=== PATIENT | female | born 1940 | race Caucasian/White ===

== ENCOUNTER → 2018-06-24 10:45 | Outpatient (BNVA) | payer OTHER, SELFPAY | PROVIDERS: PCP Student in an Organized Health Care Education/Training Program; Visit Provider Student in an Organized Health Care Education/Training Program | DX: I20.9 Angina pectoris, unspecified (principal); I25.2 Old myocardial infarction; I10 Essential (primary) hypertension; J44.9 Chronic obstructive pulmonary disease, unspecified; F17.210 Nicotine dependence, cigarettes, uncomplicated | CPT/HCPCS: 99204; 99215 ==

== ENCOUNTER 2018-09-18 11:19 | Outpatient (CLI) | payer OTHER, SELFPAY ==
--- NOTE | 2018-09-18 10:43 | DI.RAD_ITS ---
SYMPTOM/DIAGNOSIS: COUGH, DECREASED BREATH SOUNDS. PA AND LATERAL CHEST: 09/18/18 The lungs are hyperinflated but clear. Cardiac size is at the upper limits of normal. No pleural effusions seen. No evidence of pneumothorax. CONCLUSION: No evidence of acute change.
== END 2018-09-18 11:39 ==
PROVIDERS: PCP Student in an Organized Health Care Education/Training Program; Visit Provider Student in an Organized Health Care Education/Training Program
DX: R05 Cough (principal); R09.89 Other specified symptoms and signs involving the circulatory and respiratory systems
CPT/HCPCS: 71046

== ENCOUNTER 2018-12-25 15:52 | Outpatient (REF) | payer OTHER, SELFPAY ==
[2018-12-25 18:39] LABS: HCT 41.7 % (36.0-46.0); HGB 13.4 g/dL (12.0-15.5); Mean Corp. HGB Concentration 32.1 g/dL (32.0-36.0); Mean Corpuscular Hemoglobin 30.1 pg (27.0-33.0); Mean Corpuscular Volume 93.7 fL (80-95); Mean Platelet Volume 12.8 fL (8.0-11.0); Platelet Count 159 x1000/uL (130-400); RBC 4.45 m/cumm (4.00-5.20); RBC Distribution Width 14.5 % (11.7-14.6); White Blood Cell Count 5.25 k/cumm (4.4-10.8)
[2018-12-25 18:57] LABS: ALT 19 U/L (12-78); AST 19 U/L (15-37); Alkaline Phosphatase 79 U/L (46-116); Anion Gap 7.3 mmol/L (3-11); BUN 14 mg/dL (7-18); Bilirubin, Total 0.4 mg/dL (0.2-1.0); CO2 30.7 mmol/L (21.0-32.0); CREATININE 0.95 mg/dL (0.55-1.02); Calcium 9.4 mg/dL (8.5-10.1); Chloride 103 mmol/L (98-107); Cholesterol 207 mg/dL (50-200); Estimated GFR 57.19 (mL/min/1.73m2); Glucose 86 mg/dL (70-100); HDL Cholesterol 86 mg/dL (40-60); LDL CHOLESTEROL 104 mg/dL (<100); Potassium 4.1 mmol/L (3.5-5.1); Sodium 141 mmol/L (136-145); Triglyceride 79 mg/dL (30-150)
== END 2018-12-25 16:12 ==
LOC: LBN 15:52
PROVIDERS: PCP Student in an Organized Health Care Education/Training Program; Visit Provider Student in an Organized Health Care Education/Training Program
DX: I25.10 Atherosclerotic heart disease of native coronary artery without angina pectoris; K29.50 Unspecified chronic gastritis without bleeding; N28.9 Disorder of kidney and ureter, unspecified; I10 Essential (primary) hypertension
CPT/HCPCS: 80053; 80061; 83721; 85027

== ENCOUNTER 2019-01-28 02:09 | Outpatient (CLI) | payer OTHER, SELFPAY ==
[2019-01-28 10:17] LABS: Vitamin B12 633 pg/mL (193-986)
== END 2019-01-28 02:29 ==
PROVIDERS: PCP Student in an Organized Health Care Education/Training Program; Visit Provider Student in an Organized Health Care Education/Training Program
DX: R53.83 Other fatigue (principal); D51.9 Vitamin B12 deficiency anemia, unspecified
CPT/HCPCS: 36415; 82607; 82746; 84443

== ENCOUNTER 2019-02-11 01:09 | Outpatient (CLI) | payer OTHER, SELFPAY ==
--- NOTE | 2019-02-11 09:05 | DI.CT_ITS ---
SYMPTOM/DIAGNOSIS: ASSESS ABD BLOATING, R/O ISCHEMIC BOWEL R10.9 AB PAIN K29.50 CHRONIC GASTRITIS R10.[address] ANGIOGRAPHY ABDOMEN AND PELVIS: 02/11 CT angiography was performed with multi slice acquisition and multi planar and 3D reconstruction. CT angiography of the abdomen and pelvis was performed with a bolus infusion of 60 cc Omnipaque 350. There was flow limitation due to limited venous access and there is suboptimal opacification of the arterial circulation. No abdominal aortic aneurysm seen. Celiac superior mesenteric renal and inferior mesenteric arteries show grossly normal diameter bilaterally. Common internal and external iliac arteries appear intact as visualized. Liver, spleen and pancreas are unremarkable. Adrenals and kidneys appear normal. No evidence of urinary tract obstruction or calcification. No abdominal or pelvic adenopathy seen. No significant abdominal wall hernia seen. Gallbladder is mildly distended and there are probable gallstones. No biliary dilatation seen. Appendix is of normal diameter but there are a couple appendicoliths noted. No evidence of diverticulitis or bowel obstruction. CONCLUSION: No gross vascular abnormality identified on limited study which was of decreased technical quality due to limited venous access/flow rate. Note is made of cholelithiasis. Note is made of appendicoliths and an otherwise unremarkable appearing appendix.
[2019-02-11 10:39] LABS: Anion Gap 7.8 mmol/L (3-11); BUN 14 mg/dL (7-18); CO2 28.2 mmol/L (21.0-32.0); CREATININE 0.75 mg/dL (0.55-1.02); Calcium 9.2 mg/dL (8.5-10.1); Chloride 108 mmol/L (98-107); Glucose 79 mg/dL (70-100); Potassium 3.9 mmol/L (3.5-5.1); Sodium 144 mmol/L (136-145)
[2019-02-11] MEDS: Omnipaque 350 MG/ML 100 ML BTL IJ (11:16)
== END 2019-02-11 01:29 ==
PROVIDERS: PCP Student in an Organized Health Care Education/Training Program; Visit Provider Student in an Organized Health Care Education/Training Program
DX: R10.9 Unspecified abdominal pain; I25.10 Atherosclerotic heart disease of native coronary artery without angina pectoris; K29.50 Unspecified chronic gastritis without bleeding; R10.84 Generalized abdominal pain; R14.0 Abdominal distension (gaseous); K80.20 Calculus of gallbladder without cholecystitis without obstruction; K38.8 Other specified diseases of appendix
CPT/HCPCS: 36415; 80048; 74174; J3490

== ENCOUNTER → 2019-04-23 09:43 | Outpatient (BNVA) | payer OTHER, SELFPAY | PROVIDERS: PCP Student in an Organized Health Care Education/Training Program; Referring Provider Student in an Organized Health Care Education/Training Program; Visit Provider Surgery | DX: R10.10 Upper abdominal pain, unspecified (principal); G89.29 Other chronic pain; J44.9 Chronic obstructive pulmonary disease, unspecified | CPT/HCPCS: 99203; 99214 ==

== ENCOUNTER 2019-05-18 08:50 | Day surgery (SDC) | payer OTHER, SELFPAY ==
--- NOTE | 2019-05-13 13:49 | PDOC.ANES ---
Date of service: 05/13/19 Time of Service: 13:49 Anesthesia Note Report Anesthesia Note: Nimesh Vallejo RN was completing her preoperative phone evaluation and came to me with a few concerns prior to Rachel's EGD on 05/18/19. The concerns that were relayed to me were that she has not been taking her amlodipine as prescribed and has only been taking her atenolol once a day instead of twice a day and it sounded that the patient may require some education around this if she is not taking her medications as needed. The other issue was that she had chest pressure in the middle of the night this week and took 3 SL Nitroglycerin's without relief but after resting more and taking an anxiety pill, this sensation went away. I did pass this information along to her PCP, Dr. La who will investigate this further. It sounds likely that this incident may be more anxiety than cardiac in nature, but given her history of stable angina, we would like to make sure at her PCP appointment on 05/14, that further cardiac workup is completed, if indicated.
--- NOTE | 2019-05-18 07:12 | W.PM.ENDDOP ---
Date of service: 05/18/19 Time of Service: 10:49 Endoscopy Report DATE OF PROCEDURE: 05/18/19 PRE-OP DIAGNOSIS: Abdominal pain POST-OP DIAGNOSIS: other (gastritis, esophagitis) PROCEDURE: EGD with biopsies SURGEON: Carie Andrews ANESTHESIA: other (General/ ASA 2/[place]io Blake, PRESLEY) ESTIMATED BLOOD LOSS: 3 PATHOLOGY: other (duodenal bx, antrum/fundus bx, GE junction bx) COMPLICATIONS: None DISPOSITION: same day INDICATIONS: Mrs. Celis is a pleasant 79 year old female with upper abdominal and flank pain that was seen in the office. EGD was recommended as a start for the workup. Risks, benefits and complications have been reviewed. Complications include but are not limited to bleeding, pain, perforation, sore throat, aspiration, and adverse reaction to the medications. Questions were entertained and answered to their satisfaction and they wished to proceed. No guarantees were given or implied. PREP: Miralax/Dulcolax PROCEDURE START TIME: 10:36 FINDINGS: Mild inflammation of the pylorus and antrum, moderate inflammation of the fundus with some bleeding Mild inflammation of the GE junction PROCEDURE DESCRIPTION: After informed consent was obtained the patient was take to the procedure room and placed in a supine position. Monitors were applied and a time out was done. The patients name, date of , procedure type, allergies to medications and metal in their body was reviewed. A bite block was placed and the patient was sedated. Once sedated and comfortable the gastroscope was advanced through the oropharynx which was grossly normal into the esophagus. The proximal and mid-esophagus were normal. In the distal esophagus there was mild inflammation noted. The scope was advanced into the stomach and through the pylorus into the 3rd portion of the duodenum. The duodenum was noted to be normal. Biopsies were done to rule out celiac. The scope was retracted back into the stomach and biopsies were done to rule out H. pylori. There were no ulcers. The scope was retroflexed. The cardia and fundus were noted to have some inflammation as well as some old blood. There was no hiatal hernia noted. The scope was retracted back into the esophagus and biopsies were done of the GE junction to rule out Jean's. The Z line was regular. The GE junction was at 40 cm. The scope was removed and the patient was woken up and taken back to [facility] in stable condition. Follow up: 3-4 weeks with PCP If continued symptoms recommend GI referral
--- NOTE | 2019-05-18 07:14 | W.PM.DSUDISC ---
Discharge Plan Disposition Patient Disposition: HOME Condition: Good Discharge Details Reason For Visit: Upper abdominal pain Attending Provider: Carie Andrews Primary Care Provider: Nancy La Home Meds and New Rx's Prescriptions: New ranitidine HCl 300 mg tablet 300 mg PO BID Qty: 60 RF: 1 sucralfate [Carafate] 100 mg/mL suspension 10 ml PO QID 14 Days Qty: 560 RF: 1 Continued atenolol 50 mg tablet 50 mg PO DAILY Qty: 90 RF: 3 acetaminophen [Tylenol] 325 mg tablet 325 mg PO ONCE PRNRF: 0 aspirin 81 MG tablet,delayed release (DR/EC) 81 mg PO DAILY RF: 0 bacitracin zinc [Antibiotic (bacitracin zinc)] 28.4 GM ointment 28.4 gm Topical BID Qty: 1 RF: 0 lisinopril 10 mg tablet 10 mg PO DAILY Qty: 90 RF: 3 albuterol sulfate [ProAir HFA] 90 mcg/actuation HFA aerosol inhaler 2 puff Inhalation Q6H PRN Qty: 1 RF: 3 nitroglycerin 400 mcg/spray spray,non-aerosol 0.4 mg Translingual ONCE Qty: 1 RF: 6 fluticasone propion-salmeterol [Advair Diskus] 500-50 mcg/dose blister with device 1 inh Inhalation BID Qty: 1 RF: 11 alprazolam 0.25 mg tablet 0.25 mg PO DAILY PRN (Reason: anxiety, angina) Qty: 30 RF: 0 Spiriva with HandiHaler 18 mcg capsule, w/inhalation device 18 mcg Inhalation DAILY Qty: 30 RF: 4 benzonatate [Tessalon Perles] 100 mg capsule 100 mg PO TID Qty: 90 RF: 1 codeine-guaifenesin 10-100 mg/5 mL liquid 10 ml PO Q6H PRN (Reason: severe cough) Qty: 120 RF: 1 amlodipine 10 mg tablet 10 mg PO DAILY Qty: 30 RF: 3 Hold Instructions: low BP theophylline 100 mg tablet extended release 12 hr 200 mg PO Q12H PRN RF: 0 tramadol 50 mg tablet 25 mg PO PRN PRN (Reason: pain) RF: 0 Discontinued bismuth subsalicylate [Pepto-Bismol] 262 MG/15 ML suspension 262 mg PO PRN RF: 0 Discharge Instructions Instructions: Upper Endoscopy (GEN), Diet for Stomach Ulcers and Gastritis (GEN), Gastritis (DC), Esophagitis (DC) Additional Instructions: Findings: mild inflammation of the stomach and esophagus Follow up: with your Primary Care Physician in 2-3 weeks Medications: Please start taking Ranitidine 300 mg, 1 tab 2 x a day, and Carafate 10 ml 30 minutes before meals and at bedtime Please call if you develop: fevers >101.5 Nausea or Vomiting Abdominal pain that is not transient DAY SURGERY UNIT POST ENDOSCOPY INSTRUCTIONS 1. Because there will be medication in your system for the next 24 hours, you may feel a little sleepy. Your coordination will be affected. Therefore: a. Do not drive or operate dangerous equipment for 24 hours. b. Do not drink alcohol beverages for 24 hours (not even beer). c. Plan to go home and rest for the day. 2. Generally there are no restrictions on your activity after a day or so has gone by, but you may feel a bit fatigued for a few days. 3 After you arrive home you may have a light meal and return to a normal diet as you can tolerate it without feeling sick to your stomach. 4. After surgery, you may feel pain or discomfort. This should be only transient, but if it persists please contact your doctor. 5. If there are any questions regarding the findings of your procedure, please feel free to contact your doctor. 6. If you are unable to contact your doctor with a problem, contact the hospital at [phone]. 7. Continue all your regular medications unless directed otherwise. I understand the above instructions and have no questions. Signature of Patient or Responsible Adult Escort Date/Time Name of Responsible Adult Escort Signature of Nurse Date/Time Referrals: Nancy La DO [Primary Care Provider] - (2-3 weeks) Activity:: Activity as Tolerated Diet:: low acid diet Discharge Orders Discharge Orders: Discharge Order (Routine); Ordered 05/18/19 Ordered By: Carie Andrews DS: Diagnosis Discharge Diagnosis (1) H/O esophagogastroduodenoscopy: Status: Chronic (2) Abdominal pain: Status: Chronic
[2019-05-18 09:26] VITALS: BP 147/88; PULSE 58; RESP 16; TEMP 36.6; O2SAT 98
[2019-05-18 09:44] VITALS: BP 147/88; PULSE 58; RESP 16; TEMP 36.6; O2SAT 98
[2019-05-18 09:49] VITALS: BP 147/88; PULSE 58; RESP 16; TEMP 36.6; O2SAT 98
[2019-05-18] MEDS: Lactated Ringers 1,000 ML 80 ML IV (09:50)
--- NOTE | 2019-05-18 10:39 | STOM_PTH ---
PATIENT: Rachel Celis LOC: [facility] U#:[id number] AGE/SX: 79/F ROOM: RE05/18/[address]: Carie Andrews MD : [id number] BED: DIS: 05/18/2019 SPEC #: [id number] RECD: 05/18/19 12:51 STATUS: ROGERS RE #: [id number] YANG: 05/18/19 10:[address]: Carie Andrews DEPT: Surgical Specimen RECD BY: Yesenia Barbosa ENTERED: 05/18/19 12:53 SP TYPE: STOMACH OTHR DR: Nancy La DO Tissues: 1 - BIOPSY BOWEL 2 - STOMACH BIOPSY 3 - ESOPHAGUS BIOPSY Procedures: GROSS AND MICRO LEVEL 4 Comments: [id number]
[2019-05-18 11:23] VITALS: BP 173/87; PULSE 59; RESP 18; TEMP 36; O2SAT 94
== END 2019-05-18 11:50 | disposition home or self-care (01) ==
LOC: SUR 08:50
PROVIDERS: PCP Student in an Organized Health Care Education/Training Program; Visit Provider Surgery
PROC: 0DJ68ZZ Inspection of Stomach, Via Natural or Artificial Opening Endoscopic (ICD-10-PCS; CPT 43235; principal; 2019-05-18 10:30)
DX: R10.11 Right upper quadrant pain (principal); K29.80 Duodenitis without bleeding; K31.89 Other diseases of stomach and duodenum; K21.0 Gastro-esophageal reflux disease with esophagitis; J44.9 Chronic obstructive pulmonary disease, unspecified; I10 Essential (primary) hypertension
CPT/HCPCS: 43239; 88305; J2250; J3010

== ENCOUNTER 2019-09-15 11:45 | Inpatient (IN) | payer OTHER, SELFPAY ==
[2019-09-15] VITALS (51 sets, daily range): BP systolic 92–127; BP diastolic 48–70; PULSE 78–111; RESP 4–26; TEMP 36.2–38.5; O2SAT 91–99
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
[2019-09-15] MEDS: Normal Saline 1,000 ML 1000 ML IV ×2 (12:08→13:05)
[2019-09-15] MEDS: Acetaminophen 500 MG TAB 1000 MG PO (12:11)
[2019-09-15] MEDS: Albuterol/Ipratropium 3 ML UPD VIAL UPD ×2 (12:16→17:52)
[2019-09-15 12:32] LABS: Lactate 1.2 mmol/L (0.6-1.4)
[2019-09-15 12:35] LABS: Abs Immature Grans 0.03 k/cumm (0.0-0.09); Absolute Lymphocyte Count 0.61 k/cumm (1.2-3.4); Absolute Monocyte Count 0.49 k/cumm (0.11-0.7); Absolute Neutrophil Count 5.49 k/cumm (1.2-6.7); Immature Grans % 0.5 %; Lymphocytes % 9.2; Mean Corp. HGB Concentration 33.3 g/dL (32.0-36.0); Mean Corpuscular Hemoglobin 29.2 pg (27.0-33.0); Mean Corpuscular Volume 87.7 fL (80-95); Mean Platelet Volume 11.6 fL (8.0-11.0); Monocytes % 7.4; Neutrophils % 82.9; Platelet Count 101 x1000/uL (130-400); RBC 4.79 m/cumm (4.00-5.20); RBC Distribution Width 14.9 % (11.7-14.6); White Blood Cell Count 6.62 k/cumm (4.4-10.8)
[2019-09-15] MEDS: Oseltamivir 75 MG CAP PO ×2 (12:47→20:38)
[2019-09-15 12:51] LABS: Bilirubin Small (Negative); Blood Moderate (Negative); Clarity Clear (Clear); Glucose Negative (Negative); Ketones 80 mg/dL (Negative); Leukocyte Esterase Negative (Negative); Nitrite Negative (Negative); Specific Gravity 1.025 (1.005-1.025); pH 6.5 (5-8)
[2019-09-15 12:51] LABS: Salicylate 2.8 mg/dL (2.8-20.0)
[2019-09-15 12:53] LABS: ALT 16 U/L (14-59); AST 26 U/L (15-37); Albumin 3.4 g/dL (3.4-5.0); Alkaline Phosphatase 57 U/L (46-116); Anion Gap 12.4 mmol/L (3-11); BUN 15 mg/dL (7-18); Bilirubin, Total 0.6 mg/dL (0.2-1.0); CO2 24.6 mmol/L (21.0-32.0); CREATININE 1.05 mg/dL (0.55-1.02); Calcium 8.3 mg/dL (8.5-10.1); Chloride 98 mmol/L (98-107); Estimated GFR 50.82 (mL/min/1.73m2); Glucose 107 mg/dL (74-106); Magnesium 1.5 mg/dL (1.8-2.4); Potassium 3.8 mmol/L (3.5-5.1); Sodium 135 mmol/L (136-145); Total Protein 6.9 g/dL (6.4-8.2); Troponin I 0.05 ng/Ml (<0.06)
[2019-09-15 13:12] LABS: Bacteria Few HPF (Negative); C & S Indicated? C&S Done As Ordered; Crystals Negative HPF (Negative); Epithelial Cells Negative HPF (Negative); Mucus Trace (Negative)
[2019-09-15 13:20] LABS: Acetaminophen < 2 ug/mL (10-30)
--- NOTE | 2019-09-15 13:34 | DI.CT_ITS ---
EXAM: CT HEAD WO CLINICAL HISTORY: mental status changes TECHNIQUE: Noncontrast FINDINGS: There is mild atrophy consistent with the patient's age. The ventricles are normal in size. No acute hemorrhage, infarct or mass is seen. There is no evidence of skull fracture. The sinuses and mastoid air cells appear clear where visualized. IMPRESSION: No acute abnormality.
--- NOTE | 2019-09-15 13:42 | DI.RAD_ITS ---
EXAM: XR CHEST 2V PA LATERAL INDICATION: cough, fever. COMPARISON: XR CHEST 2V PA LATERAL from 09/18/2018 TECHNIQUE: 2D digital imaging was performed. FINDINGS: Heart size is at the upper limits of normal. The aorta is tortuous. There are increased densities seen at both lung bases which were not seen on the previous exam. The the findings could represent b ibasilar infiltrates. No effusions are seen. There are underlying emphysematous changes. There is accentuation of the thoracic kyphosis at the thoracolumbar junction but no evidence of a compression fracture. IMPRESSION: Question of bibasilar infiltrates.
[2019-09-15] MEDS: MAGNESIUM SULFATE 1 GM/100 ML BAG IVPB (13:56)
[2019-09-15 15:18] LABS: Troponin I 0.05 ng/Ml (<0.06)
[2019-09-15] MEDS: methylPREDNISolone SUCC 125 MG VIAL IVP (15:41)
[2019-09-15] MEDS: Normal Saline Flush 10 ML SYR IVP (15:42)
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
[2019-09-15] MEDS: Normal Saline 1,000 ML 125 ML IV (17:07)
[2019-09-15] MEDS: cefTRIAXone 1 GM/50 ML BAG IVPB (17:50)
[2019-09-15] MEDS: Enoxaparin 40 MG/0.4 ML SYR SC (17:51)
[2019-09-15] MEDS: DOXYCYCLINE 100 MG in Normal Saline 100 ML IVPB (18:51)
[2019-09-15] MEDS: Nicotine 21 MG/24 HR PATCH TD (20:37)
[2019-09-15] MEDS: Budesonide/Formoterol 160/4.5 6 GM 60 PUFF INH IH (21:52)
[2019-09-16] VITALS (12 sets, daily range): BP systolic 110–144; BP diastolic 66–80; PULSE 80–119; RESP 1–20; TEMP 36.3–37.2; O2SAT 95–100
[2019-09-16] MEDS: Albuterol/Ipratropium 3 ML UPD VIAL UPD ×4 (00:43→18:32)
[2019-09-16] MEDS: Normal Saline Flush 10 ML SYR IVP (02:38)
[2019-09-16] MEDS: DOXYCYCLINE 100 MG in Normal Saline 100 ML IVPB ×2 (06:12→18:32)
[2019-09-16] MEDS: traMADol 50 MG TAB 25 MG PO ×2 (07:39→13:59)
[2019-09-16] MEDS: predniSONE 20 MG TAB 40 MG PO (08:21)
[2019-09-16] MEDS: Oseltamivir 75 MG CAP PO ×2 (08:21→20:36)
[2019-09-16] MEDS: Atenolol 50 MG TAB PO (08:21)
[2019-09-16] MEDS: Budesonide/Formoterol 160/4.5 6 GM 60 PUFF INH IH ×2 (09:14→20:37)
[2019-09-16] MEDS: Sucralfate 1 GM TAB PO ×3 (09:29→20:39)
[2019-09-16] MEDS: Acetaminophen 325 MG TAB 650 MG PO ×2 (11:26→22:54)
--- NOTE | 2019-09-16 11:40 | PDOC.CMIN ---
- If Service Date Differs Date of service: 09/16/19 Time of Service: 11:40 Care Management Initial Assess REASON FOR HOSPITALIZATION:: Influenza B positive PAST MEDICAL HISTORY/PAST SURGICAL HISTORY:: Chronic Pain, HTN, B12 def, anemia, COPD, CAD, anxiety foot lesion, tendonitis, tinnitus PREVIOUS FUNCTIONAL STATUS/SOCIAL/FAMILY SUPPORTS:: Rachel lives in [facility] with her son Hai who is disabled. Aminata also has a daughter Jolly who lives in [place]. Rachel takes care of Hai fulltime with the assistance of private staff through [facility]. Aminata is independent with ADL's and transportation. CURRENT FUNCTIONAL STATUS:: Aminata is alert and engaged with CM she welcomes conversation r/t her son Hai and options for respite so that she can recover from illness. Aminata states she is feeling better she does have a harsh cough and reports her appitite is diminshed. Aminata's daughter is arriving from [place] this afternoon and CM will meet with both to determine a plan for Hai. Aminata requested CM contact [facility] and determine if Hai could receive increase in services instead of being outside the home. ADVANCE DIRECTIVES:: On file daughter Jolly is agent Has patient been provided with information about the portal?: Yes Did the patient sign up for the portal?: No CODE STATUS:: Full Code INSURANCE COVERAGE / FINANCIAL ISSUES:: [facility] CURRENT HOME/COMMUNITY SERVICES/EQUIPMENT:: Choices for care for her son Hai and agency support through [facility] PRIMARY CARE PHYSICIAN:: Nancy La POTENTIAL DISCHARGE NEEDS:: Follow up with provider scheduled for 09/24/2019 PATIENT/FAMILY EDUCATION NEEDS:: Discharge education, limitations and follow up plan of care including ask me three and self management ANTICIPATED BARRIERS TO DISCHARGE:: Symptom management and ability to provide self care, including hydration. TRANSPORTATION:: Via private car with family at time of discharge. PLAN:: Rachel is being treated for Influenza B. She will be dicharged home when medically ready per provider she is receiving IV abx and Tamiflu. CM will continue to offer supports including assisting with community based supports with her son to allow Aminata to recover from illness.
--- NOTE | 2019-09-16 12:34 | PGE_ITS ---
Date of Service Date of service: 09/16/19 Time of Service: 12:34 Assessment and Plan Assessment and plan (1) Influenza B: Status: Acute Assessment and plan: admission note in error, patient is positive for B NOT A. respiratory status has been stable. continue tamiflu and monitor (2) COPD (chronic obstructive pulmonary disease): Status: Chronic Assessment and plan: stable, oxygenating well on room air. continue ceftriaxone and doxycycline day 2/5. continue updrafts. continue steroid burst day 2 . (3) Chronic gastritis without bleeding: Status: Chronic Assessment and plan: stable on home medications (4) Tobacco abuse: Status: Chronic Assessment and plan: smoking cessation discussed, patient is motivated and states she hasn't smoked in 3 weeks, can have nicotine patch if needed. (5) Hypertension: Status: Chronic Assessment and plan: blood pressures improved, will resume amlodipine and continue to monitor. adjust as needed. awaiting todays labs to resume lisinopril. Qualifiers: Hypertension type: essential hypertension Qualified Code(s): I10 - Essential (primary) hypertension (6) Stress due to illness of family member: Status: Acute Assessment and plan: has made arrangements for her sons care while hospitalized. continue home medications, daughter is due to arrive from out of town later today (7) DVT prophylaxis: Status: Acute Assessment and plan: enoxaparin and teds (8) CAD (coronary artery disease), [place] coronary artery: Status: Chronic Assessment and plan: stable, continue asa, betablocker (9) Hypomagnesemia: Status: Acute Assessment and plan: received 1 gm IV yesterday, will repeat level today. (10) Discharge planning issues: Status: Acute Assessment and plan: case management following, anticipate discharge to home with no new services. Subjective Subjective Patient reports: diarrhea Interval history since last seen: no fevers overnight, blood pressures have stabilized. is oxygenating well on room air. having loose stools. no abdominal pain or vomiting. Exam Const General: cooperative, frail appearing (elderly female of stated age) and ill appearing chronically Nutritional Appearance: average body habitus Orientation: alert, awake, oriented to person and oriented to place HENOK Head: normal to inspection, normocephalic and atraumatic Resp Effort & Inspection: normal respiratory effort Cardio Rate: regular rate Rhythm: regular rhythm GI Inspection: normal to inspection Palpation: soft Auscultation: normal bowel sounds Skin General skin exam: no rashes or lesions noted Neuro General: alert, awake and oriented Extrem General: normal to inspection, full ROM and no pedal edema Objective Objective Clinical Data: Abnormal lab results 09/15/19 09/15/19 09/15/19 Range/Units 12:05 12:05 12:25 RDW 14.9 H (11.7-14.6) % Plt Count 101 L (130-400) x1000/uL MPV 11.6 H (8.0-11.0) fL Absolute Lymphocytes 0.61 L (1.2-3.4) k/cumm Sodium 135 L (136-145) mmol/L Anion Gap 12.4 H (3-11) mmol/L Creatinine 1.05 H (0.55-1.02) mg/dL Glucose 107 H (74-106) mg/dL Calcium 8.3 L (8.5-10.1) mg/dL Magnesium 1.5 L (1.8-2.4) mg/dL Urine Protein 100 H (Negative) mg/dL Urine Ketones 80 H (Negative) mg/dL Urine Blood Moderate H (Negative) Urine Bilirubin Small H (Negative) Urine Urobilinogen 1.0 H (Up TO 0.2) EU/dL Urine RBC 10-20 H (0-2) HPF Vital Signs Temperature 37.2 C 09/16/19 07:40 Temperature Source Tympanic 09/16/19 07:40 Pulse 89 09/16/19 11:48 Pulse Rhythm Regular 09/16/19 09:01 Pulse 86 09/15/19 16:20 Respiratory Rate 16 09/16/19 11:48 Respiratory Effort 09/16/19 09:01 Respiratory Depth Shallow 09/16/19 09:01 Respiratory Pattern Normal 09/16/19 09:01 Blood Pressure 144/80 H 09/16/19 07:40 Blood Pressure Mean 66 09/15/19 16:15 Blood Pressure Position Supine 09/15/19 11:55 Pulse Oximetry 96 09/16/19 11:48 Oxygen Delivery Method Room Air 09/16/19 11:40 Oxygen Flow Rate 0 09/16/19 11:40 Pain Level 8 09/16/19 07:40 Comment 09/15/19 16:55 Intake & Output 09/15/19 09/16/1909/16/20 23:59 11:59 23:59 Intake Total 2570 / 2570 1370 / 1370 Output Total 1100 / 1100 750 / 750 Balance 1470 / 1470 620 / 620 Weight 58 kg Intake: IV 2250 / 2250 1100 / 1100 Oral 320 / 320 270 / 270 Output: Urine 1100 / 1100 750 / 750 Other: Urine Color Yellow Yellow Urine Appearance Clear Clear Urine Odor Normal Normal Stool Size Large Small Stool Characteristics Soft Soft Formed Voiding Methods Toilet Bedside Commode Laboratory Results WBC 6.62 k/cumm (4.4-10.8) 09/15/19 12:05 RBC 4.79 m/cumm (4.00-5.20) 09/15/19 12:05 Hgb 14.0 g/dL (12.0-15.5) 09/15/19 12:05 Hct 42.0 % (36.0-46.0) 09/15/19 12:05 MCV 87.7 fL (80-95) 09/15/19 12:05 MCH 29.2 pg (27.0-33.0) 09/15/19 12:05 MCHC 33.3 g/dL (32.0-36.0) 09/15/19 12:05 RDW 14.9 % (11.7-14.6) H 09/15/19 12:05 Plt Count 101 x1000/uL (130-400) L 09/15/19 12:05 MPV 11.6 fL (8.0-11.0) H 09/15/19 12:05 Immature Gran % 0.5 % 09/15/19 12:05 Neutrophils % 82.9 09/15/19 12:05 Band Neutrophils % Cancelled 09/15/19 11:54 Lymphocytes % 9.2 09/15/19 12:05 Atypical Lymphs % Cancelled 09/15/19 11:54 Monocytes % 7.4 09/15/19 12:05 Eosinophils % 0.0 09/15/19 12:05 Basophils % 0.0 09/15/19 12:05 Metamyelocytes % Cancelled 09/15/19 11:54 Myelocytes % Cancelled 09/15/19 11:54 Promyelocytes % Cancelled 09/15/19 11:54 Absolute Neutrophils 5.49 k/cumm (1.2-6.7) 09/15/19 12:05 Absolute Lymphocytes 0.61 k/cumm (1.2-3.4) L 09/15/19 12:05 Absolute Monocytes 0.49 k/cumm (0.11-0.7) 09/15/19 12:05 Absolute Eosinophils 0.00 k/cumm (0.0-0.7) 09/15/19 12:05 Absolute Basophils 0.00 k/cumm (0.0-0.2) 09/15/19 12:05 Nucleated RBCs Cancelled 09/15/19 11:54 Differential Comment Cancelled 09/15/19 11:54 Other Cell Type Cancelled 09/15/19 11:54 RBC Morphology Cancelled 09/15/19 11:54 Polychromasia Cancelled 09/15/19 11:54 Hypochromasia Cancelled 09/15/19 11:54 Poikilocytosis Cancelled 09/15/19 11:54 Basophilic Stippling Cancelled 09/15/19 11:54 Anisocytosis Cancelled 09/15/19 11:54 Microcytosis Cancelled 09/15/19 11:54 Macrocytosis Cancelled 09/15/19 11:54 Spherocytes Cancelled 09/15/19 11:54 Target Cells Cancelled 09/15/19 11:54 Tear Drop Cells Cancelled 09/15/19 11:54 Ovalocytes Cancelled 09/15/19 11:54 Stomatocytes Cancelled 09/15/19 11:54 Villagomez-Swarthmore Bodies Cancelled 09/15/19 11:54 Natasha Cells Cancelled 09/15/19 11:54 Acanthocytes (Spur) Cancelled 09/15/19 11:54 Schistocytes Cancelled 09/15/19 11:54 Sodium 135 mmol/L (136-145) L 09/15/19 12:05 Potassium 3.8 mmol/L (3.5-5.1) 09/15/19 12:05 Chloride 98 mmol/L (98-107) 09/15/19 12:05 Carbon Dioxide 24.6 mmol/L (21.0-32.0) 09/15/19 12:05 Anion Gap 12.4 mmol/L (3-11) H 09/15/19 12:05 BUN 15 mg/dL (7-18) 09/15/19 12:05 Creatinine 1.05 mg/dL (0.55-1.02) H 09/15/19 12:05 Estimated GFR/1.73 m2 50.82 (mL/min/1.73m2) 09/15/19 12:05 Glucose 107 mg/dL (74-106) H 09/15/19 12:05 Lactate 1.2 mmol/L (0.6-1.4) 09/15/19 12:05 Calcium 8.3 mg/dL (8.5-10.1) L 09/15/19 12:05 Magnesium 1.5 mg/dL (1.8-2.4) L 09/15/19 12:05 Magnesium Cancelled 09/15/19 12:05 Total Bilirubin 0.6 mg/dL (0.2-1.0) 09/15/19 12:05 AST 26 U/L (15-37) 09/15/19 12:05 ALT 16 U/L (14-59) 09/15/19 12:05 Alkaline Phosphatase 57 U/L (46-116) 09/15/19 12:05 Troponin I 0.05 ng/Ml (<0.06) 09/15/19 14:55 Total Protein 6.9 g/dL (6.4-8.2) 09/15/19 12:05 Albumin 3.4 g/dL (3.4-5.0) 09/15/19 12:05 Urine Color Yellow (Yellow) 09/15/19 12:25 Urine Clarity Clear (Clear) 09/15/19 12:25 Urine pH 6.5 (5-8) 09/15/19 12:25 Ur Specific Lyons 1.025 (1.005-1.025) 09/15/19 12:25 Urine Protein 100 mg/dL (Negative) H 09/15/19 12:25 Urine Ketones 80 mg/dL (Negative) H 09/15/19 12:25 Urine Blood Moderate (Negative) H 09/15/19 12:25 Urine Nitrite Negative (Negative) 09/15/19 12:25 Urine Bilirubin Small (Negative) H 09/15/19 12:25 Urine Urobilinogen 1.0 EU/dL (Up TO 0.2) H 09/15/19 12:25 Ur Leukocyte Esterase Negative (Negative) 09/15/19 12:25 Urine RBC 10-20 HPF (0-2) H 09/15/19 12:25 Urine WBC 5-10 HPF (0-5) 09/15/19 12:25 Ur Epithelial Cells Negative HPF (Negative) 09/15/19 12:25 Urine Crystals Negative HPF (Negative) 09/15/19 12:25 Urine Bacteria Few HPF (Negative) 09/15/19 12:25 Urine Casts 5-10 coarse granular LPF (Negative) 09/15/19 12:25 Urine Mucus Trace (Negative) 09/15/19 12:25 Ur Culture Indicated? C&s done as ordered 09/15/19 12:25 Urine Glucose Negative mg/dL (Negative) 09/15/19 12:25 Salicylates 2.8 mg/dL (2.8-20.0) 09/15/19 12:05 Acetaminophen < 2 ug/mL (10-30) 09/15/19 12:05
[2019-09-16] MEDS: amLODIPine 10 MG TAB PO (13:50)
--- NOTE | 2019-09-16 13:52 | CHAPLAIN ---
Rachel was resting in bed when I visited. I learned from morning meeting that she cares for a disabled son. She said her daughter is on her way here. Rachel plays tennis with a pro twice at week at [employer] and looks forward to that time.
[2019-09-16 16:06] LABS: Abs Immature Grans 0.01 k/cumm (0.0-0.09); Absolute Lymphocyte Count 0.38 k/cumm (1.2-3.4); Absolute Neutrophil Count 7.99 k/cumm (1.2-6.7); HCT 39.9 % (36.0-46.0); Immature Grans % 0.1 %; Lymphocytes % 4.4; Mean Corp. HGB Concentration 32.6 g/dL (32.0-36.0); Mean Corpuscular Hemoglobin 28.9 pg (27.0-33.0); Mean Corpuscular Volume 88.7 fL (80-95); Mean Platelet Volume 11.1 fL (8.0-11.0); Monocytes % 3.5; RBC Distribution Width 15.2 % (11.7-14.6); White Blood Cell Count 8.68 k/cumm (4.4-10.8)
[2019-09-16 16:09] LABS: Anion Gap 7.3 mmol/L (3-11); BUN 13 mg/dL (7-18); CO2 27.7 mmol/L (21.0-32.0); CREATININE 0.98 mg/dL (0.55-1.02); Calcium 8.4 mg/dL (8.5-10.1); Chloride 106 mmol/L (98-107); Estimated GFR 55.03 (mL/min/1.73m2); Glucose 131 mg/dL (74-106); Potassium 3.8 mmol/L (3.5-5.1); Sodium 141 mmol/L (136-145)
[2019-09-16] MEDS: cefTRIAXone 1 GM/50 ML BAG IVPB (16:38)
[2019-09-16 16:44] LABS: Diff Comment PLT Morph Reviewed; Platelet Count 96 x1000/uL (130-400); RBC Morphology Normal
[2019-09-17 01:06] VITALS: PULSE 71; RESP 20; O2SAT 96
[2019-09-17] MEDS: Albuterol/Ipratropium 3 ML UPD VIAL UPD ×2 (01:06→06:49)
[2019-09-17 01:36] VITALS: PULSE 74; RESP 1; RESP 20; O2SAT 97
[2019-09-17] MEDS: Benzonatate 100 MG CAP PO (03:57)
[2019-09-17] MEDS: DOXYCYCLINE 100 MG in Normal Saline 100 ML IVPB (06:48)
[2019-09-17 06:49] VITALS: PULSE 83; RESP 16; RESP 7; RESP 8; O2SAT 95
[2019-09-17] MEDS: Normal Saline Flush 10 ML SYR IVP (06:49)
[2019-09-17 07:10] VITALS: BP 134/78; PULSE 100; RESP 20; TEMP 37.3; O2SAT 96
[2019-09-17] MEDS: Atenolol 50 MG TAB PO (07:50)
[2019-09-17] MEDS: predniSONE 20 MG TAB 40 MG PO (07:50)
[2019-09-17] MEDS: Oseltamivir 75 MG CAP PO (07:50)
[2019-09-17] MEDS: amLODIPine 10 MG TAB PO (07:50)
[2019-09-17] MEDS: Sucralfate 1 GM TAB PO (07:50)
[2019-09-17] MEDS: traMADol 50 MG TAB 25 MG PO (08:06)
[2019-09-17] MEDS: ALPRAZolam 0.25 MG TAB PO (08:06)
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
[2019-09-17] MEDS: Budesonide/Formoterol 160/4.5 6 GM 60 PUFF INH IH (10:53)
--- NOTE | 2019-09-17 16:57 | PDOC.CMDIS ---
- If Service Date Differs Date of service: 09/17/19 Time of Service: 12:00 LACE Index Scoring Tool - Questions: Length of Stay (in days): 2 Acuity (Admit via E.D.?): Yes E.D. Visits: 1 - Answers: Total Score: 6 Risk of Readmission: Low Risk Care Management Discharge Reason for Hospitalization: Influenza B positive Discharge Plan: Rachel is being discharged home today, her daughter is here with her from [place] and will accompany her home. CM did attempt to find placement for her handicap child however placement was not identified. CM contacted the home agency provider and they will supply more support to assist with Nirav at home. Rachel feels ready to be discharged and wants to go home today. Her daughter will transport her home at the time of discharge. Patient/Family Education Needs: Discharge education, limitations, follow-up plan of care asked me 3 and self-management.
== END 2019-09-17 11:30 | disposition home or self-care (01) | DRG 195 ==
LOC: ER 15:46 → MS 16:34
PROVIDERS: Nurse Practitioner Acute Care; Admitting Provider Family Medicine; Emergency Provider Emergency Medicine; PCP Student in an Organized Health Care Education/Training Program; Visit Provider Family Medicine
DX: J10.1 Influenza due to other identified influenza virus with other respiratory manifestations (principal); J44.9 Chronic obstructive pulmonary disease, unspecified; K29.50 Unspecified chronic gastritis without bleeding; F17.210 Nicotine dependence, cigarettes, uncomplicated; I10 Essential (primary) hypertension; Z63.6 Dependent relative needing care at home; I25.10 Atherosclerotic heart disease of native coronary artery without angina pectoris; E83.42 Hypomagnesemia
CPT/HCPCS: 36415; 51701; 80048; 80053; 87040; 87077; 87449; 93005; 94640; 96361; 96365; 96375; 99223; 99233; 99239; 99285; J1650; 70450; 71046; 80329; 81003; 81015; 83605; 83735; 84484; 85025; 87070; 87086; 87205; 93010; J0696; J2930; J3475; J7512; J7620

== ENCOUNTER 2019-12-15 02:14 | Outpatient (CLI) | payer OTHER, SELFPAY ==
--- NOTE | 2019-12-15 10:36 | DI.US_ITS ---
APPROVED REPORT EXAM: Comprehensive 2D, Doppler, and color-flow Echocardiogram Patient Location: Out-Patient [employer] Burner: Pooja Hernandez RDCS (AE) Indications: Shortness of Breath, CAD, Atherosclerotic Heart Disease Other Information Study Quality: Fair Conclusion Left Ventricle : Left ventricle is mildly dilated. The left ventricular systolic function is normal. The left ventricular ejection fraction is within the normal range. There is normal left ventricular w all thickness. There is normal LV segmental wall motion. The left ventricular diastolic function is a bnormal. LVEF is 55-60%. Right Ventricle : Right ventricle is not well visualized. Right ventricular systolic function is nolan sly normal. The RVSP is 34mmHg. Atria : The left atrium size is normal. Right atrium is not well visualized. Aortic Valve : The Aortic valve is sclerotic. Aortic valve is trileaflet. There is no aortic valvular stenosis. No aortic regurgitation is present. Mitral Valve : There is mitral annular calcification. No evidence of mitral valve stenosis. Mild mitr al regurgitation. Tricuspid Valve : The tricuspid valve is normal in structure. There is no tricuspid valve stenosis. M ild to moderate tricuspid regurgitation. Great Vessels : IVC is normal in size and collapses >50% with inspiration. There is no prior echocardiogram available for comparison. Wall motion Left Ventricle Left ventricle is mildly dilated. The left ventricular systolic function is normal. The left ventricu lar ejection fraction is within the normal range. There is normal left ventricular wall thickness. Th ere is normal LV segmental wall motion. The left ventricular diastolic function is abnormal. There is no ventricular septal defect visualized. LVEF is 55-60%. Right Ventricle Right ventricle is not well visualized. Right ventricular systolic function is grossly normal. The RV SP is 34mmHg. Atria The left atrium size is normal. Right atrium is not well visualized. The interatrial septum is intact with no evidence for an atrial septal defect. Aortic Valve The Aortic valve is sclerotic. Aortic valve is trileaflet. There is no aortic valvular stenosis. No a ortic regurgitation is present. Mitral Valve There is mitral annular calcification. No evidence of mitral valve stenosis. Mild mitral regurgitatio n. Tricuspid Valve The tricuspid valve is normal in structure. There is no tricuspid valve stenosis. Mild to moderate tr icuspid regurgitation. Pulmonic Valve The pulmonary valve is normal in structure. There is no pulmonic valvular stenosis. There is no pulmo jossie valvular regurgitation. Great Vessels The aortic root is normal in size. Ascending aorta is not well visualized. IVC is normal in size and collapses >50% with inspiration. Pericardium There is no pericardial effusion. There is no pleural effusion. 2D Dimensions IVSD d PLAX 0.80 cm F: 0.6-1.0 LV Vol A2C d MOD 79.9 mL LVPW d PLAX 0.80 cm F: 0.6 - 1.0 LV Vol A4C d MOD 74.3 mL LVID d PLAX 4.88 cm F: 3.8 - 5.2 LA vol/ BSA A2C s A-L 26.4 mL/m2 LVDs 3.10 cm F: 2.2 - 3.5 LA vol/ BSA A4C s A-L 34.4 mL/m2 Ao Root d 2.90 cm F: 2.7 - 3.3 LA Vol/ BSA Biplane s A-L 30.7 mL/m2 IVS 0.80 cm LA Area A4C s MOD 18.51 cm2 LV EF Teichholz 65.3 % LA Area A2C s MOD 15.93 cm2 LVEF ([facility]) 61.36 % F: 54 - 74 LV EF A4C MOD 55.9 % LV Volume 64.78 mL F: 46 - 106 LV EF A2C MOD 66.3 % LV Volume Index 42.61 mL/m2 F: 29 - 61 LV EF Biplane MOD 61.4 % LV Vol Biplane MOD 78.3 mL FS 35.85 % M-Mode TAPSE 2.72 cm (M/F) >1.7 LV Diastology E Decel Time 258.00 (160-240 msec) E/A Ratio 0.8 MV E' medial 0.063 (>0.07 m/s) MV E Vmax 0.95 (0.4-1.3 m/s) LV E/e MED 15.05 (<14) MV A Vmax 1.15 (0.4-1.3 m/s) MV E' lateral 0.086 (>0.1 m/s) MV E/A Ratio 0.82 LV E/e LAT 10.90 (<14) MV E/E' medial 15.06 MV E/E' lateral 10.94 E Peak Velocity 0.95 m/s A Peak Velocity 1.15 m/s Aortic Valve LVOT Area 1.80 cm2 CORTNEY Index 1.34 cm2/m2 LVOT Vmax 1.08 m/s AoV Area Vmax 2.09 cm2 LVOT Mean Kaushal. 0.70 m/s AoV Area/ BSA (Vmax) 1.37 cm2/m2 LVOT Peak Grad 4.7 mmHg CORTNEY Mean Kaushal. 1.94 cm2 LVOT Mean Grad 2.3 mmHg CORTNEY Mean Kaushal. Index 1.27 cm2/m2 LVOT VTI 0.255 m LVOT Diam s 1.80 cm (M/F) 1.5-2.5 AoV Vmax 1.31 (0.5-1.3 m/s) Velocity Ratio 0.82 AoV Mean Kaushal. 0.91 m/s AoV Peak Grad 6.9 mmHg AoV Mean Grad 3.7 (<5 mmHg) AoV VTI 0.317 (0.18-0.25 m) AoV Area VTI 2.04 (2.5-4.5 cm2) AoV Area/ BSA (VTI) 1.34 cm/m2 Mitral Valve MV DT 258 (160-240 msec) MV PHT 75 msec MV Area PHT 2.94 cm2 Pulmonary Valve PV Vmax 1.01 (0.5-1.5 m/s) RVOT Peak Gr. 2.70 mmHg PV Peak Grad 4.1 mmHg RVOT Mean Gr. 1.45 mmHg PV Mean Grad 2.3 mmHg RVOT VTI 0.213 m PV VTI 0.233 m RVOT Vmax 0.82 m/s Tricuspid Valve TR Peak Grad 31.7 mmHg TR Vmax 2.82 m/s RA Pressure 3.00 mmHg RVSP (TR) 34.7 mmHg
== END 2019-12-15 02:34 ==
PROVIDERS: PCP Student in an Organized Health Care Education/Training Program; Visit Provider Student in an Organized Health Care Education/Training Program
DX: R06.02 Shortness of breath (principal); I25.10 Atherosclerotic heart disease of native coronary artery without angina pectoris; R06.09 Other forms of dyspnea; I35.8 Other nonrheumatic aortic valve disorders
CPT/HCPCS: 93306

== ENCOUNTER 2020-01-27 11:30 | Outpatient (REF) | payer OTHER, SELFPAY ==
--- NOTE | 2020-01-27 09:23 | SKI_PTH ---
PATIENT: Rachel Celis LOC: [facility] U#:[id number] AGE/SX: 79/F ROOM: RE01/27/[address]: Hong Sepulveda MD : [id number] BED: DIS: 01/27/2020 SPEC #: [id number] RECD: 01/28/20 11:20 STATUS: ROGERS RENancy #: [id number] YANG: 01/27/20 09:[address]: Hong Sepulveda DEPT: Surgical Specimen RECD BY: Yesenia Barbosa ENTERED: 01/28/20 11:21 SP TYPE: OPHELIA FULTON DR: Nancy La DO Tissues: 1 - SKIN BIOPSY(SHAVE/PUNCH) Procedures: SKIN LEVEL 4 SPECIAL STAIN 1 Comments: [id number]
== END 2020-01-27 11:50 ==
LOC: LBN 11:30
PROVIDERS: PCP Student in an Organized Health Care Education/Training Program; Visit Provider Otolaryngology
DX: H61.892 Other specified disorders of left external ear (principal)
CPT/HCPCS: 88305; 88312

== ENCOUNTER 2020-02-10 02:58 | Outpatient (CLI) | payer OTHER, SELFPAY ==
--- NOTE | 2020-02-10 08:45 | DI.RAD_ITS ---
EXAM: XR CHEST 2V PA LATERAL CLINICAL HISTORY: SOB, R06.02, ? show improvements from 09/15/19 CXR TECHNIQUE: COMPARISON: CR XR CHEST 2V PA LATERAL from 09/15/2019 FINDINGS: The heart is at the upper limits of normal in size. The lungs are clear with interval resolution of previously noted streaky infiltrates seen on prior film of September 15. No pleural effusion seen. IMPRESSION: No evidence of acute process. Interval resolution of previously noted subtle bibasilar infiltrates.
[2020-02-10 10:29] LABS: HCT 37.2 % (36.0-46.0); HGB 11.9 g/dL (12.0-15.5); Mean Corpuscular Hemoglobin 29.5 pg (27.0-33.0); Mean Corpuscular Volume 92.1 fL (80-95); Mean Platelet Volume 11.3 fL (8.0-11.0); Platelet Count 156 x1000/uL (130-400); RBC 4.04 m/cumm (4.00-5.20); White Blood Cell Count 4.41 k/cumm (4.4-10.8)
[2020-02-10 12:05] LABS: ALT 18 U/L (14-59); AST 22 U/L (15-37); Albumin 4.1 g/dL (3.4-5.0); Alkaline Phosphatase 74 U/L (46-116); Anion Gap 8.7 mmol/L (3-11); BUN 25 mg/dL (7-18); Bilirubin, Total 0.4 mg/dL (0.2-1.0); CO2 29.3 mmol/L (21.0-32.0); CREATININE 1.07 mg/dL (0.55-1.02); Calcium 9.6 mg/dL (8.5-10.1); Chloride 105 mmol/L (98-107); Cholesterol 203 mg/dL (<200); Estimated GFR 49.72 (mL/min/1.73m2); Glucose 90 mg/dL (74-106); Magnesium 2.4 mg/dL (1.8-2.4); Potassium 4.5 mmol/L (3.5-5.1); Sodium 143 mmol/L (136-145); Triglyceride 49 mg/dL (<150)
[2020-02-10 12:15] LABS: Calculated LDL 102 mg/dL (<100); HDL Cholesterol 92 mg/dL (40-60); Total Protein 6.7 g/dL (6.4-8.2)
== END 2020-02-10 03:18 ==
PROVIDERS: PCP Student in an Organized Health Care Education/Training Program; Visit Provider Student in an Organized Health Care Education/Training Program
DX: R06.02 Shortness of breath (principal); I10 Essential (primary) hypertension; E83.42 Hypomagnesemia; R25.2 Cramp and spasm; J98.4 Other disorders of lung; D69.6 Thrombocytopenia, unspecified
CPT/HCPCS: 36415; 80053; 80061; 85027; 71046; 83735

== ENCOUNTER 2020-03-09 00:35 | Outpatient (CLI) | payer OTHER, SELFPAY ==
--- NOTE | 2020-03-09 08:32 | DI.CTLCSR_ITS ---
EXAM: CT CHEST LUNG CANCER SCREEN CLINICAL HISTORY: The patient reportedly has a History of Smoking 30 pack years and presently smokes or has quit the past 15 years. TECHNIQUE: Imaging Protocol: Axial computed tomography images with coronal and sagittal reformatted images were created and reviewed COMPARISON: CT CHEST WITH CONTRAST from 02/27/2018 FINDINGS: Tracheobronchial tree: Patent where visualized. Mediastinum and Precious: No dominant adenopathy or fluid collection. Pulmonary parenchyma: There is an infiltrate seen in the right lung base medially. This may represen t scarring, atelectasis or pneumonia. Moderate centrilobular emphysematous changes are present. Lung Nodules: There is a 0.4 cm noncalcified pulmonary nodule in the left upper lobe laterally. Pleura: No effusion or pneumothorax. Heart: The heart is not dilated. Moderate coronary artery calcification is present. No pericardial e ffusion. Aorta: Thoracic aorta non-dilated.Atherosclerosis. Upper abdomen: Unremarkable. Bones: Degenerative changes are present. There is a left convex scoliosis. Soft Tissues: Unremarkable. IMPRESSION: Solitary 0.4 cm noncalcified pulmonary nodule in the left upper lobe. Lung RADS Cat 2 - Benign Appearance / Behavior: Nodules with a very low likelihood of becoming a clin ically active cancer due to size or lack of growth Lung-RADS 1.0 CATEGORIES: Category 0 - Prior chest CT exam(s) being located for comparison. Category 1 - Annual screening in 12 months. No nodules or definitely benign nodules. Category 2 - Annual screening in 12 months. Benign appearance. Nodules with low likelihood of becomin g active cancer. Category 3 - 6-month follow-up. Probably benign. Short-term follow-up suggested. Nodules with low lik elihood of becoming active cancer. Category 4A - 3-month follow-up and CT/PET if >8 mm in size. Suspicious finding. Findings which requi re additional testing. Category 4B - Findings which require additional testing and tissue sampling. Suspicious finding. C Added to Any of the Above - History of prior lung cancer screening. S Added to Any of the Above - Significant unexpected other finding. RADIATION DOSE DELIVERED: Total DLP DATA REPOSITORY: All CT scans at this facility are submitted to the National Radiology Data Registry (NRDR) Dose Index Registry (DIR) with the [employer] (A[employer]). RADIATION OPTIMIZATION: All CT scans at this facility use at least one of these dose optimization te myranda: automated exposure control; mA and/or kV adjustment per patient size (includes targeted exa ms where dose is matched to clinical indication); or iterative reconstruction.
== END 2020-03-09 00:55 ==
PROVIDERS: PCP Student in an Organized Health Care Education/Training Program; Visit Provider Student in an Organized Health Care Education/Training Program
DX: R06.02 Shortness of breath (principal); Z12.2 Encounter for screening for malignant neoplasm of respiratory organs; Z87.891 Personal history of nicotine dependence
CPT/HCPCS: G0297

== ENCOUNTER 2020-04-14 16:11 | Inpatient (IN) | payer OTHER, SELFPAY ==
[2020-04-14] VITALS (43 sets, daily range): BP systolic 76–133; BP diastolic 38–74; PULSE 69–102; RESP 17–34; TEMP 36.3–39.2; O2SAT 91–96
--- NOTE | 2020-04-14 16:15 | RT.EKG_ITS ---
APPROVED REPORT Exam: Resting ECG Patient Location: E HR:99 bpm ECG Measurements Heart Rate 99 AXIS OH 173 P 44 QRSd 86 QRS -4 QT 335 T 25 QTc 431 Conclusion Sinus rhythm...normal P axis, V-rate 60- 99 Anterior infarct, old...Q >40mS, abnormal ST-T, V2-V5
--- NOTE | 2020-04-14 16:15 | DI.CT_ITS ---
EXAM: CT THORAX ABD/PEL CTA CLINICAL HISTORY: Abdominal pain. TECHNIQUE: Imaging Protocol: Axial CT angiography was performed with multi-slice acquisition and m ulti-planar and/or 3D reconstructions. CONTRAST MATERIAL: Intravenous: Omnipaque 350 Contrast volume:60 mL Oral: No COMPARISON: CT CT ABDOMEN/ PELVIS CTA from 02/11/2019 FINDINGS: Patient motion artifact. CHEST: Pulmonary Arteries: Not optimally opacified for visualization of possible pulmonary emboli. Tracheobronchial tree: Patent where visualized. Mediastinum and Precious: No dominant adenopathy or fluid collection. Pulmonary parenchyma: Centrilobular emphysema. Dependent atelectasis. No focal consolidating infilt rates. 3 mm noncalcified pulmonary nodule in the left upper lobe. Pleura: No effusion or pneumothorax. Heart: Mild cardiomegaly. Moderate coronary artery calcification. No pericardial effusion. Aorta: Thoracic aorta non-dilated. Atherosclerosis. No dissection. Bones: Degenerative changes. ABDOMEN AND PELVIS: Abdomen: Celiac axis/mesenteric arteries: No evidence of occlusion or significant stenosis. Renal Arteries: No evidence of occlusion or significant stenosis. There is a single renal artery per fusing each kidney. Mild atherosclerosis at the origin of the right renal artery. Aorta: No evidence of occlusion or significant stenosis. No aneurysm or dissection. Moderate ather osclerosis. Pelvis: Iliac Arteries: No evidence of occlusion or significant stenosis. Common Femoral Arteries: No evidence of occlusion or significant stenosis. ABDOMEN: Liver: Normal density. No measurable mass. Portal, Superior Mesenteric, and Splenic Veins: Unremarkable. Gallbladder and Biliary Tract: No radiodense calculus or dilation. Pancreas: Normal density, no abnormal calcifications or inflammatory process. Spleen: Normal. Adrenals: No masses seen. Kidneys: Normal size, contour and axis. No radiodense stones or obstructive uropathy. No masses seen. Bowel: There is marked low attenuation bowel wall thickening involving the cecum and ascending colon. There is surrounding inflammatory change. There does appear to be a short segment of a intussuscep tion in the proximal right colon. This is best appreciated on the coronal view. There is mild infla mmation seen in the terminal ileum. The remainder of the bowel is unremarkable. There is no evidenc e of obstruction. There is no evidence of an acute appendicitis. There is a moderate amount of bret ined stool in the colon. Peritoneal Cavity: There is a small amount of free fluid in the right pericolic gutter. No free air. Lymph Nodes: Within normal limits. Bones: Degenerative changes in the spine. Soft Tissues: Mild subcutaneous stranding in the lower anterior abdominal wall. PELVIS: Bladder: Symmetric distention, no gross wall thickening. Reproductive Organs: Status post hysterectomy. Lymph Nodes: Within normal limits. Bones: Degenerative changes in the spine. IMPRESSION: 1. No evidence of thoracic aortic dissection or aneurysm. 2. Centrilobular emphysema. 3. 3 mm left upper lobe noncalcified pulmonary nodule. Follow-up CT scan of the chest in 1 year shou ld be considered for for re-evaluation. 4. Bowel wall thickening with adjacent inflammation involving the terminal ileum cecum and proximal r ight colon consistent with an inflammatory infectious process. (Colitis/enteritis.). 5. Findings of a very short right colonic intussusception. Follow-up is warranted. RADIATION DOSE DELIVERED: 925.73mGy.cm Total DLP DATA REPOSITORY: All CT scans at this facility are submitted to the National Radiology Data Registry (NRDR) Dose Index Registry (DIR) with the [employer] (ACR). RADIATION OPTIMIZATION: All CT scans at this facility use at least one of these dose optimization te chniques: automated exposure control; mA and/or kV adjustment per patient size (includes targeted exa ms where dose is matched to clinical indication); or iterative reconstruction. Rachel a scale on today this
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
--- NOTE | 2020-04-14 16:40 | NUR.NOTE ---
Nursing Note:Straight Cath for U/A
[2020-04-14 16:41] LABS: Lactate 0.9 mmol/L (0.6-1.4)
[2020-04-14 16:45] LABS: Abs Immature Grans 0.04 10^3/uL (0.0-0.06); Absolute Basophil Count 0.01 10^3/uL (0.0-0.2); Absolute Lymphocyte Count 0.34 10^3/uL (1.2-3.4); Absolute Monocyte Count 0.32 10^3/uL (0.1-0.8); Absolute Neutrophil Count 7.55 10^3/uL (1.2-6.7); Basophils % 0.1; HCT 36.6 % (36.0-46.0); HGB 11.7 g/dL (11.2-15.7); Immature Grans % 0.5; Lymphocytes % 4.1; MCH 29.3 pg (27.0-33.0); MCV 91.7 fL (80-95); MPV 11.5 fL (8.0-11.0); Monocytes % 3.9; Neutrophils % 91.4; Nucleated RBC 0 %; Platelet Count 152 10^3/uL (130-400); RBC 3.99 10^6/uL (3.93-5.22); RDW 14.3 % (11.7-14.6); RDW-SD 47.8 fL; WBC 8.26 10^3/uL (4.4-10.8)
--- NOTE | 2020-04-14 17:00 | DI.CT_ITS ---
EXAM: CT HEAD WO CLINICAL HISTORY: Altered mental status. TECHNIQUE: Imaging Protocol: Axial computed tomography images with coronal and sagittal reformatted images were created and reviewed COMPARISON: CT CT HEAD WO from 09/15/2019 FINDINGS: Ventricles and Extra axial spaces: Normal in size and morphology for the patient's age. Hemorrhage: None. Cerebral parenchyma: There are areas of decreased attenuation in the white matter consistent with chr onic microvascular ischemic disease. No acute territorial infarct. Midline shift: None. Brainstem/Cerebellum: Normal. Calvarium: Normal. Visualized Paranasal sinuses/Mastoids: Clear. Soft Tissues: Unremarkable. IMPRESSION: No acute intracranial process. RADIATION DOSE DELIVERED: 750.83mGy.cm Total DLP DATA REPOSITORY: All CT scans at this facility are submitted to the National Radiology Data Registry (NRDR) Dose Index Registry (DIR) with the [employer] [place] [employer] (ACR). RADIATION OPTIMIZATION: All CT scans at this facility use at least one of these dose optimization te chniques: automated exposure control; mA and/or kV adjustment per patient size (includes targeted exa ms where dose is matched to clinical indication); or iterative reconstruction.
[2020-04-14 17:01] LABS: ALT 19 U/L (14-59); AST 26 U/L (15-37); Albumin 3.9 g/dL (3.4-5.0); Alkaline Phosphatase 61 U/L (46-116); Anion Gap 11.6 mmol/L (3-11); BUN 17 mg/dL (7-18); Bilirubin, Total 0.8 mg/dL (0.2-1.0); CO2 24.4 mmol/L (21.0-32.0); Calcium 9.2 mg/dL (8.5-10.1); Chloride 104 mmol/L (98-107); Estimated GFR 53.62 (mL/min/1.73m2); Glucose 114 mg/dL (74-106); Magnesium 1.7 mg/dL (1.8-2.4); Potassium 3.2 mmol/L (3.5-5.1); Sodium 140 mmol/L (136-145); Total Protein 6.9 g/dL (6.4-8.2)
[2020-04-14] MEDS: ACETAMINOPHEN 1,000 MG/100 ML BTL 400 MG IVPB (17:03)
[2020-04-14 17:05] LABS: Troponin I < 0.05 ng/mL (<0.06)
--- NOTE | 2020-04-14 17:47 | NUR.NOTE ---
Nursing Note: Char from Case Management stopped in the ER to let patient know that her 44 yo son that lives with her is safe and will be cared for by Home Health for tonight until 1200 tomorrow. 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 Per Char fr4om Case Management if patient needs to stay tomorrow night she will have patients son brought in by ambulance and use a swing bed.
[2020-04-14] MEDS: Omnipaque 350 MG/ML 100 ML BTL 60 ML IJ (17:52)
[2020-04-14 17:53] LABS: C-Reactive Protein 1.26 mg/dL (0.0-0.3); NT-proBNP 828 pg/mL (<300)
[2020-04-14] MEDS: Normal Saline - Diluent 50 ML VIAL IV (17:54)
[2020-04-14] MEDS: Normal Saline Flush 10 ML SYR IVP (17:55)
[2020-04-14 17:58] LABS: Bilirubin Negative (Negative); Blood Negative (Negative); Clarity Clear (Clear); Glucose Negative (Negative); Ketones 15 mg/dL (Negative); Leukocyte Esterase Negative (Negative); Nitrite Negative (Negative); Urobilinogen 0.2 EU/dL (Up TO 0.2)
--- NOTE | 2020-04-14 18:08 | DI.VRAD_ITS ---
PROCEDURE INFORMATION: Exam: CT Head Without Contrast Exam date and time: 04/14/2020 5:06 PM Age: 80 years old Clinical indication: Other: Altered mental status TECHNIQUE: Imaging protocol: Computed tomography of the head without contrast. COMPARISON: CT HEAD WO 09/15/2019 1:34 PM FINDINGS: Brain: Moderate generalized atrophy with mild periventricular white matter ischemic changes consistent with the patient's advanced age. No extra-axial fluid collections. No evidence of acute intracranial hemorrhage. Jones-white differentiation is well maintained. No evidence of acute or subacute intracranial ischemia/infarct. No intracranial mass lesions. No midline shift or herniation. Ventricles: Ventricles normal. Bones/joints: The calvarium and visualized facial bones are intact. Sinuses: Visualized paranasal sinuses are clear. Mastoid air cells: Visualized mastoid air cells are clear. Orbits: Visualized orbital contents demonstrate no evidence of acute abnormality. Vasculature: Mild atherosclerotic calcific plaque is identified in the visualized proximal intracranial arterial segments. No asymmetric vascular hyperdensities suggestive of thrombosis are identified. Soft tissues: The scalp and visualized soft tissues demonstrate no acute abnormality. Other findings: The IACs are grossly normal. The sella is grossly normal. IMPRESSION: 1. No acute intracranial process. No intracranial hemorrhage or mass effect. 2. Atrophy and chronic microvascular changes consistent with the patient's advanced age. 3. Mild calcific atherosclerosis. Dictated and Authenticated by: Ammon Kaba MD. Ordering:SIDRA Franks MD
--- NOTE | 2020-04-14 18:09 | NUR.NOTE ---
Nursing Note: NS 1 L up wide open.
[2020-04-14 18:15] LABS: Procalcitonin 19.1 ng/mL
--- NOTE | 2020-04-14 18:19 | DI.VRAD_ITS ---
PROCEDURE INFORMATION: Exam: CT Angiography Chest With Contrast Exam date and time: 04/14/2020 17:52 Age: 80 years old Clinical indication: Other: Abdominal pain TECHNIQUE: Imaging protocol: Computed tomographic angiography of the chest with intravenous contrast. 3D rendering (Not supervised by radiologist): MIP and/or 3D reconstructed images were created by the technologist. Contrast material: OMNIPAQUE 350; Contrast volume: 60 ml; Contrast route: INTRAVENOUS (IV); COMPARISON: CT CHEST LUNG CANCER SCREEN 03/09/2020 08:28 FINDINGS: Pulmonary arteries: The main pulmonary arteries are grossly patent. Aorta: Mild motion artifact at the ascending aorta which however appears normal in caliber. There is no convincing dissection. No significant aneurysm. Normal caliber of the descending aorta which is somewhat tortuous. Lungs: Moderate pulmonary emphysema similar to prior. Small noncalcified nodule left upper lobe. Follow-up as per institutional protocol. Minor linear opacities, most consistent with subsegmental atelectasis. Pleural space: No pneumothorax. No pleural effusion. Heart: Stable mild cardiomegaly. Coronary atherosclerosis. Lymph nodes: No enlarged lymph nodes. Bones/joints: The bones are demineralized. Degenerative changes in the spine. Mild chronic appearing loss of height distal thoracic spine. No acute fracture or subluxation. A broad thoracolumbar levoscoliosis appears moderate in severity and similar to prior. Soft tissues: No suspicious lesions. IMPRESSION: 1. No acute findings in the chest. 2. Stable mild cardiomegaly. 3. Moderate pulmonary emphysema similar to prior. 4. Minor linear opacities, most consistent with subsegmental atelectasis. 5. Additional findings as described. PROCEDURE INFORMATION: Exam: CT Angiography Abdomen and Pelvis With Contrast Exam date and time: 04/14/2020 17:52 Age: 80 years old Clinical indication: Other: Abdominal pain TECHNIQUE: Imaging protocol: Computed tomographic angiography of the abdomen and pelvis with intravenous contrast material. 3D rendering (Not supervised by radiologist): MIP and/or 3D reconstructed images were created by the technologist. Contrast material: OMNIPAQUE 350; Contrast volume: 60 ml; Contrast route: INTRAVENOUS (IV); COMPARISON: CT CHEST LUNG CANCER SCREEN 03/09/2020 08:28 FINDINGS: Aorta: Mild aortic atherosclerosis. No aneurysm or dissection. Celiac trunk and mesenteric arteries: No occlusion or significant stenosis. Renal arteries: Mild atherosclerosis proximal right renal artery. No occlusion or significant stenosis. Right iliac arteries: No occlusion or significant stenosis. Left iliac arteries: No occlusion or significant stenosis. Liver: Mild periportal edema in the liver. No hepatic masses. Gallbladder and bile ducts: Distended gallbladder. No convincing ductal dilation. Pancreas: No mass. No ductal dilation. Spleen: No splenomegaly. Adrenals: No mass. Kidneys and ureters: No solid mass. No hydronephrosis. Stomach and bowel: Colitis. Severe in the cecum and right colon. A mild sigmoid colitis is also likely present. Marked wall thickening in the cecum and right colon appearing generally circumferential and non masslike. Mild circumferential wall thickening in the sigmoid colon. Significant hypodensity in the right colon and cecum however no pneumatosis. Slight invagination of a portion of the upper right colon, more distal segment appearing slightly less inflamed than the proximal segment. Mildly prominent gas-filled loop of proximal small bowel however no focal transition point. No convincing small bowel obstruction. No enteritis. Mild inflammation of the distal terminal ileum and ileocecal valve. Appendix: No evidence of appendicitis. Intraperitoneal space: Trace fluid in the pelvis. Mesenteric edema. Lymph nodes: No enlarged lymph nodes. Bladder: No mass. Reproductive: Hysterectomy. Bones/joints: The bones are demineralized. Degenerative changes in the spine. No acute fracture or subluxation. Mild lumbar dextroscoliosis. Soft tissues: Diastasis recti. Pericolic edema. IMPRESSION: 1. Colitis. Severe in the cecum and right colon. A mild sigmoid colitis is also likely present. 2. A very short right colonic intussusception is possible and close follow-up is warranted. 3. Mild inflammation of the distal terminal ileum and ileocecal valve. 4. Additional findings as described. Dictated and Authenticated by: Cynthia Thompson MD. Ordering:SIDRA Franks MD
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
[2020-04-14] MEDS: PIPERACILLIN/TAZO 3.375 GM in Normal Saline 50 ML IVPB (19:48)
[2020-04-14 19:58] LABS: Troponin I < 0.05 ng/mL (<0.06)
[2020-04-14 20:19] LABS: Lactate 0.8 mmol/L (0.6-1.4)
[2020-04-14] MEDS: ELECTROLYTE-R SOLUTION 1,000 ML 50 ML IV (20:36)
--- NOTE | 2020-04-14 21:30 | PAPNONF_PTH ---
PATIENT: Rachel Celis LOC: [id number]#:[id number] AGE/SX: 80/F ROOM: RE04/14/[address]: Jolly Pa : 1940 BED: A DIS: 04/21/2020 SPEC #: [id number] RECD: 04/15/20 13:54 STATUS: SOUT REQ #: [id number] YANG: 04/14/20 21:[address]: Jolly Pa DEPT: [facility] Cytology RECD BY: Ying Landon ENTERED: 04/15/20 13:58 SP TYPE: PAPCATYF DONALDO DR: Nancy La, DO Amadeo aBrr Tissues: 1 - BODY FLUID CYTO(NOT S/U/N/EM)[facility] Procedures: BODY FLUID CYTO(NOT SPU/UR/NIP/ENDOM)[facility] Comments: [id number] TOTAL VOLUME = 13ML INTRAPERITONEAL FLUID
--- NOTE | 2020-04-14 21:55 | BOWEL_PTH ---
PATIENT: Rachel Celis LOC: U#:[id number] AGE/SX: 80/F ROOM: RE04/14/[address]: Jolly Pa : 1940 BED: A DIS: 04/21/2020 SPEC #: [id number] RECD: 04/17/20 09:52 STATUS: SOUMark REQ #: [id number] YANG: 04/14/20 21:[address]: Jolly Pa DEPT: Surgical Specimen RECD BY: Ying Landon ENTERED: 04/17/20 09:53 SP TYPE: Bowel OTHR DR: Nancy La, DO Amadeo Barr Tissues: 1 - BIOPSY BOWEL Procedures: GROSS AND MICRO LEVEL 6 Comments: [id number]
[2020-04-14] MEDS: Bupivacaine 0.5% Pres-Free 30 ML VIAL (22:06)
[2020-04-14] MEDS: Bupivacaine 0.25% Pres-Free 30 ML VIAL (22:13)
--- NOTE | 2020-04-14 22:35 | W.PM.OP ---
Date of service: 04/14/20 Time of Service: 22:35 Operative Note Operative Note DATE OF PROCEDURE: 04/14/20 PRE-OP DIAGNOSIS: obstructing colon cancer POST-OP DIAGNOSIS: same PROCEDURE: cecal resection SURGEON: Jolly Pa SUPERVISOR HOT DIP TINNING: Daja Her ANESTHESIA: GETA ESTIMATED BLOOD LOSS: 25 PATHOLOGY: other COMPLICATIONS: None Patient was transported to: PACU Patient's condition: stable Procedure Description: Patient is a 80-year-old female who presents to the ER with acute abdominal pain and peritonitis. All her CT and lab work is reviewed. She appears to have mass and severe edema of the right colon. She has been vomiting all day and continues to have diarrhea. She has been anemic for some time. She has not had a colonoscopy in the past. She is septic and does need to go to the OR for right colon resection. Informed consent is obtained explaining risks and benefits of the procedure including not limited to: Bleeding, infection, pneumonia, blood clots. We will attempt to place epidural from pain control but she has severe kyphosis and osteoarthritis of the back. So this may not be technically feasible. This include WA, CVA, and other complications of anesthesia. Risks also include damage to bowel bladder blood vessels and ureters. There is a possibility of a colostomy. There is a possibility if we do do a primary anastomosis of anastomotic failure or leak. There is risks of abscess. The risks of wound infections and dehiscence and hernias. She may require further surgery in the future. Patient agrees to procedure. She did receive antibiotics in the ER. She is brought to the operative room suite. We did attempt to place the epidural on an intrathecal for pain control but these attempts were unsuccessful. She has 2 good IVs. She is placed in a supine position and anesthesia is administered per the department of anesthesia. NG tube and Wallace catheter placed. She did receive antibiotics in the ED. She has [address] Patient is prepped and draped in usual sterile fashion using a ChloraPrep scrub scrub solution. Timeout is performed. 20 cc of quarter percent Marcaine with epi is used for local anesthetization. #10 blade is used to make a vertical midline incision 2 fingerbreadths above and below the umbilicus. Electrocautery is used to provide hemostasis and dissect down to the peritoneum and fascia. She has very minimal subcutaneous body fat the abdomen; is then entered sharply with the incision carried superiorly and inferiorly. Upon entering the abdomen she has dense omental adhesions up to the anterior abdominal wall these are taken down with a combination of electrocautery and the LigaSure. The small bowel is run and is normal NG tube in good position. Liver and stomach are normal as to what I can visualize and palpate. Gallbladder is slightly distended. Ovaries and uterus are atrophic and normal for age. The sigmoid colon is has a few diverticula, but otherwise is normal. She has a mass in the cecum. Again the [place] of the mesentery and the bowel wall are extremely edematous. But once we get to the mid right colon left colon and mesentery is mostly normal. The rest of the bowel appears pink and healthy and there is no signs of any ischemia. She does have a large amount of lymphadenopathy of normal size within mesentery. Her cecum is very swollen and edematous and is bright blackmon red; the terminal ileum and mid right colon appear normal. There is some scant amount of serous fluid in the abdomen. Slightly more than what is physiologic. Fluid is sent for culture and for cytology. This decided to form upon exploration of the abdominal cavity and visualization of her anatomy and her problem was decided for right hemicolectomy with primary anastomosis. The again omental adhesions are taken down with LigaSure and electrocautery. There is significant amount of edema in the mesentery. The white line of Toldt is opened up using electrocautery cautery and the ureter is not identified the mesenteric attachments are taken down using the LigaSure. RIRI stapler is used to divide the colon at mid right colon and sacrificing about 4 cm of terminal ileum. a rent is made in the mesentery and the bowel was incised as well using a RIRI. Sterile towels and then placed along to isolate the field. The antimesenteric ends of the right remaining right colon and ileum are brought together; each tip of the staple line is snipped off and on limb of the RIRI is inserted down either limb and fired to create a lumen. A stay sutures take place in the distal aspect of this suture line. The suture line is visualized- it is pink and healthy there is no bleeding or sign of ischemia. TA 60 is then used to facilitate creation of this anastomosis. The ends of the staple line were reinforced with 4-0 Prolene. The lumen is palpated and has a good inch lumen. the rent in the mesentery is oversewn with 3-0 Vicryl. the abdomen is copiously irrigated with 3 L of warm saline It Was elected not to place a drain, as it does not appear to be any gross infection of the abdomen. Nor does appear to be a ruptured cancer.. 3 pieces of Interceed were placed under the incision also structures are returned to the normal topical anatomical position. 3 pieces of Interceed were placed under the incision the peritoneum was closed no 0 Vicryl in a running fashion the fascia was closed with #1 PDS in a running fashion skin was approximated with karen sterile dressings are applied patient tolerated procedure well complication transferred to ICU in stable conditon.
--- NOTE | 2020-04-14 22:36 | PGE_ITS ---
Date of Service Date of service: 04/14/20 Time of Service: 22:37 Assessment and Plan Assessment and plan (1) Anemia: Status: Chronic (2) Peritonitis: Status: Acute (3) Colon cancer: Status: Chronic (4) Obstruction of ascending colon: Status: Acute Assessment and plan: The patient is doing well post-op. There pain is well controlled. They are having no nausea or vomiting. The pt is not having any chest pain or SOB, productive cough; no calf pain or swelling. The pt is making good urine. The pt pain is adequately controlled. The case was discussed with nursing and pateints progress reviewed. All of the pt's home medications were addressed and adjusted accordingly for their oral intact status. HEENT: no janudice. no eye pain/drainage/redness/swelling. mild sore throat cardio- NSR no chest pain, BP stable. pulm: no sob or productive cough. no hemoptysis insicion- clean/dry. dressing intact no excessive bleeding or drainage I discussed with the patient and/or there family about the findings in surgery and the pt's progress. We reviewed expectations for progress in the hospital; what the pt could expect for recovery time and length of stay. We discussed the importance of walking and pulmonary toilet to avoid blood clots and pneumonia. Continue current plans for pulmonary toilet, GI and DVT prophalxis. We shall continue the current plan for pain mangament as it is at an appropraite level and working well for the pt. Appriopriate measures will be taken for constipation prevention as well, and this was also reviewed witht the pt. wound care plan was reviewed with nursing as well. see orders Objective Objective Clinical Data: Abnormal lab results 04/14/20 04/14/20 04/14/20 Range/Units 16:23 16:23 16:23 MPV 11.5 H (8.0-11.0) fL Absolute Neutrophils 7.55 H (1.2-6.7) 10^3/uL Absolute Lymphocytes 0.34 L (1.2-3.4) 10^3/uL Potassium 3.2 L (3.5-5.1) mmol/L Anion Gap 11.6 H (3-11) mmol/L Glucose 114 H (74-106) mg/dL Magnesium 1.7 L (1.8-2.4) mg/dL C-Reactive Protein 1.26 H (0.0-0.3) mg/dL NT-Pro-B Natriuret Pep 828 H (<300) pg/mL Urine Ketones (Negative) mg/dL 04/14/20 Range/Units 16:40 MPV (8.0-11.0) fL Absolute Neutrophils (1.2-6.7) 10^3/uL Absolute Lymphocytes (1.2-3.4) 10^3/uL Potassium (3.5-5.1) mmol/L Anion Gap (3-11) mmol/L Glucose (74-106) mg/dL Magnesium (1.8-2.4) mg/dL C-Reactive Protein (0.0-0.3) mg/dL NT-Pro-B Natriuret Pep (<300) pg/mL Urine Ketones 15 H (Negative) mg/dL Vital Signs Temperature 36.3 C L 04/14/20 20:30 Temperature Source Oral 04/14/20 18:10 Pulse 87 04/14/20 20:30 Pulse 85 04/14/20 19:50 Respiratory Rate 18 04/14/20 20:30 Respiratory Effort Non-Labored 04/14/20 16:17 Blood Pressure 99/62 L 04/14/20 20:30 Blood Pressure Mean 75 04/14/20 19:45 Blood Pressure Position Supine 04/14/20 16:10 Pulse Oximetry 95 04/14/20 19:50 Oxygen Delivery Method Room Air 04/14/20 16:10 Oxygen Flow Rate 0 04/14/20 16:10 Pain Level 8 04/14/20 20:30 Intake & Output 04/13/20 04/14/20 04/14/20 23:59 11:59 23:59 Intake Total 600 / 600 Output Total 370 / 370 Balance 230 / 230 Weight 59.4 kg Intake: IV 600 / 600 Output: Urine 350 / 350 Estimated Blood Loss Other: Urine Color Yellow Laboratory Results WBC 8.26 10^3/uL (4.4-10.8) 04/14/20 16:23 RBC 3.99 10^6/uL (3.93-5.22) 04/14/20 16:23 Hgb 11.7 g/dL (11.2-15.7) 04/14/20 16:23 Hct 36.6 % (36.0-46.0) 04/14/20 16:23 MCV 91.7 fL (80-95) 04/14/20 16:23 MCH 29.3 pg (27.0-33.0) 04/14/20 16:23 MCHC 32.0 % (32.0-36.0) 04/14/20 16:23 RDW 14.3 % (11.7-14.6) 04/14/20 16:23 Plt Count 152 10^3/uL (130-400) 04/14/20 16:23 MPV 11.5 fL (8.0-11.0) H 04/14/20 16:23 Immature Gran % 0.5 04/14/20 16:23 Neutrophils % 91.4 04/14/20 16:23 Lymphocytes % 4.1 04/14/20 16:23 Monocytes % 3.9 04/14/20 16:23 Eosinophils % 0.0 04/14/20 16:23 Basophils % 0.1 04/14/20 16:23 Nucleated RBC % 0 % 04/14/20 16:23 Absolute Neutrophils 7.55 10^3/uL (1.2-6.7) H 04/14/20 16:23 Absolute Lymphocytes 0.34 10^3/uL (1.2-3.4) L 04/14/20 16:23 Absolute Monocytes 0.32 10^3/uL (0.1-0.8) 04/14/20 16:23 Absolute Eosinophils 0.00 10^3/uL (0.0-0.7) 04/14/20 16:23 Absolute Basophils 0.01 10^3/uL (0.0-0.2) 04/14/20 16:23 VBG Lactate 0.8 mmol/L (0.6-1.4) 04/14/20 20:10 Sodium 140 mmol/L (136-145) 04/14/20 16:23 Potassium 3.2 mmol/L (3.5-5.1) L 04/14/20 16:23 Chloride 104 mmol/L (98-107) 04/14/20 16:23 Carbon Dioxide 24.4 mmol/L (21.0-32.0) 04/14/20 16:23 Anion Gap 11.6 mmol/L (3-11) H 04/14/20 16:23 BUN 17 mg/dL (7-18) 04/14/20 16:23 Creatinine 1.00 mg/dL (0.55-1.02) 04/14/20 16:23 Estimated GFR/1.73 m2 53.62 (mL/min/1.73m2) 04/14/20 16:23 Glucose 114 mg/dL (74-106) H 04/14/20 16:23 Calcium 9.2 mg/dL (8.5-10.1) 04/14/20 16:23 Magnesium 1.7 mg/dL (1.8-2.4) L 04/14/20 16:23 Total Bilirubin 0.8 mg/dL (0.2-1.0) 04/14/20 16:23 AST 26 U/L (15-37) 04/14/20 16:23 ALT 19 U/L (14-59) 04/14/20 16:23 Alkaline Phosphatase 61 U/L (46-116) 04/14/20 16:23 Troponin I < 0.05 ng/mL (<0.06) 04/14/20 19:37 C-Reactive Protein 1.26 mg/dL (0.0-0.3) H 04/14/20 16:23 NT-Pro-B Natriuret Pep 828 pg/mL (<300) H 04/14/20 16:23 Total Protein 6.9 g/dL (6.4-8.2) 04/14/20 16:23 Albumin 3.9 g/dL (3.4-5.0) 04/14/20 16:23 Procalcitonin 19.1 ng/mL 04/14/20 16:23 Urine Color Yellow (Yellow) 04/14/20 16:40 Urine Clarity Clear (Clear) 04/14/20 16:40 Urine pH 8.0 (5-8) 04/14/20 16:40 Ur Specific [place] 1.020 (1.005-1.025) 04/14/20 16:40 Urine Protein Negative mg/dL (Negative) 04/14/20 16:40 Urine Ketones 15 mg/dL (Negative) H 04/14/20 16:40 Urine Blood Negative (Negative) 04/14/20 16:40 Urine Nitrite Negative (Negative) 04/14/20 16:40 Urine Bilirubin Negative (Negative) 04/14/20 16:40 Urine Urobilinogen 0.2 EU/dL (Up TO 0.2) 04/14/20 16:40 Ur Leukocyte Esterase Negative (Negative) 04/14/20 16:40 Urine Glucose Negative mg/dL (Negative) 04/14/20 16:40 Patient ABO/Rh O Positive 04/14/20 20:10 Antibody Screen Negative 04/14/20 20:10
[2020-04-14] MEDS: LIDOCAINE/D5W 2,000 MG/500 ML BAG 30 MG IV (23:00)
[2020-04-14] MEDS: Lactated Ringers 1,000 ML 125 ML IV (23:45)
[2020-04-15] VITALS (154 sets, daily range): BP systolic 81–168; BP diastolic 40–88; PULSE 64–159; RESP 14–44; TEMP 36.3–37.3; O2SAT 92–97
[2020-04-15 00:11] LABS: INR 1.1 (0.9-1.1)
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
[2020-04-15] MEDS: ACETAMINOPHEN 1,000 MG/100 ML BTL 400 MG IVPB ×4 (01:13→23:03)
[2020-04-15] MEDS: Normal Saline Flush 10 ML SYR IVP ×3 (01:15→13:28)
[2020-04-15] MEDS: Enoxaparin 30 MG/0.3 ML SYR (02:44)
[2020-04-15] MEDS: PIPERACILLIN/TAZO 4.5 GM in Normal Saline 100 ML IVPB ×3 (04:10→19:56)
[2020-04-15 06:50] LABS: Abs Immature Grans 0.17 10^3/uL (0.0-0.06); Absolute Lymphocyte Count 0.79 10^3/uL (1.2-3.4); Absolute Monocyte Count 0.53 10^3/uL (0.1-0.8); Basophils % 0.1; HCT 30.6 % (36.0-46.0); HGB 9.8 g/dL (11.2-15.7); Immature Grans % 1.1; Lactate 1.4 mmol/L (0.6-1.4); Lymphocytes % 4.9; MCH 29.5 pg (27.0-33.0); MCV 92.2 fL (80-95); MPV 11.4 fL (8.0-11.0); Monocytes % 3.3; Neutrophils % 90.6; Nucleated RBC 0 %; Platelet Count 160 10^3/uL (130-400); RBC 3.32 10^6/uL (3.93-5.22); RDW 14.9 % (11.7-14.6); RDW-SD 50.3 fL; WBC 16.06 10^3/uL (4.4-10.8)
[2020-04-15 07:05] LABS: Absolute Basophil Count 0.02 10^3/uL (0.0-0.2); Absolute Neutrophil Count 14.55 10^3/uL (1.2-6.7)
[2020-04-15 07:11] LABS: ALT 17 U/L (14-59); AST 24 U/L (15-37); Albumin 2.7 g/dL (3.4-5.0); Alkaline Phosphatase 37 U/L (46-116); Anion Gap 8.1 mmol/L (3-11); BUN 13 mg/dL (7-18); Bilirubin, Total 0.6 mg/dL (0.2-1.0); CO2 25.9 mmol/L (21.0-32.0); CREATININE 0.95 mg/dL (0.55-1.02); Calcium 7.9 mg/dL (8.5-10.1); Chloride 108 mmol/L (98-107); Estimated GFR 56.89 (mL/min/1.73m2); Glucose 120 mg/dL (74-106); Potassium 3.5 mmol/L (3.5-5.1); Sodium 142 mmol/L (136-145); Total Protein 5.3 g/dL (6.4-8.2)
[2020-04-15] MEDS: Pantoprazole 40 MG VIAL IVP (07:24)
[2020-04-15 07:40] LABS: Magnesium 1.8 mg/dL (1.8-2.4)
[2020-04-15] MEDS: Lactated Ringers 1,000 ML 125 ML IV (07:50)
--- NOTE | 2020-04-15 08:16 | PGE_ITS ---
Date of Service Date of service: 04/15/20 Time of Service: 10:48 Assessment and Plan Assessment and plan (1) Shock: Status: Resolved Assessment and plan: Etiology - likely septic (?peritonitis), though lactates never did go up. Off pressors now. Continue zosyn. Continue IVF. Blood cultures are pending. (2) Colonic mass: Status: Acute Assessment and plan: s/p R colectomy with reanastomosis. Bleeding at suture site has been fixed. Defer to primary team. (3) Anemia: Status: Chronic Assessment and plan: Recheck H/H at noon. (4) Hypomagnesemia: Status: Acute Assessment and plan: Repleted. Recheck in am. (5) COPD (chronic obstructive pulmonary disease): Status: Chronic Assessment and plan: At baseline, not on oxygen. Continue outpatient inhaler (spiriva). (6) CAD (coronary artery disease), [place] coronary artery: Status: Chronic Assessment and plan: No evidence of ACS so far. 3rd troponin pending. (7) DVT prophylaxis: Status: Acute Assessment and plan: Defer to general surgery. Continue TEDs/ SCDs (8) Discharge planning issues: Status: Acute Assessment and plan: Full code. 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 Keep in ICU. Total Critical Care Time 40 minutes. Subjective Subjective Interval history since last seen: Denies dizziness, chest pain, shortness of breath, nausea. Weaned off of neosynephrine. MAP 72. UOP 1000 cc overnight. Not on oxygen. Abdominal Pain controlled C/o sore throat - that bothers her more than abdominal pain. NGT out this am. Wound vac came off from a bleeding suture (now fixed; no wound vac in place now). Large BM x 3 today. Exam Narrative Exam Narrative: General: Elderly female, A&Ox3, does not appear toxic, no resp. distress on room air HEENT: EOMI, MMM, NGT still in place when I saw her Heart: RRR, no m/r/g Lungs: CTAB Abdomen: soft, midline incision with karen dressed - c/d/i; TTP with mild touch (stethoscope) Extremities: no e/c/c BLE's, 1+ pedal pulses B Objective Objective Clinical Data: Abnormal lab results 04/14/20 04/14/20 04/14/20 Range/Units 16:23 16:23 16:23 WBC (4.4-10.8) 10^3/uL RBC (3.93-5.22) 10^6/uL Hgb (11.2-15.7) g/dL Hct (36.0-46.0) % RDW (11.7-14.6) % MPV 11.5 H (8.0-11.0) fL Absolute Neutrophils 7.55 H (1.2-6.7) 10^3/uL Absolute Lymphocytes 0.34 L (1.2-3.4) 10^3/uL Potassium 3.2 L (3.5-5.1) mmol/L Chloride (98-107) mmol/L Anion Gap 11.6 H (3-11) mmol/L Glucose 114 H (74-106) mg/dL Calcium (8.5-10.1) mg/dL Magnesium 1.7 L (1.8-2.4) mg/dL Alkaline Phosphatase (46-116) U/L C-Reactive Protein 1.26 H (0.0-0.3) mg/dL NT-Pro-B Natriuret Pep 828 H (<300) pg/mL Total Protein (6.4-8.2) g/dL Albumin (3.4-5.0) g/dL Urine Ketones (Negative) mg/dL 04/14/20 04/15/20 04/15/20 Range/Units 16:40 06:20 06:20 WBC 16.06 H D (4.4-10.8) 10^3/uL RBC 3.32 L (3.93-5.22) 10^6/uL Hgb 9.8 L (11.2-15.7) g/dL Hct 30.6 L (36.0-46.0) % RDW 14.9 H (11.7-14.6) % MPV 11.4 H (8.0-11.0) fL Absolute Neutrophils 14.55 H (1.2-6.7) 10^3/uL Absolute Lymphocytes 0.79 L (1.2-3.4) 10^3/uL Potassium (3.5-5.1) mmol/L Chloride 108 H (98-107) mmol/L Anion Gap (3-11) mmol/L Glucose 120 H (74-106) mg/dL Calcium 7.9 L (8.5-10.1) mg/dL Magnesium (1.8-2.4) mg/dL Alkaline Phosphatase 37 L (46-116) U/L C-Reactive Protein (0.0-0.3) mg/dL NT-Pro-B Natriuret Pep (<300) pg/mL Total Protein 5.3 L (6.4-8.2) g/dL Albumin 2.7 L (3.4-5.0) g/dL Urine Ketones 15 H (Negative) mg/dL Vital Signs Temperature 36.6 C 04/15/20 04:24 Temperature Source Temporal Artery Scan 04/15/20 04:24 Pulse 71 04/15/20 07:15 Pulse 72 04/15/20 06:46 Respiratory Rate 29 H 04/15/20 07:15 Respiratory Effort 04/15/20 07:15 Respiratory Depth Normal 04/15/20 07:15 Respiratory Pattern Normal 04/15/20 07:15 Blood Pressure 100/51 L 04/15/20 07:15 Blood Pressure Mean 67 04/15/20 07:15 Blood Pressure Position Supine 04/15/20 07:15 Pulse Oximetry 95 04/15/20 07:15 Oxygen Delivery Method Room Air 04/15/20 07:15 Oxygen Flow Rate 0 04/15/20 07:15 Pain Level 5 04/15/20 07:15 Intake & Output 04/14/20 04/14/20 04/15/20 11:59 23:59 11:59 Intake Total 707.5 / 827.5 2070.6 / 2069.6 Output Total 670 / 670 1000 / 1000 Balance 37.5 / 157.5 1070.6 / 1070.6 Weight 59.4 kg 59.4 kg Intake: IV 707.5 / 827.5 2069. / 2069.6 Output: Gastric Drainage 0 / 0 Left Nare 0 / 0 Urine 650 / 650 1000 / 1000 Estimated Blood Loss Other: Urine Color Yellow Pale Yellow Urine Appearance Clear Urine Odor None Comment Wallace catheter in place Voiding Methods Indwelling Catheter Laboratory Results WBC 16.06 10^3/uL (4.4-10.8) H D 04/15/20 06:20 RBC 3.32 10^6/uL (3.93-5.22) L 04/15/20 06:20 Hgb 9.8 g/dL (11.2-15.7) L 04/15/20 06:20 Hct 30.6 % (36.0-46.0) L 04/15/20 06:20 MCV 92.2 fL (80-95) 04/15/20 06:20 MCH 29.5 pg (27.0-33.0) 04/15/20 06:20 MCHC 32.0 % (32.0-36.0) 04/15/20 06:20 RDW 14.9 % (11.7-14.6) H 04/15/20 06:20 Plt Count 160 10^3/uL (130-400) 04/15/20 06:20 MPV 11.4 fL (8.0-11.0) H 04/15/20 06:20 Immature Gran % 1.1 04/15/20 06:20 Neutrophils % 90.6 04/15/20 06:20 Lymphocytes % 4.9 04/15/20 06:20 Monocytes % 3.3 04/15/20 06:20 Eosinophils % 0.0 04/15/20 06:20 Basophils % 0.1 04/15/20 06:20 Nucleated RBC % 0 % 04/15/20 06:20 Absolute Neutrophils 14.55 10^3/uL (1.2-6.7) H 04/15/20 06:20 Absolute Lymphocytes 0.79 10^3/uL (1.2-3.4) L 04/15/20 06:20 Absolute Monocytes 0.53 10^3/uL (0.1-0.8) 04/15/20 06:20 Absolute Eosinophils 0.00 10^3/uL (0.0-0.7) 04/15/20 06:20 Absolute Basophils 0.02 10^3/uL (0.0-0.2) 04/15/20 06:20 PT 11.0 sec (9.3-11.0) 04/15/20 00:00 INR 1.1 (0.9-1.1) 04/15/20 00:00 VBG Lactate 1.4 mmol/L (0.6-1.4) 04/15/20 06:20 Sodium 142 mmol/L (136-145) 04/15/20 06:20 Potassium 3.5 mmol/L (3.5-5.1) 04/15/20 06:20 Chloride 108 mmol/L (98-107) H 04/15/20 06:20 Carbon Dioxide 25.9 mmol/L (21.0-32.0) 04/15/20 06:20 Anion Gap 8.1 mmol/L (3-11) 04/15/20 06:20 BUN 13 mg/dL (7-18) 04/15/20 06:20 Creatinine 0.95 mg/dL (0.55-1.02) 04/15/20 06:20 Estimated GFR/1.73 m2 56.89 (mL/min/1.73m2) 04/15/20 06:20 Glucose 120 mg/dL (74-106) H 04/15/20 06:20 Calcium 7.9 mg/dL (8.5-10.1) L 04/15/20 06:20 Magnesium 1.8 mg/dL (1.8-2.4) 04/15/20 06:20 Total Bilirubin 0.6 mg/dL (0.2-1.0) 04/15/20 06:20 AST 24 U/L (15-37) 04/15/20 06:20 ALT 17 U/L (14-59) 04/15/20 06:20 Alkaline Phosphatase 37 U/L (46-116) L 04/15/20 06:20 Troponin I < 0.05 ng/mL (<0.06) 04/14/20 19:37 C-Reactive Protein 1.26 mg/dL (0.0-0.3) H 04/14/20 16:23 NT-Pro-B Natriuret Pep 828 pg/mL (<300) H 04/14/20 16:23 Total Protein 5.3 g/dL (6.4-8.2) L 04/15/20 06:20 Albumin 2.7 g/dL (3.4-5.0) L 04/15/20 06:20 Procalcitonin 19.1 ng/mL 04/14/20 16:23 Urine Color Yellow (Yellow) 04/14/20 16:40 Urine Clarity Clear (Clear) 04/14/20 16:40 Urine pH 8.0 (5-8) 04/14/20 16:40 Ur Specific [place] 1.020 (1.005-1.025) 04/14/20 16:40 Urine Protein Negative mg/dL (Negative) 04/14/20 16:40 Urine Ketones 15 mg/dL (Negative) H 04/14/20 16:40 Urine Blood Negative (Negative) 04/14/20 16:40 Urine Nitrite Negative (Negative) 04/14/20 16:40 Urine Bilirubin Negative (Negative) 04/14/20 16:40 Urine Urobilinogen 0.2 EU/dL (Up TO 0.2) 04/14/20 16:40 Ur Leukocyte Esterase Negative (Negative) 04/14/20 16:40 Urine Glucose Negative mg/dL (Negative) 04/14/20 16:40 Patient ABO/Rh O Positive 04/14/20 20:10 Antibody Screen Negative 04/14/20 20:10
[2020-04-15] MEDS: Lactated Ringers 1,000 ML 1000 ML IV ×2 (08:32→10:45)
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
--- NOTE | 2020-04-15 09:19 | W.PM.PROGNOT ---
Date of Service Date of service: 04/15/20 Time of Service: 09:19 Assessment and Plan Assessment and plan (1) Hypotension: Status: Acute (2) Obstruction of ascending colon: Status: Acute Assessment and plan: Plan: POD #1 s/p cecal resection for obstructing colon cancer. No gross perforation/contamination of the abdominal cavity.. Severe inflammatory reaction- uncertain of etiology. Cultures were taken at the time of surgery. Does need to continue on antibiotics -Small skin bleeder. This was oversewn at the bedside today Continue local wound care Pain control measures are effective Risk vs benefits of narcotics are reviewed with the patient as well. diet: sips and chips -Need to monitor her hypertension and anemia. She has a CBC at nooon and may require transfusion. I reviewed with the pt there prognosis and today's findings. Continue current treatment regimin and supportive care. I reviewed all these findings with Dr. Richards Interval History: Doing well. Continues to improve. Pain is well-controlled. No fevers. Is complaining of more pain and irritation from the NG and from her abdominal. Did have a small persistent skin bleeder at the superior aspect top of her incision. This was oversewed with 2 sutures of 2-0 Prolene at this morning and the bleeding is eased -We will consult physical therapy Hospitalist service has been consulted for medical management and to monitor her COPD -We are holding her blood pressure medications this a.m. in light of her hypotension. -We are holding the Lovenox this a.m. in light of the recent bleeding. We will revisit the need for chemical DVT prophylaxis 24 hours. The pt's diet is ice chips only The pt is having no nausea or vomiting. The pt has no chest pain, SOB, productive cough. There has no leg pain or swelling. The pt is not up walking around. Had some hypotension morning. He is off the phenylephrine drip Pt has been doing IS. Pt is passing gas/stool. We reviewed the findings from recent surgeyr, expectations and prognosis and recovery. All questions answered to to her satisfaction. Consideration of consulting Physical therapy, occupational therapy, respiratory therapy, social insurance adviser, wound care, Pharmacy was given and appropriate consults ordered for patient care. All labs, radiological & adjuvant studies, cultures and available path reports have been reviewed. Medications and treatment regimen have been in the liter apriopriately. Medications Review of Systems CONSTITUTIONAL: No fever, chills, weight loss, fatigue, or malaise. SKIN: No rashes, ecchymosis, open sores or breakdown. EYES: No visual changes or eye pain. No jaundice ENT: , nasal congestion, or sore throat. No pain or difficulty swallowing no tongue pain or thrush. NEURO: No behavior changes, dizziness/lightheadedness, headache, loss of consciousness, tremor, weakness, visual changes, RESP: No cough or shortness of breath CV: No chest pains, palpitations, or irregular heart beat. No shortness of breath or productive cough. CP: No Dyspnea on exertion, lower extremity edema, cyanosis, claudication GI: No hx of nausea, vomiting, diarrhea, constipation, peptic ulcer disease, hepatitis, pancreatitis, melena, hematochezia, dysphagia, odynophagia, or bowel habit changes. : no change in urination or blood in urine, no pain or difficulties with urination. MUSCULOSKELETAL: No joint swelling, muscle weakness or pain in the extremities. No rashes. No calf pain or swelling Physical Exam: All vitals have been reviewed A & O x3 in NAD SHEENT examination revealed Mucous membranes are moist. No jaundice. Dentition is- dentures and some teeth in poor repair No JVD. No bruising. No corneal abrasions. Examination of the chest revealed Normal excursion. CTA b/l. No R/R/W. Examination of the heart revealed NSR. No new murmers. No s/s of fluid overload. Examination of the abdomen revealed minimal BS. incision C/D/I. Distention is signif improved since pre_op period. The neuromuscular examination was intact. No focal deficeits. Moving ext. Independently. No calf pain or tenderness. Distal peripheral pulses are intact. No skin breakdown Pt were able to express questions and concerns and were apprised of there condition and expected discharge. Data: All laboratory data reviewed. All pertinent radiology studies, EKG, path, notes from other consultants, etc have been reviewed. (3) Colon cancer: Status: Chronic (4) Anemia: Status: Chronic (5) Lung nodule: Status: Chronic (6) Shortness of breath: Status: Acute (7) COPD (chronic obstructive pulmonary disease): Status: Chronic (8) CAD (coronary artery disease), [place] coronary artery: Status: Chronic Objective Objective Clinical Data: Abnormal lab results 04/14/20 04/14/20 04/14/20 Range/Units 16:23 16:23 16:23 WBC (4.4-10.8) 10^3/uL RBC (3.93-5.22) 10^6/uL Hgb (11.2-15.7) g/dL Hct (36.0-46.0) % RDW (11.7-14.6) % MPV 11.5 H (8.0-11.0) fL Absolute Neutrophils 7.55 H (1.2-6.7) 10^3/uL Absolute Lymphocytes 0.34 L (1.2-3.4) 10^3/uL Potassium 3.2 L (3.5-5.1) mmol/L Chloride (98-107) mmol/L Anion Gap 11.6 H (3-11) mmol/L Glucose 114 H (74-106) mg/dL Calcium (8.5-10.1) mg/dL Magnesium 1.7 L (1.8-2.4) mg/dL Alkaline Phosphatase (46-116) U/L C-Reactive Protein 1.26 H (0.0-0.3) mg/dL NT-Pro-B Natriuret Pep 828 H (<300) pg/mL Total Protein (6.4-8.2) g/dL Albumin (3.4-5.0) g/dL Urine Ketones (Negative) mg/dL 04/14/20 04/15/20 04/15/20 Range/Units 16:40 06:20 06:20 WBC 16.06 H D (4.4-10.8) 10^3/uL RBC 3.32 L (3.93-5.22) 10^6/uL Hgb 9.8 L (11.2-15.7) g/dL Hct 30.6 L (36.0-46.0) % RDW 14.9 H (11.7-14.6) % MPV 11.4 H (8.0-11.0) fL Absolute Neutrophils 14.55 H (1.2-6.7) 10^3/uL Absolute Lymphocytes 0.79 L (1.2-3.4) 10^3/uL Potassium (3.5-5.1) mmol/L Chloride 108 H (98-107) mmol/L Anion Gap (3-11) mmol/L Glucose 120 H (74-106) mg/dL Calcium 7.9 L (8.5-10.1) mg/dL Magnesium (1.8-2.4) mg/dL Alkaline Phosphatase 37 L (46-116) U/L C-Reactive Protein (0.0-0.3) mg/dL NT-Pro-B Natriuret Pep (<300) pg/mL Total Protein 5.3 L (6.4-8.2) g/dL Albumin 2.7 L (3.4-5.0) g/dL Urine Ketones 15 H (Negative) mg/dL Vital Signs Temperature 36.6 C 04/15/20 04:24 Temperature Source Temporal Artery Scan 04/15/20 04:24 Pulse 71 04/15/20 07:15 Pulse 72 04/15/20 06:46 Respiratory Rate 29 H 04/15/20 07:15 Respiratory Effort 04/15/20 07:15 Respiratory Depth Normal 04/15/20 07:15 Respiratory Pattern Normal 04/15/20 07:15 Blood Pressure 100/51 L 04/15/20 07:15 Blood Pressure Mean 67 04/15/20 07:15 Blood Pressure Position Supine 04/15/20 07:15 Pulse Oximetry 95 04/15/20 07:15 Oxygen Delivery Method Room Air 04/15/20 07:15 Oxygen Flow Rate 0 04/15/20 07:15 Pain Level 5 04/15/20 07:15 Intake & Output 04/14/20 04/14/20 04/15/20 11:59 23:59 11:59 Intake Total 707.5 / 827.5 2110.0 / 2110.0 Output Total 670 / 670 1000 / 1000 Balance 37.5 / 157.5 1110.0 / 1110.0 Weight 59.4 kg 59.4 kg Intake: IV 707.5 / 827.5 2110.0 / 2110.0 Output: Gastric Drainage 0 / 0 Left Nare 0 / 0 Urine 650 / 650 1000 / 1000 Estimated Blood Loss Other: Urine Color Yellow Pale Yellow Urine Appearance Clear Urine Odor None Comment Wallace catheter in place Voiding Methods Indwelling Catheter Laboratory Results WBC 16.06 10^3/uL (4.4-10.8) H D 04/15/20 06:20 RBC 3.32 10^6/uL (3.93-5.22) L 04/15/20 06:20 Hgb 9.8 g/dL (11.2-15.7) L 04/15/20 06:20 Hct 30.6 % (36.0-46.0) L 04/15/20 06:20 MCV 92.2 fL (80-95) 04/15/20 06:20 MCH 29.5 pg (27.0-33.0) 04/15/20 06:20 MCHC 32.0 % (32.0-36.0) 04/15/20 06:20 RDW 14.9 % (11.7-14.6) H 04/15/20 06:20 Plt Count 160 10^3/uL (130-400) 04/15/20 06:20 MPV 11.4 fL (8.0-11.0) H 04/15/20 06:20 Immature Gran % 1.1 04/15/20 06:20 Neutrophils % 90.6 04/15/20 06:20 Lymphocytes % 4.9 04/15/20 06:20 Monocytes % 3.3 04/15/20 06:20 Eosinophils % 0.0 04/15/20 06:20 Basophils % 0.1 04/15/20 06:20 Nucleated RBC % 0 % 04/15/20 06:20 Absolute Neutrophils 14.55 10^3/uL (1.2-6.7) H 04/15/20 06:20 Absolute Lymphocytes 0.79 10^3/uL (1.2-3.4) L 04/15/20 06:20 Absolute Monocytes 0.53 10^3/uL (0.1-0.8) 04/15/20 06:20 Absolute Eosinophils 0.00 10^3/uL (0.0-0.7) 04/15/20 06:20 Absolute Basophils 0.02 10^3/uL (0.0-0.2) 04/15/20 06:20 PT 11.0 sec (9.3-11.0) 04/15/20 00:00 INR 1.1 (0.9-1.1) 08/29/20 00:00 VBG Lactate 1.4 mmol/L (0.6-1.4) 04/15/20 06:20 Sodium 142 mmol/L (136-145) 04/15/20 06:20 Potassium 3.5 mmol/L (3.5-5.1) 04/15/20 06:20 Chloride 108 mmol/L (98-107) H 04/15/20 06:20 Carbon Dioxide 25.9 mmol/L (21.0-32.0) 04/15/20 06:20 Anion Gap 8.1 mmol/L (3-11) 04/15/20 06:20 BUN 13 mg/dL (7-18) 04/15/20 06:20 Creatinine 0.95 mg/dL (0.55-1.02) 04/15/20 06:20 Estimated GFR/1.73 m2 56.89 (mL/min/1.73m2) 04/15/20 06:20 Glucose 120 mg/dL (74-106) H 04/15/20 06:20 Calcium 7.9 mg/dL (8.5-10.1) L 04/15/20 06:20 Magnesium 1.8 mg/dL (1.8-2.4) 04/15/20 06:20 Total Bilirubin 0.6 mg/dL (0.2-1.0) 04/15/20 06:20 AST 24 U/L (15-37) 04/15/20 06:20 ALT 17 U/L (14-59) 04/15/20 06:20 Alkaline Phosphatase 37 U/L (46-116) L 04/15/20 06:20 Troponin I < 0.05 ng/mL (<0.06) 04/14/20 19:37 C-Reactive Protein 1.26 mg/dL (0.0-0.3) H 04/14/20 16:23 NT-Pro-B Natriuret Pep 828 pg/mL (<300) H 04/14/20 16:23 Total Protein 5.3 g/dL (6.4-8.2) L 04/15/20 06:20 Albumin 2.7 g/dL (3.4-5.0) L 04/15/20 06:20 Procalcitonin 19.1 ng/mL 04/14/20 16:23 Urine Color Yellow (Yellow) 04/14/20 16:40 Urine Clarity Clear (Clear) 04/14/20 16:40 Urine pH 8.0 (5-8) 04/14/20 16:40 Ur Specific [place] 1.020 (1.005-1.025) 04/14/20 16:40 Urine Protein Negative mg/dL (Negative) 04/14/20 16:40 Urine Ketones 15 mg/dL (Negative) H 04/14/20 16:40 Urine Blood Negative (Negative) 04/14/20 16:40 Urine Nitrite Negative (Negative) 04/14/20 16:40 Urine Bilirubin Negative (Negative) 04/14/20 16:40 Urine Urobilinogen 0.2 EU/dL (Up TO 0.2) 04/14/20 16:40 Ur Leukocyte Esterase Negative (Negative) 04/14/20 16:40 Urine Glucose Negative mg/dL (Negative) 04/14/20 16:40 Patient ABO/Rh O Positive 04/14/20 20:10 Antibody Screen Negative 04/14/20 20:10
[2020-04-15 10:25] LABS: C-Reactive Protein 14.39 mg/dL (0.0-0.3); NT-proBNP 5844 pg/mL (<300)
--- NOTE | 2020-04-15 10:35 | PHA.REVIEW ---
Pharmacy Admission Review - Admission Clinical Review (Last Reviewed 04/15/20 @ 01:29 by Ammon Apple) Hypotension (Acute) DVT prophylaxis (Acute) Obstruction of ascending colon (Acute) Colonic mass (Acute) Peritonitis (Acute) Hypomagnesemia (Acute) epinephrine Allergy (Severe, Verified 04/14/20 17:39) Heart Stops Sulfa (Sulfonamide Antibiotics) Adverse Reaction (Severe, Verified 04/14/20 17:39) GI Upset varenicline tartrate [From Chantix] Adverse Reaction (Intermediate, Verified 04/14/20 17:39) Blinding STAPLES, Dizzy, Weak lactose Adverse Reaction (Verified 04/14/20 17:39) Td Vaccine Allergy (Severe, Uncoded 04/14/20 17:39) chest pain, vomited, weakness Height 5 ft 3 in Weight 59.4 kg - Renal Dosing Renal Dosing: BUN 13 mg/dL (7-18) 04/15/20 06:20 Creatinine 0.95 mg/dL (0.55-1.02) 04/15/20 06:20 Medications needing adjustments: Reviewed (crcl ~40ml/min) - Anticoagulation Anticoagulation: Hgb 9.8 g/dL (11.2-15.7) L 04/15/20 06:20 Hct 30.6 % (36.0-46.0) L 04/15/20 06:20 Plt Count 160 10^3/uL (130-400) 04/15/20 06:20 INR 1.1 (0.9-1.1) 04/15/20 00:00 Creatinine 0.95 mg/dL (0.55-1.02) 04/15/20 06:20 DVT Prohphylaxis: N/A (anemia) - Relevant Labs Sodium 142 mmol/L (136-145) 04/15/20 06:20 Potassium 3.5 mmol/L (3.5-5.1) 04/15/20 06:20 Chloride 108 mmol/L (98-107) H 04/15/20 06:20 Magnesium 1.8 mg/dL (1.8-2.4) 04/15/20 06:20 C-Reactive Protein 1.26 mg/dL (0.0-0.3) H 04/14/20 16:23 - DM Control DM Control: Glucose 120 mg/dL (74-106) H 04/15/20 06:20 - Heart Failure/MD Heart Failure/MD: Troponin I < 0.05 ng/mL (<0.06) 04/14/20 19:37 NT-Pro-B Natriuret Pep 828 pg/mL (<300) H 04/14/20 16:23 - BP Control BP Control: Blood Pressure [Right Arm] 100/51 Blood Pressure 107/57 Blood Pressure 99/71 Blood Pressure 106/69 Blood Pressure 103/57 Blood Pressure 94/50 Blood Pressure 100/52 Blood Pressure 95/51 Blood Pressure 94/52 Blood Pressure 95/52 Blood Pressure 103/56 Blood Pressure 110/54 Blood Pressure 96/53 Blood Pressure 95/50 Blood Pressure 98/52 Blood Pressure 97/54 Blood Pressure 119/61 Blood Pressure 102/53 Blood Pressure 93/52 Blood Pressure 94/51 Blood Pressure 99/51 Blood Pressure 81/56 Blood Pressure 112/52 Blood Pressure 105/52 Blood Pressure 97/50 Blood Pressure 116/56 Blood Pressure 96/52 Blood Pressure 105/54 Blood Pressure 98/56 Blood Pressure 76/40 Blood Pressure 85/51 Blood Pressure 91/49 Blood Pressure 92/51 Blood Pressure 92/57 - Home Meds Home Med List reviewed: Reviewed (sucralafate, tramadol not ordered) - Current meds Current Medication Order Review: Reviewed (phenylephrine infusion, lovenox order cancelled, theophylline entered as pat own) - Comments Comments/Follow Ups: surgery last evening for mass removal
[2020-04-15] MEDS: Lidocaine 1% Multi-Dose 50 ML VIAL (11:00)
[2020-04-15 12:12] LABS: HCT 25.5 % (36.0-46.0); HGB 8.3 g/dL (11.2-15.7)
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
[2020-04-15 12:41] LABS: Troponin I < 0.05 ng/mL (<0.06)
[2020-04-15 12:52] LABS: COVID-19 RT-PCR UVMMC Result Negative (Negative)
[2020-04-15] MEDS: diphenhydrAMINE 50 MG/ML VIAL 25 MG IVP (13:41)
[2020-04-15] MEDS: Magic Mouthwash 119 ML BTL 10 ML MM (14:05)
[2020-04-15] MEDS: Tiotropium Bromide-Respimat 10 PUFF INH 2 PUFF IH (14:23)
[2020-04-15] MEDS: MORPHine 2 MG/ML SYR 1 MG IVP ×2 (19:57→23:04)
[2020-04-15 20:40] LABS: HCT 32.8 % (36.0-46.0); HGB 10.7 g/dL (11.2-15.7)
[2020-04-15] MEDS: Lactated Ringers 1,000 ML 100 ML IV (23:00)
[2020-04-16] VITALS (98 sets, daily range): BP systolic 100–141; BP diastolic 59–97; PULSE 63–95; RESP 10–38; TEMP 36.6–36.8; O2SAT 89–96
[2020-04-16] MEDS: PIPERACILLIN/TAZO 4.5 GM in Normal Saline 100 ML IVPB ×3 (03:29→20:42)
[2020-04-16] MEDS: MORPHine 2 MG/ML SYR 1 MG IVP ×4 (03:30→10:33)
[2020-04-16 06:06] LABS: Abs Immature Grans 0.09 10^3/uL (0.0-0.06); Absolute Basophil Count 0.02 10^3/uL (0.0-0.2); Absolute Lymphocyte Count 0.86 10^3/uL (1.2-3.4); Absolute Monocyte Count 0.34 10^3/uL (0.1-0.8); Absolute Neutrophil Count 7.94 10^3/uL (1.2-6.7); Basophils % 0.2; HCT 32.4 % (36.0-46.0); HGB 10.6 g/dL (11.2-15.7); Lymphocytes % 9.3; MCH 29.5 pg (27.0-33.0); MCHC 32.7 % (32.0-36.0); MCV 90.3 fL (80-95); MPV 11.3 fL (8.0-11.0); Monocytes % 3.7; Neutrophils % 85.8; Nucleated RBC 0 %; Platelet Count 115 10^3/uL (130-400); RBC 3.59 10^6/uL (3.93-5.22); RDW 15.3 % (11.7-14.6); RDW-SD 50.4 fL; WBC 9.25 10^3/uL (4.4-10.8)
[2020-04-16 06:31] LABS: Anion Gap 10.1 mmol/L (3-11); BUN 17 mg/dL (7-18); C-Reactive Protein 20.79 mg/dL (0.0-0.3); CO2 22.9 mmol/L (21.0-32.0); CREATININE 1.05 mg/dL (0.55-1.02); Calcium 8.1 mg/dL (8.5-10.1); Chloride 110 mmol/L (98-107); Estimated GFR 50.69 (mL/min/1.73m2); Glucose 69 mg/dL (74-106); Magnesium 1.8 mg/dL (1.8-2.4); NT-proBNP 1018 pg/mL (<300); Potassium 3.4 mmol/L (3.5-5.1); Sodium 143 mmol/L (136-145)
[2020-04-16] MEDS: Dextrose 50%-Water 25 GM/50 ML SYR IVP (07:12)
[2020-04-16] MEDS: Lactated Ringers 1,000 ML 100 ML IV (07:32)
[2020-04-16] MEDS: Lactobacillus Acidophilus CAP 1 CAP PO ×2 (07:37→13:26)
[2020-04-16] MEDS: Pantoprazole 40 MG VIAL IVP (07:38)
[2020-04-16] MEDS: ACETAMINOPHEN 1,000 MG/100 ML BTL 400 MG IVPB ×2 (07:39→16:33)
[2020-04-16] MEDS: Tiotropium Bromide-Respimat 10 PUFF INH 2 PUFF IH (08:27)
--- NOTE | 2020-04-16 08:43 | PGE_ITS ---
Date of Service Date of service: 04/16/20 Time of Service: 11:56 Assessment and Plan Assessment and plan (1) Shock: Status: Resolved Assessment and plan: Etiology - likely septic (?peritonitis). Not requiring pressors x 24 hrs. Continue zosyn. Continue IVF. Blood cultures are negative at 24 hours. (2) Colonic mass: Status: Acute Assessment and plan: s/p R colectomy with reanastomosis. Bleeding at suture site fixed yesterday, and incision looks great. Is permitted to have 1 glass of apple juice by surgery today. Await bx results. (3) Anemia: Status: Chronic Assessment and plan: S/p 2 units pRBCs. H/H stable. Continue to monitor. (4) Hypomagnesemia: Status: Acute Assessment and plan: Repleted. Recheck in am. (5) COPD (chronic obstructive pulmonary disease): Status: Chronic Assessment and plan: At baseline, not on oxygen. Continue outpatient inhaler (spiriva). (6) CAD (coronary artery disease), [place] coronary artery: Status: Chronic Assessment and plan: No evidence of ACS. (7) DVT prophylaxis: Status: Acute Assessment and plan: Defer to general surgery. Continue TEDs/ SCDs (8) Discharge planning issues: Status: Acute Assessment and plan: Full code. Discussed with Dr Pa. Subjective Subjective Interval history since last seen: Denies dizziness, chest pain, shortness of breath, nausea. +abdominal pain. Hesitant to drink apple juice because she watched a story on TV about apple juice being deadly. I reassured her that our apple juice is safe. She would like to inspect the packaging of the apple juice container to determine if she will drink it. She is inquiring if it is safe for her to get up (she is worried about rupturing her sutures). The sore in the mouth is feeling a lot better. Off of pressors, maintaining BPs. Pain not well controlled. + bowel sounds. Had diarrhea x3 last night and some this morning. UOP 1000 cc last night. On LR @ 100 cc/hr. Inspiratory wheezing B. Bloody secretions when suctions herself. Does not sound wet (per nursing). Got hypoglycemic to 65 - got D50. Exam Narrative Exam Narrative: General: Elderly female, A&Ox3, looks better. HEENT: EOMI, MMM Heart: RRR, no m/r/g Lungs: CTAB Abdomen: soft, midline incision with karen - c/d/i; TTP with mild touch Extremities: no e/c/c BLE's, 1+ pedal pulses B Objective Objective Clinical Data: Abnormal lab results 04/14/20 04/15/20 04/15/20 Range/Units 20:10 06:20 12:00 RBC (3.93-5.22) 10^6/uL Hgb 8.3 L (11.2-15.7) g/dL Hct 25.5 L (36.0-46.0) % RDW (11.7-14.6) % Plt Count (130-400) 10^3/uL MPV (8.0-11.0) fL Absolute Neutrophils (1.2-6.7) 10^3/uL Absolute Lymphocytes (1.2-3.4) 10^3/uL Potassium (3.5-5.1) mmol/L Chloride 108 H (98-107) mmol/L Creatinine (0.55-1.02) mg/dL Glucose 120 H (74-106) mg/dL Calcium 7.9 L (8.5-10.1) mg/dL Alkaline Phosphatase 37 L (46-116) U/L C-Reactive Protein 14.39 H (0.0-0.3) mg/dL NT-Pro-B Natriuret Pep 5844 H (<300) pg/mL Total Protein 5.3 L (6.4-8.2) g/dL Albumin 2.7 L (3.4-5.0) g/dL Crossmatch See Detail 04/15/20 04/16/20 04/16/20 Range/Units 20:35 05:49 05:49 RBC 3.59 L (3.93-5.22) 10^6/uL Hgb 10.7 L D 10.6 L (11.2-15.7) g/dL Hct 32.8 L D 32.4 L (36.0-46.0) % RDW 15.3 H (11.7-14.6) % Plt Count 115 L (130-400) 10^3/uL MPV 11.3 H (8.0-11.0) fL Absolute Neutrophils 7.94 H (1.2-6.7) 10^3/uL Absolute Lymphocytes 0.86 L (1.2-3.4) 10^3/uL Potassium 3.4 L (3.5-5.1) mmol/L Chloride 110 H (98-107) mmol/L Creatinine 1.05 H (0.55-1.02) mg/dL Glucose 69 L D (74-106) mg/dL Calcium 8.1 L (8.5-10.1) mg/dL Alkaline Phosphatase (46-116) U/L C-Reactive Protein 20.79 H (0.0-0.3) mg/dL NT-Pro-B Natriuret Pep 1018 H (<300) pg/mL Total Protein (6.4-8.2) g/dL Albumin (3.4-5.0) g/dL Crossmatch Vital Signs Temperature 36.7 C 04/16/20 07:51 Temperature Source Temporal Artery Scan 04/16/20 07:51 Pulse 89 04/16/20 08:00 Pulse 91 H 04/16/20 08:00 Respiratory Rate 19 04/16/20 08:00 Respiratory Effort Non-Labored 04/16/20 07:51 Respiratory Depth Normal 04/16/20 07:51 Respiratory Pattern Normal 04/16/20 07:51 Blood Pressure 126/67 04/16/20 08:00 Blood Pressure Mean 81 04/16/20 08:00 Blood Pressure Position Supine 04/16/20 07:51 Pulse Oximetry 93 L 04/16/20 08:00 Oxygen Delivery Method Room Air 04/16/20 07:51 Oxygen Flow Rate 0 04/16/20 07:51 Pain Level 3 04/16/20 07:51 Intake & Output 04/15/20 04/15/20 04/16/20 11:59 23:59 11:59 Intake Total 3430.0 / 5615.167 2185.167 / 5615.167 853.333 / 853.333 Output Total 1000 / 2150 1150 / 2150 225 / 225 Balance 2430.0 / 3465.167 1035.167 / 3465.167 628.333 / 628.333 Weight 59.4 kg Intake: IV 3430.0 / 4784.167 1354.167 / 4784.167 853.333 / 853.333 Blood Product 831 / 831 Rbc Leuko Reduced Unit 554 / 554 [id number] Rbc Leuko Reduced Unit 277 / 277 [id number] Output: Gastric Drainage 0 / 0 Left Nare 0 / 0 Urine 1000 / 2050 1050 / 2050 225 / 225 Stool 100 / 100 Other: Urine Color Pale Pale Yellow Yellow Yellow Urine Appearance Clear Clear Clear Urine Odor None None Comment Wallace catheter in place Wallace catheter in place Wallace catheter intact and draining clear yellow urine. Stool Size Moderate Large Stool Characteristics Liquid Liquid Green Brown Green Voiding Methods Indwelling Catheter Indwelling Catheter Laboratory Results WBC 9.25 10^3/uL (4.4-10.8) D 04/16/20 05:49 RBC 3.59 10^6/uL (3.93-5.22) L 04/16/20 05:49 Hgb 10.6 g/dL (11.2-15.7) L 04/16/20 05:49 Hct 32.4 % (36.0-46.0) L 04/16/20 05:49 MCV 90.3 fL (80-95) 04/16/20 05:49 MCH 29.5 pg (27.0-33.0) 04/16/20 05:49 MCHC 32.7 % (32.0-36.0) 04/16/20 05:49 RDW 15.3 % (11.7-14.6) H 04/16/20 05:49 Plt Count 115 10^3/uL (130-400) L 04/16/20 05:49 MPV 11.3 fL (8.0-11.0) H 04/16/20 05:49 Immature Gran % 1.0 04/16/20 05:49 Neutrophils % 85.8 04/16/20 05:49 Lymphocytes % 9.3 04/16/20 05:49 Monocytes % 3.7 04/16/20 05:49 Eosinophils % 0.0 04/16/20 05:49 Basophils % 0.2 04/16/20 05:49 Nucleated RBC % 0 % 04/16/20 05:49 Absolute Neutrophils 7.94 10^3/uL (1.2-6.7) H 04/16/20 05:49 Absolute Lymphocytes 0.86 10^3/uL (1.2-3.4) L 04/16/20 05:49 Absolute Monocytes 0.34 10^3/uL (0.1-0.8) 04/16/20 05:49 Absolute Eosinophils 0.00 10^3/uL (0.0-0.7) 04/16/20 05:49 Absolute Basophils 0.02 10^3/uL (0.0-0.2) 04/16/20 05:49 PT 11.0 sec (9.3-11.0) 04/15/20 00:00 INR 1.1 (0.9-1.1) 04/15/20 00:00 VBG Lactate 1.4 mmol/L (0.6-1.4) 04/15/20 06:20 Sodium 143 mmol/L (136-145) 04/16/20 05:49 Potassium 3.4 mmol/L (3.5-5.1) L 04/16/20 05:49 Chloride 110 mmol/L (98-107) H 04/16/20 05:49 Carbon Dioxide 22.9 mmol/L (21.0-32.0) 04/16/20 05:49 Anion Gap 10.1 mmol/L (3-11) 04/16/20 05:49 BUN 17 mg/dL (7-18) 04/16/20 05:49 Creatinine 1.05 mg/dL (0.55-1.02) H 04/16/20 05:49 Estimated GFR/1.73 m2 50.69 (mL/min/1.73m2) 04/16/20 05:49 Glucose 69 mg/dL (74-106) L D 04/16/20 05:49 Calcium 8.1 mg/dL (8.5-10.1) L 04/16/20 05:49 Magnesium 1.8 mg/dL (1.8-2.4) 04/16/20 05:49 Total Bilirubin 0.6 mg/dL (0.2-1.0) 04/15/20 06:20 AST 24 U/L (15-37) 04/15/20 06:20 ALT 17 U/L (14-59) 04/15/20 06:20 Alkaline Phosphatase 37 U/L (46-116) L 04/15/20 06:20 Troponin I < 0.05 ng/mL (<0.06) 04/15/20 12:00 C-Reactive Protein 20.79 mg/dL (0.0-0.3) H 04/16/20 05:49 NT-Pro-B Natriuret Pep 1018 pg/mL (<300) H 04/16/20 05:49 Total Protein 5.3 g/dL (6.4-8.2) L 04/15/20 06:20 Albumin 2.7 g/dL (3.4-5.0) L 04/15/20 06:20 Procalcitonin 19.1 ng/mL 04/14/20 16:23 Urine Color Yellow (Yellow) 04/14/20 16:40 Urine Clarity Clear (Clear) 04/14/20 16:40 Urine pH 8.0 (5-8) 04/14/20 16:40 Ur Specific [place] 1.020 (1.005-1.025) 04/14/20 16:40 Urine Protein Negative mg/dL (Negative) 04/14/20 16:40 Urine Ketones 15 mg/dL (Negative) H 04/14/20 16:40 Urine Blood Negative (Negative) 04/14/20 16:40 Urine Nitrite Negative (Negative) 04/14/20 16:40 Urine Bilirubin Negative (Negative) 04/14/20 16:40 Urine Urobilinogen 0.2 EU/dL (Up TO 0.2) 04/14/20 16:40 Ur Leukocyte Esterase Negative (Negative) 04/14/20 16:40 Urine Glucose Negative mg/dL (Negative) 04/14/20 16:40 COVID-19 PCR Negative (Negative) 04/15/20 01:15 Nasopharyn COVID-19 PCR Not Applicable 04/15/20 01:15 Ref Test Perform Site [facility] lab 04/15/20 01:15 Patient ABO/Rh O Positive 04/14/20 20:10 Antibody Screen Negative 04/14/20 20:10 Crossmatch See Detail 04/14/20 20:10
[2020-04-16] MEDS: Normal Saline Flush 10 ML SYR IVP ×2 (08:44→16:33)
[2020-04-16] MEDS: MAGNESIUM SULFATE 2 GM/50 ML BAG IVPB (09:10)
[2020-04-16] MEDS: POTASSIUM CHLORIDE 20 MEQ/100 ML BAG 50 MEQ IVPB ×2 (09:10→11:06)
[2020-04-16] MEDS: DEXTROSE 5%-LACTATED RINGERS 1,000 ML 100 ML IV ×2 (09:26→19:26)
--- NOTE | 2020-04-16 10:55 | PT.INTREAT ---
Date of service: 04/16/20 Time of Service: 09:30 PT Notes Visit Reasons: OBSTRUCTING COLON CANCER Inpatient Physical Therapy Treatment Note [facility] Date: 04/16/2020 SUBJECTIVE: Aminata states that she is hurting. She is concerned about her stitches opening when she gets out of bed. OBJECTIVE: [] BED MOBILITY/TRANSFERS Supine-sit: CGA Sit-supine: SBA Sit-stand: SBA Stand-sit: SBA Bed-Chair: SBA Chair-bed: SBA GAIT Assistive Device: FWW Weight bearing: FWB Assist: CGA Distance: pivot transfer pt sat in chair x 35 min. THEREX: light LE strengthening routine, see flowsheet for details. ASSESSMENT: tolerated session well, despite pain. She seems to do well while holding pillow at abdominal region. PLAN: will continue to progress following PT POC. TREATMENT CODE/TIME: 25 min. [id number], [id number].
--- NOTE | 2020-04-16 11:48 | CMPROGNOTE_ITS ---
- If Service Date Differs Date of service: 04/16/20 Time of Service: 11:48 Care Management Progress Note S/O: Rachel is sitting in a chair watching television when CM comes to meet with her. She is holding a pillow across her abdomen and is clearly in a lot of pain, wincing with every move. She states she just took pain medication and it has not kicked in yet. She is status post right colectomy with reanastomosis. She continues on I.V. fluids. Rachel hopes to be able to walk soon so she can visit her son who is just down the [place] from her. CM will continue to follow. A: Rachel is a 80 year old female admitted to [facility] on 04/14/2020 for obstructing colon cancer. P: Rachel will be discharged when she is medically cleared by provider. Her daughter, Jolly, has expressed a desire to have her mom come to her home in [place] to recuperate. Rachel is contemplating going to [place] vs returning home. CM will continue to support patient and discharge planning considerations.
[2020-04-16] MEDS: traMADol 50 MG TAB PO ×3 (12:26→20:42)
[2020-04-16 13:15] LABS: Iron 10 ug/dL (50-170); Total Iron Binding Capacity 225 ug/dL (250-450); Transferrin Sat 4 % (15-50)
[2020-04-16 13:17] LABS: Ferritin 125 ng/mL (8-252)
[2020-04-16] MEDS: IRON SUCROSE COMPLEX 200 MG in Normal Saline 100 ML IVPB (15:42)
--- NOTE | 2020-04-16 19:14 | W.PM.PROGNOT ---
Date of Service Date of service: 04/16/20 Time of Service: 10:30 Assessment and Plan Assessment and plan (1) Obstruction of ascending colon: Status: Acute Assessment and plan: POD#2 s/p Right muriel w/ primary anastomsis for obstructing/poss intusepting colon cancer. BP & Hgb stable. pepcide. -hold chemical DVT prophylaxis secondary to bleeding -electrolytes adjusted. -pt wants to try clears- sparingly. -refusing entereg today -po tramadol/tylenol for pain. kidneys too poor for toradol. -Zosyn and probiotics -PT -will need someone to care for her upon d/c. She is lives alone and cares for handicapped son. (2) Colon cancer: Status: Chronic (3) Anemia: Status: Chronic (4) Kyphosis: Status: Chronic (5) Dyspnea on exertion: Status: Chronic (6) Hoarseness of voice: Status: Chronic (7) COPD (chronic obstructive pulmonary disease): Status: Chronic (8) CAD (coronary artery disease), [place] coronary artery: Status: Chronic Subjective Subjective Interval history since last seen: Patient's blood pressure has been stable overnight. She has had no further bleeding from the wound. She was up in a chair earlier today. She had multiple bowel movements yesterday and is refusing the Entereg today. She says she is thirsty and would like to try something to drink. no headaches. No CP or SOB. no productive cough. no leg pain or swelling. Exam Narrative Exam Narrative: PHYSICAL EXAM GENERAL APPEARANCE: Alert, healthy appearance, oriented, in no acute distress SKIN: No hyperpigmentation, vitiligo, or suspicious lesions No rashes. HYDRATION: Well hydrated HEAD, EYES, EARS, NECK, AND THROAT: Head is normocephalic, pupils equal, round, reactive to light and accommodation, ocular movement intact, sclera clear and no jaundice. Dentition intact. NECK: Supple, no lymphadenopathy. Trachea midline. LUNGS: normal respiration, clear to auscultation HEART: Regular rate and rhythm, EXTREMITY: No edema or cyanosis ABDOM: Incision is clean dry and intact with no further bleeding. Normal bowel sounds NEURO: no focal neuro deficits Objective Objective Clinical Data: Abnormal lab results 04/14/20 04/15/20 04/16/20 Range/Units 06:20 20:35 05:49 RBC (3.93-5.22) 10^6/uL Hgb 10.7 L D (11.2-15.7) g/dL Hct 32.8 L D (36.0-46.0) % RDW (11.7-14.6) % Plt Count (130-400) 10^3/uL MPV (8.0-11.0) fL Absolute Neutrophils (1.2-6.7) 10^3/uL Absolute Lymphocytes (1.2-3.4) 10^3/uL Potassium 3.4 L (3.5-5.1) mmol/L Chloride 110 H (98-107) mmol/L Creatinine 1.05 H (0.55-1.02) mg/dL Glucose 69 L D (74-106) mg/dL Calcium 8.1 L (8.5-10.1) mg/dL Iron 10 L (50-170) ug/dL TIBC 225 L (250-450) ug/dL Transferrin % Sat 4 L (15-50) % C-Reactive Protein 20.79 H (0.0-0.3) mg/dL NT-Pro-B Natriuret Pep 1018 H (<300) pg/mL 04/16/20 Range/Units 05:49 RBC 3.59 L (3.93-5.22) 10^6/uL Hgb 10.6 L (11.2-15.7) g/dL Hct 32.4 L (36.0-46.0) % RDW 15.3 H (11.7-14.6) % Plt Count 115 L (130-400) 10^3/uL MPV 11.3 H (8.0-11.0) fL Absolute Neutrophils 7.94 H (1.2-6.7) 10^3/uL Absolute Lymphocytes 0.86 L (1.2-3.4) 10^3/uL Potassium (3.5-5.1) mmol/L Chloride (98-107) mmol/L Creatinine (0.55-1.02) mg/dL Glucose (74-106) mg/dL Calcium (8.5-10.1) mg/dL Iron (50-170) ug/dL TIBC (250-450) ug/dL Transferrin % Sat (15-50) % C-Reactive Protein (0.0-0.3) mg/dL NT-Pro-B Natriuret Pep (<300) pg/mL Vital Signs Temperature 36.8 C 04/16/20 16:00 Temperature Source Temporal Artery Scan 04/16/20 16:00 Pulse 83 04/16/20 16:01 Pulse 81 04/16/20 16:15 Respiratory Rate 16 04/16/20 16:15 Respiratory Effort 04/16/20 16:00 Respiratory Depth Normal 04/16/20 16:00 Respiratory Pattern Normal 04/16/20 16:00 Blood Pressure 141/70 H 04/16/20 16:01 Blood Pressure Mean 85 04/16/20 16:01 Blood Pressure Position Supine 04/16/20 07:51 Pulse Oximetry 94 L 04/16/20 16:15 Oxygen Delivery Method Room Air 04/16/20 13:00 Oxygen Flow Rate 0 04/16/20 13:00 Pain Level 5 04/16/20 17:32 Intake & Output 04/15/20 04/16/20 04/16/20 23:59 11:59 23:59 Intake Total 2185.167 / 5615.167 1390.000 / 1490.000 100 / 1490.000 Output Total 1150 / 2150 225 / 600 375 / 600 Balance 1035.167 / 3465.167 1165.000 / 890.000 -275 / 890.000 Intake: IV 1354.167 / 4784.167 1390.000 / 1490.000 100 / 1490.000 Blood Product 831 / 831 Rbc Leuko Reduced Unit 554 / 554 [id number] Rbc Leuko Reduced Unit 277 / 277 [id number] Output: Urine 1050 / 2050 225 / 600 375 / 600 Stool 100 / 100 Other: Urine Color Pale Yellow Yellow Yellow Urine Appearance Clear Clear Clear Urine Odor None Comment Beckford catheter in place Beckford catheter intact and draining clear yellow urine. beckford in place draining clear yellow urine Stool Size Large Small Stool Characteristics Liquid Soft Brown Liquid Green Brown Voiding Methods Indwelling Catheter Laboratory Results WBC 9.25 10^3/uL (4.4-10.8) D 04/16/20 05:49 RBC 3.59 10^6/uL (3.93-5.22) L 04/16/20 05:49 Hgb 10.6 g/dL (11.2-15.7) L 04/16/20 05:49 Hct 32.4 % (36.0-46.0) L 04/16/20 05:49 MCV 90.3 fL (80-95) 04/16/20 05:49 MCH 29.5 pg (27.0-33.0) 04/16/20 05:49 MCHC 32.7 % (32.0-36.0) 04/16/20 05:49 RDW 15.3 % (11.7-14.6) H 04/16/20 05:49 Plt Count 115 10^3/uL (130-400) L 04/16/20 05:49 MPV 11.3 fL (8.0-11.0) H 04/16/20 05:49 Immature Gran % 1.0 04/16/20 05:49 Neutrophils % 85.8 04/16/20 05:49 Lymphocytes % 9.3 04/16/20 05:49 Monocytes % 3.7 04/16/20 05:49 Eosinophils % 0.0 04/16/20 05:49 Basophils % 0.2 04/16/20 05:49 Nucleated RBC % 0 % 04/16/20 05:49 Absolute Neutrophils 7.94 10^3/uL (1.2-6.7) H 04/16/20 05:49 Absolute Lymphocytes 0.86 10^3/uL (1.2-3.4) L 04/16/20 05:49 Absolute Monocytes 0.34 10^3/uL (0.1-0.8) 04/16/20 05:49 Absolute Eosinophils 0.00 10^3/uL (0.0-0.7) 04/16/20 05:49 Absolute Basophils 0.02 10^3/uL (0.0-0.2) 04/16/20 05:49 PT 11.0 sec (9.3-11.0) 04/15/20 00:00 INR 1.1 (0.9-1.1) 04/15/20 00:00 VBG Lactate 1.4 mmol/L (0.6-1.4) 04/15/20 06:20 Sodium 143 mmol/L (136-145) 04/16/20 05:49 Potassium 3.4 mmol/L (3.5-5.1) L 04/16/20 05:49 Chloride 110 mmol/L (98-107) H 04/16/20 05:49 Carbon Dioxide 22.9 mmol/L (21.0-32.0) 04/16/20 05:49 Anion Gap 10.1 mmol/L (3-11) 04/16/20 05:49 BUN 17 mg/dL (7-18) 04/16/20 05:49 Creatinine 1.05 mg/dL (0.55-1.02) H 04/16/20 05:49 Estimated GFR/1.73 m2 50.69 (mL/min/1.73m2) 04/16/20 05:49 Glucose 69 mg/dL (74-106) L D 04/16/20 05:49 Calcium 8.1 mg/dL (8.5-10.1) L 04/16/20 05:49 Magnesium 1.8 mg/dL (1.8-2.4) 04/16/20 05:49 Iron 10 ug/dL (50-170) L 04/14/20 06:20 TIBC 225 ug/dL (250-450) L 04/14/20 06:20 Transferrin % Sat 4 % (15-50) L 04/14/20 06:20 Ferritin 125 ng/mL (8-252) 04/14/20 06:20 Total Bilirubin 0.6 mg/dL (0.2-1.0) 04/15/20 06:20 AST 24 U/L (15-37) 04/15/20 06:20 ALT 17 U/L (14-59) 04/15/20 06:20 Alkaline Phosphatase 37 U/L (46-116) L 04/15/20 06:20 Troponin I < 0.05 ng/mL (<0.06) 04/15/20 12:00 C-Reactive Protein 20.79 mg/dL (0.0-0.3) H 04/16/20 05:49 NT-Pro-B Natriuret Pep 1018 pg/mL (<300) H 04/16/20 05:49 Total Protein 5.3 g/dL (6.4-8.2) L 04/15/20 06:20 Albumin 2.7 g/dL (3.4-5.0) L 04/15/20 06:20 Procalcitonin 19.1 ng/mL 04/14/20 16:23 Urine Color Yellow (Yellow) 04/14/20 16:40 Urine Clarity Clear (Clear) 04/14/20 16:40 Urine pH 8.0 (5-8) 04/14/20 16:40 Ur Specific [place] 1.020 (1.005-1.025) 04/14/20 16:40 Urine Protein Negative mg/dL (Negative) 04/14/20 16:40 Urine Ketones 15 mg/dL (Negative) H 04/14/20 16:40 Urine Blood Negative (Negative) 04/14/20 16:40 Urine Nitrite Negative (Negative) 04/14/20 16:40 Urine Bilirubin Negative (Negative) 04/14/20 16:40 Urine Urobilinogen 0.2 EU/dL (Up TO 0.2) 04/14/20 16:40 Ur Leukocyte Esterase Negative (Negative) 04/14/20 16:40 Urine Glucose Negative mg/dL (Negative) 04/14/20 16:40 COVID-19 PCR Negative (Negative) 04/15/20 01:15 Nasopharyn COVID-19 PCR Not Applicable 04/15/20 01:15 Ref Test Perform Site [facility] lab 04/15/20 01:15 Patient ABO/Rh O Positive 04/14/20 20:10 Antibody Screen Negative 04/14/20 20:10 Crossmatch See Detail 04/14/20 20:10
[2020-04-16] MEDS: Budesonide/Formoterol 160/4.5 6 GM 60 PUFF INH IH (20:39)
[2020-04-17] VITALS (43 sets, daily range): BP systolic 118–173; BP diastolic 62–101; PULSE 68–92; RESP 12–30; TEMP 36.5–36.7; O2SAT 91–98
[2020-04-17] MEDS: ACETAMINOPHEN 1,000 MG/100 ML BTL 400 MG IVPB ×4 (00:30→23:23)
[2020-04-17] MEDS: traMADol 50 MG TAB PO ×3 (01:35→13:03)
[2020-04-17] MEDS: PIPERACILLIN/TAZO 4.5 GM in Normal Saline 100 ML IVPB ×3 (04:13→20:56)
[2020-04-17] MEDS: DEXTROSE 5%-LACTATED RINGERS 1,000 ML 100 ML IV (07:00)
[2020-04-17 07:05] LABS: Abs Immature Grans 0.03 10^3/uL (0.0-0.06); Absolute Basophil Count 0.02 10^3/uL (0.0-0.2); Absolute Eosinophil Count 0.01 10^3/uL (0.0-0.7); Absolute Monocyte Count 0.28 10^3/uL (0.1-0.8); Absolute Neutrophil Count 4.64 10^3/uL (1.2-6.7); Basophils % 0.4; Eosinophils % 0.2; HCT 32.1 % (36.0-46.0); HGB 10.5 g/dL (11.2-15.7); Immature Grans % 0.5; Lymphocytes % 12.3; MCHC 32.7 % (32.0-36.0); MCV 88.7 fL (80-95); MPV 11.2 fL (8.0-11.0); Monocytes % 4.9; Neutrophils % 81.7; Nucleated RBC 0 %; Platelet Count 127 10^3/uL (130-400); RBC 3.62 10^6/uL (3.93-5.22); RDW 14.9 % (11.7-14.6); RDW-SD 48.9 fL; WBC 5.68 10^3/uL (4.4-10.8)
[2020-04-17 07:21] LABS: Anion Gap 7.5 mmol/L (3-11); BUN 11 mg/dL (7-18); CO2 24.5 mmol/L (21.0-32.0); CREATININE 0.82 mg/dL (0.55-1.02); Calcium 8.2 mg/dL (8.5-10.1); Chloride 108 mmol/L (98-107); Glucose 90 mg/dL (74-106); Potassium 3.5 mmol/L (3.5-5.1); Sodium 140 mmol/L (136-145)
[2020-04-17 07:48] LABS: Hemoglobin A1C 5.3 % (<5.7)
[2020-04-17] MEDS: Budesonide/Formoterol 160/4.5 6 GM 60 PUFF INH IH ×2 (07:49→20:56)
[2020-04-17] MEDS: Tiotropium Bromide-Respimat 10 PUFF INH 2 PUFF IH (07:49)
[2020-04-17] MEDS: Pantoprazole 40 MG VIAL IVP (07:55)
[2020-04-17] MEDS: Normal Saline Flush 10 ML SYR IVP ×4 (07:56→20:57)
--- NOTE | 2020-04-17 08:13 | W.PM.PROGNOT ---
Date of Service Date of service: 04/17/20 Time of Service: 10:50 Assessment and Plan Assessment and plan (1) Shock: Status: Resolved Assessment and plan: Etiology - likely septic (?peritonitis). Not requiring pressors. Will d/c IVF given edema as BP is stable and tolerating clears. Conitnue abx. 1 blood culture positive for GPR is likely a contaminant, but repeat blood cultures are pending. Would not change abx at this time. (2) Colonic mass: Status: Acute Assessment and plan: s/p R colectomy with reanastomosis. Bleeding at suture site fixed. Diet advanced to clears today. Await bx results. (3) Edema: Status: Acute Assessment and plan: Most likely has to do with iatrogenic fluid overload; however, malignancy in the colon is suspected, and the patient might be hypercoagulable. D/c IVF. Check venous dopplers BLEs. TEDs. (4) Anemia: Status: Chronic Assessment and plan: S/p 2 units pRBCs. H/H stable. Continue to monitor. (5) Hypomagnesemia: Status: Resolved Assessment and plan: Recheck in am. (6) COPD (chronic obstructive pulmonary disease): Status: Chronic Assessment and plan: At baseline, not on oxygen. Continue outpatient inhalers. (7) CAD (coronary artery disease), [place] coronary artery: Status: Chronic Assessment and plan: No evidence of ACS. (8) DVT prophylaxis: Status: Acute Assessment and plan: Defer to general surgery. Continue TEDs/ SCDs (9) Discharge planning issues: Status: Acute Assessment and plan: Full code. Discussed with Dr Pa. Subjective Subjective Interval history since last seen: Reports abdominal pain. Denies dizziness, chest pain, shortness of breath, nausea. Tolerating clears. No diarrhea today. Nursing noted new edema BLEs and BUE edema, L>R. Per patient, this started this morning. LUE edema likely had to do with an IV in that arm. Diarrhea x 4 during the day yesterday, none overnight. 750 cc of urine out overnight. +bowel sounds. GPR in blood 1 bottle/4 - most likely a contaminant. SR 60-90's. BP 132/78. Not requiring oxygen. Up in the chair. Exam Narrative Exam Narrative: General: Elderly female, A&Ox3, looks better. HEENT: EOMI, MMM Heart: RRR, no m/r/g Lungs: CTAB Abdomen: soft, midline incision with karen - c/d/i; TTP with mild touch Extremities: no e/c/c BLE's, 1+ pedal pulses B Objective Objective Clinical Data: Abnormal lab results 04/14/20 04/17/20 04/17/20 Range/Units 06:20 06:10 06:10 RBC 3.62 L (3.93-5.22) 10^6/uL Hgb 10.5 L (11.2-15.7) g/dL Hct 32.1 L (36.0-46.0) % RDW 14.9 H (11.7-14.6) % Plt Count 127 L (130-400) 10^3/uL MPV 11.2 H (8.0-11.0) fL Absolute Lymphocytes 0.70 L (1.2-3.4) 10^3/uL Chloride 108 H (98-107) mmol/L Calcium 8.2 L (8.5-10.1) mg/dL Iron 10 L (50-170) ug/dL TIBC 225 L (250-450) ug/dL Transferrin % Sat 4 L (15-50) % Vital Signs Temperature 36.5 C 04/17/20 00:00 Temperature Source Temporal Artery Scan 04/17/20 00:00 Pulse 76 04/17/20 04:00 Pulse 73 04/17/20 05:30 Respiratory Rate 21 04/17/20 05:30 Respiratory Effort 04/17/20 05:16 Respiratory Depth Normal 04/17/20 05:16 Respiratory Pattern Normal 04/17/20 05:16 Blood Pressure 141/68 H 04/17/20 04:00 Blood Pressure Mean 87 04/17/20 04:00 Blood Pressure Position Supine 04/16/20 07:51 Pulse Oximetry 94 L 04/17/20 04:15 Oxygen Delivery Method Room Air 04/16/20 21:29 Oxygen Flow Rate 0 04/16/20 21:29 Pain Level 8 04/17/20 07:55 Intake & Output 04/16/20 04/16/20 04/17/20 11:59 23:59 11:59 Intake Total 1390.000 / 2850.000 1360 / 2850.000 1400 / 1400 Output Total 225 / 775 550 / 775 475 / 475 Balance 1165.000 / 2075.000 810 / 2075.000 925 / 925 Intake: IV 1390.000 / 2790.000 1300 / 2790.000 1400 / 1400 Oral 60 / 60 Output: Urine 225 / 775 550 / 775 475 / 475 Other: Urine Color Yellow Dark Matilde Yellow Urine Appearance Clear Sediment Sediment Urine Odor None None None Comment Beckford catheter intact and draining clear yellow urine. beckford in place draining clear yellow urine Stool Size Smear Stool Characteristics Liquid Voiding Methods Indwelling Catheter Indwelling Catheter Indwelling Catheter Laboratory Results WBC 5.68 10^3/uL (4.4-10.8) D 04/17/20 06:10 RBC 3.62 10^6/uL (3.93-5.22) L 04/17/20 06:10 Hgb 10.5 g/dL (11.2-15.7) L 04/17/20 06:10 Hct 32.1 % (36.0-46.0) L 04/17/20 06:10 MCV 88.7 fL (80-95) 04/17/20 06:10 MCH 29.0 pg (27.0-33.0) 04/17/20 06:10 MCHC 32.7 % (32.0-36.0) 04/17/20 06:10 RDW 14.9 % (11.7-14.6) H 04/17/20 06:10 Plt Count 127 10^3/uL (130-400) L 04/17/20 06:10 MPV 11.2 fL (8.0-11.0) H 04/17/20 06:10 Immature Gran % 0.5 04/17/20 06:10 Neutrophils % 81.7 04/17/20 06:10 Lymphocytes % 12.3 04/17/20 06:10 Monocytes % 4.9 04/17/20 06:10 Eosinophils % 0.2 04/17/20 06:10 Basophils % 0.4 04/17/20 06:10 Nucleated RBC % 0 % 04/17/20 06:10 Absolute Neutrophils 4.64 10^3/uL (1.2-6.7) 04/17/20 06:10 Absolute Lymphocytes 0.70 10^3/uL (1.2-3.4) L 04/17/20 06:10 Absolute Monocytes 0.28 10^3/uL (0.1-0.8) 04/17/20 06:10 Absolute Eosinophils 0.01 10^3/uL (0.0-0.7) 04/17/20 06:10 Absolute Basophils 0.02 10^3/uL (0.0-0.2) 04/17/20 06:10 PT 11.0 sec (9.3-11.0) 04/15/20 00:00 INR 1.1 (0.9-1.1) 04/15/20 00:00 VBG Lactate 1.4 mmol/L (0.6-1.4) 04/15/20 06:20 Sodium 140 mmol/L (136-145) 04/17/20 06:10 Potassium 3.5 mmol/L (3.5-5.1) 04/17/20 06:10 Chloride 108 mmol/L (98-107) H 04/17/20 06:10 Carbon Dioxide 24.5 mmol/L (21.0-32.0) 04/17/20 06:10 Anion Gap 7.5 mmol/L (3-11) 04/17/20 06:10 BUN 11 mg/dL (7-18) D 04/17/20 06:10 Creatinine 0.82 mg/dL (0.55-1.02) 04/17/20 06:10 Estimated GFR/1.73 m2 >= 60.00 (mL/min/1.73m2) 04/17/20 06:10 Glucose 90 mg/dL (74-106) 04/17/20 06:10 Hemoglobin A1c 5.3 % (<5.7) 04/17/20 06:10 Calcium 8.2 mg/dL (8.5-10.1) L 04/17/20 06:10 Magnesium 2.0 mg/dL (1.8-2.4) 04/17/20 06:10 Iron 10 ug/dL (50-170) L 04/14/20 06:20 TIBC 225 ug/dL (250-450) L 04/14/20 06:20 Transferrin % Sat 4 % (15-50) L 04/14/20 06:20 Ferritin 125 ng/mL (8-252) 04/14/20 06:20 Total Bilirubin 0.6 mg/dL (0.2-1.0) 04/15/20 06:20 AST 24 U/L (15-37) 04/15/20 06:20 ALT 17 U/L (14-59) 04/15/20 06:20 Alkaline Phosphatase 37 U/L (46-116) L 04/15/20 06:20 Troponin I < 0.05 ng/mL (<0.06) 04/15/20 12:00 C-Reactive Protein 20.79 mg/dL (0.0-0.3) H 04/16/20 05:49 NT-Pro-B Natriuret Pep 1018 pg/mL (<300) H 04/16/20 05:49 Total Protein 5.3 g/dL (6.4-8.2) L 04/15/20 06:20 Albumin 2.7 g/dL (3.4-5.0) L 04/15/20 06:20 Procalcitonin 19.1 ng/mL 04/14/20 16:23 Urine Color Yellow (Yellow) 04/14/20 16:40 Urine Clarity Clear (Clear) 04/14/20 16:40 Urine pH 8.0 (5-8) 04/14/20 16:40 Ur Specific [place] 1.020 (1.005-1.025) 04/14/20 16:40 Urine Protein Negative mg/dL (Negative) 04/14/20 16:40 Urine Ketones 15 mg/dL (Negative) H 04/14/20 16:40 Urine Blood Negative (Negative) 04/14/20 16:40 Urine Nitrite Negative (Negative) 04/14/20 16:40 Urine Bilirubin Negative (Negative) 04/14/20 16:40 Urine Urobilinogen 0.2 EU/dL (Up TO 0.2) 04/14/20 16:40 Ur Leukocyte Esterase Negative (Negative) 04/14/20 16:40 Urine Glucose Negative mg/dL (Negative) 04/14/20 16:40 COVID-19 PCR Negative (Negative) 04/15/20 01:15 Nasopharyn COVID-19 PCR Not Applicable 04/15/20 01:15 Ref Test Perform [facility] 04/15/20 01:15 Patient ABO/Rh O Positive 04/14/20 20:10 Antibody Screen Negative 04/14/20 20:10 Crossmatch See Detail 04/14/20 20:10
--- NOTE | 2020-04-17 08:25 | W.PM.PROGNOT ---
Documented by User: KARINE Carias 04/17/20 08:36 Date of Service Date of service: 04/17/20 Time of Service: 08:25 Assessment and Plan Assessment and plan (1) Obstruction of ascending colon: Status: Acute Assessment and plan: POD#3 s/p Right muriel w/ primary anastomsis for obstructing/poss intusepting colon cancer. Hgb Stable at 10.5 DIET- Continue with clears. PAIN- Mild discomfort today. Tramadol/Tylenol for pain. ATB- Zosyn and probiotics Encouraged activity as tolerated and particpation with PT. Continue use of incentive spirometer and deep breathing. (2) Colon cancer: Status: Chronic (3) Anemia: Status: Chronic (4) Kyphosis: Status: Chronic (5) Dyspnea on exertion: Status: Chronic (6) Hoarseness of voice: Status: Chronic (7) COPD (chronic obstructive pulmonary disease): Status: Chronic (8) CAD (coronary artery disease), [place] coronary artery: Status: Chronic Subjective Subjective Interval history since last seen: Patient expresses that she is sore today. She denies having any nausea or vomiting. Exam Const General: cooperative, healthy appearing and comfortable Orientation: alert and oriented x3 Resp Effort & Inspection: normal respiratory effort, no audible wheezes and no cough GI Inspection: normal to inspection, non-distended and incision (Covered withdressing ) Palpation: soft, no guarding and tender Auscultation: normal bowel sounds Objective Objective Clinical Data: Abnormal lab results 04/14/20 04/17/20 04/17/20 Range/Units 06:20 06:10 06:10 RBC 3.62 L (3.93-5.22) 10^6/uL Hgb 10.5 L (11.2-15.7) g/dL Hct 32.1 L (36.0-46.0) % RDW 14.9 H (11.7-14.6) % Plt Count 127 L (130-400) 10^3/uL MPV 11.2 H (8.0-11.0) fL Absolute Lymphocytes 0.70 L (1.2-3.4) 10^3/uL Chloride 108 H (98-107) mmol/L Calcium 8.2 L (8.5-10.1) mg/dL Iron 10 L (50-170) ug/dL TIBC 225 L (250-450) ug/dL Transferrin % Sat 4 L (15-50) % Vital Signs Temperature 36.5 C 04/17/20 00:00 Temperature Source Temporal Artery Scan 04/17/20 00:00 Pulse 76 04/17/20 04:00 Pulse 73 04/17/20 05:30 Respiratory Rate 21 04/17/20 05:30 Respiratory Effort 04/17/20 05:16 Respiratory Depth Normal 04/17/20 05:16 Respiratory Pattern Normal 04/17/20 05:16 Blood Pressure 141/68 H 04/17/20 04:00 Blood Pressure Mean 87 04/17/20 04:00 Blood Pressure Position Supine 04/16/20 07:51 Pulse Oximetry 94 L 04/17/20 04:15 Oxygen Delivery Method Room Air 04/16/20 21:29 Oxygen Flow Rate 0 04/16/20 21:29 Pain Level 8 04/17/20 07:55 Intake & Output 04/16/20 04/17/20 04/17/20 18:59 06:59 18:59 Intake Total 1690.000 / 4150.000 2460 / 4150.000 Output Total 600 / 1250 650 / 1250 Balance 1090.000 / 2900.000 1810 / 2900.000 Intake: IV 1690.000 / 4090.000 2400 / 4090.000 Oral 60 / 60 Output: Urine 600 / 1250 650 / 1250 Other: Urine Color Yellow Yellow Urine Appearance Clear Sediment Urine Odor None None Comment beckford in place draining clear yellow urine Stool Size Smear Stool Characteristics Liquid Voiding Methods Indwelling Catheter Indwelling Catheter Laboratory Results WBC 5.68 10^3/uL (4.4-10.8) D 04/17/20 06:10 RBC 3.62 10^6/uL (3.93-5.22) L 04/17/20 06:10 Hgb 10.5 g/dL (11.2-15.7) L 04/17/20 06:10 Hct 32.1 % (36.0-46.0) L 04/17/20 06:10 MCV 88.7 fL (80-95) 04/17/20 06:10 MCH 29.0 pg (27.0-33.0) 04/17/20 06:10 MCHC 32.7 % (32.0-36.0) 04/17/20 06:10 RDW 14.9 % (11.7-14.6) H 04/17/20 06:10 Plt Count 127 10^3/uL (130-400) L 04/17/20 06:10 MPV 11.2 fL (8.0-11.0) H 04/17/20 06:10 Immature Gran % 0.5 04/17/20 06:10 Neutrophils % 81.7 04/17/20 06:10 Lymphocytes % 12.3 04/17/20 06:10 Monocytes % 4.9 04/17/20 06:10 Eosinophils % 0.2 04/17/20 06:10 Basophils % 0.4 04/17/20 06:10 Nucleated RBC % 0 % 04/17/20 06:10 Absolute Neutrophils 4.64 10^3/uL (1.2-6.7) 04/17/20 06:10 Absolute Lymphocytes 0.70 10^3/uL (1.2-3.4) L 04/17/20 06:10 Absolute Monocytes 0.28 10^3/uL (0.1-0.8) 04/17/20 06:10 Absolute Eosinophils 0.01 10^3/uL (0.0-0.7) 04/17/20 06:10 Absolute Basophils 0.02 10^3/uL (0.0-0.2) 04/17/20 06:10 PT 11.0 sec (9.3-11.0) 04/15/20 00:00 INR 1.1 (0.9-1.1) 04/15/20 00:00 VBG Lactate 1.4 mmol/L (0.6-1.4) 04/15/20 06:20 Sodium 140 mmol/L (136-145) 04/17/20 06:10 Potassium 3.5 mmol/L (3.5-5.1) 04/17/20 06:10 Chloride 108 mmol/L (98-107) H 04/17/20 06:10 Carbon Dioxide 24.5 mmol/L (21.0-32.0) 04/17/20 06:10 Anion Gap 7.5 mmol/L (3-11) 04/17/20 06:10 BUN 11 mg/dL (7-18) D 04/17/20 06:10 Creatinine 0.82 mg/dL (0.55-1.02) 04/17/20 06:10 Estimated GFR/1.73 m2 >= 60.00 (mL/min/1.73m2) 04/17/20 06:10 Glucose 90 mg/dL (74-106) 04/17/20 06:10 Hemoglobin A1c 5.3 % (<5.7) 04/17/20 06:10 Calcium 8.2 mg/dL (8.5-10.1) L 04/17/20 06:10 Magnesium 2.0 mg/dL (1.8-2.4) 04/17/20 06:10 Iron 10 ug/dL (50-170) L 04/14/20 06:20 TIBC 225 ug/dL (250-450) L 04/14/20 06:20 Transferrin % Sat 4 % (15-50) L 04/14/20 06:20 Ferritin 125 ng/mL (8-252) 04/14/20 06:20 Total Bilirubin 0.6 mg/dL (0.2-1.0) 04/15/20 06:20 AST 24 U/L (15-37) 04/15/20 06:20 ALT 17 U/L (14-59) 04/15/20 06:20 Alkaline Phosphatase 37 U/L (46-116) L 04/15/20 06:20 Troponin I < 0.05 ng/mL (<0.06) 04/15/20 12:00 C-Reactive Protein 20.79 mg/dL (0.0-0.3) H 04/16/20 05:49 NT-Pro-B Natriuret Pep 1018 pg/mL (<300) H 04/16/20 05:49 Total Protein 5.3 g/dL (6.4-8.2) L 04/15/20 06:20 Albumin 2.7 g/dL (3.4-5.0) L 04/15/20 06:20 Procalcitonin 19.1 ng/mL 04/14/20 16:23 Urine Color Yellow (Yellow) 04/14/20 16:40 Urine Clarity Clear (Clear) 04/14/20 16:40 Urine pH 8.0 (5-8) 04/14/20 16:40 Ur Specific [place] 1.020 (1.005-1.025) 04/14/20 16:40 Urine Protein Negative mg/dL (Negative) 04/14/20 16:40 Urine Ketones 15 mg/dL (Negative) H 04/14/20 16:40 Urine Blood Negative (Negative) 04/14/20 16:40 Urine Nitrite Negative (Negative) 04/14/20 16:40 Urine Bilirubin Negative (Negative) 04/14/20 16:40 Urine Urobilinogen 0.2 EU/dL (Up TO 0.2) 04/14/20 16:40 Ur Leukocyte Esterase Negative (Negative) 04/14/20 16:40 Urine Glucose Negative mg/dL (Negative) 04/14/20 16:40 COVID-19 PCR Negative (Negative) 04/15/20 01:15 Nasopharyn COVID-19 PCR Not Applicable 04/15/20 01:15 Ref Test Perform Site [facility] lab 04/15/20 01:15 Patient ABO/Rh O Positive 04/14/20 20:10 Antibody Screen Negative 04/14/20 20:10 Crossmatch See Detail 04/14/20 20:10 Documented by User: Jolly Pa DO 04/17/20 19:11 Assessment and Plan Assessment and plan (1) Obstruction of ascending colon: Status: Acute Assessment and plan: pt seen and examined. agree w/ above. -pt has developed edema- prob third spacing from fluids required on Friday. echo neg LE dopplers neg -pain is adequately controlled -She is tolerating clears adn will advance to fulls change to po meds -cont abx- zosyn cont PT. requiring walker for support -protein supp ok to start lovenox for DVT -will prob require rehab following procedure. 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 Anticipate she will be ready for d/c on fri/. d/w caremangers. 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 Don't want to start anti-diarrheals at this time. Will start her on fiber. -transferred to Med Surg
[2020-04-17] MEDS: POTASSIUM CHLORIDE 20 MEQ/100 ML BAG 50 MEQ IVPB (09:37)
--- NOTE | 2020-04-17 11:30 | NUR.NOTE ---
Addendum entered by Betsy Sparks 04/17/20 14:47: Ultrasound Echocardiogram in progress Original Note: Nursing Note:
--- NOTE | 2020-04-17 11:38 | DI.US_ITS ---
APPROVED REPORT EXAM: Comprehensive 2D, Doppler, and color-flow Echocardiogram Patient Location: In-Patient Room/Bed: [id number] Hourly Manager: Pooja Hernandez RDCS (AE) Indications: Bactremia Other Information Study Quality: Fair Conclusion Normal left ventricular wall thickness and chamber size. Estimated ejection fraction is 55 to 60%. There are no segmental wall motion abnormalities Right ventricular size and function Normal right and left atrial size The aortic valve is trileaflet and mildly to moderately sclerotic. There is no aortic stenosis or re gurgitation Thickened mitral leaflets. Mild eccentric mitral regurgitation Structurally normal tricuspid and pulmonic valves Trace tricuspid and pulmonic regurgitation. Normal estimated right ventricular systolic pressure 36 mmHg No valvular vegetations identified on this transthoracic echocardiogram Wall motion Left Ventricle The left ventricle is normal size. The left ventricular systolic function is normal. The left ventric ular ejection fraction is within the normal range. There is normal left ventricular wall thickness. T here is normal LV segmental wall motion. There is no ventricular septal defect visualized. LVEF is 55 -60%. Right Ventricle The right ventricle is normal size. The right ventricular systolic function is normal. The RVSP is 36 .3 mmHg. Atria The left atrium size is normal. The right atrium size is normal. The interatrial septum is intact wit h no evidence for an atrial septal defect. Aortic Valve The Aortic valve is sclerotic. Aortic valve is trileaflet. There is no aortic valvular stenosis. No a ortic regurgitation is present. Mitral Valve Mildly thickened mitral leaflets No evidence of mitral valve stenosis. Mild mitral regurgitation. The re is no evidence of mitral valve vegetations. Tricuspid Valve The tricuspid valve is normal in structure. There is no tricuspid valve stenosis. Trace tricuspid reg urgitation. There is no tricuspid valve vegetations. Pulmonic Valve The pulmonary valve is normal in structure. There is no pulmonic valvular stenosis. Trace pulmonic re gurgitation. There is no pulmonic valve vegetations. Great Vessels The aortic root is normal in size. The ascending aorta is mildly dilated. IVC is normal in size and c ollapses >50% with inspiration. Pericardium There is no pericardial effusion. 2D Dimensions IVSD d PLAX 0.92 cm F: 0.6-1.0 LV Vol A2C d MOD 80.6 mL LVPW d PLAX 0.95 cm F: 0.6 - 1.0 LV Vol A4C d MOD 101.7 mL LVID d PLAX 5.04 cm F: 3.8 - 5.2 LA vol/ BSA A2C s A-L 30.7 mL/m2 LVDs 3.30 cm F: 2.2 - 3.5 LA vol/ BSA A4C s A-L 31.1 mL/m2 Ao Root d 2.69 cm F: 2.7 - 3.3 LA Vol/ BSA Biplane s A-L 32.5 mL/m2 RA Area A4C 13.09 cm2 LA Area A4C s MOD 18.11 cm2 RA Vol/ BSA A4C s A-L 20.9 mL/m2 LA Area A2C s MOD 17.15 cm2 Ao Asc Diam d 3.53 cm F: 2.3 - 3.1 LV EF A4C MOD 58.6 % LV EF Teichholz 62.2 % LV EF A2C MOD 58.4 % LVEF (Sparks's) 59.16 % F: 54 - 74 LV EF Biplane MOD 59.2 % LV Volume 74.69 mL F: 46 - 106 SV 54.52 mL LV Volume Index 46.39 mL/m2 F: 29 - 61 SV Index 33.86 mL/m2 LV Vol Biplane MOD 92.2 mL FS 33.70 % M-Mode TAPSE 3.09 cm (M/F) >1.7 LV Diastology MV E' medial 0.093 (>0.07 m/s) E/A Ratio 0.7 LV E/e MED 8.80 (<14) MV E Vmax 0.82 (0.4-1.3 m/s) MV E' lateral 0.095 (>0.1 m/s) MV A Vmax 1.10 (0.4-1.3 m/s) LV E/e LAT 8.65 (<14) MV E/A Ratio 0.73 MV E/E' medial 8.85 MV E/E' lateral 8.69 Aortic Valve LVOT Area 3.75 cm2 AoV Area Vmax 3.27 cm2 LVOT Vmax 1.08 m/s AoV Area/ BSA (Vmax) 2.03 cm2/m2 LVOT Mean Kaushal. 0.68 m/s CORTNEY Mean Kaushal. 3.27 cm2 LVOT Peak Grad 4.7 mmHg CORTNEY Mean Kaushal. Index 2.03 cm2/m2 LVOT Mean Grad 2.2 mmHg LVOT VTI 0.229 m LVOT Diam s 2.15 cm AoV Vmax 1.24 m/s Velocity Ratio 0.87 AoV Mean Kaushal. 0.78 m/s AoV Peak Grad 6.2 mmHg LVOT SV 85.98 mL AoV Mean Grad 2.9 mmHg AoV VTI 0.267 m AoV Area VTI 3.23 cm2 AoV Area/ BSA (VTI) 2.00 cm/m2 Mitral Valve MV DT 269 (160-240 msec) MR Vmax 4.60 m/s MV PHT 78 msec MR VTI 1.683 m MV Area PHT 2.82 cm2 MR Peak Grad 84.5 mmHg MV VTI 0.313 m MR Mean Grad 62.7 mmHg MV Area VTI 2.75 (4.0-6.0 cm2) MR PISA Radius 0.29 cm MR EROA 0.04 cm2 MR Aliasing Velocity 0.35 m/s MR PISA 0.54 cm2 Pulmonary Valve PV Vmax 1.10 (0.5-1.5 m/s) RVOT Peak Gr. 3.37 mmHg PV Peak Grad 4.9 mmHg RVOT Mean Gr. 1.45 mmHg PV Mean Grad 2.6 mmHg RVOT VTI 0.194 m PV VTI 0.236 m RVOT Vmax 0.92 m/s Tricuspid Valve TR Peak Grad 33.2 mmHg TR Vmax 2.88 m/s RA Pressure 3.00 mmHg RVSP (TR) 36.3 mmHg
[2020-04-17 13:06] LABS: D-Dimer 6915 ng/mlFEU (<500)
--- NOTE | 2020-04-17 13:15 | NUR.NOTE ---
Nursing Note: Chaplain Alejandra in to see pt
--- NOTE | 2020-04-17 13:39 | W.NUTRFU ---
Date of service: 04/17/20 Time of Service: 13:39 Nutritional Follow up NOTE: Rachel was admitted with peritonitis secondary to obstruction of ascending colon (with colonic mass) with hypomagnesemia, anemia. Reports appetite prior to admission wnl, weight has been stable > 2 years and wnl. Tolerating clear liquid diet, reports she is hungry. Will continue to follow and adjust meal plan for optimal nutrient intake. Time Spent in Nutritional Counseling and Treatment: 5 min
--- NOTE | 2020-04-17 13:45 | NUR.NOTE ---
Nursing Note: Catherine, Chassis Mechanic in to see pt.
--- NOTE | 2020-04-17 14:27 | CHAPLAIN ---
Rachel Coates was finishing up her clear-liquid lunch when I visited. She said this has been the worst day because she 9 needle pokes for either drawing blood and put in IVs. 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 He is bedbound, Aminata said. She went into to visit Nirav while she was walking with PT and said that Nirav didn't recognize her. She thinks this was because she was wearing a hospital noel and a mask. She was disappointed that he didn't recognize her. Aminata said she plans to go to [place], [place] to visit her daughter when she gets home. Aminata is [employer] and in the past participated in the [employer], but has not attended in many years because she has difficulty finding someone to stay with Nirav. But she has been attending services online, broadcast from the [facility] [employer] in [facility], and really enjoys that. The services are led by rabbis and cantors and students. The services are more conservative, Aminata said, and she enjoys the [employer] comradery, readings in Sinhala and the singing..
--- NOTE | 2020-04-17 14:35 | NUR.NOTE ---
Nursing Note: Bilat lower extremity ultrasound in progress
[2020-04-17] MEDS: Potassium Chloride Liquid 20 MEQ PKT 30 MEQ PO (15:10)
--- NOTE | 2020-04-17 15:12 | DI.US_ITS ---
EXAM: US EXTREMITY VENOUS BI CLINICAL HISTORY: new edema BLEs. TECHNIQUE: Bilateral lower extremity venous ultrasound performed using grayscale, color-flow, and sp ectral Doppler analysis. COMPARISON: No exams were available for comparison FINDINGS: The bilateral common femoral, femoral and popliteal veins demonstrate normal compressibility, augment ation, and color Doppler. The posterior tibial veins are patent. The saphenofemoral junctions are unr emarkable. There is no evidence of a Connors's cyst. The soft tissues are unremarkable. IMPRESSION: Right: Negative for DVT Left: Negative for DVT DATA REPOSITORY:
--- NOTE | 2020-04-17 15:17 | PT.INTREAT ---
Date of service: 04/17/20 Time of Service: 13:00 PT Notes Visit Reasons: OBSTRUCTING COLON CANCER Inpatient Physical Therapy Treatment Note [facility] Date: 04/17/2020 SUBJECTIVE: Aminata states that she is hurting quite a bit today. OBJECTIVE: [] PAIN: 7/10 in abdominal region both this am and pm BED MOBILITY/TRANSFERS Supine-sit:SBA Sit-supine: SBA Sit-stand: SBA Stand-sit: SBA Bed-Chair: SBA Chair-bed: SBA GAIT Assistive Device: FWW Weight bearing: FWB Assist: CGA/SBA Distance: 400' in am and 200' in pm THEREX: held on ther ex today due to increased ambulation which tired her out. SHe was able to see her son in his room during her walk this am, and peeked in on him this pm. ASSESSMENT: tolerated session fair despite c/o pain. PLAN: will continue to progress following PT POC. TREATMENT CODE/TIME: 20 in am and 20 min in pm. [id number]
--- NOTE | 2020-04-17 16:10 | CMPROGNOTE_ITS ---
- If Service Date Differs Date of service: 04/17/20 Time of Service: 16:10 Care Management Progress Note S/O: Rachel was sitting up in a chair when CM met with her. She was grimacing and stated that she was having a lot of pain. She did say that her pain medication does help. Rachel's daughter Jolly called the unit in the morning and was asking how soon her mother would be able to fly to [facility]. CM discussed this with Dr. Pa who felt that it would not be possible for at least 4-6 weeks after discharge. She explained that Rachel is very weak and that it will take her time to heal. CM contacted Jolly this afternoon and shared that information with her. Jolly requested that one of the surgeons call her so that she could discuss future planning. CM had a discussion with Rachel about the possibility of going to a SNF for short term rehab prior to going to her daughter's house and Rachel was amenable to that. CM also discussed options for Nirav and will reach out to Jennie from the agency that oversees his care. A: Rachel is a 80 year old female admitted to [facility] on 04/14/2020 for obstructing colon cancer. P: Rachel will likely need to go to a SNF for short term rehab when discharged from [facility]. Her daughter, Jolly, has expressed a desire to have her mom come to her home in [place] to recuperate, when she is able to fly, which won't be for 4-6 weeks after discharge. CM will continue to support patient and discharge planning considerations. cc:
--- NOTE | 2020-04-17 18:42 | NUR.NOTE ---
pt transferred from ICU to [facility]. VSS, Pt is a&o x 3. pt oriented to room and call light. Nursing Note:
[2020-04-18] MEDS: PIPERACILLIN/TAZO 4.5 GM in Normal Saline 100 ML IVPB ×3 (03:54→20:16)
[2020-04-18 03:58] VITALS: BP 145/85; PULSE 66; RESP 18; TEMP 36.4; O2SAT 97
[2020-04-18] MEDS: traMADol 50 MG TAB PO ×3 (05:13→16:16)
--- NOTE | 2020-04-18 07:31 | PGE_ITS ---
Documented by User: KARINE Carias 04/18/20 07:36 Date of Service Date of service: 04/18/20 Time of Service: 07:31 Assessment and Plan Assessment and plan (1) Obstruction of ascending colon: Status: Acute Assessment and plan: POD#4 DIET- Full liquids PAIN- Mild discomfort today. Tramadol/Tylenol for pain. Encouraged her to stay up ATB- Zosyn and probiotics Denies fevers and chills. (+) BM. She reports incontinence. Encouraged activity as tolerated and participation with PT. Continue use of incentive spirometer and deep breathing. (2) Colon cancer: Status: Chronic (3) Anemia: Status: Chronic (4) Kyphosis: Status: Chronic (5) Dyspnea on exertion: Status: Chronic (6) Hoarseness of voice: Status: Chronic (7) COPD (chronic obstructive pulmonary disease): Status: Chronic (8) CAD (coronary artery disease), [place] coronary artery: Status: Chronic Subjective Subjective Interval history since last seen: She reports some pain this morning. She skipped 2 doses of her pain meds last evening and woke up in the middle of the night with pain. Also, of note she describes that she has been incontinent of urine and stool since the procedure. Exam Const General: cooperative, healthy appearing and in distress mild Resp Effort & Inspection: normal respiratory effort, no audible wheezes and no cough GI Inspection: normal to inspection and incision (Midline, dressing in place) Palpation: soft, no guarding and tender Auscultation: normal bowel sounds Objective Objective Clinical Data: Abnormal lab results 04/17/20 Range/Units 12:20 D-Dimer 6915 H (<500) ng/mlFEU Vital Signs Temperature 36.4 C L 04/18/20 03:58 Temperature Source Tympanic 04/18/20 03:58 Pulse 66 04/18/20 03:58 Pulse Rhythm Regular 04/18/20 07:10 Pulse 74 04/17/20 17:01 Respiratory Rate 18 04/18/20 03:58 Respiratory Effort Non-Labored 04/18/20 07:10 Respiratory Depth Normal 04/18/20 07:10 Respiratory Pattern Normal 04/18/20 07:10 Blood Pressure 145/85 H 04/18/20 03:58 Blood Pressure Mean 94 04/17/20 17:01 Blood Pressure Position Supine 04/16/20 07:51 Pulse Oximetry 97 04/18/20 03:58 Oxygen Delivery Method Room Air 04/18/20 03:58 Oxygen Flow Rate 0 04/18/20 03:58 Pain Level 2 04/18/20 03:58 Intake & Output 04/17/20 04/18/20 04/18/20 18:59 06:59 18:59 Intake Total 800 / 1010 210 / 1010 150 / 150 Output Total 1300 / 2750 1450 / 2750 Balance -500 / -1740 -1240 / -1740 150 / 150 Weight 61.9 kg Intake: IV 455 / 665 210 / 665 100 / 100 Oral 345 / 345 50 / 50 Output: Urine 1300 / 2750 1450 / 2750 Other: Urine Color Yellow Yellow Urine Appearance Clear Clear Clear Comment [facility] Laboratory Results WBC 5.68 10^3/uL (4.4-10.8) D 04/17/20 06:10 RBC 3.62 10^6/uL (3.93-5.22) L 04/17/20 06:10 Hgb 10.5 g/dL (11.2-15.7) L 04/17/20 06:10 Hct 32.1 % (36.0-46.0) L 04/17/20 06:10 MCV 88.7 fL (80-95) 04/17/20 06:10 MCH 29.0 pg (27.0-33.0) 04/17/20 06:10 MCHC 32.7 % (32.0-36.0) 04/17/20 06:10 RDW 14.9 % (11.7-14.6) H 04/17/20 06:10 Plt Count 127 10^3/uL (130-400) L 04/17/20 06:10 MPV 11.2 fL (8.0-11.0) H 04/17/20 06:10 Immature Gran % 0.5 04/17/20 06:10 Neutrophils % 81.7 04/17/20 06:10 Lymphocytes % 12.3 04/17/20 06:10 Monocytes % 4.9 04/17/20 06:10 Eosinophils % 0.2 04/17/20 06:10 Basophils % 0.4 04/17/20 06:10 Nucleated RBC % 0 % 04/17/20 06:10 Absolute Neutrophils 4.64 10^3/uL (1.2-6.7) 04/17/20 06:10 Absolute Lymphocytes 0.70 10^3/uL (1.2-3.4) L 04/17/20 06:10 Absolute Monocytes 0.28 10^3/uL (0.1-0.8) 04/17/20 06:10 Absolute Eosinophils 0.01 10^3/uL (0.0-0.7) 04/17/20 06:10 Absolute Basophils 0.02 10^3/uL (0.0-0.2) 04/17/20 06:10 PT 11.0 sec (9.3-11.0) 04/15/20 00:00 INR 1.1 (0.9-1.1) 04/15/20 00:00 D-Dimer 6915 ng/mlFEU (<500) H 04/17/20 12:20 VBG Lactate 1.4 mmol/L (0.6-1.4) 04/15/20 06:20 Sodium 140 mmol/L (136-145) 04/17/20 06:10 Potassium 3.5 mmol/L (3.5-5.1) 04/17/20 06:10 Chloride 108 mmol/L (98-107) H 04/17/20 06:10 Carbon Dioxide 24.5 mmol/L (21.0-32.0) 04/17/20 06:10 Anion Gap 7.5 mmol/L (3-11) 04/17/20 06:10 BUN 11 mg/dL (7-18) D 04/17/20 06:10 Creatinine 0.82 mg/dL (0.55-1.02) 04/17/20 06:10 Estimated GFR/1.73 m2 >= 60.00 (mL/min/1.73m2) 04/17/20 06:10 Glucose 90 mg/dL (74-106) 04/17/20 06:10 Hemoglobin A1c 5.3 % (<5.7) 04/17/20 06:10 Calcium 8.2 mg/dL (8.5-10.1) L 04/17/20 06:10 Magnesium 2.0 mg/dL (1.8-2.4) 04/17/20 06:10 Iron 10 ug/dL (50-170) L 04/14/20 06:20 TIBC 225 ug/dL (250-450) L 04/14/20 06:20 Transferrin % Sat 4 % (15-50) L 04/14/20 06:20 Ferritin 125 ng/mL (8-252) 04/14/20 06:20 Total Bilirubin 0.6 mg/dL (0.2-1.0) 04/15/20 06:20 AST 24 U/L (15-37) 04/15/20 06:20 ALT 17 U/L (14-59) 04/15/20 06:20 Alkaline Phosphatase 37 U/L (46-116) L 04/15/20 06:20 Troponin I < 0.05 ng/mL (<0.06) 04/15/20 12:00 C-Reactive Protein 20.79 mg/dL (0.0-0.3) H 04/16/20 05:49 NT-Pro-B Natriuret Pep 1018 pg/mL (<300) H 04/16/20 05:49 Total Protein 5.3 g/dL (6.4-8.2) L 04/15/20 06:20 Albumin 2.7 g/dL (3.4-5.0) L 04/15/20 06:20 Carcinoembryonic Ag 1.0 ng/ml (See Note) 04/15/20 06:20 Procalcitonin 19.1 ng/mL 04/14/20 16:23 Urine Color Yellow (Yellow) 04/14/20 16:40 Urine Clarity Clear (Clear) 04/14/20 16:40 Urine pH 8.0 (5-8) 04/14/20 16:40 Ur Specific [place] 1.020 (1.005-1.025) 04/14/20 16:40 Urine Protein Negative mg/dL (Negative) 04/14/20 16:40 Urine Ketones 15 mg/dL (Negative) H 04/14/20 16:40 Urine Blood Negative (Negative) 04/14/20 16:40 Urine Nitrite Negative (Negative) 04/14/20 16:40 Urine Bilirubin Negative (Negative) 04/14/20 16:40 Urine Urobilinogen 0.2 EU/dL (Up TO 0.2) 04/14/20 16:40 Ur Leukocyte Esterase Negative (Negative) 04/14/20 16:40 Urine Glucose Negative mg/dL (Negative) 04/14/20 16:40 COVID-19 PCR Negative (Negative) 04/15/20 01:15 Nasopharyn COVID-19 PCR Not Applicable 04/15/20 01:15 Ref Test Perform Site [place] [facility] lab 04/15/20 01:15 Patient ABO/Rh O Positive 04/14/20 20:10 Antibody Screen Negative 04/14/20 20:10 Crossmatch See Detail 04/14/20 20:10 Documented by User: Carie Andrews MD 04/18/20 17:42 Documented by User: Rhina Gil MD 04/20/20 13:17
[2020-04-18 07:37] LABS: Abs Immature Grans 0.04 10^3/uL (0.0-0.06); Absolute Basophil Count 0.01 10^3/uL (0.0-0.2); Absolute Eosinophil Count 0.03 10^3/uL (0.0-0.7); Absolute Lymphocyte Count 0.63 10^3/uL (1.2-3.4); Absolute Monocyte Count 0.24 10^3/uL (0.1-0.8); Absolute Neutrophil Count 2.31 10^3/uL (1.2-6.7); Basophils % 0.3; Eosinophils % 0.9; HGB 10.1 g/dL (11.2-15.7); Immature Grans % 1.2; Lymphocytes % 19.3; MCH 28.6 pg (27.0-33.0); MCHC 31.6 % (32.0-36.0); MCV 90.7 fL (80-95); MPV 10.7 fL (8.0-11.0); Monocytes % 7.4; Neutrophils % 70.9; Nucleated RBC 0 %; Platelet Count 131 10^3/uL (130-400); RBC 3.53 10^6/uL (3.93-5.22); RDW 14.6 % (11.7-14.6); RDW-SD 48.5 fL
--- NOTE | 2020-04-18 07:38 | PDOC.CMPRO ---
- If Service Date Differs Date of service: 04/18/20 Time of Service: 07:38 Care Management Progress Note S/O: Rachel was sitting up in bed when CM met with her. She stated that she is not having a good day and that she is in a lot of pain. She shared that she should have asked for medication earlier. Rachel discussed her son Nirav, who is at [facility] in [place], with CM. She is concerned about what will happen to him when she goes to rehab or if she goes to her daughter's in [facility]. She questioned whether or not it would be possible for both she and Hai to go to the same facility. [facility]. VERN was unable to connect with Jennie today but left an additional message with the information needed. A: Rachel is a 80 year old female admitted to [facility] on 04/14/2020 for obstructing colon cancer. P: Rachel will likely need to go to a SNF for short term rehab when discharged from [facility]. Her daughter, Jolly, has expressed a desire to have her mom come to her home in [place] to recuperate, when she is able to fly, which won't be for 4-6 weeks after discharge. Finding a safe place for Nirav will be important in planning a discharge for Rachel. CM will continue to support patient and discharge planning considerations.
[2020-04-18 07:43] LABS: WBC 3.26 10^3/uL (4.4-10.8)
[2020-04-18 07:48] LABS: Anion Gap 9.7 mmol/L (3-11); BUN 9 mg/dL (7-18); CO2 23.3 mmol/L (21.0-32.0); CREATININE 0.75 mg/dL (0.55-1.02); Calcium 8.2 mg/dL (8.5-10.1); Chloride 107 mmol/L (98-107); Glucose 64 mg/dL (74-106); Magnesium 1.8 mg/dL (1.8-2.4); Potassium 3.8 mmol/L (3.5-5.1); Sodium 140 mmol/L (136-145)
[2020-04-18] MEDS: Tiotropium Bromide-Respimat 10 PUFF INH 2 PUFF IH (07:48)
[2020-04-18] MEDS: Budesonide/Formoterol 160/4.5 6 GM 60 PUFF INH IH ×2 (07:48→20:16)
[2020-04-18 08:00] VITALS: BP 158/70; PULSE 89; RESP 17; TEMP 36.9; O2SAT 96
[2020-04-18] MEDS: Pantoprazole 40 MG TABCR PO (08:19)
[2020-04-18] MEDS: ACETAMINOPHEN 1,000 MG/100 ML BTL 400 MG IVPB ×3 (08:19→23:37)
[2020-04-18] MEDS: amLODIPine 10 MG TAB PO (08:19)
[2020-04-18] MEDS: Lisinopril 10 MG TAB PO (08:19)
[2020-04-18] MEDS: metroNIDAZOLE 500 MG/100 ML BAG 100 MG IVPB ×3 (10:49→21:33)
--- NOTE | 2020-04-18 14:55 | W.PM.PROGNOT ---
Date of Service Date of service: 04/18/20 Time of Service: 14:56 Assessment and Plan Assessment and plan (1) Shock: Status: Resolved Assessment and plan: Etiology - likely septic (?peritonitis). Not requiring pressors. Discussed with microbiology: the blood culture from 04/14/2020 is growing a clostridium sp (speciation is not yet available, is being sent to [facility]), so it may in fact indicate real disease. Surgical culture is growing a bacillus spp and is more likely to be a contaminant. Blood cultures from 04/[address] are negative[address] with Dr Pa - I have added flagyl to zosyn. Await blood culture results. (2) Colonic mass: Status: Acute Assessment and plan: s/p R colectomy with reanastomosis. Bleeding at suture site fixed. Pathology still pending. Defer to primary team, but I did encourage the patient to take PO because her blood sugars do like to run low. (3) Edema: Status: Resolved Assessment and plan: Venous dopplers negative. EF preserved, and moderate pulmonary hypertension is unchanged from prior. Elevated D-dimer is not at all specific in this case and in absence of findings on echo, I do not think that workup for PE is warranted. I think this was due to iatrogenic fluid overload. IV fluids d/c'ed. (4) Anemia: Status: Chronic Assessment and plan: S/p 2 units pRBCs. H/H stable. Continue to monitor. (5) Hypomagnesemia: Status: Resolved Assessment and plan: Recheck in am. (6) COPD (chronic obstructive pulmonary disease): Status: Chronic Assessment and plan: At baseline, not on oxygen. Continue outpatient inhalers. (7) CAD (coronary artery disease), [place] coronary artery: Status: Chronic Assessment and plan: No evidence of ACS. (8) DVT prophylaxis: Status: Acute Assessment and plan: Still not on chemical dvt ppx - will discuss with general surgery. Continue TEDs/ SCDs (9) Discharge planning issues: Status: Acute Assessment and plan: Full code. Subjective Subjective Interval history since last seen: Ms Celis states that she is in 7/10 pain which is throughout most of her abdomen. She did not want to take pain medicine now but will ask for it when she feels she absolutely needs it. She is worried that she has been having fecal incontinence and is concerned about having control of her bowel. She tested negative for C. Diff. Another concern she has is that she chronically has difficulty hearing and that hearing aides are too expensive for her to purchase and are not covered by insurance. She is interested in learning what resources might be available in the community to help offset the cost. She denies dizziness, chest pain, shortness of breath, nausea. Ate chicken for lunch. Exam Narrative Exam Narrative: General: Elderly female, A&Ox3, does not look sick but is in visible pain HEENT: EOMI, MMM Heart: RRR, no m/r/g Lungs: CTAB Abdomen: soft, more distended today, midline incision with karen dressed - c/d/i; TTP with mild touch Extremities: no e/c/c BLE's, 1+ pedal pulses B Objective Objective Clinical Data: Abnormal lab results 04/18/20 04/18/20 Range/Units 07:00 07:00 WBC 3.26 L D (4.4-10.8) 10^3/uL RBC 3.53 L (3.93-5.22) 10^6/uL Hgb 10.1 L (11.2-15.7) g/dL Hct 32.0 L (36.0-46.0) % MCHC 31.6 L (32.0-36.0) % Absolute Lymphocytes 0.63 L (1.2-3.4) 10^3/uL Glucose 64 L (74-106) mg/dL Calcium 8.2 L (8.5-10.1) mg/dL Vital Signs Temperature 36.9 C 04/18/20 08:00 Temperature Source Tympanic 04/18/20 08:00 Pulse 89 04/18/20 08:00 Pulse Rhythm Regular 04/18/20 10:33 Pulse 74 04/17/20 17:01 Respiratory Rate 17 04/18/20 08:00 Respiratory Effort 04/18/20 10:33 Respiratory Depth Normal 04/18/20 10:33 Respiratory Pattern Normal 04/18/20 10:33 Blood Pressure 158/70 H 04/18/20 08:00 Blood Pressure Mean 94 04/17/20 17:01 Blood Pressure Position Supine 04/16/20 07:51 Pulse Oximetry 96 04/18/20 08:00 Oxygen Delivery Method Room Air 04/18/20 08:00 Oxygen Flow Rate 0 04/18/20 08:00 Pain Level 6 04/18/20 11:48 Intake & Output 04/17/20 04/18/20 04/18/20 23:59 11:59 23:59 Intake Total 545 / 2310 790 / 910 120 / 910 Output Total 1300 / 1775 1450 / 1450 Balance -755 / 535 -660 / -540 120 / -540 Weight 61.9 kg Intake: IV 365 / 1965 500 / 500 Oral 180 / 345 290 / 410 120 / 410 Output: Urine 1300 / 1775 1450 / 1450 Other: Urine Color Yellow Yellow Yellow Urine Appearance Clear Clear Comment beckford notified rn Stool Size Moderate Stool Characteristics Liquid Mucoid Voiding Methods Bedside Commode Laboratory Results WBC 3.26 10^3/uL (4.4-10.8) L D 04/18/20 07:00 RBC 3.53 10^6/uL (3.93-5.22) L 04/18/20 07:00 Hgb 10.1 g/dL (11.2-15.7) L 04/18/20 07:00 Hct 32.0 % (36.0-46.0) L 04/18/20 07:00 MCV 90.7 fL (80-95) 04/18/20 07:00 MCH 28.6 pg (27.0-33.0) 04/18/20 07:00 MCHC 31.6 % (32.0-36.0) L 04/18/20 07:00 RDW 14.6 % (11.7-14.6) 04/18/20 07:00 Plt Count 131 10^3/uL (130-400) 04/18/20 07:00 MPV 10.7 fL (8.0-11.0) 04/18/20 07:00 Immature Gran % 1.2 04/18/20 07:00 Neutrophils % 70.9 04/18/20 07:00 Lymphocytes % 19.3 04/18/20 07:00 Monocytes % 7.4 04/18/20 07:00 Eosinophils % 0.9 04/18/20 07:00 Basophils % 0.3 04/18/20 07:00 Nucleated RBC % 0 % 04/18/20 07:00 Absolute Neutrophils 2.31 10^3/uL (1.2-6.7) 04/18/20 07:00 Absolute Lymphocytes 0.63 10^3/uL (1.2-3.4) L 04/18/20 07:00 Absolute Monocytes 0.24 10^3/uL (0.1-0.8) 04/18/20 07:00 Absolute Eosinophils 0.03 10^3/uL (0.0-0.7) 04/18/20 07:00 Absolute Basophils 0.01 10^3/uL (0.0-0.2) 04/18/20 07:00 PT 11.0 sec (9.3-11.0) 04/15/20 00:00 INR 1.1 (0.9-1.1) 04/15/20 00:00 D-Dimer 6915 ng/mlFEU (<500) H 04/17/20 12:20 VBG Lactate 1.4 mmol/L (0.6-1.4) 04/15/20 06:20 Sodium 140 mmol/L (136-145) 04/18/20 07:00 Potassium 3.8 mmol/L (3.5-5.1) 04/18/20 07:00 Chloride 107 mmol/L (98-107) 04/18/20 07:00 Carbon Dioxide 23.3 mmol/L (21.0-32.0) 04/18/20 07:00 Anion Gap 9.7 mmol/L (3-11) 04/18/20 07:00 BUN 9 mg/dL (7-18) 04/18/20 07:00 Creatinine 0.75 mg/dL (0.55-1.02) 04/18/20 07:00 Estimated GFR/1.73 m2 >= 60.00 (mL/min/1.73m2) 04/18/20 07:00 Glucose 64 mg/dL (74-106) L 04/18/20 07:00 Hemoglobin A1c 5.3 % (<5.7) 04/17/20 06:10 Calcium 8.2 mg/dL (8.5-10.1) L 04/18/20 07:00 Magnesium 1.8 mg/dL (1.8-2.4) 04/18/20 07:00 Iron 10 ug/dL (50-170) L 08/28/20 06:20 TIBC 225 ug/dL (250-450) L 04/14/20 06:20 Transferrin % Sat 4 % (15-50) L 04/14/20 06:20 Ferritin 125 ng/mL (8-252) 04/14/20 06:20 Total Bilirubin 0.6 mg/dL (0.2-1.0) 04/15/20 06:20 AST 24 U/L (15-37) 04/15/20 06:20 ALT 17 U/L (14-59) 04/15/20 06:20 Alkaline Phosphatase 37 U/L (46-116) L 04/15/20 06:20 Troponin I < 0.05 ng/mL (<0.06) 04/15/20 12:00 C-Reactive Protein 20.79 mg/dL (0.0-0.3) H 04/16/20 05:49 NT-Pro-B Natriuret Pep 1018 pg/mL (<300) H 04/16/20 05:49 Total Protein 5.3 g/dL (6.4-8.2) L 04/15/20 06:20 Albumin 2.7 g/dL (3.4-5.0) L 04/15/20 06:20 Carcinoembryonic Ag 1.0 ng/ml (See Note) 04/15/20 06:20 Procalcitonin 19.1 ng/mL 04/14/20 16:23 Urine Color Yellow (Yellow) 04/14/20 16:40 Urine Clarity Clear (Clear) 04/14/20 16:40 Urine pH 8.0 (5-8) 04/14/20 16:40 Ur Specific [place] 1.020 (1.005-1.025) 04/14/20 16:40 Urine Protein Negative mg/dL (Negative) 04/14/20 16:40 Urine Ketones 15 mg/dL (Negative) H 04/14/20 16:40 Urine Blood Negative (Negative) 04/14/20 16:40 Urine Nitrite Negative (Negative) 04/14/20 16:40 Urine Bilirubin Negative (Negative) 04/14/20 16:40 Urine Urobilinogen 0.2 EU/dL (Up TO 0.2) 04/14/20 16:40 Ur Leukocyte Esterase Negative (Negative) 04/14/20 16:40 Urine Glucose Negative mg/dL (Negative) 04/14/20 16:40 COVID-19 PCR Negative (Negative) 04/15/20 01:15 [place] COVID-19 PCR Not Applicable 04/15/20 01:15 Ref Test Perform Site [facility] lab 04/15/20 01:15 Patient ABO/Rh O Positive 04/14/20 20:10 Antibody Screen Negative 04/14/20 20:10 Crossmatch See Detail 04/14/20 20:10 Echo;Normal left ventricular wall thickness and chamber size. Estimated ejection fraction is 55 to 60%. There are no segmental wall motion abnormalities Right ventricular size and function Normal right and left atrial size The aortic valve is trileaflet and mildly to moderately sclerotic. There is no aortic stenosis or regurgitation Thickened mitral leaflets. Mild eccentric mitral regurgitation Structurally normal tricuspid and pulmonic valves Trace tricuspid and pulmonic regurgitation. Normal estimated right ventricular systolic pressure 36 mmHg No valvular vegetations identified on this transthoracic echocardiogram Venous dopplers BLE's: Right: Negative for DVT Left: Negative for DVT
--- NOTE | 2020-04-18 14:59 | PT.INTREAT ---
Date of service: 04/18/20 Time of Service: 11:15 PT Notes Visit Reasons: OBSTRUCTING COLON CANCER Inpatient Physical Therapy Treatment Note [facility] Date: 04/18/2020 SUBJECTIVE: Aminata states that she is hurting today. She did not stay on top of her pain meds last night and is playing catchup today. OBJECTIVE: [] BED MOBILITY/TRANSFERS Sit-stand: S Stand-sit:S GAIT Assistive Device:FWW Weight bearing:FWB Assist: SBA Distance: 200' ASSESSMENT: held on ther ex this am due to increased abdominal pain PLAN: continue to progress following PT POC. TREATMENT CODE/TIME: 20 min [id number]
[2020-04-18 15:34] VITALS: BP 136/72; PULSE 78; RESP 18; TEMP 36.6; O2SAT 95
--- NOTE | 2020-04-18 15:54 | PT.INTREAT ---
Date of service: 04/18/20 Time of Service: 15:54 PT Notes Visit Reasons: OBSTRUCTING COLON CANCER Inpatient Physical Therapy Treatment Note [facility] Date: 04/18/2020 PRECAUTIONS: Fall SUBJECTIVE: Rachel states that she is feeling fine this afternoon, and is agreeable to participating in PT. OBJECTIVE: PAIN: Patient c/o abdominal pain, increasing with transfers, bed mobility, and gait BED MOBILITY/TRANSFERS Supine-sit: S Sit-supine: S Sit-stand: S Stand-sit: S Bed-Chair: S Chair-bed: S GAIT Assistive Device: FWW Weight bearing: Full Assist: SBA Distance: 150' Deviation: Increased abdominal pain THEREX: Refused due to increased abdominal pain ASSESSMENT: Patient tolerated session with c/o increased abdominal pain with activity. She refused ther ex due to increased abdominal pain. She would benefit from continued global strengthening for improved ability to perform daily functional tasks at a more independent level. PLAN: Continue gait training, strengthening, and include stair training TREATMENT CODE/TIME: 10 minutes; [id number], [id number]
[2020-04-18] MEDS: Enoxaparin 40 MG/0.4 ML SYR SC (16:18)
[2020-04-18 20:13] VITALS: BP 138/86; PULSE 64; RESP 18; TEMP 35.2; O2SAT 97
[2020-04-19] MEDS: traMADol 50 MG TAB PO ×3 (01:34→20:13)
[2020-04-19] MEDS: metroNIDAZOLE 500 MG/100 ML BAG 100 MG IVPB ×4 (03:35→21:31)
[2020-04-19 04:40] VITALS: BP 145/69; PULSE 94; RESP 19; TEMP 35.9; O2SAT 95
[2020-04-19] MEDS: PIPERACILLIN/TAZO 4.5 GM in Normal Saline 100 ML IVPB ×3 (04:42→20:13)
[2020-04-19 06:40] LABS: Abs Immature Grans 0.03 10^3/uL (0.0-0.06); Absolute Basophil Count 0.01 10^3/uL (0.0-0.2); Absolute Eosinophil Count 0.08 10^3/uL (0.0-0.7); Absolute Lymphocyte Count 0.49 10^3/uL (1.2-3.4); Absolute Monocyte Count 0.28 10^3/uL (0.1-0.8); Absolute Neutrophil Count 1.75 10^3/uL (1.2-6.7); Basophils % 0.4; HCT 31.7 % (36.0-46.0); HGB 10.3 g/dL (11.2-15.7); Immature Grans % 1.1; Lymphocytes % 18.6; MCH 29.1 pg (27.0-33.0); MCHC 32.5 % (32.0-36.0); MCV 89.5 fL (80-95); Monocytes % 10.6; Neutrophils % 66.3; Nucleated RBC 0 %; Platelet Count 140 10^3/uL (130-400); RBC 3.54 10^6/uL (3.93-5.22); RDW 14.5 % (11.7-14.6); RDW-SD 47.4 fL; WBC 2.64 10^3/uL (4.4-10.8)
[2020-04-19 06:56] LABS: Anion Gap 9.7 mmol/L (3-11); BUN 9 mg/dL (7-18); CO2 24.3 mmol/L (21.0-32.0); CREATININE 0.74 mg/dL (0.55-1.02); Chloride 106 mmol/L (98-107); Glucose 100 mg/dL (74-106); Magnesium 1.7 mg/dL (1.8-2.4); Potassium 3.5 mmol/L (3.5-5.1); Sodium 140 mmol/L (136-145)
[2020-04-19 07:11] VITALS: BP 150/73; PULSE 82; RESP 18; TEMP 36.7; O2SAT 98
[2020-04-19] MEDS: amLODIPine 10 MG TAB PO (08:11)
[2020-04-19] MEDS: Pantoprazole 40 MG TABCR PO (08:11)
[2020-04-19] MEDS: ACETAMINOPHEN 1,000 MG/100 ML BTL 400 MG IVPB (08:12)
[2020-04-19] MEDS: Lisinopril 10 MG TAB PO (08:12)
[2020-04-19] MEDS: Atenolol 50 MG TAB PO (08:12)
[2020-04-19] MEDS: Budesonide/Formoterol 160/4.5 6 GM 60 PUFF INH IH ×2 (09:10→20:13)
[2020-04-19] MEDS: Tiotropium Bromide-Respimat 10 PUFF INH 2 PUFF IH (09:11)
--- NOTE | 2020-04-19 09:11 | W.PM.PROGNOT ---
Documented by User: KARINE Carias 04/19/20 09:15 Date of Service Date of service: 04/19/20 Time of Service: 09:11 Assessment and Plan Assessment and plan (1) Obstruction of ascending colon: Status: Acute Assessment and plan: POD#5 DIET- Tolerating regular diet well. PAIN- Improved pain control with use of Morphine early this morning. Tramadol/Tylenol for pain. ATB- Zosyn and probiotics Denies fevers and chills. Encouraged activity as tolerated and participation with PT. Continue use of incentive spirometer and deep breathing. (2) Colon cancer: Status: Chronic (3) Anemia: Status: Chronic (4) Kyphosis: Status: Chronic (5) Dyspnea on exertion: Status: Chronic (6) Hoarseness of voice: Status: Chronic (7) COPD (chronic obstructive pulmonary disease): Status: Chronic (8) CAD (coronary artery disease), [place] coronary artery: Status: Chronic Subjective Subjective Interval history since last seen: Tired and Sore today. Tolerating regular diet well, she reports low appeitie. Frequent use of the restroom. She describes liquid, dark stool which she feels is improving. Exam Const General: cooperative, healthy appearing and comfortable Orientation: alert and oriented x3 Resp Effort & Inspection: normal respiratory effort, no audible wheezes and no cough GI Inspection: normal to inspection and non-distended Palpation: soft, no guarding and tender Auscultation: normal bowel sounds Objective Objective Clinical Data: Abnormal lab results 04/19/20 04/19/20 Range/Units 06:23 06:23 WBC 2.64 L (4.4-10.8) 10^3/uL RBC 3.54 L (3.93-5.22) 10^6/uL Hgb 10.3 L (11.2-15.7) g/dL Hct 31.7 L (36.0-46.0) % Absolute Lymphocytes 0.49 L (1.2-3.4) 10^3/uL Calcium 8.0 L (8.5-10.1) mg/dL Magnesium 1.7 L (1.8-2.4) mg/dL Vital Signs Temperature 36.7 C 04/19/20 07:11 Temperature Source Tympanic 04/19/20 07:11 Pulse 82 04/19/20 07:11 Pulse Rhythm Regular 04/19/20 05:23 Pulse 74 04/17/20 17:01 Respiratory Rate 18 04/19/20 07:11 Respiratory Effort Non-Labored 04/19/20 05:23 Respiratory Depth Normal 04/19/20 05:23 Respiratory Pattern Normal 04/19/20 05:23 Blood Pressure 150/73 H 04/19/20 07:11 Blood Pressure Mean 94 04/17/20 17:01 Blood Pressure Position Supine 04/16/20 07:51 Pulse Oximetry 98 04/19/20 07:11 Oxygen Delivery Method Room Air 04/19/20 07:11 Oxygen Flow Rate 0 04/19/20 07:11 Pain Level 0 04/19/20 07:11 Intake & Output 04/18/20 04/19/20 04/19/20 18:59 06:59 18:59 Intake Total 1110 / 1660 550 / 1660 Output Total 875 / 2175 1300 / 2175 300 / 300 Balance 235 / -515 -750 / -515 -300 / -300 Weight 61.9 kg 61 kg Intake: IV 700 / 1210 510 / 1210 Oral 410 / 450 40 / 450 Output: Urine 875 / 2175 1300 / 2175 300 / 300 Other: Urine Color Pale Yellow Pale Yellow Light Matilde Yellow Urine Appearance Clear Clear Clear Urine Odor None Normal Normal Comment notified rn Void x1 in the bedside commode. Stool Size Moderate Moderate Stool Characteristics Liquid Liquid Mucoid Brown Green Voiding Methods Bedside Commode Bedside Commode Bedside Commode Laboratory Results WBC 2.64 10^3/uL (4.4-10.8) L 04/19/20 06:23 RBC 3.54 10^6/uL (3.93-5.22) L 04/19/20 06:23 Hgb 10.3 g/dL (11.2-15.7) L 04/19/20 06:23 Hct 31.7 % (36.0-46.0) L 04/19/20 06:23 MCV 89.5 fL (80-95) 04/19/20 06:23 MCH 29.1 pg (27.0-33.0) 04/19/20 06:23 MCHC 32.5 % (32.0-36.0) 04/19/20 06:23 RDW 14.5 % (11.7-14.6) 04/19/20 06:23 Plt Count 140 10^3/uL (130-400) 04/19/20 06:23 MPV 10.0 fL (8.0-11.0) 04/19/20 06:23 Immature Gran % 1.1 04/19/20 06:23 Neutrophils % 66.3 04/19/20 06:23 Lymphocytes % 18.6 04/19/20 06:23 Monocytes % 10.6 04/19/20 06:23 Eosinophils % 3.0 04/19/20 06:23 Basophils % 0.4 04/19/20 06:23 Nucleated RBC % 0 % 04/19/20 06:23 Absolute Neutrophils 1.75 10^3/uL (1.2-6.7) 04/19/20 06:23 Absolute Lymphocytes 0.49 10^3/uL (1.2-3.4) L 04/19/20 06:23 Absolute Monocytes 0.28 10^3/uL (0.1-0.8) 04/19/20 06:23 Absolute Eosinophils 0.08 10^3/uL (0.0-0.7) 04/19/20 06:23 Absolute Basophils 0.01 10^3/uL (0.0-0.2) 04/19/20 06:23 PT 11.0 sec (9.3-11.0) 04/15/20 00:00 INR 1.1 (0.9-1.1) 04/15/20 00:00 D-Dimer 6915 ng/mlFEU (<500) H 04/17/20 12:20 VBG Lactate 1.4 mmol/L (0.6-1.4) 04/15/20 06:20 Sodium 140 mmol/L (136-145) 04/19/20 06:23 Potassium 3.5 mmol/L (3.5-5.1) 04/19/20 06:23 Chloride 106 mmol/L (98-107) 04/19/20 06:23 Carbon Dioxide 24.3 mmol/L (21.0-32.0) 04/19/20 06:23 Anion Gap 9.7 mmol/L (3-11) 04/19/20 06:23 BUN 9 mg/dL (7-18) 04/19/20 06:23 Creatinine 0.74 mg/dL (0.55-1.02) 04/19/20 06:23 Estimated GFR/1.73 m2 >= 60.00 (mL/min/1.73m2) 04/19/20 06:23 Glucose 100 mg/dL (74-106) 04/19/20 06:23 Hemoglobin A1c 5.3 % (<5.7) 04/17/20 06:10 Calcium 8.0 mg/dL (8.5-10.1) L 04/19/20 06:23 Magnesium 1.7 mg/dL (1.8-2.4) L 04/19/20 06:23 Iron 10 ug/dL (50-170) L 04/14/20 06:20 TIBC 225 ug/dL (250-450) L 04/14/20 06:20 Transferrin % Sat 4 % (15-50) L 04/14/20 06:20 Ferritin 125 ng/mL (8-252) 04/14/20 06:20 Total Bilirubin 0.6 mg/dL (0.2-1.0) 04/15/20 06:20 AST 24 U/L (15-37) 04/15/20 06:20 ALT 17 U/L (14-59) 04/15/20 06:20 Alkaline Phosphatase 37 U/L (46-116) L 04/15/20 06:20 Troponin I < 0.05 ng/mL (<0.06) 04/15/20 12:00 C-Reactive Protein 20.79 mg/dL (0.0-0.3) H 04/16/20 05:49 NT-Pro-B Natriuret Pep 1018 pg/mL (<300) H 04/16/20 05:49 Total Protein 5.3 g/dL (6.4-8.2) L 04/15/20 06:20 Albumin 2.7 g/dL (3.4-5.0) L 04/15/20 06:20 Carcinoembryonic Ag 1.0 ng/ml (See Note) 04/15/20 06:20 Procalcitonin 19.1 ng/mL 04/14/20 16:23 Urine Color Yellow (Yellow) 04/14/20 16:40 Urine Clarity Clear (Clear) 04/14/20 16:40 Urine pH 8.0 (5-8) 04/14/20 16:40 Ur Specific [place] 1.020 (1.005-1.025) 04/14/20 16:40 Urine Protein Negative mg/dL (Negative) 04/14/20 16:40 Urine Ketones 15 mg/dL (Negative) H 04/14/20 16:40 Urine Blood Negative (Negative) 04/14/20 16:40 Urine Nitrite Negative (Negative) 04/14/20 16:40 Urine Bilirubin Negative (Negative) 04/14/20 16:40 Urine Urobilinogen 0.2 EU/dL (Up TO 0.2) 04/14/20 16:40 Ur Leukocyte Esterase Negative (Negative) 04/14/20 16:40 Urine Glucose Negative mg/dL (Negative) 04/14/20 16:40 COVID-19 PCR Negative (Negative) 04/15/20 01:15 Nasopharyn COVID-19 PCR Not Applicable 04/15/20 01:15 Ref Test Perform Site [place] [facility] lab 04/15/20 01:15 Patient ABO/Rh O Positive 04/14/20 20:10 Antibody Screen Negative 04/14/20 20:10 Crossmatch See Detail 04/14/20 20:10 Documented by User: Jolly Pa DO 04/19/20 12:29 Assessment and Plan Assessment and plan (1) Colon cancer: Status: Chronic (2) Anemia: Status: Chronic (3) Colonic mass: Status: Acute Assessment and plan: Patient seen and examined. Agree with above. Overall patient is doing well. Is do not have her pathology report back. she is still Zosyn. We have her on DVT prophylaxis. She is getting a lot of bruising. She also has a rash on her back in her groin that is yeast. And extending through this. She is stooling multiple times a day. I do not have an exact number. So we are going to have her notify nursing so we have a better idea of how many times she is going today. 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 Her C. difficile was negative. From a surgical standpoint she is doing well and would be able to go to rehab tomorrow. 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 She cannot continue in this role and she will need rehab for 1 to 2 weeks, herself. (4) Yeast dermatitis: Status: Acute (5) Edema: Status: Resolved
[2020-04-19] MEDS: Acetaminophen 500 MG TAB 1000 MG PO (09:30)
[2020-04-19] MEDS: Nystatin CREAM 15 GM TUBE TP ×2 (10:38→20:34)
[2020-04-19] MEDS: MAGNESIUM SULFATE 2 GM/50 ML BAG IVPB (10:59)
[2020-04-19] MEDS: Normal Saline 500 ML 30 ML IV (12:34)
--- NOTE | 2020-04-19 13:40 | PTTR_ITS ---
Date of service: 04/19/20 Time of Service: 13:40 PT Notes Visit Reasons: OBSTRUCTING COLON CANCER Inpatient Physical Therapy Treatment Note [facility] Date: 04/19/2020 PRECAUTIONS: Fall. Activity as tolerated. 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 She states that should she need chemotherapy/radiation, she would want all treatment for cancer done in [place] where her daughter is. She wants to make sure that her son Hai is going to be well taken cared of once she does move out of state for her cancer care. She continues to complain of abdominal pain but remains able to work through her pain. OBJECTIVE: PAIN: 4-5/10 pain in abdominal area with movement BED MOBILITY/TRANSFERS Supine-sit: S Sit-supine: S Sit-stand: S Stand-sit: S Bed-Chair: S Chair-bed: S GAIT Assistive Device: FWW Weight bearing: Full Assist: SBA Distance: 300' Deviation: Decreased mariaa. Decreased step height and length. ASSESSMENT: Aminata demonstrates increasing activity tolerance despite persistent pain in the abdominal area. She will continue to require skilled services in an intensity that matches her endurance level. She will benefit from SNF placement in order to maximize strength, balance, and return to unassisted ambulation level. PLAN: Continue gait training, strengthening, and include stair training at SNF TREATMENT CODE/TIME: 73456 x 34 minutes beginning at 13:40 PM.
--- NOTE | 2020-04-19 16:49 | CMPROGNOTE_ITS ---
- If Service Date Differs Date of service: 04/19/20 Time of Service: 16:49 Care Management Progress Note S/O: Rachel was sitting up in a chair when CM met with her. She maintains that she continues to have a great deal of pain and that she did not sleep well last night. Rachel again asked about her son Nirav and if CM had been able to contact Jennie from [facility]. Jennie did return VERN's call and arranged to speak to Aminata in her room. Aminata shared with Alvarado that she would like to find an AF home for Hai but would also like for his current caregiver Leon remain in that role. Jennie has reached out to the agency for Adult family Care services and this option will be pursued. There will also be referrals sent for both Aminata and Hai to [facility] for the short term. A: Rachel is a 80 year old female admitted to [facility] on 04/14/2020 for obstructing colon cancer. P: Rachel will likely go to a SNF for short term rehab when discharged from [facility]. Her daughter, Jolly, has expressed a desire to have her mom come to her home in [place] to recuperate, when she is able to fly, which won't be for 4-6 weeks after discharge. Finding a safe place for Nirav will be important in planning a discharge for Rachel. Options are being pursued with [facility] as above.CM will continue to support patient and discharge planning considerations.
[2020-04-19] MEDS: Enoxaparin 40 MG/0.4 ML SYR SC (17:15)
--- NOTE | 2020-04-19 18:23 | PGE_ITS ---
Date of Service Date of service: 04/19/20 Time of Service: 18:25 Subjective Subjective Interval history since last seen: Hospitalists are following peripherally. I discussed the case with Dr Pa and with patient's daughter. Speciation on her clostridium in the blood is not back yet. I will speak with ID tomorrow as to what oral antibiotic recommendations they might recommend for discharge. No new recommendations at this time. I will follow up again tomorrow. Objective Objective Clinical Data: Abnormal lab results 04/19/20 04/19/20 Range/Units 06:23 06:23 WBC 2.64 L (4.4-10.8) 10^3/uL RBC 3.54 L (3.93-5.22) 10^6/uL Hgb 10.3 L (11.2-15.7) g/dL Hct 31.7 L (36.0-46.0) % Absolute Lymphocytes 0.49 L (1.2-3.4) 10^3/uL Calcium 8.0 L (8.5-10.1) mg/dL Magnesium 1.7 L (1.8-2.4) mg/dL Vital Signs Temperature 36.7 C 04/19/20 07:11 Temperature Source Tympanic 04/19/20 07:11 Pulse 82 04/19/20 07:11 Pulse Rhythm Regular 04/19/20 05:23 Pulse 74 04/17/20 17:01 Respiratory Rate 18 04/19/20 07:11 Respiratory Effort Non-Labored 04/19/20 05:23 Respiratory Depth Normal 04/19/20 05:23 Respiratory Pattern Normal 04/19/20 05:23 Blood Pressure 150/73 H 04/19/20 07:11 Blood Pressure Mean 94 04/17/20 17:01 Blood Pressure Position Supine 04/16/20 07:51 Pulse Oximetry 98 04/19/20 07:11 Oxygen Delivery Method Room Air 04/19/20 07:11 Oxygen Flow Rate 0 04/19/20 07:11 Pain Level 4 04/19/20 12:35 Comment 04/19/20 07:50 Intake & Output 04/18/20 04/19/20 04/19/20 23:59 11:59 23:59 Intake Total 530 / 1320 1120 / 1650.5 530.5 / 1650.5 Output Total 1325 / 2775 1150 / 1150 Balance -795 / -1455 -30 / 500.5 530.5 / 500.5 Weight 61 kg Intake: IV 410 / 910 600 / 650.5 50.5 / 650.5 Oral 120 / 410 520 / 1000 480 / 1000 Output: Urine 1325 / 2775 1150 / 1150 Other: Urine Color Yellow Pale Yellow Yellow Urine Appearance Clear Clear Urine Odor Normal Normal Comment notified rn Void x1 in the bedside commode. Mixed with stool. MIXED WITH STOOL Stool Size Smear Small Stool Characteristics Mucoid Soft Brown Liquid Brown Green Voiding Methods Bedside Commode Bedside Commode Bedside Commode Laboratory Results WBC 2.64 10^3/uL (4.4-10.8) L 04/19/20 06:23 RBC 3.54 10^6/uL (3.93-5.22) L 04/19/20 06:23 Hgb 10.3 g/dL (11.2-15.7) L 04/19/20 06:23 Hct 31.7 % (36.0-46.0) L 04/19/20 06:23 MCV 89.5 fL (80-95) 04/19/20 06:23 MCH 29.1 pg (27.0-33.0) 04/19/20 06:23 MCHC 32.5 % (32.0-36.0) 04/19/20 06:23 RDW 14.5 % (11.7-14.6) 04/19/20 06:23 Plt Count 140 10^3/uL (130-400) 04/19/20 06:23 MPV 10.0 fL (8.0-11.0) 04/19/20 06:23 Immature Gran % 1.1 04/19/20 06:23 Neutrophils % 66.3 04/19/20 06:23 Lymphocytes % 18.6 04/19/20 06:23 Monocytes % 10.6 04/19/20 06:23 Eosinophils % 3.0 04/19/20 06:23 Basophils % 0.4 04/19/20 06:23 Nucleated RBC % 0 % 04/19/20 06:23 Absolute Neutrophils 1.75 10^3/uL (1.2-6.7) 04/19/20 06:23 Absolute Lymphocytes 0.49 10^3/uL (1.2-3.4) L 04/19/20 06:23 Absolute Monocytes 0.28 10^3/uL (0.1-0.8) 04/19/20 06:23 Absolute Eosinophils 0.08 10^3/uL (0.0-0.7) 04/19/20 06:23 Absolute Basophils 0.01 10^3/uL (0.0-0.2) 04/19/20 06:23 PT 11.0 sec (9.3-11.0) 04/15/20 00:00 INR 1.1 (0.9-1.1) 04/15/20 00:00 D-Dimer 6915 ng/mlFEU (<500) H 04/17/20 12:20 VBG Lactate 1.4 mmol/L (0.6-1.4) 04/15/20 06:20 Sodium 140 mmol/L (136-145) 04/19/20 06:23 Potassium 3.5 mmol/L (3.5-5.1) 04/19/20 06:23 Chloride 106 mmol/L (98-107) 04/19/20 06:23 Carbon Dioxide 24.3 mmol/L (21.0-32.0) 04/19/20 06:23 Anion Gap 9.7 mmol/L (3-11) 04/19/20 06:23 BUN 9 mg/dL (7-18) 04/19/20 06:23 Creatinine 0.74 mg/dL (0.55-1.02) 04/19/20 06:23 Estimated GFR/1.73 m2 >= 60.00 (mL/min/1.73m2) 04/19/20 06:23 Glucose 100 mg/dL (74-106) 04/19/20 06:23 Hemoglobin A1c 5.3 % (<5.7) 04/17/20 06:10 Calcium 8.0 mg/dL (8.5-10.1) L 04/19/20 06:23 Magnesium 1.7 mg/dL (1.8-2.4) L 04/19/20 06:23 Iron 10 ug/dL (50-170) L 04/14/20 06:20 TIBC 225 ug/dL (250-450) L 04/14/20 06:20 Transferrin % Sat 4 % (15-50) L 04/14/20 06:20 Ferritin 125 ng/mL (8-252) 04/14/20 06:20 Total Bilirubin 0.6 mg/dL (0.2-1.0) 04/15/20 06:20 AST 24 U/L (15-37) 04/15/20 06:20 ALT 17 U/L (14-59) 04/15/20 06:20 Alkaline Phosphatase 37 U/L (46-116) L 04/15/20 06:20 Troponin I < 0.05 ng/mL (<0.06) 04/15/20 12:00 C-Reactive Protein 20.79 mg/dL (0.0-0.3) H 04/16/20 05:49 NT-Pro-B Natriuret Pep 1018 pg/mL (<300) H 04/16/20 05:49 Total Protein 5.3 g/dL (6.4-8.2) L 04/15/20 06:20 Albumin 2.7 g/dL (3.4-5.0) L 04/15/20 06:20 Carcinoembryonic Ag 1.0 ng/ml (See Note) 04/15/20 06:20 Procalcitonin 19.1 ng/mL 04/14/20 16:23 Urine Color Yellow (Yellow) 04/14/20 16:40 Urine Clarity Clear (Clear) 04/14/20 16:40 Urine pH 8.0 (5-8) 04/14/20 16:40 Ur Specific [place] 1.020 (1.005-1.025) 04/14/20 16:40 Urine Protein Negative mg/dL (Negative) 04/14/20 16:40 Urine Ketones 15 mg/dL (Negative) H 04/14/20 16:40 Urine Blood Negative (Negative) 04/14/20 16:40 Urine Nitrite Negative (Negative) 04/14/20 16:40 Urine Bilirubin Negative (Negative) 04/14/20 16:40 Urine Urobilinogen 0.2 EU/dL (Up TO 0.2) 04/14/20 16:40 Ur Leukocyte Esterase Negative (Negative) 04/14/20 16:40 Urine Glucose Negative mg/dL (Negative) 04/14/20 16:40 COVID-19 PCR Negative (Negative) 04/15/20 01:15 Nasopharyn COVID-19 PCR Not Applicable 04/15/20 01:15 Ref Test Perform Site [facility] lab 04/15/20 01:15 Patient ABO/Rh O Positive 04/14/20 20:10 Antibody Screen Negative 04/14/20 20:10 Crossmatch See Detail 04/14/20 20:10
[2020-04-19] MEDS: Psyllium PKT 1 EACH PO ×2 (20:13→20:34)
[2020-04-20] MEDS: metroNIDAZOLE 500 MG/100 ML BAG 100 MG IVPB ×2 (03:34→09:51)
[2020-04-20 03:40] VITALS: BP 136/72; PULSE 75; RESP 19; TEMP 37.3; O2SAT 96
[2020-04-20] MEDS: PIPERACILLIN/TAZO 4.5 GM in Normal Saline 100 ML IVPB (04:38)
[2020-04-20 07:20] LABS: Anion Gap 4.8 mmol/L (3-11); BUN 7 mg/dL (7-18); CO2 27.2 mmol/L (21.0-32.0); CREATININE 0.73 mg/dL (0.55-1.02); Chloride 111 mmol/L (98-107); Glucose 108 mg/dL (74-106); Magnesium 2.1 mg/dL (1.8-2.4); Potassium 3.8 mmol/L (3.5-5.1); Sodium 143 mmol/L (136-145)
[2020-04-20 07:27] VITALS: BP 148/77; PULSE 74; RESP 18; TEMP 36.9; O2SAT 98
[2020-04-20 07:31] LABS: Abs Immature Grans 0.15 10^3/uL (0.0-0.06); Absolute Basophil Count 0.02 10^3/uL (0.0-0.2); Absolute Eosinophil Count 0.18 10^3/uL (0.0-0.7); Absolute Lymphocyte Count 0.82 10^3/uL (1.2-3.4); Absolute Monocyte Count 0.44 10^3/uL (0.1-0.8); Absolute Neutrophil Count 3.61 10^3/uL (1.2-6.7); Basophils % 0.4; Eosinophils % 3.4; HCT 32.6 % (36.0-46.0); HGB 10.6 g/dL (11.2-15.7); Immature Grans % 2.9; Lymphocytes % 15.7; MCHC 32.5 % (32.0-36.0); MCV 89.3 fL (80-95); MPV 10.3 fL (8.0-11.0); Monocytes % 8.4; Neutrophils % 69.2; Nucleated RBC 0 %; Platelet Count 170 10^3/uL (130-400); RBC 3.65 10^6/uL (3.93-5.22); RDW 14.6 % (11.7-14.6); RDW-SD 47.1 fL; WBC 5.22 10^3/uL (4.4-10.8)
[2020-04-20] MEDS: Tiotropium Bromide-Respimat 10 PUFF INH 2 PUFF IH (07:44)
[2020-04-20] MEDS: Budesonide/Formoterol 160/4.5 6 GM 60 PUFF INH IH ×2 (07:44→19:35)
[2020-04-20] MEDS: amLODIPine 10 MG TAB PO (08:05)
[2020-04-20] MEDS: Lisinopril 10 MG TAB PO (08:06)
[2020-04-20] MEDS: Atenolol 50 MG TAB PO (08:06)
[2020-04-20] MEDS: Pantoprazole 40 MG TABCR PO (08:06)
[2020-04-20] MEDS: Psyllium PKT 1 EACH PO ×2 (08:08→19:35)
[2020-04-20] MEDS: Nystatin CREAM 15 GM TUBE TP ×2 (08:16→19:45)
[2020-04-20] MEDS: Acetaminophen 500 MG TAB 1000 MG PO ×2 (08:59→16:58)
[2020-04-20] MEDS: traMADol 50 MG TAB PO ×3 (08:59→23:29)
--- NOTE | 2020-04-20 09:06 | PGE_ITS ---
Documented by User: KARINE Carias 04/20/20 09:10 Date of Service Date of service: 04/20/20 Time of Service: 09:06 Assessment and Plan Assessment and plan (1) Obstruction of ascending colon: Status: Acute Assessment and plan: POD#6 DIET- Tolerating regular diet well. Strongly encouraged her to drink Ensure and to try and increase her intake at meals. PAIN- Pain is well controlled this morning ATB- Zosyn and probiotics Denies fevers and chills. Encouraged activity as tolerated and participation with PT. Continue use of incentive spirometer and deep breathing. (2) Colon cancer: Status: Chronic (3) Anemia: Status: Chronic (4) Kyphosis: Status: Chronic (5) Dyspnea on exertion: Status: Chronic (6) Hoarseness of voice: Status: Chronic (7) COPD (chronic obstructive pulmonary disease): Status: Chronic (8) CAD (coronary artery disease), [place] coronary artery: Status: Chronic (9) Colonic mass: Status: Acute (10) Yeast dermatitis: Status: Acute (11) Edema: Status: Resolved Subjective Subjective Interval history since last seen: Patient complains of continued loose stools. She did not eat much yesterday. Exam Const General: cooperative, not healthy appearing and comfortable Orientation: alert and oriented x3 Resp Effort & Inspection: normal respiratory effort, no audible wheezes and no cough GI Inspection: normal to inspection and incision (midline incision; karen in place) Palpation: soft, no guarding and tender Objective Objective Clinical Data: Abnormal lab results 04/20/20 04/20/20 Range/Units 06:15 06:15 RBC 3.65 L (3.93-5.22) 10^6/uL Hgb 10.6 L (11.2-15.7) g/dL Hct 32.6 L (36.0-46.0) % Absolute Lymphocytes 0.82 L (1.2-3.4) 10^3/uL Chloride 111 H (98-107) mmol/L Glucose 108 H (74-106) mg/dL Calcium 8.0 L (8.5-10.1) mg/dL Vital Signs Temperature 36.9 C 04/20/20 07:27 Temperature Source Tympanic 04/20/20 07:27 Pulse 74 04/20/20 07:27 Pulse Rhythm Regular 04/20/20 06:47 Pulse 74 08/31/20 17:01 Respiratory Rate 18 04/20/20 07:27 Respiratory Effort Non-Labored 04/20/20 06:47 Respiratory Depth Normal 04/20/20 06:47 Respiratory Pattern Normal 04/20/20 06:47 Blood Pressure 148/77 H 04/20/20 07:27 Blood Pressure Mean 94 04/17/20 17:01 Blood Pressure Position Supine 04/16/20 07:51 Pulse Oximetry 98 04/20/20 07:27 Oxygen Delivery Method Room Air 04/20/20 03:40 Oxygen Flow Rate 0 04/20/20 03:40 Pain Level 8 04/20/20 08:59 Comment 04/19/20 16:35 Intake & Output 04/19/20 04/20/20 04/20/20 18:59 06:59 18:59 Intake Total 2221.0 / 2631.0 410 / 2631.0 Output Total 300 / 1500 1200 / 1500 Balance 1921.0 / 1131.0 -790 / 1131.0 Intake: IV 471.0 / 781.0 310 / 781.0 Oral 1750 / 1850 100 / 1850 Output: Urine 300 / 1500 1200 / 1500 Other: Urine Color Yellow Yellow Urine Appearance Clear Clear Urine Odor Normal Normal Comment MIXED WITH STOOL Stool Size Small Stool Characteristics Soft Liquid Brown Green Voiding Methods Bedside Commode Bedside Commode Laboratory Results WBC 5.22 10^3/uL (4.4-10.8) D 04/20/20 06:15 RBC 3.65 10^6/uL (3.93-5.22) L 04/20/20 06:15 Hgb 10.6 g/dL (11.2-15.7) L 04/20/20 06:15 Hct 32.6 % (36.0-46.0) L 04/20/20 06:15 MCV 89.3 fL (80-95) 04/20/20 06:15 MCH 29.0 pg (27.0-33.0) 04/20/20 06:15 MCHC 32.5 % (32.0-36.0) 04/20/20 06:15 RDW 14.6 % (11.7-14.6) 04/20/20 06:15 Plt Count 170 10^3/uL (130-400) 04/20/20 06:15 MPV 10.3 fL (8.0-11.0) 04/20/20 06:15 Immature Gran % 2.9 04/20/20 06:15 Neutrophils % 69.2 04/20/20 06:15 Lymphocytes % 15.7 04/20/20 06:15 Monocytes % 8.4 04/20/20 06:15 Eosinophils % 3.4 04/20/20 06:15 Basophils % 0.4 04/20/20 06:15 Nucleated RBC % 0 % 04/20/20 06:15 Absolute Neutrophils 3.61 10^3/uL (1.2-6.7) 04/20/20 06:15 Absolute Lymphocytes 0.82 10^3/uL (1.2-3.4) L 04/20/20 06:15 Absolute Monocytes 0.44 10^3/uL (0.1-0.8) 04/20/20 06:15 Absolute Eosinophils 0.18 10^3/uL (0.0-0.7) 04/20/20 06:15 Absolute Basophils 0.02 10^3/uL (0.0-0.2) 04/20/20 06:15 PT 11.0 sec (9.3-11.0) 04/15/20 00:00 INR 1.1 (0.9-1.1) 04/15/20 00:00 D-Dimer 6915 ng/mlFEU (<500) H 04/17/20 12:20 VBG Lactate 1.4 mmol/L (0.6-1.4) 04/15/20 06:20 Sodium 143 mmol/L (136-145) 04/20/20 06:15 Potassium 3.8 mmol/L (3.5-5.1) 04/20/20 06:15 Chloride 111 mmol/L (98-107) H 04/20/20 06:15 Carbon Dioxide 27.2 mmol/L (21.0-32.0) 04/20/20 06:15 Anion Gap 4.8 mmol/L (3-11) 04/20/20 06:15 BUN 7 mg/dL (7-18) 04/20/20 06:15 Creatinine 0.73 mg/dL (0.55-1.02) 04/20/20 06:15 Estimated GFR/1.73 m2 >= 60.00 (mL/min/1.73m2) 04/20/20 06:15 Glucose 108 mg/dL (74-106) H 04/20/20 06:15 Hemoglobin A1c 5.3 % (<5.7) 04/17/20 06:10 Calcium 8.0 mg/dL (8.5-10.1) L 04/20/20 06:15 Magnesium 2.1 mg/dL (1.8-2.4) 04/20/20 06:15 Iron 10 ug/dL (50-170) L 04/14/20 06:20 TIBC 225 ug/dL (250-450) L 04/14/20 06:20 Transferrin % Sat 4 % (15-50) L 04/14/20 06:20 Ferritin 125 ng/mL (8-252) 04/14/20 06:20 Total Bilirubin 0.6 mg/dL (0.2-1.0) 04/15/20 06:20 AST 24 U/L (15-37) 04/15/20 06:20 ALT 17 U/L (14-59) 04/15/20 06:20 Alkaline Phosphatase 37 U/L (46-116) L 04/15/20 06:20 Troponin I < 0.05 ng/mL (<0.06) 04/15/20 12:00 C-Reactive Protein 20.79 mg/dL (0.0-0.3) H 04/16/20 05:49 NT-Pro-B Natriuret Pep 1018 pg/mL (<300) H 04/16/20 05:49 Total Protein 5.3 g/dL (6.4-8.2) L 04/15/20 06:20 Albumin 2.7 g/dL (3.4-5.0) L 04/15/20 06:20 Carcinoembryonic Ag 1.0 ng/ml (See Note) 04/15/20 06:20 Procalcitonin 19.1 ng/mL 04/14/20 16:23 Urine Color Yellow (Yellow) 04/14/20 16:40 Urine Clarity Clear (Clear) 04/14/20 16:40 Urine pH 8.0 (5-8) 04/14/20 16:40 Ur Specific [place] 1.020 (1.005-1.025) 04/14/20 16:40 Urine Protein Negative mg/dL (Negative) 04/14/20 16:40 Urine Ketones 15 mg/dL (Negative) H 04/14/20 16:40 Urine Blood Negative (Negative) 04/14/20 16:40 Urine Nitrite Negative (Negative) 04/14/20 16:40 Urine Bilirubin Negative (Negative) 04/14/20 16:40 Urine Urobilinogen 0.2 EU/dL (Up TO 0.2) 04/14/20 16:40 Ur Leukocyte Esterase Negative (Negative) 04/14/20 16:40 Urine Glucose Negative mg/dL (Negative) 04/14/20 16:40 COVID-19 PCR Negative (Negative) 04/15/20 01:15 Nasopharyn COVID-19 PCR Not Applicable 04/15/20 01:15 Ref Test Perform Site [place] [facility] 04/15/20 01:15 Patient ABO/Rh O Positive 04/14/20 20:10 Antibody Screen Negative 04/14/20 20:10 Crossmatch See Detail 04/14/20 20:10 Documented by User: Rhina Gil MD 04/20/20 13:27 Documented by User: Jolly Pa DO 04/22/20 22:40 Assessment and Plan Assessment and plan (1) Yeast dermatitis: Status: Acute (2) Oral thrush: Status: Acute (3) Discharge planning issues: Status: Acute Assessment and plan: pt seen and examined agree w/ above. working on rehab placement and placement for her son
[2020-04-20] MEDS: Amoxicillin 875/Clav. 125 TAB PO ×2 (11:55→19:35)
--- NOTE | 2020-04-20 12:45 | PDOC.CMPRO ---
- If Service Date Differs Date of service: 04/20/20 Time of Service: 12:45 Care Management Progress Note S/O: Rachel was sitting up in a chair when CM met with her. She continues to have abdominal pain and has been told that this may be chronic. At Aminata's request, [facility] spoke with Hai's caregiver Leon this morning about the possibility of becoming an [facility] home provider for Hai and living in Aminata and Hai's home, renting a room. Leon was amenable to the idea and is willing to discuss this further with Jennie and/or staff from the home provider agency. 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 Since that option takes time, a short term solution must be found. [facility] has requested additional information about Aminata and are considering her for admission. A: Rachel is a 80 year old female admitted to [facility] on 04/14/2020 for obstructing colon cancer. P: Rachel will likely go to a SNF for short term rehab when discharged from [facility]. She may then go to [place] to her daughter's home to recuperate, when she is able to fly, which won't be for 4-6 weeks after discharge. Finding a safe place for Nirav will be important in planning a discharge for Rachel. Options are being pursued with [facility] as above.CM will continue to support patient and discharge planning considerations.
[2020-04-20 13:35] LABS: COVID-19 RT-PCR UVMMC Result Negative (Negative)
--- NOTE | 2020-04-20 14:11 | PTTR_ITS ---
Date of service: 04/20/20 Time of Service: 14:11 PT Notes Visit Reasons: OBSTRUCTING COLON CANCER Inpatient Physical Therapy Treatment Note [facility] Date: 04/20/2020 PRECAUTIONS: Fall. Activity as tolerated. SUBJECTIVE: Aminata continues to wait for her biopsy result. She states that she just got done walking with [employer] Alejandra around the nurse's station loop. She is agreeable to walking an additional short distance which she completed without difficulty. She has been busy making arrangements and calls for her son Hai's placement. She continues to complain of abdominal pain but remains able to work through her pain. OBJECTIVE: PAIN: 5/10 pain in abdominal area with movement BED MOBILITY/TRANSFERS Supine-sit: S Sit-supine: S Sit-stand: S Stand-sit: S Bed-Chair: S Chair-bed: S GAIT Assistive Device: FWW Weight bearing: Full Assist: SBA Distance: 60 feet. Previously completed 250 feet with [employer] Alejandra prior to PT visit. Deviation: Increasing mariaa. Increasing step height and length. ASSESSMENT: Aminata continues to demonstrate increasing activity tolerance despite persistent pain in the abdominal area. She will continue to require skilled services in an intensity that matches her endurance level. She will benefit from SNF placement in order to maximize strength, balance, and return to unassisted ambulation level as previously. PLAN: Continue gait training, strengthening, and include stair training at SNF TREATMENT CODE/TIME: 21673 x 16 minutes beginning at 14:11 PM.
[2020-04-20 15:20] VITALS: BP 124/70; PULSE 73; RESP 18; TEMP 37.1; O2SAT 95
--- NOTE | 2020-04-20 15:44 | CHAPLAIN ---
Rachel Coates was resting in bed when I visited. She was beginning to have abdominal pain. Aminata's biggest concern now is for her son Nirav's care. 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 He is currently here as a patient at [facility]. Aminata is working with Care Management on options, however Aminata said she will remain involved in his care. Her elder son, who has the same health issues as Nirav, was placed in jail, and there, Aminata said. Aminata is in touch with her daughter who is a medical social working in [place], and has been vocal about what she thinks Aminata should do. Aminata is [employer]an, but not connected to Shelly Pimentel here in [facility]. She often watches services streamed from the Lynda Pimentel in [facility].
[2020-04-20] MEDS: Enoxaparin 40 MG/0.4 ML SYR SC (16:59)
--- NOTE | 2020-04-20 18:40 | W.PM.PROGNOT ---
Date of Service Date of service: 04/20/20 Time of Service: 18:40 Subjective Subjective Interval history since last seen: Case discussed with [facility]. Patient is recommended to remain on augmentin for a 10 day course. Abx adjusted in the system. Hospitalists are signing off. Please, reconsult if needed. Objective Objective Clinical Data: Abnormal lab results 04/20/20 04/20/20 Range/Units 06:15 06:15 RBC 3.65 L (3.93-5.22) 10^6/uL Hgb 10.6 L (11.2-15.7) g/dL Hct 32.6 L (36.0-46.0) % Absolute Lymphocytes 0.82 L (1.2-3.4) 10^3/uL Chloride 111 H (98-107) mmol/L Glucose 108 H (74-106) mg/dL Calcium 8.0 L (8.5-10.1) mg/dL Vital Signs Temperature 37.1 C 04/20/20 15:20 Temperature Source Tympanic 04/20/20 15:20 Pulse 73 04/20/20 15:20 Pulse Rhythm Regular 04/20/20 09:34 Pulse 74 04/17/20 17:01 Respiratory Rate 18 04/20/20 15:20 Respiratory Effort Non-Labored 04/20/20 09:34 Respiratory Depth Normal 04/20/20 09:34 Respiratory Pattern Normal 04/20/20 09:34 Blood Pressure 124/70 04/20/20 15:20 Blood Pressure Mean 94 04/17/20 17:01 Blood Pressure Position Supine 04/16/20 07:51 Pulse Oximetry 95 04/20/20 15:20 Oxygen Delivery Method Room Air 04/20/20 15:20 Oxygen Flow Rate 0 04/20/20 15:20 Pain Level 6 04/20/20 16:58 Comment 04/19/20 16:35 Intake & Output 04/19/20 04/20/20 04/20/20 23:59 11:59 23:59 Intake Total 1151.0 / 2821.0 350 / 1220 870 / 1220 Output Total 1200 / 1200 Balance 1151.0 / 1671.0 -850 / 20 870 / 20 Weight 59.8 kg Intake: IV 381.0 / 981.0 300 / 300 Oral 770 / 1840 50 / 920 870 / 920 Output: Urine 1200 / 1200 Other: Urine Color Yellow Yellow Urine Appearance Clear Clear Urine Odor Normal Comment MIXED WITH STOOL Stool Size Small Moderate Stool Characteristics Soft Liquid Liquid Brown Brown Black Green Voiding Methods Bedside Commode Bedside Commode Laboratory Results WBC 5.22 10^3/uL (4.4-10.8) D 04/20/20 06:15 RBC 3.65 10^6/uL (3.93-5.22) L 04/20/20 06:15 Hgb 10.6 g/dL (11.2-15.7) L 04/20/20 06:15 Hct 32.6 % (36.0-46.0) L 04/20/20 06:15 MCV 89.3 fL (80-95) 04/20/20 06:15 MCH 29.0 pg (27.0-33.0) 04/20/20 06:15 MCHC 32.5 % (32.0-36.0) 04/20/20 06:15 RDW 14.6 % (11.7-14.6) 04/20/20 06:15 Plt Count 170 10^3/uL (130-400) 04/20/20 06:15 MPV 10.3 fL (8.0-11.0) 04/20/20 06:15 Immature Gran % 2.9 04/20/20 06:15 Neutrophils % 69.2 04/20/20 06:15 Lymphocytes % 15.7 04/20/20 06:15 Monocytes % 8.4 04/20/20 06:15 Eosinophils % 3.4 04/20/20 06:15 Basophils % 0.4 04/20/20 06:15 Nucleated RBC % 0 % 04/20/20 06:15 Absolute Neutrophils 3.61 10^3/uL (1.2-6.7) 04/20/20 06:15 Absolute Lymphocytes 0.82 10^3/uL (1.2-3.4) L 04/20/20 06:15 Absolute Monocytes 0.44 10^3/uL (0.1-0.8) 04/20/20 06:15 Absolute Eosinophils 0.18 10^3/uL (0.0-0.7) 04/20/20 06:15 Absolute Basophils 0.02 10^3/uL (0.0-0.2) 04/20/20 06:15 PT 11.0 sec (9.3-11.0) 04/15/20 00:00 INR 1.1 (0.9-1.1) 04/15/20 00:00 D-Dimer 6915 ng/mlFEU (<500) H 04/17/20 12:20 VBG Lactate 1.4 mmol/L (0.6-1.4) 04/15/20 06:20 Sodium 143 mmol/L (136-145) 04/20/20 06:15 Potassium 3.8 mmol/L (3.5-5.1) 04/20/20 06:15 Chloride 111 mmol/L (98-107) H 04/20/20 06:15 Carbon Dioxide 27.2 mmol/L (21.0-32.0) 04/20/20 06:15 Anion Gap 4.8 mmol/L (3-11) 04/20/20 06:15 BUN 7 mg/dL (7-18) 04/20/20 06:15 Creatinine 0.73 mg/dL (0.55-1.02) 04/20/20 06:15 Estimated GFR/1.73 m2 >= 60.00 (mL/min/1.73m2) 04/20/20 06:15 Glucose 108 mg/dL (74-106) H 04/20/20 06:15 Hemoglobin A1c 5.3 % (<5.7) 04/17/20 06:10 Calcium 8.0 mg/dL (8.5-10.1) L 04/20/20 06:15 Magnesium 2.1 mg/dL (1.8-2.4) 04/20/20 06:15 Iron 10 ug/dL (50-170) L 04/14/20 06:20 TIBC 225 ug/dL (250-450) L 04/14/20 06:20 Transferrin % Sat 4 % (15-50) L 04/14/20 06:20 Ferritin 125 ng/mL (8-252) 04/14/20 06:20 Total Bilirubin 0.6 mg/dL (0.2-1.0) 04/15/20 06:20 AST 24 U/L (15-37) 04/15/20 06:20 ALT 17 U/L (14-59) 04/15/20 06:20 Alkaline Phosphatase 37 U/L (46-116) L 04/15/20 06:20 Troponin I < 0.05 ng/mL (<0.06) 04/15/20 12:00 C-Reactive Protein 20.79 mg/dL (0.0-0.3) H 04/16/20 05:49 NT-Pro-B Natriuret Pep 1018 pg/mL (<300) H 04/16/20 05:49 Total Protein 5.3 g/dL (6.4-8.2) L 04/15/20 06:20 Albumin 2.7 g/dL (3.4-5.0) L 04/15/20 06:20 Carcinoembryonic Ag 1.0 ng/ml (See Note) 04/15/20 06:20 Procalcitonin 19.1 ng/mL 04/14/20 16:23 Urine Color Yellow (Yellow) 04/14/20 16:40 Urine Clarity Clear (Clear) 04/14/20 16:40 Urine pH 8.0 (5-8) 04/14/20 16:40 Ur Specific [place] 1.020 (1.005-1.025) 04/14/20 16:40 Urine Protein Negative mg/dL (Negative) 04/14/20 16:40 Urine Ketones 15 mg/dL (Negative) H 04/14/20 16:40 Urine Blood Negative (Negative) 04/14/20 16:40 Urine Nitrite Negative (Negative) 04/14/20 16:40 Urine Bilirubin Negative (Negative) 04/14/20 16:40 Urine Urobilinogen 0.2 EU/dL (Up TO 0.2) 04/14/20 16:40 Ur Leukocyte Esterase Negative (Negative) 04/14/20 16:40 Urine Glucose Negative mg/dL (Negative) 04/14/20 16:40 COVID-19 PCR Negative (Negative) 04/20/20 05:20 Nasopharyn COVID-19 PCR Not Applicable 04/20/20 05:20 Ref Test Perform Site [facility] lab 04/20/20 05:20 Patient ABO/Rh O Positive 04/14/20 20:10 Antibody Screen Negative 04/14/20 20:10 Crossmatch See Detail 04/14/20 20:10
[2020-04-20 20:00] VITALS: BP 132/77; PULSE 73; RESP 18; TEMP 36.4; O2SAT 95
[2020-04-20 23:15] VITALS: BP 155/75; PULSE 69; RESP 18; TEMP 35.5; O2SAT 96
[2020-04-21] MEDS: Acetaminophen 500 MG TAB 1000 MG PO ×2 (02:52→09:50)
[2020-04-21 07:15] VITALS: BP 154/72; PULSE 75; RESP 18; TEMP 37.7; O2SAT 100
[2020-04-21] MEDS: Tiotropium Bromide-Respimat 10 PUFF INH 2 PUFF IH (07:43)
[2020-04-21] MEDS: Budesonide/Formoterol 160/4.5 6 GM 60 PUFF INH IH (07:43)
--- NOTE | 2020-04-21 09:07 | PGE_ITS ---
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 We are working on developing placement for the two of them. She cannot care for him at this time. I don't know if she is going to be able to be his caregiver. _pharmacy notes that pt has a large number of ativan pills w/in her medications- over #100 pills. -pt did make the statement to me that no one loves her son as much as she does; no one can care for him like she can. She always thought the two of them would together; she would take care of things when the time came. -We will do the best to dissuade her from wanting this volume of ativan pills returned to her possession. -pt will be sent to rehab today (7) Colon cancer: Status: Chronic (8) Hoarseness of voice: Status: Chronic (9) Dyspnea on exertion: Status: Chronic (10) Kyphosis: Status: Chronic Subjective Subjective Interval history since last seen: Pt is doing well. no headaches. No CP or SOB. no productive cough. no dysuria. no leg pain or swelling. pt c/o diarrhea. Her number of BM is signif different than the number nursing has recorded. pt c/o mouth pain. Pt c/o pain on backside pt has to use walker b/c of weekness and balance issues Exam HENMT Other: no eye pain or drianage white plaque on tongue. Resp Effort & Inspection: normal respiratory effort and able to speak in complete sentences Auscultation: clear to auscultation bilaterally Cardio Rate: regular rate Rhythm: regular rhythm GI Inspection: non-distended and incision (c/d/i) Palpation: soft, nontender and No ascites Percussion: normal to percussion Skin Other: rash from yeast on back/buttocks/perineum Extrem Other: swelling has resolved. Objective Objective Clinical Data: Vital Signs Temperature 37.7 C H 04/21/20 07:15 Temperature Source Tympanic 04/21/20 07:15 Pulse 75 04/21/20 07:15 Pulse Rhythm Regular 04/20/20 23:30 Pulse 74 04/17/20 17:01 Respiratory Rate 18 04/21/20 07:15 Respiratory Effort Non-Labored 04/20/20 23:30 Respiratory Depth Normal 04/20/20 23:30 Respiratory Pattern Normal 04/20/20 23:30 Blood Pressure 154/72 H 04/21/20 07:15 Blood Pressure Mean 94 04/17/20 17:01 Blood Pressure Position Supine 04/16/20 07:51 Pulse Oximetry 100 04/21/20 07:15 Oxygen Delivery Method Room Air 04/21/20 07:15 Oxygen Flow Rate 0 04/21/20 07:15 Pain Level 5 04/21/20 07:15 Comment 04/20/20 23:15 Intake & Output 04/20/20 04/20/20 04/21/20 11:59 23:59 11:59 Intake Total 350 / 1460 1110 / 1460 Output Total 1200 / 1200 Balance -850 / 260 1110 / 260 Weight 59.8 kg 57.9 kg Intake: IV 300 / 300 Oral 50 / 1160 1110 / 1160 Output: Urine 1200 / 1200 Other: Urine Color Yellow Yellow Urine Appearance Clear Clear Urine Odor Normal Comment mixed with stool mixed with stool Stool Size Moderate Small Stool Characteristics Liquid Liquid Liquid Brown Mucoid Black Black Voiding Methods Bedside Commode Bedside Commode Bedside Commode Laboratory Results WBC 5.22 10^3/uL (4.4-10.8) D 04/20/20 06:15 RBC 3.65 10^6/uL (3.93-5.22) L 04/20/20 06:15 Hgb 10.6 g/dL (11.2-15.7) L 04/20/20 06:15 Hct 32.6 % (36.0-46.0) L 04/20/20 06:15 MCV 89.3 fL (80-95) 04/20/20 06:15 MCH 29.0 pg (27.0-33.0) 04/20/20 06:15 MCHC 32.5 % (32.0-36.0) 04/20/20 06:15 RDW 14.6 % (11.7-14.6) 04/20/20 06:15 Plt Count 170 10^3/uL (130-400) 04/20/20 06:15 MPV 10.3 fL (8.0-11.0) 04/20/20 06:15 Immature Gran % 2.9 04/20/20 06:15 Neutrophils % 69.2 04/20/20 06:15 Lymphocytes % 15.7 04/20/20 06:15 Monocytes % 8.4 04/20/20 06:15 Eosinophils % 3.4 04/20/20 06:15 Basophils % 0.4 04/20/20 06:15 Nucleated RBC % 0 % 04/20/20 06:15 Absolute Neutrophils 3.61 10^3/uL (1.2-6.7) 04/20/20 06:15 Absolute Lymphocytes 0.82 10^3/uL (1.2-3.4) L 04/20/20 06:15 Absolute Monocytes 0.44 10^3/uL (0.1-0.8) 04/20/20 06:15 Absolute Eosinophils 0.18 10^3/uL (0.0-0.7) 04/20/20 06:15 Absolute Basophils 0.02 10^3/uL (0.0-0.2) 04/20/20 06:15 PT 11.0 sec (9.3-11.0) 04/15/20 00:00 INR 1.1 (0.9-1.1) 04/15/20 00:00 D-Dimer 6915 ng/mlFEU (<500) H 04/17/20 12:20 VBG Lactate 1.4 mmol/L (0.6-1.4) 04/15/20 06:20 Sodium 143 mmol/L (136-145) 04/20/20 06:15 Potassium 3.8 mmol/L (3.5-5.1) 04/20/20 06:15 Chloride 111 mmol/L (98-107) H 04/20/20 06:15 Carbon Dioxide 27.2 mmol/L (21.0-32.0) 04/20/20 06:15 Anion Gap 4.8 mmol/L (3-11) 04/20/20 06:15 BUN 7 mg/dL (7-18) 04/20/20 06:15 Creatinine 0.73 mg/dL (0.55-1.02) 04/20/20 06:15 Estimated GFR/1.73 m2 >= 60.00 (mL/min/1.73m2) 04/20/20 06:15 Glucose 108 mg/dL (74-106) H 04/20/20 06:15 Hemoglobin A1c 5.3 % (<5.7) 04/17/20 06:10 Calcium 8.0 mg/dL (8.5-10.1) L 04/20/20 06:15 Magnesium 2.1 mg/dL (1.8-2.4) 04/20/20 06:15 Iron 10 ug/dL (50-170) L 04/14/20 06:20 TIBC 225 ug/dL (250-450) L 04/14/20 06:20 Transferrin % Sat 4 % (15-50) L 04/14/20 06:20 Ferritin 125 ng/mL (8-252) 04/14/20 06:20 Total Bilirubin 0.6 mg/dL (0.2-1.0) 04/15/20 06:20 AST 24 U/L (15-37) 04/15/20 06:20 ALT 17 U/L (14-59) 04/15/20 06:20 Alkaline Phosphatase 37 U/L (46-116) L 04/15/20 06:20 Troponin I < 0.05 ng/mL (<0.06) 04/15/20 12:00 C-Reactive Protein 20.79 mg/dL (0.0-0.3) H 04/16/20 05:49 NT-Pro-B Natriuret Pep 1018 pg/mL (<300) H 04/16/20 05:49 Total Protein 5.3 g/dL (6.4-8.2) L 04/15/20 06:20 Albumin 2.7 g/dL (3.4-5.0) L 04/15/20 06:20 Carcinoembryonic Ag 1.0 ng/ml (See Note) 04/15/20 06:20 Procalcitonin 19.1 ng/mL 04/14/20 16:23 Urine Color Yellow (Yellow) 04/14/20 16:40 Urine Clarity Clear (Clear) 04/14/20 16:40 Urine pH 8.0 (5-8) 04/14/20 16:40 Ur Specific [place] 1.020 (1.005-1.025) 04/14/20 16:40 Urine Protein Negative mg/dL (Negative) 04/14/20 16:40 Urine Ketones 15 mg/dL (Negative) H 04/14/20 16:40 Urine Blood Negative (Negative) 04/14/20 16:40 Urine Nitrite Negative (Negative) 04/14/20 16:40 Urine Bilirubin Negative (Negative) 04/14/20 16:40 Urine Urobilinogen 0.2 EU/dL (Up TO 0.2) 04/14/20 16:40 Ur Leukocyte Esterase Negative (Negative) 04/14/20 16:40 Urine Glucose Negative mg/dL (Negative) 04/14/20 16:40 COVID-19 PCR Negative (Negative) 04/20/20 05:20 Nasopharyn COVID-19 PCR Not Applicable 04/20/20 05:20 [facility] 04/20/20 05:20 Patient ABO/Rh O Positive 04/14/20 20:10 Antibody Screen Negative 04/14/20 20:10 Crossmatch See Detail 04/14/20 20:10
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
[2020-04-21] MEDS: Loperamide 2 MG CAP PO (09:35)
[2020-04-21] MEDS: Atenolol 50 MG TAB PO (09:35)
[2020-04-21] MEDS: Fluconazole 100 MG TAB PO (09:35)
[2020-04-21] MEDS: Pantoprazole 40 MG TABCR PO (09:35)
[2020-04-21] MEDS: amLODIPine 10 MG TAB PO (09:35)
[2020-04-21] MEDS: Amoxicillin 875/Clav. 125 TAB PO (09:36)
[2020-04-21] MEDS: Lisinopril 10 MG TAB PO (09:36)
[2020-04-21] MEDS: Psyllium PKT 1 EACH PO (09:36)
[2020-04-21] MEDS: Nystatin CREAM 15 GM TUBE TP (09:51)
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
--- NOTE | 2020-04-21 15:31 | CMDISCH_ITS ---
- If Service Date Differs Date of service: 04/21/20 Time of Service: 15:31 LACE Index Scoring Tool - Questions: Length of Stay (in days): 7 - 13 Acuity (Admit via E.D.?): Yes Comorbidities: Previous M.I., Chronic Pulmonary Disease, Any Tumor E.D. Visits: 2 - Answers: Total Score: 15 Risk of Readmission: High Risk Care Management Discharge Reason for Hospitalization: Obstructing colon cancer. Discharge Plan: Rachel will go to [facility] for short term rehab. She may then go to [place] to her daughter's home to recuperate, when she is able to fly, which won't be for 4-6 weeks. She will trasnsport via wheeelchair van from the facility and follow the plan of care established by their providers. Patient/Family Education Needs: Expectations and limitations. Additional educational needs to be identified by SNF providers. Services Needed at Discharge: [facility] Facility
== END 2020-04-21 13:14 | disposition skilled nursing facility (03) | DRG 329 ==
LOC: ER 16:16 → SUR 20:21 → ICU 23:13 → MS 04-17 18:38
PROVIDERS: Family Medicine; Internal Medicine; Admitting Provider Surgery; Emergency Provider Registered Nurse Emergency; PCP Student in an Organized Health Care Education/Training Program; Visit Provider Surgery
PROC: 0DTH0ZZ Resection of Cecum, Open Approach (ICD-10-PCS; CPT 49000; principal; 2020-04-14 20:10)
DX: K65.9 Peritonitis, unspecified (principal); A41.9 Sepsis, unspecified organism; R65.21 Severe sepsis with septic shock; C18.2 Malignant neoplasm of ascending colon; B37.0 Candidal stomatitis; E46 Unspecified protein-calorie malnutrition; K56.699 Other intestinal obstruction unspecified as to partial versus complete obstruction; D64.9 Anemia, unspecified; M40.209 Unspecified kyphosis, site unspecified; R49.0 Dysphonia; J44.9 Chronic obstructive pulmonary disease, unspecified; K59.1 Functional diarrhea; Z68.22 Body mass index [BMI] 22.0-22.9, adult; B37.2 Candidiasis of skin and nail; F41.9 Anxiety disorder, unspecified; K29.50 Unspecified chronic gastritis without bleeding; I25.2 Old myocardial infarction; I10 Essential (primary) hypertension; R91.1 Solitary pulmonary nodule; H90.3 Sensorineural hearing loss, bilateral; E53.8 Deficiency of other specified B group vitamins; Z87.891 Personal history of nicotine dependence; E83.42 Hypomagnesemia; I25.118 Atherosclerotic heart disease of native coronary artery with other forms of angina pectoris; R60.9 Edema, unspecified
CPT/HCPCS: 44160; 36410; 36415; 51701; 74177; 80048; 80053; 84145; 86850; 86900; 86901; 86920; 87040; 87077; 88305; 93005; 93306; 94640; 96365; 96367; 97110; 97162; 97530; 99223; 99232; 99233; 99239; 99253; 99285; 99291; J1650; NC; U0003; 70450; 81003; 82378; 82728; 83036; 83540; 83550; 83605; 83735; 83880; 84484; 85014; 85018; 85025; 85379; 85610; 86140; 87070; 87075; 87205; 87324; 88104; 88309; 93010; 93970; J0131; J0171; J1100; J1200; J1756; J2001; J2270; J2370; J2405; J2543; J3010; J3480; J3490; P9016

== ENCOUNTER → 2020-04-26 14:11 | Outpatient (BNVA) | payer OTHER, SELFPAY | PROVIDERS: PCP Student in an Organized Health Care Education/Training Program; Referring Provider Student in an Organized Health Care Education/Training Program; Visit Provider Surgery | DX: E88.09 Other disorders of plasma-protein metabolism, not elsewhere classified (principal); E46 Unspecified protein-calorie malnutrition; C18.9 Malignant neoplasm of colon, unspecified; K63.89 Other specified diseases of intestine; K92.2 Gastrointestinal hemorrhage, unspecified; K59.1 Functional diarrhea; R60.9 Edema, unspecified; R06.00 Dyspnea, unspecified; R91.1 Solitary pulmonary nodule; D64.9 Anemia, unspecified; D37.4 Neoplasm of uncertain behavior of colon; J44.9 Chronic obstructive pulmonary disease, unspecified; I10 Essential (primary) hypertension ==

== ENCOUNTER → 2020-05-12 10:39 | Outpatient (BNVA) | payer OTHER, SELFPAY | PROVIDERS: PCP Student in an Organized Health Care Education/Training Program; Referring Provider Student in an Organized Health Care Education/Training Program; Visit Provider Surgery | DX: Z48.815 Encounter for surgical aftercare following surgery on the digestive system (principal); D37.4 Neoplasm of uncertain behavior of colon; K59.1 Functional diarrhea; J44.9 Chronic obstructive pulmonary disease, unspecified; Z87.891 Personal history of nicotine dependence ==

== ENCOUNTER → 2020-05-26 08:54 | Outpatient (BNVA) | payer OTHER, SELFPAY | PROVIDERS: PCP Student in an Organized Health Care Education/Training Program; Referring Provider Student in an Organized Health Care Education/Training Program; Visit Provider Surgery | DX: D37.4 Neoplasm of uncertain behavior of colon (principal); E88.09 Other disorders of plasma-protein metabolism, not elsewhere classified; E46 Unspecified protein-calorie malnutrition; K59.1 Functional diarrhea; D64.9 Anemia, unspecified; R91.1 Solitary pulmonary nodule; Z09 Encounter for follow-up examination after completed treatment for conditions other than malignant neoplasm; L92.9 Granulomatous disorder of the skin and subcutaneous tissue, unspecified | CPT/HCPCS: 99211 ==

== ENCOUNTER 2020-06-01 02:40 | Outpatient (CLI) | payer OTHER, SELFPAY ==
[2020-06-01 10:55] LABS: HCT 31.2 % (36.0-46.0); HGB 9.8 g/dL (11.2-15.7); MCH 29.4 pg (27.0-33.0); MCHC 31.4 % (32.0-36.0); MCV 93.7 fL (80-95); Platelet Count 170 10^3/uL (130-400); RBC 3.33 10^6/uL (3.93-5.22); RDW 15.8 % (11.7-14.6); RDW-SD 53.9 fL; WBC 4.33 10^3/uL (4.4-10.8)
[2020-06-01 11:55] LABS: Total Iron Binding Capacity 302 ug/dL (250-450)
[2020-06-01 12:08] LABS: ALT 14 U/L (14-59); AST 15 U/L (15-37); Albumin 3.9 g/dL (3.4-5.0); Alkaline Phosphatase 62 U/L (46-116); Anion Gap 8.5 mmol/L (3-11); BUN 21 mg/dL (7-18); Bilirubin, Total 0.5 mg/dL (0.2-1.0); CO2 28.5 mmol/L (21.0-32.0); CREATININE 0.92 mg/dL (0.55-1.02); Calcium 9.6 mg/dL (8.5-10.1); Chloride 107 mmol/L (98-107); Estimated GFR 59.04 (mL/min/1.73m2); Ferritin 104 ng/mL (8-252); Glucose 83 mg/dL (74-106); Potassium 4.1 mmol/L (3.5-5.1); Sodium 144 mmol/L (136-145); Total Protein 6.5 g/dL (6.4-8.2)
== END 2020-06-01 03:00 ==
PROVIDERS: PCP Student in an Organized Health Care Education/Training Program; Visit Provider Surgery
DX: D12.2 Benign neoplasm of ascending colon (principal); E88.09 Other disorders of plasma-protein metabolism, not elsewhere classified; E46 Unspecified protein-calorie malnutrition; R19.7 Diarrhea, unspecified; D64.9 Anemia, unspecified; R91.1 Solitary pulmonary nodule
CPT/HCPCS: 36415; 80053; 85027; 82728; 83550

== ENCOUNTER → 2020-06-09 10:24 | Outpatient (BNVA) | payer OTHER, SELFPAY | PROVIDERS: PCP Student in an Organized Health Care Education/Training Program; Referring Provider Student in an Organized Health Care Education/Training Program; Visit Provider Surgery | DX: R10.31 Right lower quadrant pain (principal); R53.83 Other fatigue; D63.8 Anemia in other chronic diseases classified elsewhere; Z90.49 Acquired absence of other specified parts of digestive tract ==

== ENCOUNTER 2020-06-29 02:21 | Outpatient (CLI) | payer OTHER, SELFPAY ==
[2020-06-29 08:32] LABS: Abs Immature Grans 0.01 10^3/uL (0.0-0.06); Absolute Basophil Count 0.04 10^3/uL (0.0-0.2); Absolute Eosinophil Count 0.07 10^3/uL (0.0-0.7); Absolute Lymphocyte Count 1.37 10^3/uL (1.2-3.4); Absolute Monocyte Count 0.29 10^3/uL (0.1-0.8); Absolute Neutrophil Count 2.73 10^3/uL (1.2-6.7); Basophils % 0.9; Eosinophils % 1.6; HGB 10.8 g/dL (11.2-15.7); Immature Grans % 0.2; Lymphocytes % 30.4; MCH 29.5 pg (27.0-33.0); MCHC 31.8 % (32.0-36.0); MCV 92.9 fL (80-95); MPV 10.8 fL (8.0-11.0); Monocytes % 6.4; Neutrophils % 60.5; Nucleated RBC 0 %; Platelet Count 162 10^3/uL (130-400); RBC 3.66 10^6/uL (3.93-5.22); RDW 14.7 % (11.7-14.6); RDW-SD 50.8 fL; WBC 4.51 10^3/uL (4.4-10.8)
[2020-06-29 10:39] LABS: ALT 13 U/L (14-59); AST 15 U/L (15-37); Alkaline Phosphatase 69 U/L (46-116); BUN 20 mg/dL (7-18); Bilirubin, Total 0.3 mg/dL (0.2-1.0); CREATININE 1.02 mg/dL (0.55-1.02); Calcium 9.3 mg/dL (8.5-10.1); Chloride 104 mmol/L (98-107); Estimated GFR 52.41 (mL/min/1.73m2); Ferritin 60 ng/mL (8-252); Glucose 76 mg/dL (74-106); Potassium 4.7 mmol/L (3.5-5.1); Sodium 140 mmol/L (136-145); TSH (W/Ref FT4) 1.57 uIU/mL (0.36-3.74); Total Protein 6.7 g/dL (6.4-8.2)
== END 2020-06-29 02:41 ==
PROVIDERS: PCP Student in an Organized Health Care Education/Training Program; Visit Provider Surgery
DX: D63.8 Anemia in other chronic diseases classified elsewhere (principal); R60.9 Edema, unspecified; K59.1 Functional diarrhea; E46 Unspecified protein-calorie malnutrition; E88.09 Other disorders of plasma-protein metabolism, not elsewhere classified; C18.9 Malignant neoplasm of colon, unspecified; R10.31 Right lower quadrant pain
CPT/HCPCS: 36415; 80053; 82728; 84443; 85025

== ENCOUNTER → 2020-07-07 08:51 | Outpatient (BNVA) | payer OTHER, SELFPAY | PROVIDERS: PCP Student in an Organized Health Care Education/Training Program; Referring Provider Student in an Organized Health Care Education/Training Program; Visit Provider Surgery | DX: Z48.815 Encounter for surgical aftercare following surgery on the digestive system (principal); Z90.49 Acquired absence of other specified parts of digestive tract; D63.8 Anemia in other chronic diseases classified elsewhere; E88.09 Other disorders of plasma-protein metabolism, not elsewhere classified; E46 Unspecified protein-calorie malnutrition; K59.1 Functional diarrhea ==

== ENCOUNTER → 2020-08-16 08:51 | Outpatient (BNVA) | payer OTHER, SELFPAY | PROVIDERS: PCP Student in an Organized Health Care Education/Training Program; Referring Provider Student in an Organized Health Care Education/Training Program; Visit Provider Surgery | DX: Z48.815 Encounter for surgical aftercare following surgery on the digestive system (principal) ==

== ENCOUNTER 2020-09-20 02:08 | Outpatient (CLI) | payer OTHER, SELFPAY ==
--- NOTE | 2020-09-20 06:30 | DI.US_ITS ---
EXAM: US SOFT TISSUE HEAD OR NECK CLINICAL HISTORY: Evaluate mass (lipoma vs lymph vs path),LUMP IN NECK, R22.1. TECHNIQUE: Ultrasound was performed using standard protocol. COMPARISON: No exams were available for comparison FINDINGS: Sonographic assessment utilizing grayscale and color Doppler imaging was performed and targeted to th e area of clinical concern. The patient directed attention to the left neck in the area of the current lump. No suspicious cysti c or solid masses are seen sonographically. Patient also directed attention to the right neck where previous lump was identified by the patient. No suspicious cystic or solid masses are seen in this r egion sonographically. IMPRESSION: Negative ultrasound of the neck. No suspicious cystic or solid masses are seen in the areas of palpa ble concern. DATA REPOSITORY:
== END 2020-09-20 02:09 | disposition home or self-care (01) ==
LOC: DI 02:08
PROVIDERS: PCP Student in an Organized Health Care Education/Training Program; Visit Provider Student in an Organized Health Care Education/Training Program
DX: R22.1 Localized swelling, mass and lump, neck (principal)
CPT/HCPCS: 76536

== ENCOUNTER 2020-09-20 03:50 | Outpatient (CLI) | payer OTHER, SELFPAY ==
[2020-09-20 09:56] LABS: Abs Immature Grans 0.01 10^3/uL (0.0-0.06); Absolute Basophil Count 0.03 10^3/uL (0.0-0.2); Absolute Eosinophil Count 0.15 10^3/uL (0.0-0.7); Absolute Lymphocyte Count 1.31 10^3/uL (1.2-3.4); Absolute Monocyte Count 0.25 10^3/uL (0.1-0.8); Absolute Neutrophil Count 2.07 10^3/uL (1.2-6.7); Basophils % 0.8; Eosinophils % 3.9; HCT 37.7 % (36.0-46.0); HGB 11.8 g/dL (11.2-15.7); Immature Grans % 0.3; Lymphocytes % 34.3; MCH 28.6 pg (27.0-33.0); MCHC 31.3 % (32.0-36.0); MCV 91.3 fL (80-95); MPV 10.8 fL (8.0-11.0); Monocytes % 6.5; Neutrophils % 54.2; Nucleated RBC 0 %; Platelet Count 163 10^3/uL (130-400); RBC 4.13 10^6/uL (3.93-5.22); RDW 14.7 % (11.7-14.6); RDW-SD 49.7 fL; WBC 3.82 10^3/uL (4.4-10.8)
[2020-09-20 10:12] LABS: Prothrombin Time 9.9 sec (9.3-11.0)
[2020-09-20 10:34] LABS: Iron 56 ug/dL (50-170); Total Iron Binding Capacity 316 ug/dL (250-450); Transferrin Sat 18 % (15-50)
[2020-09-20 11:06] LABS: Folate 11.8 ng/mL (8.6-20.0); Vitamin B12 246 pg/mL (193-986)
[2020-09-20 11:24] LABS: ALT 19 U/L (14-59); AST 17 U/L (15-37); Albumin 3.8 g/dL (3.4-5.0); Alkaline Phosphatase 77 U/L (46-116); Anion Gap 8.9 mmol/L (3-11); BUN 17 mg/dL (7-18); Bilirubin, Total 0.5 mg/dL (0.2-1.0); CO2 28.1 mmol/L (21.0-32.0); Calcium 9.2 mg/dL (8.5-10.1); Chloride 105 mmol/L (98-107); Estimated GFR 53.62 (mL/min/1.73m2); Glucose 83 mg/dL (74-106); LDH 171 U/L (81-234); Magnesium 2.3 mg/dL (1.8-2.4); Potassium 4.5 mmol/L (3.5-5.1); Sodium 142 mmol/L (136-145); TSH (W/Ref FT4) 1.41 uIU/mL (0.36-3.74); Total Protein 6.9 g/dL (6.4-8.2)
[2020-09-20 12:03] LABS: Ferritin 63 ng/mL (8-252)
== END 2020-09-20 03:51 | disposition home or self-care (01) ==
LOC: LBO 03:50
PROVIDERS: Surgery; PCP Student in an Organized Health Care Education/Training Program; Visit Provider Student in an Organized Health Care Education/Training Program
DX: D64.9 Anemia, unspecified (principal); D51.9 Vitamin B12 deficiency anemia, unspecified; D63.8 Anemia in other chronic diseases classified elsewhere; I10 Essential (primary) hypertension; E88.09 Other disorders of plasma-protein metabolism, not elsewhere classified; I25.10 Atherosclerotic heart disease of native coronary artery without angina pectoris; E83.42 Hypomagnesemia; K92.2 Gastrointestinal hemorrhage, unspecified; L98.9 Disorder of the skin and subcutaneous tissue, unspecified; K59.9 Functional intestinal disorder, unspecified; R15.9 Full incontinence of feces; R53.83 Other fatigue; L29.9 Pruritus, unspecified
CPT/HCPCS: 36415; 80053; 82607; 82728; 82746; 83540; 83550; 83615; 83735; 84443; 85025; 85610

== ENCOUNTER → 2020-09-25 09:25 | Outpatient (BNVA) | payer OTHER, SELFPAY | PROVIDERS: PCP Student in an Organized Health Care Education/Training Program; Referring Provider Student in an Organized Health Care Education/Training Program; Visit Provider Surgery | DX: Z48.815 Encounter for surgical aftercare following surgery on the digestive system (principal); R10.31 Right lower quadrant pain | CPT/HCPCS: 99213; 99214 ==

== ENCOUNTER 2020-10-10 20:40 | Outpatient (REF) | payer OTHER, SELFPAY ==
[2020-10-12 11:32] LABS: COVID-19 RT-PCR UVMMC Result Negative (Negative)
== END 2020-10-10 20:41 | disposition home or self-care (01) ==
LOC: LBN 20:40
PROVIDERS: PCP Student in an Organized Health Care Education/Training Program; Visit Provider Student in an Organized Health Care Education/Training Program
DX: Z20.822 Contact with and (suspected) exposure to COVID-19 (principal)
CPT/HCPCS: U0003

== ENCOUNTER 2020-11-05 16:37 | Outpatient (REF) | payer OTHER, SELFPAY ==
[2020-11-06 13:34] LABS: COVID-19 RT-PCR UVMMC Result Negative (Negative)
== END 2020-11-05 16:38 | disposition home or self-care (01) ==
LOC: LBN 16:37
PROVIDERS: PCP Student in an Organized Health Care Education/Training Program; Visit Provider Student in an Organized Health Care Education/Training Program
DX: Z20.822 Contact with and (suspected) exposure to COVID-19 (principal)
CPT/HCPCS: U0003

== ENCOUNTER 2020-11-10 15:36 | Outpatient (REF) | payer OTHER, SELFPAY ==
[2020-11-12 12:49] LABS: COVID-19 RT-PCR UVMMC Result Negative (Negative)
== END 2020-11-10 15:37 | disposition home or self-care (01) ==
LOC: LBN 15:36
PROVIDERS: PCP Student in an Organized Health Care Education/Training Program; Visit Provider Student in an Organized Health Care Education/Training Program
DX: Z20.822 Contact with and (suspected) exposure to COVID-19 (principal)
CPT/HCPCS: U0003

== ENCOUNTER 2020-11-17 09:46 | Outpatient (CLI) | payer OTHER, SELFPAY ==
--- NOTE | 2020-11-17 10:31 | DI.RAD_ITS ---
EXAM: XR HIP LT COMPLETE AP PELVIS CLINICAL HISTORY: r/o bony pathology TECHNIQUE: COMPARISON: CR RIGHT HIP COMPLETE from 11/15/2009 FINDINGS: Three views were obtained. There is mild narrowing of the cartilaginous joint spaces both hips. The re is mild marginal osteophyte formation the acetabula bilaterally. Bilateral spurring of the greate r trochanters of the femurs also noted bilaterally. There are mild degenerative changes of the SI francisco ints bilaterally and lower lumbar degenerative changes are also noted. No other significant bony or soft tissue abnormality seen. IMPRESSION: Mild DJD both hips. RADIATION DOSE DELIVERED: Total DLP
--- OUTSIDE RECORDS SUMMARY | 2020-11-20 09:48 | XMS_ITS ---
:1940 Author Care Team Providers Name Role Phone PILAR GOODWIN DO Primary Care Provider [phone] Allergies Code Code System Name Reaction Severity Status Onset 3992 RxNorm Epinephrine ? ? Active ? Sulfa ? ? Active ? (Sulfonamide Antibiotics) Tetanus and ? ? Active ? Diphtheria Toxoids 047287 RxNorm Varenicline ? ? Active ? Medications Name Status Start Date Stop Date ? ? Advair Diskus 500 mcg-50 mcg/dose powder for inhalation Active ? Not available Inhale 1 puff twice a day by inhalation route. albuterol sulf 90 mcg/actuation breath activated powder inhaler, sensor Active ? Not available Inhale 2 puffs every 4 hours by inhalation route. alprazolam 0.25 mg tablet Active ? Not av ailable Take 1 tablet 3 times a day by oral route. amlodipine 10 mg tablet Active ? Not avai lable Take 1 tablet every day by oral route. atenolol 50 mg tablet Active ? Not availa ble Take 1 tablet every day by oral route. benzonatate 100 mg capsule Active ? Not a vailable Take 1 capsule 3 times a day by oral route. ciprofloxacin 0.3 % eye drops Completed ? INSTILL 1 DROP INTO AFFECTED EYE(S) BY OPHTHALMIC ROUTE EVERY 2 HOURSWHILE AWAKE FOR 2 DAYS THEN 1 DROP EVERY 4 HRS WHILE AWAKE FOR 5 DAYS ciprofloxacin 0.3 % eye ointment Completed ? 03/31/2020 APPLY 0.5 INCH RIBBON INTO LOWER CONJUN CTIVAL SAC(S) IN THE AFFECTED EYE(S) BY OPHTHALMIC ROUTE 3 TIMES/DAY FOR 2 DAYS THEN 2 TIMES/DAY X 5 codeine 10 mg-guaifenesin 200 mg/5 mL oral liquid Completed ? 03/31/2020 Take 10 mL every 4 hours by oral route. lisinopril 10 mg tablet Active ? Not avai lable Take 1 tablet every day by oral route. Low Dose Aspirin 81 mg tablet,delayed release Active ? Not available Take 1 tablet every day by oral route. magnesium oxide 400 mg (241.3 mg magnesium) tablet Completed ? 03/31/2020 Take by oral route. nicotine 10 mg inhalation cartridge Completed ? 07/27/2020 Inhale by inhalation route. nicotine 21mg/24hr-14mg/24hr-7mg/24hr daily transderm patches,sequentl Completed ? 03/31/2020 Apply by transdermal route. nitroglycerin 400 mcg/spray translingual Active ? Not available [place] by translingual route. Pepto-Bismol Completed ? 03/31/2020 ProAir HFA 90 mcg/actuation aerosol inhaler Active ? Not available Inhale 2 puffs every 4 hours by inhalation route as needed. Spiriva with HandiHaler 18 mcg and inhalation capsules Completed ? 04/25/2020 Inhale by inhalation route. Stiolto Respimat 2.5 mcg-2.5 mcg/actuation solution for inhalati on Active ? Not available Inhale 2 puffs every day by inhalation route. theophylline ER 100 mg capsule,extended release 24 hr Active ? Not available Take 2 capsules every day by oral route. tramadol 50 mg tablet Active ? Not availa ble Take 1 tablet every 6 hours by oral route. Problems Name Status Onset Date Source ? Anorexia Nervosa Active 03/24/2020 ? Coronary Arteriosclerosis Active 03/24/2020 ? Chronic Obstructive Lung Disease Active 03/24/2020 ? Dyspnea Active 03/24/2020 ? Cough Active 03/24/2020 ? Ex-smoker Active 03/24/2020 ? Procedures Date Name Performed by ? 03/31/2020 LDCT, Chest, for Lung Cancer [facility] (Internal) Screening [address] [place] [address] (Work Place) Results Lab Results None recorded. Past Encounters 07/27/2020 Chronic Obstructive Lung Disease Sarah Rojo MD: [address] [place] [address] Dr igor Rodas , [place] [address], Ph. 03/31/2020 Chronic Obstructive Lung Disease; Ex-smo ker Sarah Rojo MD: [address] [place] [address] Dr igor Rodas , [place] [address], Ph. Social History Tobacco Smoking Status Former Smoker (2 PPD) Notes: quit sep 2019 Vaccine List Vaccine Type influenza, injectable, quadrivalent 05/14/2019 Plan of Care Reminders Provider Appointments None ? ? recorded. Lab None ? ? recorded. Referral None ? ? recorded. Procedures None ? ? recorded. Surgeries None ? ? recorded. Imaging None ? ? recorded. Vitals 07/27/2020 09:45AM Office 15 Height Weight BMI Blood Pressure 152.4 cm 55.1 kg 23.7 kg/m2 128/64 mm[Hg] 03/31/2020 10:00AM Office 15 Height Weight BMI Blood Pressure 152.4 cm 55.5 kg 23.9 kg/m2 122/62 mm[Hg]
== END 2020-11-17 10:06 ==
PROVIDERS: PCP Student in an Organized Health Care Education/Training Program; Visit Provider Student in an Organized Health Care Education/Training Program
DX: M16.0 Bilateral primary osteoarthritis of hip (principal)
CPT/HCPCS: 73502

== ENCOUNTER 2020-12-01 10:18 | Emergency (ER) | payer OTHER, SELFPAY ==
[2020-12-01] VITALS (30 sets, daily range): BP systolic 103–147; BP diastolic 52–77; PULSE 54–80; RESP 11–32; TEMP 36.3; O2SAT 95–100
--- NOTE | 2020-12-01 10:00 | RT.EKG_ITS ---
APPROVED REPORT Exam: Resting ECG Patient Location: E HR:59 bpm ECG Measurements Heart Rate 59 AXIS CO 200 P 36 QRSd 95 QRS 10 QT 437 T 27 QTc 434 Conclusion Sinus bradycardia...rate< 60 Anteroseptal infarct, age indeterminate...Q >35mS, T neg, V1-V2
--- NOTE | 2020-12-01 10:15 | DI.CT_ITS ---
EXAM: CT THORAX ABD/PEL CTA CLINICAL HISTORY: chest pain, hypotension, recent epigastricabd pain. TECHNIQUE: Imaging Protocol: Axial CT angiography was performed with multi-slice acquisition and m ulti-planar and/or 3D reconstructions. CONTRAST MATERIAL: Intravenous: Visipaque 320 contrast volume:61 Oral: No COMPARISON: CT CT THORAX ABD/PEL CTA from 04/14/2020 FINDINGS: CHEST: Tracheobronchial tree: Patent where visualized. Pulmonary parenchyma: No consolidation or dominant measurable mass. Moderate centrilobular and parase ptal emphysematous changes. There is scarring or atelectasis in the lung bases particularly in the r ight lower lobe. Pulmonary Arteries: The pulmonary arteries are not ideally visualized for evaluation of pulmonary emb amanda. Mediastinum and Precious: No dominant adenopathy or fluid collection. Visualized thyroid: Unremarkable. Pleura: No effusion or pneumothorax. Heart: Mild cardiomegaly. [id number] coronary artery calcification. No pericardial effusion. Aorta: Thoracic aorta non-dilated. Atherosclerosis. No evidence of dissection. Soft Tissues: Unremarkable. Bones: Within normal limits. ABDOMEN AND PELVIS: Abdomen: Celiac axis/mesenteric arteries: No evidence of occlusion or significant stenosis. Renal Arteries: No evidence of occlusion or significant stenosis. There is a single renal artery per fusing each kidney. Mild atherosclerosis at the origin of the right renal artery. Aorta: No evidence of occlusion or significant stenosis. No aneurysm or dissection. Atherosclerosi s. Pelvis: Iliac Arteries: No evidence of occlusion or significant stenosis. Mild atherosclerosis. Common Femoral Arteries: No evidence of occlusion or significant stenosis. Mild atherosclerosis. ABDOMEN: Liver: Normal density. No measurable mass. Portal, Superior Mesenteric, and Splenic Veins: Unremarkable. Gallbladder and Biliary Tract: No radiodense calculus or dilation. Pancreas: Normal density, no abnormal calcifications or inflammatory process. Spleen: Normal. Adrenals: No masses seen. Kidneys: Normal size, contour and axis. No radiodense stones or obstructive uropathy. 0.9 cm simple c yst in the left kidney. No further follow-up is recommended. Bowel: No obstruction or bowel wall thickening. No evidence of appendicitis. There is a large amount of stool throughout the colon. Peritoneal Cavity: No ascites, collection or mesenteric inflammatory response. No free air. Lymph Nodes: Within normal limits. Bones: Within normal limits. Soft Tissues: Unremarkable. PELVIS: Bladder: Symmetric distention, no gross wall thickening. Reproductive Organs: Status post hysterectomy. Lymph Nodes: Within normal limits. Bones: Within normal limits. IMPRESSION: 1. No evidence of abdominal or pelvic arterial occlusion, aneurysm or dissection. 2. No acute abdominal or pelvic process. 3. No acute pulmonary process. 4. Results of this exam have been verbally communicated with provider. RADIATION DOSE DELIVERED: 740.71mGy.cm Total DLP DATA REPOSITORY: All CT scans at this facility are submitted to the National Radiology Data Registry (NRDR) Dose Index Registry (DIR) with the [employer] (A[employer]). RADIATION OPTIMIZATION: All CT scans at this facility use at least one of these dose optimization te chniques: automated exposure control; mA and/or kV adjustment per patient size (includes targeted exa ms where dose is matched to clinical indication); or iterative reconstruction.
[2020-12-01 10:35] LABS: Abs Immature Grans 0.01 10^3/uL (0.0-0.06); Absolute Basophil Count 0.03 10^3/uL (0.0-0.2); Absolute Eosinophil Count 0.11 10^3/uL (0.0-0.7); Absolute Lymphocyte Count 1.34 10^3/uL (1.2-3.4); Absolute Monocyte Count 0.36 10^3/uL (0.1-0.8); Absolute Neutrophil Count 2.05 10^3/uL (1.2-6.7); Basophils % 0.8; Eosinophils % 2.8; HCT 34.9 % (36.0-46.0); Immature Grans % 0.3; Lymphocytes % 34.4; MCH 29.1 pg (27.0-33.0); MCHC 31.5 % (32.0-36.0); MCV 92.3 fL (80-95); MPV 10.7 fL (8.0-11.0); Monocytes % 9.2; Neutrophils % 52.5; Nucleated RBC 0 %; Platelet Count 140 10^3/uL (130-400); RBC 3.78 10^6/uL (3.93-5.22); RDW 14.8 % (11.7-14.6); RDW-SD 50.3 fL
[2020-12-01 10:57] LABS: ALT 24 U/L (14-59); AST 22 U/L (15-37); Albumin 3.7 g/dL (3.4-5.0); Alkaline Phosphatase 75 U/L (46-116); BUN 25 mg/dL (7-18); Bilirubin, Total 0.4 mg/dL (0.2-1.0); CREATININE 1.1 mg/dL (0.55-1.02); Calcium 9.2 mg/dL (8.5-10.1); Chloride 105 mmol/L (98-107); Estimated GFR 48.04 (mL/min/1.73m2); Glucose 79 mg/dL (74-106); Potassium 4.8 mmol/L (3.5-5.1); Sodium 141 mmol/L (136-145); Troponin I < 0.05 ng/mL (<0.06)
[2020-12-01] MEDS: Normal Saline - Diluent 50 ML VIAL IV (11:41)
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
== END 2020-12-01 13:00 | disposition left against medical advice (07) ==
PROVIDERS: Emergency Provider Student in an Organized Health Care Education/Training Program; PCP Student in an Organized Health Care Education/Training Program
DX: R07.89 Other chest pain (principal); I95.89 Other hypotension; R10.10 Upper abdominal pain, unspecified; Z53.29 Procedure and treatment not carried out because of patient's decision for other reasons
CPT/HCPCS: 36415; 74177; 80053; 93005; 99285; 84484; 85025; 93010

== ENCOUNTER 2020-12-18 06:32 | Emergency (ER) | payer OTHER, SELFPAY ==
--- NOTE | 2020-12-18 06:15 | RT.EKG_ITS ---
APPROVED REPORT Exam: Resting ECG Patient Location: E HR:63 bpm ECG Measurements Heart Rate 63 AXIS TN 199 P 8 QRSd 81 QRS 3 QT 404 T 29 QTc 415 Conclusion Sinus rhythm...normal P axis, V- Anterior infarct, old. No ST elevation
[2020-12-18 06:32] VITALS: PULSE 66; TEMP 36; O2SAT 97
--- NOTE | 2020-12-18 07:00 | DI.US_ITS ---
Exam(s) US ABDOMEN EXAM: US ABDOMEN CLINICAL HISTORY: Vomiting, RUQ pain TECHNIQUE: Ultrasound abdomen performed using standard protocol. COMPARISON: CT CT THORAX ABD/PEL CTA from 12/01/2020 FINDINGS: ABDOMINAL AORTA AND IVC: Visualized portions normal caliber. PANCREAS: Normal where visualized. LIVER: The liver measures 20.3 cm in length. Hepatopedal flow in the Portal Vein. No hepatic mass. GALLBLADDER: Mobile gallstones are present. No evidence of wall thickening. There may be a trace shirley unt of pericholecystic fluid. BILIARY SYSTEM: Common bile duct measures < 7 mm. No intrahepatic biliary ductal dilation. ROSA'S SIGN: Negative. KIDNEYS: Kidneys are symmetric in size. No evidence of renal calculi. No evidence of hydronephrosis. No renal mass or cyst identified. SPLEEN: Not enlarged. ASCITES: None seen. IMPRESSION: 1. Cholelithiasis. No evidence sonographically of acute cholecystitis. 2. Hepatomegaly. 3. Results of this exam have been verbally communicated with provider. DATA REPOSITORY:
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
[2020-12-18 07:17] LABS: Abs Immature Grans 0.04 10^3/uL (0.0-0.06); Absolute Basophil Count 0.05 10^3/uL (0.0-0.2); Absolute Eosinophil Count 0.09 10^3/uL (0.0-0.7); Absolute Lymphocyte Count 0.77 10^3/uL (1.2-3.4); Absolute Monocyte Count 0.47 10^3/uL (0.1-0.8); Absolute Neutrophil Count 8.72 10^3/uL (1.2-6.7); Basophils % 0.5; Eosinophils % 0.9; HCT 36.9 % (36.0-46.0); HGB 11.5 g/dL (11.2-15.7); Immature Grans % 0.4; Lymphocytes % 7.6; MCH 28.8 pg (27.0-33.0); MCHC 31.2 % (32.0-36.0); MCV 92.3 fL (80-95); MPV 11.5 fL (8.0-11.0); Monocytes % 4.6; Nucleated RBC 0 %; Platelet Count 190 10^3/uL (130-400); RDW 14.7 % (11.7-14.6); RDW-SD 50.4 fL; WBC 10.14 10^3/uL (4.4-10.8)
[2020-12-18 07:18] LABS: Bilirubin Negative (Negative); Blood Negative (Negative); Clarity Clear (Clear); Glucose Negative (Negative); Ketones Negative (Negative); Leukocyte Esterase Negative (Negative); Nitrite Negative (Negative); Urobilinogen 0.2 EU/dL (Up TO 0.2); pH 5.5 (5-8)
[2020-12-18] MEDS: Ondansetron 4 MG/2 ML VIAL IVP (07:29)
[2020-12-18] MEDS: Normal Saline Flush 10 ML SYR IVP (07:29)
[2020-12-18] MEDS: Normal Saline 1,000 ML 1000 ML IV (07:30)
[2020-12-18 07:32] LABS: ALT 17 U/L (14-59); AST 17 U/L (15-37); Albumin 3.7 g/dL (3.4-5.0); Alkaline Phosphatase 76 U/L (46-116); Anion Gap 7.2 mmol/L (3-11); BUN 29 mg/dL (7-18); Bilirubin, Total 0.4 mg/dL (0.2-1.0); CO2 28.8 mmol/L (21.0-32.0); CREATININE 1.4 mg/dL (0.55-1.02); Calcium 9.5 mg/dL (8.5-10.1); Chloride 106 mmol/L (98-107); Estimated GFR 36.37 (mL/min/1.73m2); Glucose 101 mg/dL (74-106); Lipase 283 U/L (73-393); Potassium 5.1 mmol/L (3.5-5.1); Sodium 142 mmol/L (136-145); Total Protein 7.1 g/dL (6.4-8.2); Troponin I < 0.05 ng/mL (<0.06)
== END 2020-12-18 10:40 | disposition home or self-care (01) ==
PROVIDERS: Emergency Medicine; Emergency Provider Student in an Organized Health Care Education/Training Program; PCP Student in an Organized Health Care Education/Training Program
DX: R11.2 Nausea with vomiting, unspecified (principal); R10.10 Upper abdominal pain, unspecified; R94.4 Abnormal results of kidney function studies
CPT/HCPCS: 36415; 80053; 83690; 93005; 96361; 96374; 99285; 76700; 81003; 83735; 84484; 85025; 93010; 99284; J2405

== ENCOUNTER → 2020-12-27 10:19 | Outpatient (BNVA) | payer OTHER, SELFPAY | PROVIDERS: PCP Student in an Organized Health Care Education/Training Program; Referring Provider Student in an Organized Health Care Education/Training Program; Visit Provider Student in an Organized Health Care Education/Training Program | DX: M70.62 Trochanteric bursitis, left hip (principal); M76.32 Iliotibial band syndrome, left leg; I10 Essential (primary) hypertension; J44.9 Chronic obstructive pulmonary disease, unspecified; Z87.891 Personal history of nicotine dependence | CPT/HCPCS: 99203; 99214 ==

== ENCOUNTER → 2020-12-29 08:47 | Outpatient (BNVA) | payer OTHER, SELFPAY | PROVIDERS: PCP Student in an Organized Health Care Education/Training Program; Referring Provider Student in an Organized Health Care Education/Training Program; Visit Provider Internal Medicine Cardiovascular Disease | DX: R07.89 Other chest pain (principal); R06.09 Other forms of dyspnea | CPT/HCPCS: 99205; 99215 ==

== ENCOUNTER → 2021-01-26 08:58 | Outpatient (BNVA) | payer OTHER, SELFPAY | PROVIDERS: PCP Student in an Organized Health Care Education/Training Program; Referring Provider Student in an Organized Health Care Education/Training Program; Visit Provider Internal Medicine Cardiovascular Disease | DX: R07.1 Chest pain on breathing (principal); J44.9 Chronic obstructive pulmonary disease, unspecified; I10 Essential (primary) hypertension | CPT/HCPCS: 99214 ==

== ENCOUNTER → 2021-03-14 09:49 | Outpatient (BNVA) | payer OTHER, SELFPAY | PROVIDERS: PCP Student in an Organized Health Care Education/Training Program; Referring Provider Student in an Organized Health Care Education/Training Program; Visit Provider Student in an Organized Health Care Education/Training Program | DX: M70.62 Trochanteric bursitis, left hip (principal); M76.32 Iliotibial band syndrome, left leg | CPT/HCPCS: 99213 ==

== ENCOUNTER 2021-03-20 12:52 | Outpatient (CLI) | payer OTHER, SELFPAY ==
[2021-03-20 13:20] LABS: HCT 35.3 % (36.0-46.0); HGB 11.3 g/dL (11.2-15.7); MCH 29.7 pg (27.0-33.0); MCV 92.7 fL (80-95); MPV 11.3 fL (8.0-11.0); Platelet Count 154 10^3/uL (130-400); RBC 3.81 10^6/uL (3.93-5.22); RDW 14.4 % (11.7-14.6); RDW-SD 49.1 fL
[2021-03-20 13:33] LABS: Anion Gap 9.7 mmol/L (3-11); BUN 20 mg/dL (7-18); CO2 26.3 mmol/L (21.0-32.0); CREATININE 1.2 mg/dL (0.55-1.02); Calcium 9.3 mg/dL (8.5-10.1); Calculated LDL 118 mg/dL (<100); Chloride 108 mmol/L (98-107); Cholesterol 213 mg/dL (<200); Estimated GFR 43.45 (mL/min/1.73m2); Glucose 88 mg/dL (74-106); HDL Cholesterol 81 mg/dL (40-60); Magnesium 2.3 mg/dL (1.8-2.4); Sodium 144 mmol/L (136-145); Triglyceride 72 mg/dL (<150)
== END 2021-03-20 12:53 | disposition home or self-care (01) ==
LOC: LBO 12:52
PROVIDERS: PCP Student in an Organized Health Care Education/Training Program; Visit Provider Student in an Organized Health Care Education/Training Program
DX: E87.6 Hypokalemia (principal); D64.9 Anemia, unspecified; E87.8 Other disorders of electrolyte and fluid balance, not elsewhere classified; I10 Essential (primary) hypertension; I25.10 Atherosclerotic heart disease of native coronary artery without angina pectoris
CPT/HCPCS: 36415; 80048; 80061; 85027; 83735

== ENCOUNTER 2021-04-27 04:09 | Outpatient (CLI) | payer OTHER, SELFPAY ==
--- NOTE | 2021-04-27 07:30 | DI.CT_ITS ---
Exam(s) CT CHEST WO EXAM: CT CHEST WO CLINICAL HISTORY: f/u pulmonary nodules seen on last scan, MULTIPLE PULMONARY NODULES, R91.8 TECHNIQUE: Imaging Protocol: Axial computed tomography images with coronal and sagittal reformatted images were created and reviewed CONTRAST MATERIAL: Intravenous: Omnipaque 350 Contrast volume:structured data in ml. COMPARISON: CT CT CHEST LUNG CANCER SCREEN from 03/09/[address] CHEST LUNG CANCER SCREEN from 03/09/[address] THORAX ABD/PEL CTA from 12/01/2020 FINDINGS: Tracheobronchial tree: No bronchiectasis or mucous plugging. Mediastinum and Precious: No dominant adenopathy or fluid collection. Pulmonary parenchyma: Mild scarring bilateral apices. Mild to moderate centrilobular emphysema. Bul la in the medial, anterior right upper lobe. Scarring bilateral medial lung bases. Scattered tiny c alcified nodules. Stable 3 millimeter diameter nodule periphery of left upper lobe. No suspicious n odules. No consolidation or dominant measurable mass. Pleura: No effusion or pneumothorax. Heart: The heart is mildly dilated. Coronary artery calcifications are seen. Aorta: Thoracic aorta non-dilated. Upper abdomen: Unremarkable. Lymph nodes: Within normal limits. Bones: Degenerative changes and kyphoscoliosis. Soft tissues: Unremarkable. IMPRESSION: Stable 3 millimeter left upper lobe nodule. Emphysematous changes and scarring. No acute abnormalit y. RADIATION DOSE DELIVERED: 362.37mGy.cm Total DLP DATA REPOSITORY: All CT scans at this facility are submitted to the National Radiology Data Registry (NRDR) Dose Index Registry (DIR) with the [employer] (ACR). RADIATION OPTIMIZATION: All CT scans at this facility use at least one of these dose optimization te chniques: automated exposure control; mA and/or kV adjustment per patient size (includes targeted exa ms where dose is matched to clinical indication); or iterative reconstruction.
== END 2021-04-27 04:29 ==
PROVIDERS: PCP Student in an Organized Health Care Education/Training Program; Visit Provider Student in an Organized Health Care Education/Training Program
DX: R91.8 Other nonspecific abnormal finding of lung field (principal); R91.1 Solitary pulmonary nodule; J43.9 Emphysema, unspecified
CPT/HCPCS: 71250

== ENCOUNTER 2021-05-02 03:07 | Outpatient (CLI) | payer OTHER, SELFPAY ==
[2021-05-02 09:45] LABS: HCT 33.7 % (36.0-46.0); HGB 10.6 g/dL (11.2-15.7); MCH 29.6 pg (27.0-33.0); MCHC 31.5 % (32.0-36.0); MCV 94.1 fL (80-95); MPV 11.2 fL (8.0-11.0); Platelet Count 167 10^3/uL (130-400); RBC 3.58 10^6/uL (3.93-5.22); RDW-SD 47.8 fL
[2021-05-02 11:27] LABS: ALT 20 U/L (14-59); AST 17 U/L (15-37); Albumin 3.8 g/dL (3.4-5.0); Alkaline Phosphatase 73 U/L (46-116); Anion Gap 10.3 mmol/L (3-11); BUN 21 mg/dL (7-18); Bilirubin, Total 0.4 mg/dL (0.2-1.0); CO2 25.7 mmol/L (21.0-32.0); CREATININE 1.3 mg/dL (0.55-1.02); Calcium 8.9 mg/dL (8.5-10.1); Chloride 107 mmol/L (98-107); Estimated GFR 39.51 (mL/min/1.73m2); Glucose 77 mg/dL (74-106); Potassium 4.5 mmol/L (3.5-5.1); Sodium 143 mmol/L (136-145); Total Protein 6.7 g/dL (6.4-8.2)
== END 2021-05-02 03:08 | disposition home or self-care (01) ==
LOC: LBO 03:07
PROVIDERS: PCP Student in an Organized Health Care Education/Training Program; Visit Provider Student in an Organized Health Care Education/Training Program
DX: D63.8 Anemia in other chronic diseases classified elsewhere; R53.83 Other fatigue; D36.9 Benign neoplasm, unspecified site; I10 Essential (primary) hypertension; E87.6 Hypokalemia; E88.09 Other disorders of plasma-protein metabolism, not elsewhere classified
CPT/HCPCS: 36415; 80053; 85027

== ENCOUNTER 2021-06-12 18:33 | Outpatient (CLI) | payer MEDICARE, SELFPAY ==
--- NOTE | 2021-06-12 15:00 | DI.RAD_ITS ---
Exam(s) XR ANKLE RT COMPLETE XR TIB/FIB RT EXAM: XR ANKLE RT COMPLETE CLINICAL HISTORY: evaluate dorsum of rt foot; tender to palp M79.671 PAIN RT FOOT. TECHNIQUE: 2D digital imaging was performed. COMPARISON: CR XR TIB/FIB RT from 06/12/2021 CR XR TIB/FIB RT from 06/12/2021 FINDINGS: BONES: No acute fracture is present. No bony destructive lesion is seen. JOINTS: The ankle mortise is normally aligned. Ankle joint space is well maintained. No talar dome d efect. No knee joint space narrowing. SOFT TISSUE: Soft tissue edema lower leg and ankle. Venous varicosities. No abnormal gas collecti on or foreign body. IMPRESSION: Soft tissue swelling.. DATA REPOSITORY: RADIATION DOSE DELIVERED:
== END 2021-06-12 18:53 ==
PROVIDERS: PCP Student in an Organized Health Care Education/Training Program; Visit Provider Student in an Organized Health Care Education/Training Program
DX: M79.671 Pain in right foot (principal); M79.89 Other specified soft tissue disorders; M79.604 Pain in right leg; R22.41 Localized swelling, mass and lump, right lower limb
CPT/HCPCS: 73590; 73610

== ENCOUNTER → 2021-07-27 08:58 | Outpatient (BNVA) | payer MEDICARE, SELFPAY | PROVIDERS: PCP Student in an Organized Health Care Education/Training Program; Referring Provider Student in an Organized Health Care Education/Training Program; Visit Provider Internal Medicine Cardiovascular Disease | DX: I25.10 Atherosclerotic heart disease of native coronary artery without angina pectoris (principal); J43.2 Centrilobular emphysema; I10 Essential (primary) hypertension | CPT/HCPCS: 99213 ==

== ENCOUNTER 2021-09-07 00:38 | Outpatient (CLI) | payer MEDICARE, SELFPAY ==
--- NOTE | 2021-09-07 07:00 | DI.RAD_ITS ---
Exam(s) XR ABDOMEN FLAT UPRIGHT EXAM: 2D digital imaging was performed. CLINICAL HISTORY: r/o obstIPATION,ABD PAIN,R10.9,K59.00. COMPARISON: CT CT THORAX ABD/PEL CTA from 12/01/2020 TECHNIQUE: Supine and uprightSupine and Lateral views of the abdomen was performed. FINDINGS: BOWEL GAS PATTERN: Nondistended.No free air. Moderate quantity of stool. OSSEOUS STRUCTURES: Scoliosis and degenerative changes in the spine. OTHER FINDINGS: Lung bases are clear. IMPRESSION: 1. Nonobstructive bowel gas pattern. Moderate quantity of stool. DATA REPOSITORY: RADIATION DOSE DELIVERED:
== END 2021-09-07 00:58 ==
PROVIDERS: PCP Student in an Organized Health Care Education/Training Program; Visit Provider Student in an Organized Health Care Education/Training Program
DX: R10.84 Generalized abdominal pain (principal); K59.09 Other constipation
CPT/HCPCS: 74019

== ENCOUNTER 2021-11-07 02:19 | Outpatient (CLI) | payer OTHER, SELFPAY ==
[2021-11-07 09:40] LABS: HCT 32.1 % (36.0-46.0); HGB 10.1 g/dL (11.2-15.7); MCHC 31.5 % (32.0-36.0); MCV 92.2 fL (80-95); MPV 10.8 fL (8.0-11.0); Platelet Count 154 10^3/uL (130-400); RBC 3.48 10^6/uL (3.93-5.22); RDW 14.7 % (11.7-14.6); RDW-SD 50.2 fL; WBC 4.51 10^3/uL (4.4-10.8)
[2021-11-07 10:25] LABS: ALT 15 U/L (14-59); AST 17 U/L (15-37); Albumin 3.8 g/dL (3.4-5.0); Alkaline Phosphatase 80 U/L (46-116); Anion Gap 6.8 mmol/L (3-11); BUN 25 mg/dL (7-18); Bilirubin, Total 0.5 mg/dL (0.2-1.0); CO2 26.2 mmol/L (21.0-32.0); CREATININE 1.2 mg/dL (0.55-1.02); Calcium 8.9 mg/dL (8.5-10.1); Chloride 106 mmol/L (98-107); Estimated GFR 43.34 (mL/min/1.73m2); Glucose 86 mg/dL (74-106); Potassium 4.6 mmol/L (3.5-5.1); Sodium 139 mmol/L (136-145); Total Protein 6.5 g/dL (6.4-8.2)
== END 2021-11-07 02:20 | disposition home or self-care (01) ==
LOC: LBO 02:20
PROVIDERS: PCP Student in an Organized Health Care Education/Training Program; Visit Provider Student in an Organized Health Care Education/Training Program
DX: N28.9 Disorder of kidney and ureter, unspecified (principal); D64.9 Anemia, unspecified; G25.81 Restless legs syndrome
CPT/HCPCS: 36415; 80053; 85027

== ENCOUNTER 2021-12-05 02:58 | Outpatient (CLI) | payer OTHER, SELFPAY ==
[2021-12-05 09:35] LABS: HCT 33.5 % (36.0-46.0); HGB 10.4 g/dL (11.2-15.7); MCV 93.3 fL (80-95); MPV 10.8 fL (8.0-11.0); Platelet Count 164 10^3/uL (130-400); RBC 3.59 10^6/uL (3.93-5.22); RDW 14.8 % (11.7-14.6); RDW-SD 51.2 fL; WBC 4.28 10^3/uL (4.4-10.8)
[2021-12-05 10:38] LABS: Iron 50 ug/dL (50-170); Total Iron Binding Capacity 319 ug/dL (250-450); Transferrin Sat 16 % (15-50)
[2021-12-05 11:05] LABS: Ferritin 56 ng/mL (8-252); TSH (W/Ref FT4) 1.82 uIU/mL (0.36-3.74); Vitamin B12 213 pg/mL (193-986)
[2021-12-06 05:40] LABS: Vitamin D 25 Total < 5 ng/mL (30-100)
== END 2021-12-05 02:59 | disposition home or self-care (01) ==
PROVIDERS: PCP Student in an Organized Health Care Education/Training Program; Visit Provider Student in an Organized Health Care Education/Training Program
DX: D51.9 Vitamin B12 deficiency anemia, unspecified; D63.8 Anemia in other chronic diseases classified elsewhere; I87.2 Venous insufficiency (chronic) (peripheral); N18.9 Chronic kidney disease, unspecified; R53.83 Other fatigue; E43 Unspecified severe protein-calorie malnutrition; G25.81 Restless legs syndrome; R63.0 Anorexia
CPT/HCPCS: 36415; 82306; 85027; 82607; 82728; 83540; 83550; 84443

== ENCOUNTER → 2021-12-25 00:23 | Outpatient (CLI) | payer OTHER, SELFPAY ==
--- NOTE | 2021-12-25 10:04 | DI.RAD_ITS ---
Exam(s) XR FOOT RT COMPLETE EXAM: XR FOOT RT COMPLETE CLINICAL HISTORY: evaluate for bony nodule @ ulcer site, pressure ulcer, L89.90. TECHNIQUE: 2D digital imaging was performed. COMPARISON: No exams were available for comparison FINDINGS: 3 views No evidence of fracture or diastasis of the Lisfranc joint. No pes planus. Degenerative narrowing o f the lateral aspect of the great toe metatarsophalangeal joint is noted. No erosions at this level. Other MTP joints appear unremarkable as do the other joints in the foot. There is no inferior calc aneal spur. IMPRESSION: DATA REPOSITORY: RADIATION DOSE DELIVERED:
== END ==
PROVIDERS: PCP Student in an Organized Health Care Education/Training Program; Visit Provider Student in an Organized Health Care Education/Training Program
DX: L89.899 Pressure ulcer of other site, unspecified stage (principal); M89.8X7 Other specified disorders of bone, ankle and foot
CPT/HCPCS: 73630

== ENCOUNTER → 2022-01-30 08:17 | Outpatient (BNVA) | payer OTHER, SELFPAY | PROVIDERS: PCP Student in an Organized Health Care Education/Training Program; Referring Provider Student in an Organized Health Care Education/Training Program; Visit Provider Psychiatry & Neurology Neurology | DX: R25.1 Tremor, unspecified; Z79.51 Long term (current) use of inhaled steroids; J44.9 Chronic obstructive pulmonary disease, unspecified | CPT/HCPCS: 99215 ==

== ENCOUNTER → 2022-02-12 01:39 | Outpatient (CLI) | payer OTHER, SELFPAY ==
--- NOTE | 2022-02-12 07:00 | DI.RAD_ITS ---
Exam(s) XR CERVICAL SP COMP W FLEX/EXT EXAM: XR CERVICAL SP COMP W FLEX/EXT CLINICAL HISTORY: eval curvature, path for possible impingement,NECK PAIN, M54.2. TECHNIQUE: 2D digital imaging was performed. Eight images were obtained. AP, odontoid, extension, fl exion lateral and bilateral oblique images were obtained. COMPARISON: No exams were available for comparison FINDINGS: The odontoid is intact. The lateral masses are well aligned. 1-2 mm of retrolisthesis of C3 on C4 is noted. The vertebral bodies are well maintained. There is disc space narrowing from C3-4 through C 6-C7. Endplate osteophytes are seen throughout the cervical spine. Facet arthropathy is present. N o significant subluxation is seen with flexion or extension. No acute fracture or subluxation is pre sent. There is very mild narrowing of the neural foramen at C5-6 and C6-7 on the left. The cervical thoracic junction is well maintained. The prevertebral soft tissues are unremarkable. Lung apices ar e clear. IMPRESSION: Degenerative changes seen in the cervical spine. DATA REPOSITORY: RADIATION DOSE DELIVERED:
--- NOTE | 2022-02-12 07:00 | DI.RAD_ITS ---
Exam(s) XR THORACIC SPINE COMPLETE EXAM: XR THORACIC SPINE COMPLETE CLINICAL HISTORY: evaluate curvature; possible path for impingement,UPPER BACK PAIN,M54.9. TECHNIQUE: 2D digital imaging was performed of the thoracic spine. Two views were obtained. AP and lateral views were obtained. COMPARISON: CT CT CHEST WO from 04/27/2021 FINDINGS: BONES: There is no fracture or destructive lesion. The vertebral bodies and posterior elements are un remarkable. There is stable anterior wedging of the T12 vertebral body. DISKS:There is a mild left convex curvature of the lower thoracic spine. Mild degenerative changes a re seen in the thoracic spine. SOFT TISSUE: Visualized lungs are clear. IMPRESSION: Stable degenerative changes seen in the thoracic spine. DATA REPOSITORY: RADIATION DOSE DELIVERED:
--- NOTE | 2022-02-12 10:17 | DI.US_ITS ---
APPROVED REPORT EXAM: Comprehensive 2D, Doppler, and color-flow Echocardiogram Patient Location: Out-Patient [facility] Assistant: Pooja Hernandez RDCS (AE) Indications: Worsening Edema,CAD Other Information Study Quality: Adequate Conclusion Normal left ventricular wall thickness and chamber size. Estimated ejection fraction is 60 to 65%. Wall motion is normal Normal right ventricular size and systolic function Both atria are normal in size Aortic valve is moderately sclerotic and trileaflet without stenosis or regurgitation Normal mitral valve with mild regurgitation Normal tricuspid valve with mild regurgitation. Estimated right ventricular systolic pressure is 31 mmHg Wall motion Left Ventricle The left ventricle is normal size. The left ventricular systolic function is normal. The left ventric ular ejection fraction is within the normal range. There is normal left ventricular wall thickness. T here is normal LV segmental wall motion. There is no ventricular septal defect visualized. LVEF is 60 %. Right Ventricle The right ventricle is normal size. The right ventricular systolic function is normal. The RVSP is 30 .9 mmHg. Atria The left atrium size is normal. The right atrium size is normal. The interatrial septum is intact wit h no evidence for an atrial septal defect. Aortic Valve Moderate aortic valve sclerosis. Aortic valve is trileaflet. There is no aortic valvular stenosis. No aortic regurgitation is present. Mitral Valve The mitral valve is normal in structure. No evidence of mitral valve stenosis. Mild mitral regurgitat ion. Tricuspid Valve The tricuspid valve is normal in structure. There is no tricuspid valve stenosis. Mild tricuspid regu rgitation. Pulmonic Valve The pulmonary valve is normal in structure. There is no pulmonic valvular stenosis. There is no pulmo jossie valvular regurgitation. Great Vessels The aortic root is normal in size. The ascending aorta is normal in size. Aortic arch is not well vis ualized. IVC is normal in size and collapses >50% with inspiration. Pericardium There is no pericardial effusion. 2D Dimensions IVSD d PLAX 0.93 cm F: 0.6-1.0 LV Vol A2C d MOD 78.2 mL LVPW d PLAX 0.91 cm F: 0.6 - 1.0 LV Vol A4C d MOD 87.1 mL LVID d PLAX 4.70 cm F: 3.8 - 5.2 LA vol/ BSA A2C s A-L 30.3 mL/m2 LVDs 3.15 cm F: 2.2 - 3.5 LA vol/ BSA A4C s A-L 23.1 mL/m2 Ao Root d 2.64 cm F: 2.7 - 3.3 LA Vol/ BSA Biplane s A-L 27.2 mL/m2 RA Area A4C 9.95 cm2 LA Area A4C s MOD 13.43 cm2 RA Vol/ BSA A4C s A-L 14.0 mL/m2 LA Area A2C s MOD 15.82 cm2 Ao Asc Diam d 3.15 cm F: 2.3 - 3.1 LV EF A4C MOD 60.7 % LV EF Teichholz 60.6 % LV EF A2C MOD 60.6 % LVEF (Sparks's) 61.53 % F: 54 - 74 LV EF Biplane MOD 61.5 % LV Volume 71.26 mL F: 46 - 106 SV 53.01 mL LV Volume Index 46.88 mL/m2 F: 29 - 61 SV Index 34.68 mL/m2 LV Vol Biplane MOD 86.2 mL FS 32.35 % M-Mode TAPSE 2.92 cm (M/F) >1.7 LV Diastology MV E' medial 0.094 (>0.07 m/s) E/A Ratio 0.7 LV E/e MED 6.60 (<14) MV E Vmax 0.63 (0.4-1.3 m/s) MV E' lateral 0.088 (>0.1 m/s) MV A Vmax 0.95 (0.4-1.3 m/s) LV E/e LAT 7.10 (<14) MV E/A Ratio 0.64 MV E/E' medial 6.65 MV E/E' lateral 7.11 Aortic Valve LVOT Area 3.28 cm2 AoV Area Vmax 2.81 cm2 LVOT Vmax 1.19 m/s AoV Area/ BSA (Vmax) 1.84 cm2/m2 LVOT Mean Kaushal. 0.77 m/s CORTNEY Mean Kaushal. 2.29 cm2 LVOT Peak Grad 5.6 mmHg CORTNEY Mean Kaushal. Index 1.50 cm2/m2 LVOT Mean Grad 2.8 mmHg LVOT VTI 0.198 m LVOT Diam s 2.00 cm AoV Vmax 1.39 m/s Velocity Ratio 0.85 AoV Mean Kaushal. 1.10 m/s AoV Peak Grad 7.7 mmHg LVOT SV 64.83 mL AoV Mean Grad 5.1 mmHg AoV VTI 0.311 m AoV Area VTI 2.08 cm2 AoV Area/ BSA (VTI) 1.36 cm/m2 Mitral Valve MV DT 449 (160-240 msec) MV PHT 130 msec MV Area PHT 1.69 cm2 MV VTI 0.311 m MV Area VTI 2.09 (4.0-6.0 cm2) Pulmonary Valve PV Vmax 0.95 (0.5-1.5 m/s) RVOT Peak Gr. 1.69 mmHg PV Peak Grad 3.6 mmHg RVOT Mean Gr. 0.85 mmHg PV Mean Grad 2.1 mmHg RVOT VTI 0.155 m PV VTI 0.197 m RVOT Vmax 0.65 m/s Tricuspid Valve TR Peak Grad 27.8 mmHg TR Vmax 2.64 m/s RA Pressure 3.00 mmHg RVSP (TR) 30.9 mmHg
== END ==
PROVIDERS: PCP Student in an Organized Health Care Education/Training Program; Visit Provider Student in an Organized Health Care Education/Training Program
DX: M54.2 Cervicalgia (principal); M79.603 Pain in arm, unspecified; Z87.828 Personal history of other (healed) physical injury and trauma; E46 Unspecified protein-calorie malnutrition; I25.10 Atherosclerotic heart disease of native coronary artery without angina pectoris; I83.893 Varicose veins of bilateral lower extremities with other complications; G62.9 Polyneuropathy, unspecified; M54.9 Dorsalgia, unspecified; R60.9 Edema, unspecified
CPT/HCPCS: 93306; 72052; 72072

== ENCOUNTER → 2022-04-08 10:27 | Outpatient (BNVA) | payer OTHER, SELFPAY | PROVIDERS: PCP Student in an Organized Health Care Education/Training Program; Referring Provider Student in an Organized Health Care Education/Training Program; Visit Provider Surgery | DX: R32 Unspecified urinary incontinence (principal); R15.9 Full incontinence of feces; K64.9 Unspecified hemorrhoids; E46 Unspecified protein-calorie malnutrition; K59.1 Functional diarrhea | CPT/HCPCS: 99212; 99213 ==

== ENCOUNTER → 2022-04-29 01:33 | Outpatient (CLI) | payer OTHER, SELFPAY ==
--- NOTE | 2022-04-29 07:15 | DI.CT_ITS ---
Exam(s) CT CHEST WO EXAM: CT CHEST WO CLINICAL HISTORY: f/u PULMONARY nodules,R91.8. TECHNIQUE: Multi planar reconstructions were performed. CONTRAST MATERIAL: None COMPARISON: CT CT CHEST WO from 04/27/2021 FINDINGS: CHEST: LUNGS: Scarring in the lung apices, right more so than left, again noted. No associated rib destruct ion. Lateral aspect of the left upper lobe there is a both 3 millimeter nodule again noted. No new additional nodules. There is some infiltrate in the inferior lingular segment of the left lung evide nt, more so than previous. No new findings in the basal segments of the left lower lobe. In the opposite-right lung there is some scarring in the medial right lung base posterior basal segme nt again noted. This remains unchanged no pleural effusions on either side. No new significant find ings in the trachea and mainstem bronchi. MEDIASTINUM: There is no obvious hilar nor mediastinal adenopathy. Visualized thyroid unremarkable.No obvious axillary adenopathy CARDIAC: Mild cardiomegaly again noted. No pericardial effusion. Caliber thoracic aorta is within n ormal limits. VISUALIZED UPPER ABDOMEN:No significant adrenal masses. No splenomegaly. OSSEOUS: No significant osseous lesions.No acute fractures.. IMPRESSION: 1. Compared to 04/27/2021 there is continued stable appearance of the 3 millimeter left upper lobe pe ripherally located nodule as well as medially located infiltrate in the right lower lobe posterior ba madhu segment. 2. Slightly increased markings in the inferior segment of the left lung are noted which have increase d from the prior study. Presently benign appearance but recommend six-month follow-up CT. 3. No pleural effusions. No intrathoracic adenopathy. RADIATION DOSE DELIVERED: 322.31mGy.cm Total DLP DATA REPOSITORY: All CT scans at this facility are submitted to the National Radiology Data Registry (NRDR) Dose Index Registry (DIR) with the [employer] ([employer]). RADIATION OPTIMIZATION: All CT scans at this facility use at least one of these dose optimization te chniques: automated exposure control; mA and/or kV adjustment per patient size (includes targeted exa ms where dose is matched to clinical indication); or iterative reconstruction.
== END ==
PROVIDERS: PCP Student in an Organized Health Care Education/Training Program; Visit Provider Student in an Organized Health Care Education/Training Program
DX: R91.1 Solitary pulmonary nodule (principal); R91.8 Other nonspecific abnormal finding of lung field; I51.7 Cardiomegaly
CPT/HCPCS: 71250

== ENCOUNTER 2022-05-17 07:06 | Day surgery (SDC) | payer OTHER, SELFPAY ==
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
--- NOTE | 2022-05-16 22:31 | PDOC.DSDIS_ITS ---
Discharge Plan Disposition Patient Disposition: HOME Condition: Good Discharge Details Reason For Visit: rod duque Attending Provider: Jolly Pa Primary Care Provider: Nancy La Meds and New Rx's Prescriptions: New diphenoxylate-atropine [Lomotil] 2.5-0.025 mg tablet 1 tab PO BID PRN (Reason: diarrhea) Qty: 60 5RF Continued triamcinolone acetonide 0.1 % ointment 1 applic topical DAILY Qty: 30 1RF Rx Instructions: Use sparingly on shoulder and arm, 2 FTUs (1 g) Acidophilus Capsule 10 mg PO DAILY gabapentin 300 mg capsule See Rx Instructions PO BID Qty: 270 3RF Rx Instructions: 300mg am and 600mg at bedtime orally twice a day; hydroquinone 4 % cream 1 applic topical BID Rx Instructions: x 5weeks. 12/20/2021 cholecalciferol (vitamin D3) 1,250 mcg (50,000 unit) capsule 1,250 mcg PO QWEEK Qty: 8 0RF Rx Instructions: High dose Vit D, ONCE A WEEK, x8 wks tramadol 50 mg tablet 25 mg PO Q8H MDD 50mg PRN (Reason: pain, severe) Qty: 20 1RF Rx Instructions: Use for abdominal pain or leg pain (as per neuro) furosemide 20 mg tablet See Rx Instructions PO DAILY Qty: 120 1RF Rx Instructions: Daily, but may repeat in afternoon per edema PO daily; Monitoring leg edema aspirin [Adult Aspirin Regimen] 81 mg tablet,delayed release (DR/EC) 81 mg PO DAILY ibuprofen 200 mg capsule 200 mg PO .QD Rx Instructions: 30min after lunch takes 400mg Qnoon. albuterol sulfate 1.25 mg/3 mL solution for nebulization 1.25 mg inhalation QID PRN (Reason: shortness of breath or wheezing) Qty: 180 3RF Breztri Aerosphere 160-9-4.8 mcg/actuation HFA aerosol inhaler 2 inh inhalation BID Qty: 10.7 8RF Rx Instructions: please discontinue stiolto and Advair - replace with Breztri. (DME) capsaican See Rx Instructions .Route .MEDSUPPLY Qty: 1 0RF Rx Instructions: As directed per packaging Aspercreme (lidocaine) 4 % aerosol,spray 2 spray topical BID & HS Qty: 113 1RF Rx Instructions: Trial for neuropathic pain due to frostbite albuterol sulfate [ProAir HFA] 90 mcg/actuation HFA aerosol inhaler 2 puff inhalation Q6H PRN Qty: 1 3RF nitroglycerin 400 mcg/spray spray,non-aerosol 0.4 mg Translingual ONCE Qty: 9.6 6RF Label Comments: pt. reports she used it friday/ early friday, after two sprays chest pain relieved Rx Instructions: Use once, may repeat in 10 minutes .. if chest pain continues, call 911 ondansetron 4 mg tablet,disintegrating 4 mg PO Q6H PRN (Reason: nausea and vomiting) Qty: 30 0RF Rx Instructions: Trial for nausea, vomiting pantoprazole 40 mg tablet,delayed release (DR/EC) 40 mg PO DAILY@0730 Qty: 90 3RF lidocaine 5 % cream 1 applic topical BID PRN Rx Instructions: Pt will pay out of pocket lidocaine 5 % ointment 1 applic topical QHS PRN (Reason: pain) Qty: 60 1RF Rx Instructions: trial overnight for frostbite pain ... theophylline 400 mg tablet extended release 24 hr 400 mg PO DAILY Qty: 45 3RF Rx Instructions: Half tab daily lisinopril 10 mg tablet 10 mg PO DAILY Qty: 90 3RF atenolol 50 mg tablet 50 mg PO DAILY Qty: 90 1RF benzonatate 100 mg capsule 100 mg PO TID PRN (Reason: cough) Qty: 90 1RF alprazolam 0.25 mg tablet 0.25 mg PO DAILY PRN (Reason: anxiety, angina) Qty: 30 1RF Label Comments: pt. states it is for chest pain Metamucil Sugar-Free (aspart) 3.4 gram/5.8 gram Powder 1 ea PO BID Qty: 60 0RF acetaminophen [Tylenol] 325 mg tablet 500 mg PO Q6H PRN (Reason: Abdominal Discomfort) Qty: 100 0RF (DME) nebulizers Misc See Rx Instructions .ROUTE .MEDSUPPLY Qty: 1 0RF Rx Instructions: As directed Discontinued polyethylene glycol 3350 17 gram/dose powder 238 g PO ONCE Qty: 238 0RF Rx Instructions: take per colonoscopy instructions bisacodyl [Dulcolax (bisacodyl)] 5 mg tablet,delayed release (DR/EC) 5 mg PO ONCE Qty: 4 0RF Rx Instructions: take per colonoscopy instructions Discharge Instructions Additional Instructions: DSU Colonoscopy Post- Op Instructions Instructions for Everyone who is given Anesthesia: For your safety, please do the following for the next twenty-four (24) hours: *Do Not operate a motor vehicle (car, truck, motorcycle, etc.) *Do Not drink alcoholic beverages or use any recreational drugs for the first 24 hours or while taking pain medications. The medications in your body may have a reaction that can be dangerous. *Do Not make any important decisions or sign any important papers. Findings: rectal prolapse w/ excoriation lomotil as needed to control diarrhea cont. Metamucil twice daily 1. No lifting over 20 pounds or strenuous activity for the first 24 hours after your procedure. After 24 hours there are no restrictions on your activity but you may feel fatigued for a few days. 2. After you arrive home you may have a light meal and return to your normal diet as you can tolerate it without feeling sick to your stomach. 3. You may have a bloated, gaseous feeling in your belly (abdomen) after a colonoscopy. Passing gas and belching will help. Walking or lying down on your left side with your knees flexed may relieve the discomfort. Call the office at [phone] (Office) or [phone] (Hospital) right away if you notice any of the following: a.Vomiting of blood or ?coffee ground stools?. b.Rectal bleeding 1Tbsp, blood clots or continuous bleeding. c.Severe belly (abdominal) pain. d.A hard distended belly (abdomen) and an inability to pass gas. 4. Please don?t expect to have a normal BM (bowel movement) for 2-3 days after your procedure. 5. If there are questions regarding the findings of your procedure, please contact your doctor 6. If you are unable to contact your doctor with a problem, contact the hospital at [phone]. 7. Continue all your regular medications unless directed otherwise. I understand the above instructions and have no questions. Signature of Patient or Adult Escort Name of Responsible Adult Escort Signature of Nurse Date/Time Activity:: see above Diet:: As Tolerated Discharge Orders Discharge Orders: Discharge Order (Routine); Ordered 05/17/22 Ordered By: Jolly Pa DS: Diagnosis Discharge Diagnosis (1) Anemia: Status: Chronic (2) Hemorrhoids: Status: Acute (3) Incontinence of bowel: Status: Acute (4) Incontinence of urine in female: Status: Acute (5) Diarrhea, functional: Status: Acute (6) Malnutrition compromising bodily function: Status: Acute (7) Cataracts, bilateral: Status: Acute (8) Peripheral retinal degeneration: Status: Acute (9) Anemia: Status: Chronic (10) Vitamin B12 deficiency anemia, unspecified: Status: Acute (11) CKD (chronic kidney disease): Status: Chronic (12) Tremor: Status: Acute (13) Neuropathy: Status: Acute (14) Restless legs: Status: Acute (15) Varicose veins of bilateral lower extremities with other complications: Status: Chronic (16) Anxiety: Status: Chronic (17) CAD (coronary artery disease), [place] coronary artery: Status: Chronic (18) COPD (chronic obstructive pulmonary disease): Status: Chronic (19) Lung nodule: Status: Chronic (20) Dyspnea on exertion: Status: Chronic (21) Pulmonary nodules: Status: Acute (22) Primary osteoarthritis, right ankle and foot: Status: Acute (23) Mild cognitive impairment: Status: Chronic (24) Hypertension: Status: Chronic (25) Tobacco abuse: Status: Chronic (26) Sensorineural hearing loss, bilateral: Status: Chronic (27) Atherosclerosis of artery of both lower extremities: Status: Chronic (28) Quit smoking within past year: Status: Acute (29) Venous insufficiency (chronic) (peripheral): Status: Acute (30) Cholelithiasis: (31) COPD (chronic obstructive pulmonary disease): (32) CAD (coronary artery disease), [place] coronary artery: (33) Angina effort: (34) 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
[2022-05-17 07:21] VITALS: BP 145/73; PULSE 70; RESP 18; TEMP 36.2; O2SAT 99
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
[2022-05-17 07:34] VITALS: BP 145/73; PULSE 70; RESP 18; TEMPC 36.2; O2SAT 99
[2022-05-17] MEDS: Lactated Ringers 1,000 ML 80 ML IV (07:47)
[2022-05-17 08:04] VITALS: BMI 24.7
[2022-05-17 09:04] VITALS: BP 132/77; PULSE 59; RESP 18; TEMP 36.4; O2SAT 94
--- NOTE | 2022-05-17 09:14 | W.ANESPOSTOP ---
Postoperative Evaluation Date, Time and Location Date Performed: 05/17/22 Time Performed: 09:15 Patient Location: Day Surgery Unit Vital Signs Most Recent Imported Vital Signs: Most Recent Vital Signs Temp Pulse Resp BP Pulse Ox 36.4 C L 59 L 18 132/77 94 05/17/22 09:04 05/17/22 09:04 05/17/22 09:04 05/17/22 09:04 05/17/22 09:04 Pain Score Most Recent Pain Score: Most Recent Pain Score Pain Level 0 05/17/22 09:04 Assessment Mental Status: Awake (Alert & Oriented to Patient Baseline) Airway and Respiratory Function: Patent airway with normal (patient baseline) respiratory exam Cardiovascular Function: Hemodynamically Stable Hydration Status: Adequately Hydrated Nausea & Vomiting: No Nausea or Vomiting Pain: Pt. Denies Any Pain Peripheral Nerve Block: Patient did not receive a nerve block
--- NOTE | 2022-05-17 21:21 | W.COLOREPORT ---
Colonoscopy Report Date of procedure: 05/17/22 Pre-op diagnosis general: anemia/rectal bleeding Post-op diagnosis procedure note: other (rectal prolapse) Surgeon: Jolly Pa Anesthesia Type: General:No Airway Estimated blood loss (mL): 0 Pathology: none sent Complications: None Disposition: same day Prep: Miralax/Dulcolax Retraction Time: 6mins Procedure Description: After informed consent was obtained the patient was taken to the procedure room and placed in a left decubitous position. Monitors were applied and a time out was done. The patients name, date of , procedure, allergies to medications and metal in their body was reviewed. The patient was then sedated. Once sedated and comfortable a rectal exam was done. External exam: very patulous w/ poor tone. Internal exam revealed: poor sphincter tone and no palpable masses. The scope was then introduced and retrofelexed. No internal hemorrhoids were identified. She has an area of excoriation of the lower rectal mucosa. The scope was then advanced ileal-colo anastomosis from her previous right muriel for bleeding villous adenoma. The prep was BBPS 3 in all segments for a total of 6. The scope was then slowly retracted over 6 minutes back into the rectum. There were no polyps or diverticula. I think the bleeding she was having was from rectal prolaspe. Bx was not done in concern that this would cause further bleeding. The scope was removed and the patient was woken up and taken back to Same day surgery in stable condition. The patient tolerated the procedure well and there were no immediate complications. pt was giving info on rectal prolapse adn supportive cares- however she is generally non-compliant. She is also given a Rx for Lomotil. Follow up: The patient does not require any further CE's unless they develop changes in bowel habits or other new gastrointestinal complaints.
== END 2022-05-17 10:13 | disposition home or self-care (01) ==
PROVIDERS: PCP Student in an Organized Health Care Education/Training Program; Visit Provider Surgery
PROC: 0DJD8ZZ Inspection of Lower Intestinal Tract, Via Natural or Artificial Opening Endoscopic (ICD-10-PCS; CPT 45378; principal; 2022-05-17 08:15)
DX: K62.5 Hemorrhage of anus and rectum (principal); K62.3 Rectal prolapse; D64.9 Anemia, unspecified; Z98.0 Intestinal bypass and anastomosis status; Z90.49 Acquired absence of other specified parts of digestive tract
CPT/HCPCS: 45378

== ENCOUNTER 2022-09-06 00:49 | Outpatient (CLI) | payer OTHER, SELFPAY ==
--- NOTE | 2022-09-06 09:38 | DI.RAD_ITS ---
Exam(s) XR ABDOMEN FLAT UPRIGHT EXAM: 2D digital imaging was performed. CLINICAL HISTORY: evaluate for obstipation,dilation, early ileus,abd pain, r10.9,k59.00. COMPARISON: CT CT THORAX ABD/PEL CTA from 12/01/2020 CR XR ABDOMEN FLAT UPRIGHT from 09/07/2021 TECHNIQUE: Supine and upright views of the abdomen was performed. Three images were obtained. FINDINGS: LUNG BASES: Clear. BOWEL GAS PATTERN: Nondistended. There is a moderate amount of stool in the colon. FREE AIR: None. CALCIFICATIONS: Phleboliths are seen in the pelvis. OSSEOUS STRUCTURES: Normal for age. There is a right convex curvature of the lumbar spine. OTHER FINDINGS: None. IMPRESSION: Moderate amount of retained stool in the colon. No evidence of an acute abdomen. DATA REPOSITORY: RADIATION DOSE DELIVERED:
== END 2022-09-06 01:09 ==
LOC: DI 00:50
PROVIDERS: PCP Student in an Organized Health Care Education/Training Program; Visit Provider Student in an Organized Health Care Education/Training Program
DX: K59.00 Constipation, unspecified (principal)
CPT/HCPCS: 74019

== ENCOUNTER → 2022-09-12 10:18 | Outpatient (BNVA) | payer OTHER, SELFPAY | PROVIDERS: PCP Student in an Organized Health Care Education/Training Program; Referring Provider Student in an Organized Health Care Education/Training Program; Visit Provider Internal Medicine Cardiovascular Disease | DX: I25.10 Atherosclerotic heart disease of native coronary artery without angina pectoris (principal); J44.9 Chronic obstructive pulmonary disease, unspecified; I25.2 Old myocardial infarction; R06.02 Shortness of breath; Z86.16 Personal history of COVID-19; R60.0 Localized edema | CPT/HCPCS: 93005; 99213 ==

== ENCOUNTER 2022-09-12 10:22 | Outpatient (CLI) | payer OTHER, SELFPAY ==
--- NOTE | 2022-09-12 10:15 | RT.EKG_ITS ---
APPROVED REPORT Exam: Resting ECG Reason for Exam: CAD Patient Location: O HR:72 bpm ECG Measurements Heart Rate 72 AXIS IA 196 P -46 QRSd 88 QRS -27 QT 387 T 24 QTc 424 Conclusion Sinus or ectopic atrial rhythm...P axis (-45,135) Low voltage, poor R wave progression possible old anterior infarct
== END 2022-09-12 10:23 | disposition home or self-care (01) ==
LOC: DI.CARD 10:23
PROVIDERS: PCP Student in an Organized Health Care Education/Training Program; Visit Provider Internal Medicine Cardiovascular Disease
DX: I25.10 Atherosclerotic heart disease of native coronary artery without angina pectoris (principal)
CPT/HCPCS: 93010

== ENCOUNTER 2022-09-27 01:03 | Outpatient (CLI) | payer OTHER, SELFPAY ==
--- NOTE | 2022-09-27 06:30 | DI.CT_ITS ---
Exam(s) CT ABDOMEN PELVIS W EXAM: CT ABDOMEN PELVIS W CLINICAL HISTORY: acute on chronic abd pain,anemia,cholelithiasis TECHNIQUE: Imaging Protocol: Axial computed tomography images with coronal and sagittal reformatted images were created and reviewed CONTRAST MATERIAL: Intravenous: Omnipaque 350 Contrast volume:100 mL Oral: Yes COMPARISON: CT CT THORAX ABD/PEL CTA from 12/01/2020 FINDINGS: ABDOMEN: Lung Bases: Stable scarring is seen in the lung bases. No new infiltrates are seen. Liver: Normal density. There is a tiny hypodensity again seen in the left lobe of the liver. It is t oo small for further characterization but likely reflects a small cyst. No suspicious hepatic masses are seen. Portal, Superior Mesenteric, and Splenic Veins: Unremarkable. Gallbladder and Biliary Tract: Gallstones are present. There is no biliary ductal dilatation. Pancreas: Normal density, no abnormal calcifications or inflammatory process. Spleen: Normal. Adrenals: No masses seen. Kidneys: Normal size, contour and axis. No radiodense stones or obstructive uropathy. No masses seen. Abdominal Aorta: Abdominal portion non-dilated. Atherosclerosis is present. Bowel: No obstruction or bowel wall thickening. There is no evidence of appendicitis. Peritoneal Cavity: No ascites, collection or mesenteric inflammatory response. No free air. Lymph Nodes: Within normal limits. Bones: Within normal limits for the patient's age. Soft Tissues: Unremarkable. PELVIS: Bladder: Symmetric distention, no gross wall thickening. Reproductive Organs: Status post hysterectomy. Lymph Nodes: Within normal limits. Bones: Within normal limits for the patient's age. IMPRESSION: 1. No acute abdominal or pelvic process. 2. Cholelithiasis. No biliary ductal dilatation. RADIATION DOSE DELIVERED: 813.78mGy.cm Total DLP DATA REPOSITORY: All CT scans at this facility are submitted to the National Radiology Data Registry (NRDR) Dose Index Registry (DIR) with the [employer] (ACR). RADIATION OPTIMIZATION: All CT scans at this facility use at least one of these dose optimization te chniques: automated exposure control; mA and/or kV adjustment per patient size (includes targeted exa ms where dose is matched to clinical indication); or iterative reconstruction.
[2022-09-27 08:34] LABS: Abs Immature Grans 0.01 10^3/uL (0.0-0.06); Absolute Basophil Count 0.04 10^3/uL (0.0-0.2); Absolute Eosinophil Count 0.04 10^3/uL (0.0-0.7); Absolute Lymphocyte Count 1.07 10^3/uL (1.2-3.4); Absolute Monocyte Count 0.27 10^3/uL (0.1-0.8); Absolute Neutrophil Count 2.44 10^3/uL (1.2-6.7); HCT 34.5 % (36.0-46.0); HGB 10.9 g/dL (11.2-15.7); Immature Grans % 0.3; Lymphocytes % 27.6; MCH 27.7 pg (27.0-33.0); MCHC 31.6 % (32.0-36.0); MCV 88 fL (80-95); Neutrophils % 63.1; Platelet Count 180 10^3/uL (130-400); RBC 3.93 10^6/uL (3.93-5.22); RDW 15.4 % (11.7-14.6); RDW-SD 49.9 fL; WBC 3.87 10^3/uL (4.4-10.8)
[2022-09-27] MEDS: Barium Sulfate 2% W/V-Berry Smoothie 450 ML BTL 900 ML PO (08:36)
[2022-09-27 09:00] LABS: Folate 15.3 ng/mL (8.6-20.0)
[2022-09-27 09:10] LABS: Iron 44 ug/dL (50-170); Total Iron Binding Capacity 381 ug/dL (250-450); Transferrin Sat 12 % (15-50)
[2022-09-27 09:12] LABS: ALT 13 U/L (14-59); AST 20 U/L (15-37); Albumin 3.8 g/dL (3.4-5.0); Alkaline Phosphatase 84 U/L (46-116); Anion Gap 9.7 mmol/L (3-11); BUN 17 mg/dL (7-18); Bilirubin, Total 0.5 mg/dL (0.2-1.0); CO2 25.3 mmol/L (21.0-32.0); CREATININE 1.3 mg/dL (0.55-1.02); Calcium 9.6 mg/dL (8.5-10.1); Chloride 102 mmol/L (98-107); Estimated GFR 41.57 (mL/min/1.73m2); Ferritin 24 ng/mL (8-252); Glucose 84 mg/dL (74-106); Potassium 3.9 mmol/L (3.5-5.1); Sodium 137 mmol/L (136-145); Total Protein 6.8 g/dL (6.4-8.2); Vitamin B12 209 pg/mL (193-986)
[2022-09-27 09:27] LABS: C-Reactive Protein < 0.05 mg/dL (0.0-0.3)
[2022-09-27] MEDS: Omnipaque 350 MG/ML 500 ML BTL-Imaging package IJ (10:12)
[2022-09-27] MEDS: Normal Saline - Diluent 50 ML VIAL IJ (10:13)
== END 2022-09-27 01:23 ==
LOC: DI 01:04
PROVIDERS: PCP Student in an Organized Health Care Education/Training Program; Visit Provider Surgery
DX: K57.30 Diverticulosis of large intestine without perforation or abscess without bleeding; D51.9 Vitamin B12 deficiency anemia, unspecified; D63.8 Anemia in other chronic diseases classified elsewhere; B94.8 Sequelae of other specified infectious and parasitic diseases; E46 Unspecified protein-calorie malnutrition; E88.09 Other disorders of plasma-protein metabolism, not elsewhere classified; F41.9 Anxiety disorder, unspecified; G31.84 Mild cognitive impairment of uncertain or unknown etiology; H35.40 Unspecified peripheral retinal degeneration; I10 Essential (primary) hypertension; I25.10 Atherosclerotic heart disease of native coronary artery without angina pectoris; I73.9 Peripheral vascular disease, unspecified; I83.893 Varicose veins of bilateral lower extremities with other complications; J44.9 Chronic obstructive pulmonary disease, unspecified; K29.50 Unspecified chronic gastritis without bleeding; K59.1 Functional diarrhea; K62.3 Rectal prolapse; K64.9 Unspecified hemorrhoids; N18.9 Chronic kidney disease, unspecified; R06.00 Dyspnea, unspecified; R10.84 Generalized abdominal pain; R15.9 Full incontinence of feces; R32 Unspecified urinary incontinence; R53.83 Other fatigue; D50.9 Iron deficiency anemia, unspecified; D37.4 Neoplasm of uncertain behavior of colon
CPT/HCPCS: 80053; 86850; 86900; 86901; 74177; 82607; 82728; 82746; 83540; 83550; 85025; 86140

== ENCOUNTER 2022-10-09 08:53 | Outpatient (CLI) | payer OTHER, SELFPAY ==
--- NOTE | 2022-10-09 08:30 | DI.US_ITS ---
Exam(s) US ABDOMEN LIMITED EXAM: US ABDOMEN LIMITED CLINICAL HISTORY: pain and diarrhea TECHNIQUE: Ultrasound abdomen performed using standard protocol. COMPARISON: CT CT ABDOMEN PELVIS W from 09/27/2022 FINDINGS: PANCREAS: Normal where visualized. LIVER: Normal. Hepatopedal flow in the Portal Vein. The liver measures in 21.1 cm length. GALLBLADDER:Gallstones are present. No evidence of wall thickening. No pericholecystic fluid identif ied. BILIARY SYSTEM: Common bile duct measures < 7 mm. No intrahepatic biliary ductal dilation. ROSA'S SIGN: Negative. RIGHT KIDNEY: Kidney is normal in size. No evidence of renal calculi. No evidence of hydronephrosis. No renal mass or cyst identified. ASCITES: None seen. IMPRESSION: There are gallstones but no evidence of biliary ductal dilatation. Mild hepatomegaly. DATA REPOSITORY:
== END 2022-10-09 09:13 ==
LOC: DI 08:53
PROVIDERS: PCP Student in an Organized Health Care Education/Training Program; Visit Provider Surgery
DX: K80.20 Calculus of gallbladder without cholecystitis without obstruction (principal); R16.0 Hepatomegaly, not elsewhere classified
CPT/HCPCS: 76705

== ENCOUNTER → 2022-10-21 09:03 | Outpatient (BNVA) | payer OTHER, SELFPAY | PROVIDERS: PCP Student in an Organized Health Care Education/Training Program; Referring Provider Student in an Organized Health Care Education/Training Program; Visit Provider Surgery | DX: R10.13 Epigastric pain (principal); K27.9 Peptic ulcer, site unspecified, unspecified as acute or chronic, without hemorrhage or perforation; K80.20 Calculus of gallbladder without cholecystitis without obstruction; D63.8 Anemia in other chronic diseases classified elsewhere; R53.83 Other fatigue | CPT/HCPCS: 99212; 99442 ==

== ENCOUNTER 2022-10-25 10:19 | Emergency (ER) | payer OTHER, SELFPAY ==
[2022-10-25] VITALS (28 sets, daily range): BP systolic 93–120; BP diastolic 42–76; PULSE 84–110; RESP 16–32; TEMP 36.9–38.5; O2SAT 93–98
--- NOTE | 2022-10-25 10:30 | RT.EKG_ITS ---
APPROVED REPORT Exam: Resting ECG Reason for Exam: weakness/epigastric pain Patient Location: E HR:100 bpm ECG Measurements Heart Rate 100 AXIS TN 182 P 58 QRSd 81 QRS -24 QT 315 T 63 QTc 408 Conclusion Sinus tachycardia...rate> 99 Inferior infarct, old...Q >35mS, II III aVF
[2022-10-25 11:06] LABS: Abs Immature Grans 0.02 10^3/uL (0.0-0.06); Absolute Basophil Count 0.02 10^3/uL (0.0-0.2); Absolute Eosinophil Count 0.01 10^3/uL (0.0-0.7); Absolute Lymphocyte Count 0.19 10^3/uL (1.2-3.4); Absolute Monocyte Count 0.26 10^3/uL (0.1-0.8); Absolute Neutrophil Count 4.62 10^3/uL (1.2-6.7); Basophils % 0.4; Eosinophils % 0.2; HGB 12.4 g/dL (11.2-15.7); Immature Grans % 0.4; Lymphocytes % 3.7; MCH 27.6 pg (27.0-33.0); MCHC 31.8 % (32.0-36.0); MCV 87 fL (80-95); MPV 11.4 fL (8.0-11.0); Monocytes % 5.1; Neutrophils % 90.2; Platelet Count 141 10^3/uL (130-400); RBC 4.49 10^6/uL (3.93-5.22); RDW 15.4 % (11.7-14.6); RDW-SD 48.8 fL; WBC 5.12 10^3/uL (4.4-10.8)
[2022-10-25] MEDS: Lactated Ringers 500 ML 1000 ML IV (11:14)
[2022-10-25 11:23] LABS: ALT 16 U/L (14-59); AST 19 U/L (15-37); Albumin 3.7 g/dL (3.4-5.0); Alkaline Phosphatase 91 U/L (46-116); Anion Gap 9.8 mmol/L (3-11); BUN 28 mg/dL (7-18); Bilirubin, Total 0.8 mg/dL (0.2-1.0); CO2 27.2 mmol/L (21.0-32.0); CREATININE 1.5 mg/dL (0.55-1.02); Calcium 9.1 mg/dL (8.5-10.1); Chloride 101 mmol/L (98-107); Estimated GFR 35.01 (mL/min/1.73m2); Glucose 124 mg/dL (74-106); Potassium 4.7 mmol/L (3.5-5.1); Sodium 138 mmol/L (136-145); Total Protein 7.3 g/dL (6.4-8.2)
--- NOTE | 2022-10-25 11:30 | DI.CT_ITS ---
Exam(s) CT ABDOMEN PELVIS W EXAM: CT ABDOMEN PELVIS W CLINICAL HISTORY: abd pain, diffuse TECHNIQUE: Imaging Protocol: Axial computed tomography images with coronal and sagittal reformatted images were created and reviewed CONTRAST MATERIAL: Intravenous: Omnipaque 350 Contrast volume:100 mL Oral: No COMPARISON: CT CT ABDOMEN PELVIS W from 09/27/2022 FINDINGS: ABDOMEN: Lung Bases: Stable scarring in the lung bases. No acute abnormality. Liver: Normal density. No measurable mass. Portal, Superior Mesenteric, and Splenic Veins: Unremarkable. Gallbladder and Biliary Tract: Cholelithiasis. No biliary ductal dilatation. Pancreas: Normal density, no abnormal calcifications or inflammatory process. Spleen: Normal. Adrenals: No masses seen. Kidneys: Normal size, contour and axis. No radiodense stones or obstructive uropathy. No masses seen. Abdominal Aorta: Abdominal portion non-dilated. Atherosclerosis is present. Bowel: No obstruction or bowel wall thickening. No evidence of appendicitis. There is an enterocolic anastomosis in the right abdomen. Peritoneal Cavity: No ascites, collection or mesenteric inflammatory response. No free air. Lymph Nodes: Within normal limits. Bones: Within normal limits for the patient's age. Soft Tissues: Unremarkable. PELVIS: Bladder: Symmetric distention, no gross wall thickening. Reproductive Organs: Status post hysterectomy. Lymph Nodes: Within normal limits. Bones: Within normal limits for the patient's age. IMPRESSION: 1. No acute abdominal or pelvic process. 2. Findings were discussed with the emergency department at 2:36 p.m. on 10/25/2022. RADIATION DOSE DELIVERED: 676.2mGy.cm Total DLP DATA REPOSITORY: All CT scans at this facility are submitted to the National Radiology Data Registry (NRDR) Dose Index Registry (DIR) with the [employer] ([employer]). RADIATION OPTIMIZATION: All CT scans at this facility use at least one of these dose optimization te chniques: automated exposure control; mA and/or kV adjustment per patient size (includes targeted exa ms where dose is matched to clinical indication); or iterative reconstruction.
[2022-10-25] MEDS: HYDROmorphone 2 MG/ML SYR 1 MG IVP (11:59)
[2022-10-25] MEDS: Famotidine 20 MG/2 ML VIAL IVP (12:01)
[2022-10-25] MEDS: Normal Saline - Diluent 50 ML VIAL IJ (14:06)
[2022-10-25] MEDS: Omnipaque 350 MG/ML 100 ML BTL IJ (14:06)
[2022-10-25 14:42] LABS: Bilirubin Negative (Negative); Blood Trace-lysed (Negative); Clarity Clear (Clear); Glucose Negative (Negative); Ketones Negative (Negative); Leukocyte Esterase Negative (Negative); Nitrite Negative (Negative); Urobilinogen 0.2 mg/dL (Up to 0.2); pH 5.5 (5-8)
[2022-10-25 14:50] LABS: WBC Negative HPF (0-5)
[2022-10-25 14:51] LABS: Bacteria Negative HPF (Negative); C & S Indicated? No; Casts Negative LPF (Negative); Crystals Negative HPF (Negative); Epithelial Cells Rare HPF (Negative); Mucus Negative (Negative); RBC 0-2 HPF (0-2)
--- NOTE | 2022-10-25 16:16 | ED.GENADUL_ITS ---
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 MCH (27.0-33.0) pg MCHC (32.0-36.0) % RDW (11.7-14.6) % Plt Count (130-400) 10^3/uL MPV (8.0-11.0) fL Immature Gran % Neutrophils % Lymphocytes % Monocytes % Eosinophils % Basophils % Nucleated RBC % (0.0-0.3) % Absolute Neutrophils (1.2-6.7) 10^3/uL Absolute Lymphocytes (1.2-3.4) 10^3/uL Absolute Monocytes (0.1-0.8) 10^3/uL Absolute Eosinophils (0.0-0.7) 10^3/uL Absolute Basophils (0.0-0.2) 10^3/uL VBG Lactate (0.6-1.4) mmol/L Sodium (136-145) mmol/L Potassium (3.5-5.1) mmol/L Chloride (98-107) mmol/L Carbon Dioxide (21.0-32.0) mmol/L Anion Gap (3-11) mmol/L BUN (7-18) mg/dL Creatinine (0.55-1.02) mg/dL Est GFR (CKD-EPI 2020) (mL/min/1.73m2) Glucose (74-106) mg/dL Calcium (8.5-10.1) mg/dL Total Bilirubin (0.2-1.0) mg/dL AST (15-37) U/L ALT (14-59) U/L Alkaline Phosphatase (46-116) U/L Total Protein (6.4-8.2) g/dL Albumin (3.4-5.0) g/dL Urine Color (Yellow) Yellow Urine Clarity (Clear) Clear Urine pH (5-8) 5.5 Ur Specific [place] (1.005-1.025) 1.020 Urine Protein (Negative) mg/dL Negative Urine Ketones (Negative) mg/dL Negative Urine Blood (Negative) Trace-lysed H Urine Nitrite (Negative) Negative Urine Bilirubin (Negative) Negative Urine Urobilinogen (Up to 0.2) mg/dL 0.2 Ur Leukocyte Esterase (Negative) Negative Urine RBC (0-2) HPF 0-2 Urine WBC (0-5) HPF Negative Ur Epithelial Cells (Negative) HPF Rare Urine Crystals (Negative) HPF Negative Urine Bacteria (Negative) HPF Negative Urine Casts (Negative) LPF Negative Urine Mucus (Negative) Negative Ur Culture Indicated? No Urine Glucose (Negative) mg/dL Negative
== END 2022-10-25 17:14 | disposition home or self-care (01) ==
PROVIDERS: Emergency Provider Student in an Organized Health Care Education/Training Program; PCP Student in an Organized Health Care Education/Training Program
DX: R10.13 Epigastric pain (principal); R10.816 Epigastric abdominal tenderness; R10.11 Right upper quadrant pain; R10.811 Right upper quadrant abdominal tenderness; R11.2 Nausea with vomiting, unspecified; L81.9 Disorder of pigmentation, unspecified; I25.10 Atherosclerotic heart disease of native coronary artery without angina pectoris; J44.9 Chronic obstructive pulmonary disease, unspecified; I25.2 Old myocardial infarction; Z86.16 Personal history of COVID-19; Z79.51 Long term (current) use of inhaled steroids; Z79.82 Long term (current) use of aspirin; Z90.710 Acquired absence of both cervix and uterus
CPT/HCPCS: 36415; 80053; 87040; 93005; 96361; 96374; 96375; 99285; 74177; 81003; 81015; 83605; 85025; 93010; 99284; J1170; J3490

== ENCOUNTER → 2022-10-28 13:14 | Outpatient (BNVA) | payer OTHER, SELFPAY | PROVIDERS: PCP Student in an Organized Health Care Education/Training Program; Referring Provider Student in an Organized Health Care Education/Training Program; Visit Provider Surgery | DX: R10.11 Right upper quadrant pain (principal); R11.2 Nausea with vomiting, unspecified; K80.20 Calculus of gallbladder without cholecystitis without obstruction; E46 Unspecified protein-calorie malnutrition; R26.81 Unsteadiness on feet | CPT/HCPCS: 99213 ==

== ENCOUNTER 2022-10-31 08:27 | Observation (INO) | payer OTHER, SELFPAY ==
--- NOTE | 2022-10-30 20:25 | ROE_ITS ---
Date of service: 10/31/22 Time of Service: 13:47 Operative Note Operative Note DATE OF PROCEDURE: 10/31/22 PRE-OP DIAGNOSIS: Biliary colic POST-OP DIAGNOSIS: same PROCEDURE: Laparoscopic cholecystectomy with lysis of adhesions SURGEON: Fam Nagy [employer] CONSULTANT: Nelsy Mejia ANESTHESIA TYPE: General LMA/ETT Refer to Anesthesia Record ESTIMATED BLOOD LOSS: 25 PATHOLOGY: other (Gallbladder) COMPLICATIONS: None Patient was transported to: PACU Patient's condition: stable Indications: Rachel is an 82-year-old woman with painful biliary colic. She has chronic nausea and vomiting associated with this as well. Findings: Chronic cholecystitis Procedure Description: After satisfactory induction of general anesthesia, I prepped and draped the abdomen in usual fashion. Because of her previous laparotomy and right hemicolectomy (which was performed through midline incision) I felt the safest choice for entry was the left upper quadrant. I anesthetized the skin and made a small stab incision. Next, with the direct view of the laparoscope, and an optical port, I advanced a 5 mm port through the skin, subcutaneous tissues, muscle wall, and into the peritoneum. I insufflated the peritoneal cavity. I performed a brief inspection with the laparoscope. There was no evidence of any injury from entry there were adhesions along the midline laparotomy incision site. I was able to find a suitable location in the lower portion of the mid abdomen to advance another port. I incised the midline skin with a scalpel, and dissected down through the skin and subcutaneous tissues. I opened the fascia which was quite attenuated sharply, and using the laparoscope, I advanced a 12 mm port into this position. I then used a 5 mm LigaSure device to perform adhesiolysis of what were mostly greater omental adhesions off the anterior abdominal wall. Care was taken as this dissection was continued cephalad, and a portion of the transverse colon was dropped back down to its normal position. There were also adhesions of the greater omentum over the gallbladder dome. Therefore, after placing another 5 mm port in the right upper quadrant, I continued dissection of the greater omentum. I dissected it off of the gallblad keri dome and body. I continued this dissection while retracting the gallbladder dome cephalad down towards the infundibulum. Once all of this dissection was complete, the perspective was that of a traditional laparoscopic cholecystectomy. Therefore, I placed a port in the mid epigastrium, as well as another port in the right hemiabdomen. Again, retracting of the dome of the gallbladder cephalad, I performed a formal dissection of the gallbladder neck and cystic duct. I worked in a lateral to medial fashion. Once I skeletonized the cystic duct and cystic artery, with a satisfactory critical view of safety, I doubly clipped and divided them. I then used electrocautery to dissect the gallbladder off the gallbladder fossa. I passed the gallbladder into an Endo Catch bag and removed it by way of the umbilical site. I examined the surgical field. It was hemostatic. I then removed the 5 mm ports under the vision of the laparoscope. Finally, I removed the umbilical port site and closed the fascia with Vicryl stitches. Sites were irrigated, and the skin was closed with subcuticular stitches. Bandages were applied, patient was awakened from anesthesia, and transferred to the recovery unit.
[2022-10-31] VITALS (12 sets, daily range): BP systolic 96–146; BP diastolic 41–76; PULSE 48–77; RESP 14–21; TEMP 36.3–37.4; O2SAT 92–100; BMI 26.4
[2022-10-31 08:55] LABS: Source Nasal/Nares
[2022-10-31 09:27] LABS: COVID-19 PCR Negative (Negative)
[2022-10-31] MEDS: Acetaminophen 500 MG TAB 1000 MG PO (09:30)
[2022-10-31] MEDS: Gabapentin 300 MG CAP 600 MG PO (09:31)
[2022-10-31] MEDS: Lactated Ringers 1,000 ML 80 ML IV (09:50)
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
[2022-10-31] MEDS: ceFAZolin 2 GM/50 ML BAG IVPB (11:43)
[2022-10-31] MEDS: Bupivacaine 0.25% Pres-Free 30 ML VIAL (12:14)
--- NOTE | 2022-10-31 13:27 | GB_PTH ---
PATIENT: Rachel Celis LOC: U#:[id number] AGE/SX: 82/F ROOM: RE10/31/[address]: Nick Nagy MD : [id number] BED: A DIS: 11/01/2022 SPEC #: [id number] RECD: 10/31/22 16:58 STATUS: ROGERS REQ #: [id number] YANG: 10/31/22 13:[address]: Nick Nagy DEPT: Surgical Specimen RECD BY: Yesenia Barbosa ENTERED: 10/31/22 16:58 SP TYPE: GB OTHR DR: Nancy La DO Tissues: 1 - GALLBLADDER Procedures: GROSS AND MICRO LEVEL 3 Comments: [id number]
[2022-10-31] MEDS: fentaNYL 100 MCG/2 ML VIAL IVP ×2 (14:08→14:52)
--- NOTE | 2022-10-31 14:20 | W.ANESPOSTOP ---
Postoperative Evaluation Date, Time and Location Date Performed: 10/31/22 Time Performed: 14:20 Patient Location: PACU Vital Signs Most Recent Imported Vital Signs: Most Recent Vital Signs Temp Pulse Resp BP Pulse Ox 36.4 C L 56 L 14 110/45 L 96 10/31/22 14:10 10/31/22 14:10 10/31/22 14:10 10/31/22 14:10 10/31/22 14:10 Pain Score Most Recent Pain Score: Most Recent Pain Score Pain Level 0 10/31/22 09:15 Assessment Mental Status: Awake (Alert & Oriented to Patient Baseline) Airway and Respiratory Function: Patent airway with normal (patient baseline) respiratory exam Cardiovascular Function: Hemodynamically Stable Hydration Status: Adequately Hydrated Nausea & Vomiting: No Nausea or Vomiting Pain: Pain is Moderate or Severe Postoperative Pain Management: Pain being addressed with medication Peripheral Nerve Block: Patient did not receive a nerve block
[2022-10-31] MEDS: MORPHine 2 MG/ML SYR IVP ×2 (16:03→17:02)
[2022-10-31] MEDS: Benzonatate 100 MG CAP PO (16:09)
[2022-10-31 16:41] LABS: HCT 33.9 % (36.0-46.0); MCH 27.8 pg (27.0-33.0); MCHC 32.4 % (32.0-36.0); MCV 86 fL (80-95); MPV 10.5 fL (8.0-11.0); Platelet Count 181 10^3/uL (130-400); RBC 3.95 10^6/uL (3.93-5.22); RDW 15.5 % (11.7-14.6); RDW-SD 48.2 fL; WBC 5.86 10^3/uL (4.4-10.8)
[2022-10-31] MEDS: Lactated Ringers 1,000 ML 75 ML IV (17:01)
[2022-10-31] MEDS: traMADol 50 MG TAB PO (18:26)
[2022-10-31] MEDS: Cholestyramine/Aspartame PKT 1 EACH PO (18:27)
[2022-10-31] MEDS: Gabapentin 300 MG CAP PO (19:24)
[2022-10-31] MEDS: Heparin 5,000 UNITS/ML VIAL 5000 UNITS SC (19:25)
[2022-10-31] MEDS: Sucralfate 1 GM TAB PO (21:19)
[2022-10-31] MEDS: Acetaminophen 325 MG TAB 650 MG PO (23:45)
[2022-11-01] MEDS: Dexlansoprazole 30 MG CAP PO (07:52)
[2022-11-01] MEDS: Aspirin E.C. 81 MG TABEC PO (07:52)
[2022-11-01] MEDS: Lactobacillus Acidophilus CAP 1 CAP PO (07:53)
[2022-11-01] MEDS: Psyllium PKT 1 EACH PO (07:53)
[2022-11-01] MEDS: Lisinopril 10 MG TAB PO (07:54)
[2022-11-01] MEDS: Heparin 5,000 UNITS/ML VIAL 5000 UNITS SC (07:59)
[2022-11-01 08:07] VITALS: BP 102/50; PULSE 54; RESP 16; TEMP 37.1; O2SAT 94
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
[2022-11-01] MEDS: Acetaminophen 325 MG TAB 650 MG PO (11:09)
[2022-11-01] MEDS: Cholestyramine/Aspartame PKT 1 EACH PO (11:10)
--- NOTE | 2022-11-01 12:05 | W.PM.PROGNOT ---
Date of Service Date of service: 11/01/22 Time of Service: 08:00 Assessment and Plan Assessment and plan (1) Gallstones: Status: Acute (2) Biliary colic: Status: Acute Assessment and plan: POD #1 s/p laparoscopic cholecystectomy Pain is well controlled. Sore with coughing Ambulating in her room Tolerating regular diet D/C home later today She looks great. Her abdomen is soft and appropriately tender. Bandages are clean and dry. Subjective Subjective Interval history since last seen: Aminata states that she feels well this morning, with abdominal soreness. She states this increases with coughing. She states that she has been ambulating in her room without any difficulty. Exam Const General: cooperative, healthy appearing and comfortable Orientation: alert and oriented x3 Resp Effort & Inspection: normal respiratory effort, no audible wheezes and no cough GI Inspection: normal to inspection and incision (dressings in place) Palpation: soft, no guarding and tender Objective Last Vital Signs Temp 37.1 C 11/01/22 08:07 Pulse 54 L 11/01/22 08:07 Resp 16 11/01/22 08:07 BP 102/50 L 11/01/22 08:07 Pulse Ox 94 11/01/22 08:07 Laboratory Results - last 24 hr 10/31/22 16:25 WBC 5.86 RBC 3.95 Hgb 11.0 L Hct 33.9 L MCV 86 MCH 27.8 MCHC 32.4 RDW 15.5 H Plt Count 181 MPV 10.5 Time Spent with Patient Time Spent with Patient: <25 minutes Time was spent: preparing to see the patient(eg.review tests) and counseling the patient
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
--- NOTE | 2022-11-01 13:23 | PDOC.CMDIS ---
- If Service Date Differs Date of service: 11/01/22 Time of Service: 13:23 LACE Index Scoring Tool - Questions: Length of Stay (in days): 1 Acuity (Admit via E.D.?): No Comorbidities: Previous M.I., PVD, Chronic Pulmonary Disease, Liver or Renal Disease E.D. Visits: 1 - Answers: Total Score: 7 Risk of Readmission: Low Risk Care Management Discharge Reason for Hospitalization: biliary colic Discharge Plan: Aminata will discharge home with no new services. She will follow up with her surgeon and plan of care as prescribed and transport with one of her son's caregivers. Patient/Family Education Needs: Review of dsicharge instructions, activity, limitations, follow up plan, Ask Me Three
--- NOTE | 2022-11-01 14:20 | CHAPLAIN ---
Aminata was resting in bed when visited this morning. She expected to be, and was discharged this afternoon. Aminata lives in [place] and takes care of her disabled son, with some outside help. 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 Since hasn't attended in many years, she said, because her son requires 24/7 care. During she began attending a [facility] synag[facility] remotely and really enjoys that. Aminata told me her gall bladder was removed because she's had debilitating pain for several months and if having her gall bladder removed doesn't improver her pain leve, Aminata said they'll take out another organ until my pain is gone.
== END 2022-11-01 13:35 | disposition home or self-care (01) | DRG 419 ==
LOC: PDS 10:46 → MS 15:20 → PDS 11-04 09:29 → MS 11-04 09:29
PROVIDERS: Admitting Provider Surgery; PCP Student in an Organized Health Care Education/Training Program; Visit Provider Surgery
PROC: 0FT44ZZ Resection of Gallbladder, Percutaneous Endoscopic Approach (ICD-10-PCS; CPT 47562; principal; 2022-10-31 10:45)
DX: K80.20 Calculus of gallbladder without cholecystitis without obstruction (principal); R11.2 Nausea with vomiting, unspecified; K66.0 Peritoneal adhesions (postprocedural) (postinfection); K82.8 Other specified diseases of gallbladder; J44.9 Chronic obstructive pulmonary disease, unspecified; I25.2 Old myocardial infarction; I25.118 Atherosclerotic heart disease of native coronary artery with other forms of angina pectoris; H90.3 Sensorineural hearing loss, bilateral; Z90.49 Acquired absence of other specified parts of digestive tract; Z86.010 Personal history of colon polyps; Z87.891 Personal history of nicotine dependence
CPT/HCPCS: 47562; 44180; 85027; 87635; 94640; 96365; 96372; 96375; 96376; 88304; 94664; J0690; J1644; J2250; J2270; J2370; J2405; J2704; J3010; J3475; J3490

== ENCOUNTER → 2022-11-18 12:52 | Outpatient (BNVA) | payer OTHER, SELFPAY | PROVIDERS: PCP Student in an Organized Health Care Education/Training Program; Referring Provider Student in an Organized Health Care Education/Training Program; Visit Provider Surgery | DX: Z48.815 Encounter for surgical aftercare following surgery on the digestive system (principal); Z90.49 Acquired absence of other specified parts of digestive tract ==

== ENCOUNTER 2023-01-20 00:55 | Outpatient (CLI) | payer OTHER, SELFPAY ==
--- NOTE | 2023-01-20 06:00 | ETT_ITS ---
APPROVED REPORT Exam: Exercise Treadmill Patient Location: Out-Patient Room/Bed: Stress Nurse: Cristy Boswell RN Ordering Provider:PILAR GOODWIN, Contact Number: [phone] BMI: 29.14 Baseline Rhythm: Sinus Bradycardia Indications: atypical chest pain Medical History Medical History: Anemia, CAD, CP w/ breathing, CARMICHAEL, GI bleed, fatigue, IA, HTN, mild cognitive impair ment, RLS, PVD, former smoker, COPD, anxiety, neuropathy, CKD, neck pain Cardiac Medications: Atenolol, ASA, lisinopril, furosemide, theophylline, sucralcfate, nitroglycerin, deylansoprazole, cholestyramine, Breztri, tramadol, alprazolam, albuterol Allergies: Epinephrine, sulfa, chantix, lactose, TD Vaccine Cardiac Risk Factors: PVD, CVD, COPD, HTN, former Smoker Previous Cardiac Procedures: Previous IA, no intervention (left AMA before intervention) Pretest Chest Pain Characteristics: None Exercise History: Reports weekly tennis and daily saadia and walking Physical Disabilities: Back, Hips Lung Sounds: Clear to auscultation Heart Sounds: Regular Stress Test Details Test: Exercise stress testing was performed using a José protocol. Rest Stress HR Resting HR Supine: 50 bpm Max Heart Rate (APMHR): 140 bpm Resting HR Standin bpm Target HR (85% APMHR): 119 bpm Max HR Achieved: 88 bpm % of APMHR: 63 Recovery HR: 50 bpm HR response to stress: Normal HR response to stress BP Resting BP Supine: 132/68 mmHg Resting BP Standin/70 mmHg Max BP: 150/78 mmHg Recovery BP: 150/78 mmHg BP response to stress: Normal blood pressure response to stress. ECG Resting ECG: Sinus Bradycardia Ectopy: None Stress ECG: Sinus Rhythm ST Change: No significant ST segment changes noted Arrhythmia: None Recovery ECG: Sinus Bradycardia Recovery ST Change: No significant ST segment changes noted Recovery Arrhythmia: None Clinical Reason for Termination: Fatigue Stress Symptoms: Dyspnea Exercise duration: 2 min10 sec Highest Stage Reached: Stage 1: 1.7 mph at 10% grade. Exercise capacity: 4.64 METs Functional Capacity: Moderately diminished capacity Angina Score: None Mcduffie Treadmill Score: 1.5 Rate Pressure Product: [id number] Stress ECG Conclusion 1. Resting electrocardiogram was within normal limits 2. Patient exercised on the José protocol and completed a workload of 4.64 METS, limited by fatigue and shortness of breath 3. Peak heart rate achieved was 63% of predicted for age 4. The electrocardiographic portion of the test was nondiagnostic due to inadequate heart rate 5. There were no dysrhythmias Mcduffie Treadmill Score is 1.5 which is Moderate risk. Stress Test Summary STAGE Time (mins) Speed (mph) Grade (%) HR BP SpO2 SYMPTOMS METS Supine 50 132/68 97 Standing 63 124/70 97 1 min recovery 73 124/68 97 CARMICHAEL 3 min recovery 62 144/72 97 CARMICHAEL resolved 6 min recovery 50 150/78 99 Rachel was unable to reach THR during this test. Difficulty with hearing, hip and back pain, and pa tient safety were reasons for cessation. She become CARMICHAEL which resolved quickly after cessation. No si gnificant ST changes noted during exercise however much artifact is present from continuous position changes from patient on treadmill including trying to tripod while treadmill still moving-hence stopp ing test.
== END 2023-01-20 01:15 ==
LOC: DI 00:55
PROVIDERS: PCP Student in an Organized Health Care Education/Training Program; Visit Provider Student in an Organized Health Care Education/Training Program
DX: R07.89 Other chest pain (principal)
CPT/HCPCS: 93016; 93018; 93017

== ENCOUNTER 2023-05-19 08:51 | Emergency (ER) | payer OTHER, SELFPAY ==
[2023-05-19 08:54] VITALS: BP 126/76; PULSE 69; RESP 20; TEMP 36.7; O2SAT 98
--- NOTE | 2023-05-19 09:15 | DI.CT_ITS ---
Exam(s) CT HEAD CERVICAL SPINE WO EXAM: CT HEAD CERVICAL SPINE WO CLINICAL HISTORY: fall yesterday, STAPLES, upper neck pain. TECHNIQUE: Imaging Protocol: Axial computed tomography images with coronal and sagittal reformatted images were created and reviewed COMPARISON: CT CT HEAD WO from 04/14/2020 FINDINGS: BRAIN: There are no skull fractures nor fluid in the visualized paranasal sinuses. There is no evidence of intracranial hemorrhage, mass effect, or shift of midline structures. There are no extra-axial fluid collections. The ventricles are not enlarged or shifted and there is no blo od within the ventricular system nor within the basal cisterns. There is some periventricular hypodensity consistent with chronic small vessel disease again noted. No evidence of acute territorial infarct. CERVICAL SPINE: There is no evidence of fracture nor listhesis. No significant prevertebral soft tissue swelling. Multilevel chronic disc space narrowing. Multilevel facet arthropathy and there is fusion across the left-sided facet joints at C2 and C3. No facet malalignment. There is no significant facet joint malalignment. No significant osseous lesions evident. IMPRESSION: No acute intracranial findings on this noninfused CT scan of the brain. No evidence of cervical spine fracture, malalignment, nor acute compromise of the cervical spinal can al. Multilevel degenerative changes. Called by myself to ER. RADIATION DOSE DELIVERED: 1,268.12mGy.cm Total DLP DATA REPOSITORY: All CT scans at this facility are submitted to the National Radiology Data Registry (NRDR) Dose Index Registry (DIR) with the [employer] ([employer]). RADIATION OPTIMIZATION: All CT scans at this facility use at least one of these dose optimization te chniques: automated exposure control; mA and/or kV adjustment per patient size (includes targeted exa ms where dose is matched to clinical indication); or iterative reconstruction.
--- NOTE | 2023-05-19 09:27 | ED.GENADUL_ITS ---
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 Blood Pressure 126/76 05/19/23 08:54 Blood Pressure Position Sitting 05/19/23 08:54 Pulse Oximetry 98 05/19/23 08:54 Oxygen Delivery Method Room Air 05/19/23 08:54 Oxygen Flow Rate 0 05/19/23 08:54 Pain Level 4 05/19/23 08:54
--- NOTE | 2023-05-19 10:13 | DI.RAD_ITS ---
Exam(s) XR KNEE RT 4V AP,LAT,CARIN,PAT EXAM: XR KNEE RT 4V AP,LAT,CARIN,PAT CLINICAL HISTORY: fall, pain. TECHNIQUE: 2D digital imaging was performed. COMPARISON: CR LEFT KNEE 3 VIEW COMPLETE from 03/29/2011 FINDINGS: Four views There is no evidence of fracture nor obvious joint effusion. There are minimal degenerative changes. No osteophytes. No prominent joint space narrowing. Bone density is age-appropriate. Patella unr emarkable. IMPRESSION: No significant osseous findings in the right knee. DATA REPOSITORY: RADIATION DOSE DELIVERED:
--- NOTE | 2023-05-19 10:13 | DI.RAD_ITS ---
Exam(s) XR FEMUR RT EXAM: XR FEMUR RT CLINICAL HISTORY: fall, pain. TECHNIQUE: 2D digital imaging was performed. COMPARISON: CR XR TIB/FIB RT from 06/12/2021 FINDINGS: Two views No evidence of femur and hip fracture. Bone density age-appropriate. No osseous lesions. No hip francisco int space narrowing. IMPRESSION: No significant osseous findings in the right femur. DATA REPOSITORY: RADIATION DOSE DELIVERED:
--- NOTE | 2023-05-19 10:13 | DI.RAD_ITS ---
Exam(s) XR PELVIS AP EXAM: XR PELVIS AP CLINICAL HISTORY: fall pain rt hip. TECHNIQUE: 2D digital imaging was performed. COMPARISON: CR XR HIP LT COMPLETE AP PELVIS from 11/17/2020 FINDINGS: Single AP view. No evidence of pelvic nor hip fracture. Bone density normal. No osseous lesions. IMPRESSION: No fractures evident DATA REPOSITORY: RADIATION DOSE DELIVERED:
== END 2023-05-19 11:35 | disposition home or self-care (01) ==
PROVIDERS: Emergency Provider Student in an Organized Health Care Education/Training Program; PCP Student in an Organized Health Care Education/Training Program
DX: M25.561 Pain in right knee (principal); M25.551 Pain in right hip; S06.0XAA Concussion with loss of consciousness status unknown, initial encounter; S70.01XA Contusion of right hip, initial encounter; S81.811A Laceration without foreign body, right lower leg, initial encounter; W19.XXXA Unspecified fall, initial encounter
CPT/HCPCS: 73552; 99284; 70450; 72125; 72170; 73564

== ENCOUNTER → 2023-06-20 08:33 | Outpatient (BNVA) | payer OTHER, SELFPAY | PROVIDERS: PCP Student in an Organized Health Care Education/Training Program; Referring Provider Student in an Organized Health Care Education/Training Program; Visit Provider Student in an Organized Health Care Education/Training Program | DX: J43.2 Centrilobular emphysema (principal); Z79.51 Long term (current) use of inhaled steroids; Z79.899 Other long term (current) drug therapy | CPT/HCPCS: 99214 ==

== ENCOUNTER → 2023-06-20 13:58 | Outpatient (CLI) | payer OTHER, SELFPAY ==
--- NOTE | 2023-06-20 11:30 | DI.RAD_ITS ---
Exam(s) XR WRIST LT COMP NAVICULAR EXAM: XR WRIST LT COMP NAVICULAR CLINICAL HISTORY: r/o Fx, avulsion, scaphoid injury, pain, injury, M25.532, S69.92XA. TECHNIQUE: 2D digital imaging was performed. Three views. COMPARISON: No exams were available for comparison FINDINGS: BONES: No acute fracture is present. No bony destructive lesion is seen. JOINTS: The carpal bones are normally aligned. Minimal degenerative changes. SOFT TISSUE: Normal. IMPRESSION: Unremarkable radiographs of the left wrist. DATA REPOSITORY: RADIATION DOSE DELIVERED:
--- NOTE | 2023-06-20 11:30 | DI.RAD_ITS ---
Exam(s) XR ABDOMEN FLAT UPRIGHT EXAM: 2D digital imaging was performed. CLINICAL HISTORY: confirm bloating; r/o constipation, abd pain, R10.9, R14.0, D64.9, anemia. COMPARISON: CT CT ABDOMEN PELVIS W from 10/25/2022 TECHNIQUE: Supine and upright views of the abdomen were performed. FINDINGS: BOWEL GAS PATTERN: Nondistended.No free air. Suture material right low pelvis. Normal quantity of f ecal material. CALCIFICATIONS: No urinary tract calcifications. OSSEOUS STRUCTURES: Severe degenerative changes and scoliosis. Visualized portions of chest: Unremarkable. Elongated right lobe of the liver can noted. IMPRESSION: 1. Nonobstructive bowel gas pattern. Normal quantity fecal material. 2. No radiopaque calculi. 3. No free air. DATA REPOSITORY: RADIATION DOSE DELIVERED:
== END ==
PROVIDERS: PCP Student in an Organized Health Care Education/Training Program; Visit Provider Student in an Organized Health Care Education/Training Program
DX: D64.9 Anemia, unspecified (principal); R10.9 Unspecified abdominal pain; R14.0 Abdominal distension (gaseous); M25.532 Pain in left wrist; S69.92XA Unspecified injury of left wrist, hand and finger(s), initial encounter; X58.XXXA Exposure to other specified factors, initial encounter
CPT/HCPCS: 73110; 74019

== ENCOUNTER 2023-06-20 14:57 | Outpatient (CLI) | payer OTHER, SELFPAY ==
[2023-06-20 11:23] LABS: Absolute Basophil Count 0.04 10^3/uL (0.0-0.2); Absolute Eosinophil Count 0.05 10^3/uL (0.0-0.7); Absolute Lymphocyte Count 1.29 10^3/uL (1.2-3.4); Absolute Monocyte Count 0.34 10^3/uL (0.1-0.8); Absolute Neutrophil Count 1.79 10^3/uL (1.2-6.7); Basophils % 1.1; Eosinophils % 1.4; HCT 34.1 % (36.0-46.0); HGB 10.8 g/dL (11.2-15.7); Lymphocytes % 36.8; MCH 27.2 pg (27.0-33.0); MCHC 31.7 % (32.0-36.0); MCV 86 fL (80-95); MPV 10.4 fL (8.0-11.0); Monocytes % 9.7; Platelet Count 165 10^3/uL (130-400); RBC 3.97 10^6/uL (3.93-5.22); RDW 14.8 % (11.7-14.6); RDW-SD 46.8 fL; WBC 3.51 10^3/uL (4.4-10.8)
[2023-06-20 11:37] LABS: PTT Activated 25.7 sec (23.6-32.8); Prothrombin Time 9.9 sec (9.1-11.1)
[2023-06-20 11:40] LABS: ALT 13 U/L (14-59); AST 18 U/L (15-37); Albumin 3.7 g/dL (3.4-5.0); Alkaline Phosphatase 98 U/L (46-116); Anion Gap 5.8 mmol/L (3-11); BUN 25 mg/dL (7-18); Bilirubin, Direct 0.1 mg/dL (0.0-0.2); Bilirubin, Total 0.5 mg/dL (0.2-1.0); CO2 28.2 mmol/L (21.0-32.0); CREATININE 1.2 mg/dL (0.55-1.02); Calcium 9.7 mg/dL (8.5-10.1); Chloride 103 mmol/L (98-107); Estimated GFR 45.48 (mL/min/1.73m2); Glucose 90 mg/dL (74-106); Magnesium 2.4 mg/dL (1.8-2.4); Potassium 3.8 mmol/L (3.5-5.1); Sodium 137 mmol/L (136-145)
[2023-06-20 11:51] LABS: NT-proBNP 197 pg/mL (<300)
[2023-06-20 12:26] LABS: Iron 28 ug/dL (50-170); Total Iron Binding Capacity 430 ug/dL (250-450); Transferrin Sat 7 % (15-50)
[2023-06-20 12:49] LABS: Vitamin D 25 Total 18.4 ng/mL (30-100)
== END 2023-06-20 14:58 | disposition home or self-care (01) ==
LOC: LBO 15:00
PROVIDERS: PCP Student in an Organized Health Care Education/Training Program; Visit Provider Student in an Organized Health Care Education/Training Program
DX: I10 Essential (primary) hypertension (principal); R06.02 Shortness of breath; I87.2 Venous insufficiency (chronic) (peripheral); R10.84 Generalized abdominal pain; K59.1 Functional diarrhea; N17.9 Acute kidney failure, unspecified
CPT/HCPCS: 36415; 80048; 80076; 82306; 83540; 83550; 83735; 83880; 85025; 85610; 85730

== ENCOUNTER 2023-06-26 02:39 | Outpatient (CLI) | payer OTHER, SELFPAY ==
[2023-06-26] MEDS: Inhaler, Assist Device 1 EACH MC (09:33)
[2023-06-26] MEDS: Levalbuterol HFA 15 GM INH 4 PUFF IH (09:33)
--- NOTE | 2023-06-27 09:10 | W.PFT ---
Date of service: 06/26/23 Time of Service: 08:13 Pulmonary Function Test Result Indications: COPD Interpretation Spirometry: There is no airflow limitation. There is no bronchodilator response. Lung Volumes: There is some air trapping Diffusion Capacity: Normal diffusion Airway Pressure: Normal airways resistance Impression Normal pulmonary function with some air trapping Clinical Correlation therefore is recommended.
== END 2023-06-26 02:40 | disposition home or self-care (01) ==
LOC: RT 02:39
PROVIDERS: PCP Student in an Organized Health Care Education/Training Program; Visit Provider Student in an Organized Health Care Education/Training Program
DX: J44.9 Chronic obstructive pulmonary disease, unspecified (principal)
CPT/HCPCS: 94060; 94726; 94729

== ENCOUNTER 2023-09-12 13:21 | Outpatient (CLI) | payer OTHER, SELFPAY ==
--- NOTE | 2023-09-12 13:15 | RT.EKG_ITS ---
APPROVED REPORT Exam: Resting ECG Reason for Exam: follow up Patient Location: O HR:61 bpm ECG Measurements Heart Rate 61 AXIS AL 210 P -39 QRSd 94 QRS -26 QT 425 T 15 QTc 428 Conclusion Sinus rhythm...normal P axis, V-rate 50- 99 Inferior infarct, old...Q >35mS, II III aVF Consider anterior infarct...Q >30mS in V2-V5 POOR R-WAVE PROGRESSION I have reviewed and interpreted ECG and agree with software generated interpretation.
== END 2023-09-12 13:22 | disposition home or self-care (01) ==
LOC: DI.CARD 13:23
PROVIDERS: PCP Student in an Organized Health Care Education/Training Program; Referring Provider Student in an Organized Health Care Education/Training Program; Visit Provider Internal Medicine Interventional Cardiology
DX: I25.10 Atherosclerotic heart disease of native coronary artery without angina pectoris (principal)
CPT/HCPCS: 93010

== ENCOUNTER → 2023-09-12 13:21 | Outpatient (BNVA) | payer OTHER, SELFPAY | PROVIDERS: PCP Student in an Organized Health Care Education/Training Program; Referring Provider Student in an Organized Health Care Education/Training Program; Visit Provider Internal Medicine Interventional Cardiology | DX: Z01.810 Encounter for preprocedural cardiovascular examination (principal); I10 Essential (primary) hypertension; K62.3 Rectal prolapse; I25.10 Atherosclerotic heart disease of native coronary artery without angina pectoris | CPT/HCPCS: 93005; 99213 ==

== ENCOUNTER → 2023-09-22 08:54 | Outpatient (BNVA) | payer OTHER, SELFPAY | PROVIDERS: PCP Student in an Organized Health Care Education/Training Program; Referring Provider Student in an Organized Health Care Education/Training Program; Visit Provider Physician Assistant Surgical | DX: J43.2 Centrilobular emphysema (principal) | CPT/HCPCS: 99214 ==

== ENCOUNTER → 2023-12-29 01:39 | Outpatient (CLI) | payer OTHER, SELFPAY ==
[2023-12-29 13:18] LABS: HGB 9.7 g/dL (11.2-15.7)
[2023-12-29 13:32] LABS: Anion Gap 7.5 mmol/L (3-11); BUN 25 mg/dL (7-18); CO2 26.5 mmol/L (21.0-32.0); CREATININE 1.2 mg/dL (0.55-1.02); Calcium 9.1 mg/dL (8.5-10.1); Chloride 107 mmol/L (98-107); Estimated GFR 45.48 (mL/min/1.73m2); Glucose 91 mg/dL (74-106); Potassium 4.6 mmol/L (3.5-5.1); Sodium 141 mmol/L (136-145)
[2023-12-29 13:45] LABS: NT-proBNP 349 pg/mL (<300)
--- NOTE | 2023-12-29 14:14 | DI.CT_ITS ---
Exam(s) CT ABDOMEN PELVIS W EXAM: CT ABDOMEN PELVIS W CLINICAL HISTORY: eval intestine;? ileus,mesenteric ischemia,abd pain,postprandial diarrhea, TECHNIQUE: Imaging Protocol: Axial computed tomography images with coronal and sagittal reformatted images were created and reviewed. CONTRAST MATERIAL: Intravenous: Omnipaque 350 Contrast volume:120 mL Oral: No COMPARISON: CT CT ABDOMEN PELVIS W from 09/27/[address] ABDOMEN PELVIS W from 10/25/2022 FINDINGS: ABDOMEN: Lung Bases: Calcified granuloma in the right lower lobe. Stable area of scarring in the medial aspec t of the right lower lobe. Liver: Normal density. No measurable mass. Portal, Superior Mesenteric, and Splenic Veins: Unremarkable. Gallbladder and Biliary Tract: Since the prior examination the patient has undergone a cholecystectom y. The common duct measures 0.7 cm which is stable. Pancreas: Normal density, no abnormal calcifications or inflammatory process. Spleen: Normal. Adrenals: No masses seen. Kidneys: Normal size, contour and axis. No radiodense stones or obstructive uropathy. No masses seen. Abdominal Aorta: Abdominal portion non-dilated. Atherosclerotic calcification is present. Bowel: No obstruction or bowel wall thickening. Postsurgical changes are seen in the right lower quad rant. The anastomosis appears grossly unremarkable. No evidence of appendicitis. The stomach is in completely distended but grossly unremarkable. Peritoneal Cavity: No ascites, collection or mesenteric inflammatory response. No free air. Lymph Nodes: Within normal limits. Bones: Within normal limits for the patient's age. Soft Tissues: Small fat containing inguinal hernias are seen. PELVIS: Bladder: Symmetric distention, no gross wall thickening. Reproductive Organs: Status post hysterectomy. Lymph Nodes: Within normal limits. Bones: Within normal limits for the patient's age. IMPRESSION: 1. The superior mesenteric artery and veins are patent. 2. No evidence of bowel wall thickening or pneumatosis. 3. Stable findings in the lung bases. 4. Status post cholecystectomy. RADIATION DOSE DELIVERED: 1,474.55mGy.cm Total DLP DATA REPOSITORY: All CT scans at this facility are submitted to the National Radiology Data Registry (NRDR) Dose Index Registry (DIR) with the [employer] ([employer]). RADIATION OPTIMIZATION: All CT scans at this facility use at least one of these dose optimization te chniques: automated exposure control; mA and/or kV adjustment per patient size (includes targeted exa ms where dose is matched to clinical indication); or iterative reconstruction.
[2023-12-29] MEDS: Normal Saline - Diluent 50 ML VIAL IJ (14:21)
[2023-12-29] MEDS: Omnipaque 350 MG/ML 100 ML BTL IJ (14:22)
== END ==
PROVIDERS: PCP Student in an Organized Health Care Education/Training Program; Visit Provider Student in an Organized Health Care Education/Training Program
DX: N17.9 Acute kidney failure, unspecified; I87.2 Venous insufficiency (chronic) (peripheral); R19.4 Change in bowel habit; R10.84 Generalized abdominal pain; K52.9 Noninfective gastroenteritis and colitis, unspecified; Z98.890 Other specified postprocedural states
CPT/HCPCS: 80048; 74177; 83880; 85018; J3490

== ENCOUNTER → 2024-01-01 08:29 | Outpatient (BNVA) | payer OTHER, SELFPAY | PROVIDERS: PCP Student in an Organized Health Care Education/Training Program; Referring Provider Student in an Organized Health Care Education/Training Program; Visit Provider Student in an Organized Health Care Education/Training Program | DX: J43.2 Centrilobular emphysema (principal) | CPT/HCPCS: 99443 ==

== ENCOUNTER → 2024-06-30 08:46 | Outpatient (BNVA) | payer OTHER, SELFPAY | PROVIDERS: PCP Student in an Organized Health Care Education/Training Program; Referring Provider Student in an Organized Health Care Education/Training Program; Visit Provider Physician Assistant Surgical | DX: J43.2 Centrilobular emphysema (principal) | CPT/HCPCS: 99214 ==

== ENCOUNTER 2024-06-30 11:41 | Outpatient (CLI) | payer OTHER, SELFPAY ==
[2024-06-30 10:19] LABS: Abs Immature Grans 0.01 10^3/uL (0.0-0.06); Absolute Basophil Count 0.04 10^3/uL (0.0-0.2); Absolute Eosinophil Count 0.14 10^3/uL (0.0-0.7); Absolute Lymphocyte Count 1.38 10^3/uL (1.2-3.4); Basophils % 0.9 %; Eosinophils % 3.3 %; HCT 34.7 % (36.0-46.0); HGB 10.7 g/dL (11.2-15.7); Immature Grans % 0.2 %; Lymphocytes % 32.3 %; MCH 28.8 pg (27.0-33.0); MCHC 30.8 % (32.0-36.0); MCV 94 fL (80-95); MPV 10.8 fL (8.0-11.0); Neutrophils % 56.3 %; Platelet Count 193 10^3/uL (130-400); RBC 3.71 10^6/uL (3.93-5.22); RDW-SD 58.8 fL; Reticulocyte 1.5 % (0.5-2.4); WBC 4.27 10^3/uL (4.4-10.8)
[2024-06-30 10:53] LABS: Folate 3.3 ng/mL (8.6-20.0)
[2024-06-30 11:02] LABS: ALT 14 U/L (14-59); AST 14 U/L (15-37); Albumin 3.8 g/dL (3.4-5.0); Alkaline Phosphatase 87 U/L (46-116); Anion Gap 6.5 mmol/L (3-11); BUN 38 mg/dL (7-18); Bilirubin, Total 0.34 mg/dL (0.2-1.0); CO2 27.5 mmol/L (21.0-32.0); CREATININE 2.4 mg/dL (0.55-1.02); Calcium 9.5 mg/dL (8.5-10.1); Chloride 105 mmol/L (98-107); Estimated GFR 19.67 (mL/min/1.73m2); Ferritin 14 ng/mL (8-252); Glucose 91 mg/dL (74-106); Potassium 5.4 mmol/L (3.5-5.1); Sodium 139 mmol/L (136-145); Total Protein 7.3 g/dL (6.4-8.2); Vitamin B12 136 pg/mL (193-986); Vitamin D 25 Total 12.5 ng/mL (30-100)
[2024-06-30 11:19] LABS: Iron 29 ug/dL (50-170); Total Iron Binding Capacity 461 ug/dL (250-450); Transferrin Sat 6 % (15-50)
== END 2024-06-30 11:42 | disposition home or self-care (01) ==
LOC: LBO 11:42
PROVIDERS: PCP Student in an Organized Health Care Education/Training Program; Visit Provider Student in an Organized Health Care Education/Training Program
DX: D64.9 Anemia, unspecified (principal); R06.02 Shortness of breath; U09.9 Post COVID-19 condition, unspecified; D63.8 Anemia in other chronic diseases classified elsewhere; D51.9 Vitamin B12 deficiency anemia, unspecified; K90.9 Intestinal malabsorption, unspecified; R53.83 Other fatigue; T50.B95A Adverse effect of other viral vaccines, initial encounter; I10 Essential (primary) hypertension; N18.30 Chronic kidney disease, stage 3 unspecified
CPT/HCPCS: 36415; 80053; 82306; 82607; 82728; 82746; 83540; 83550; 85025; 85045

== ENCOUNTER → 2024-08-02 08:59 | Outpatient (BNVA) | payer OTHER, SELFPAY | PROVIDERS: PCP Student in an Organized Health Care Education/Training Program; Referring Provider Student in an Organized Health Care Education/Training Program; Visit Provider Surgery | DX: R19.7 Diarrhea, unspecified (principal); D50.0 Iron deficiency anemia secondary to blood loss (chronic); E46 Unspecified protein-calorie malnutrition; Z78.9 Other specified health status; Z98.890 Other specified postprocedural states | CPT/HCPCS: 99214 ==

== ENCOUNTER 2024-08-10 03:34 | Outpatient (CLI) | payer OTHER, SELFPAY ==
[2024-08-10 09:59] LABS: Abs Immature Grans 0.01 10^3/uL (0.0-0.06); Absolute Basophil Count 0.05 10^3/uL (0.0-0.2); Absolute Lymphocyte Count 1.22 10^3/uL (1.2-3.4); Absolute Monocyte Count 0.32 10^3/uL (0.1-0.8); Absolute Neutrophil Count 1.87 10^3/uL (1.2-6.7); Basophils % 1.3 %; HCT 32.8 % (36.0-46.0); HGB 10.4 g/dL (11.2-15.7); Immature Grans % 0.3 %; Lymphocytes % 32.4 %; MCH 29.5 pg (27.0-33.0); MCHC 31.7 % (32.0-36.0); MCV 93 fL (80-95); MPV 11.2 fL (8.0-11.0); Monocytes % 8.5 %; Neutrophils % 49.5 %; Platelet Count 162 10^3/uL (130-400); RBC 3.52 10^6/uL (3.93-5.22); RDW 18.3 % (11.7-14.6); RDW-SD 62.4 fL; WBC 3.77 10^3/uL (4.4-10.8)
[2024-08-10 10:24] LABS: Anion Gap 4.3 mmol/L (3-11); BUN 32 mg/dL (7-18); CO2 29.7 mmol/L (21.0-32.0); CREATININE 1.8 mg/dL (0.55-1.02); Calcium 9.3 mg/dL (8.5-10.1); Chloride 106 mmol/L (98-107); Estimated GFR 27.78 (mL/min/1.73m2); Glucose 103 mg/dL (74-106); Magnesium 2.1 mg/dL (1.8-2.4); PHOSPHORUS 4.4 mg/dL (2.6-4.7); Potassium 5.1 mmol/L (3.5-5.1); Sodium 140 mmol/L (136-145)
== END 2024-08-10 03:35 | disposition home or self-care (01) ==
LOC: LBO 03:34
PROVIDERS: PCP Student in an Organized Health Care Education/Training Program; Referring Provider Student in an Organized Health Care Education/Training Program; Visit Provider Student in an Organized Health Care Education/Training Program
DX: E46 Unspecified protein-calorie malnutrition (principal); N17.9 Acute kidney failure, unspecified; K52.9 Noninfective gastroenteritis and colitis, unspecified; R10.84 Generalized abdominal pain; R14.0 Abdominal distension (gaseous); R19.7 Diarrhea, unspecified; D64.9 Anemia, unspecified; Z91.89 Other specified personal risk factors, not elsewhere classified
CPT/HCPCS: 36415; 80048; 83735; 84100; 85025

== ENCOUNTER 2024-08-24 09:04 | Day surgery (SDC) | payer MEDICARE, SELFPAY ==
--- NOTE | 2024-08-23 19:34 | PDOC.DSDIS_ITS ---
Date of service: 08/24/24 Discharge Plan Disposition Patient Disposition: Home Condition: Good Discharge Details Reason For Visit: Port placement Attending Provider: Jolly Pa Primary Care Provider: Earle Olguin Home Meds and New Rx's Prescriptions: Continued Acidophilus Capsule 10 mg PO DAILY atenolol 50 mg tablet See Rx Instructions .ROUTE .COMPLEX Qty: 90 3RF Dose Instruction: TAKE ONE TABLET BY MOUTH EVERY DAY Rx Instructions: TAKE ONE TABLET BY MOUTH EVERY DAY gabapentin 300 mg capsule See Rx Instructions PO .COMPLEX Qty: 270 1RF Rx Instructions: orally 1 cap AM, 2 caps qHS; 300mg AM, and 600mg qHS hydromorphone 2 mg tablet See Rx Instructions PO DAILY MDD 2mg Qty: 20 0RF Rx Instructions: Continue with 1/2 tablet, with meal for post-prandial pain. May take 1/2 for severe pain qHS, but let PCP know. orally daily; tramadol 100 mg tablet extended release 24 hr 100 mg PO DAILY Qty: 30 2RF Rx Instructions: Trial for all-day pain mgmt INSTEAD of Tramadol 50mg BID albuterol sulfate 1.25 mg/3 mL solution for nebulization 1.25 mg inhalation QID PRN (Reason: shortness of breath or wheezing) Qty: 180 3RF Breztri Aerosphere 160-9-4.8 mcg/actuation HFA aerosol inhaler See Rx Instructions .ROUTE .COMPLEX Qty: 10.7 8RF Dose Instruction: INHALE TWO PUFFS BY MOUTH TWICE A DAY - DISCONTINUE STILOTO AND ADVAIR Rx Instructions: INHALE TWO PUFFS BY MOUTH TWICE A DAY - DISCONTINUE STILOTO AND ADVAIR high protein drinks 1 ea PO DAILY Qty: 90 1RF Rx Instructions: High Protein Intake Needed DYPTHERIA vaccine 1 ea IM ONCE Qty: 1 0RF Rx Instructions: Can you order DYPTHERIA vaccine for patient? Allergic to TETANUS psyllium husk [Fiber-Caps (psyllium husk)] 0.52 gram capsule 0.52 g PO TID Qty: 90 1RF Rx Instructions: DELIVER with other meds? Pls call patient (capsules or loose powder ok) Venofer 200 mg iron/10 mL solution 200 mg IV Q3D Rx Instructions: administer over 30 mins cholecalciferol (vitamin D3) 1,250 mcg (50,000 unit) capsule 1,250 mcg PO QWEEK Qty: 10 1RF Rx Instructions: START VITAMIN D - 1 caplet per WEEK x 10 weeks albuterol sulfate [ProAir HFA] 90 mcg/actuation HFA aerosol inhaler 2 puff inhalation Q6H PRN Qty: 1 3RF nitroglycerin 400 mcg/spray spray,non-aerosol 0.4 mg Translingual ONCE Qty: 9.6 6RF Patient Comments: pt. reports she used it friday/ early friday, after two sprays chest pain relieved Rx Instructions: Use once, may repeat in 10 minutes .. if chest pain continues, call 911 alprazolam 0.25 mg tablet 0.25 mg PO DAILY PRN (Reason: anxiety, angina) Qty: 30 1RF Patient Comments: pt. states it is for chest pain naloxone [Narcan] 4 mg/actuation spray,non-aerosol 1 spray intranasal Q2M Qty: 4 1RF Rx Instructions: spray 1 dose into ONE nostril; alternate nostrils w each dose until help arrives TWO PACKS PLEASE lisinopril 10 mg tablet 10 mg PO DAILY Qty: 90 3RF pantoprazole 40 mg tablet,delayed release (DR/EC) 40 mg PO DAILY Qty: 90 3RF Rx Instructions: Trial re-start as Dexilant was prohibitively expensive loperamide 2 mg capsule 2 mg PO DAILY MDD 3 caps PRN (Reason: loose stool) Qty: 90 0RF Rx Instructions: Up to 3/day per surgery theophylline 200 mg capsule,extended release 24hr 200 mg PO DAILY Qty: 30 3RF diphenoxylate-atropine [Lomotil] 2.5-0.025 mg tablet 2 tab PO Q6H PRN (Reason: diarrhea) Qty: 240 2RF Rx Instructions: Continue daily dose, per special instructions Metamucil Sugar-Free (aspart) 3.4 gram/5.8 gram Powder 1 ea PO BID Qty: 60 0RF acetaminophen [Tylenol] 325 mg tablet 500 mg PO Q6H PRN (Reason: Abdominal Discomfort) Qty: 100 0RF (DME) nebulizers Misc See Rx Instructions .ROUTE .MEDSUPPLY Qty: 1 0RF Rx Instructions: As directed ondansetron 4 mg tablet,disintegrating 4 mg PO Q8H PRN (Reason: nausea and vomiting) Qty: 20 0RF Held aspirin [Adult Aspirin Regimen] 81 mg tablet,delayed release (DR/EC) 81 mg PO DAILY Hold Instructions: Resume on 08/30/24. Discharge Instructions Additional Instructions: Wound Care Instruction Pain Control Use ice!? Ice keeps the swelling down and swelling is what causes pain.? Never apply ice directly to the skin.? Wrap it in a towel or cloth.? Apply ice 20 minutes on and 20 minutes off for pain control.? Use as needed. Take Tylenol 500 mg by mouth with food every 4 hours as needed for pain. Do not take Tylenol if you have a history of heavy drinking, hepatitis C or liver problems.? Always wash your hands before touching your incision. ? Keep the incision clean, dry, and out of water, keep the incision out of water. ? Do not to pick at the scabs. Scabs help protect the wound. ? You can take a shower in 24 hours and wash the incision with soap and water. Pat dry/don?t scrub. It?s OK to wash around the incision. But don?t spray water directly on it. ? Pat skin glue dry. This needs to stay in place for at least 10 days and will where off on it's own. ? Check the incision site daily for pain, redness, drainage, swelling, or separation of the incision edges. ? Make sure any clothing that touches the incision is loose-fitting. This will prevent rubbing. As your incision heals, the skin may appear pink or red. It may also feel slightly bumpy or raised. This is called a healing ridge. Over time, the color should fade and the raised skin will become less noticeable. -No lifting over 5#'s with left arm for 5 days. When to seek medical care Call your healthcare provider right away if you have any of these: ? More pain, redness, swelling, bleeding, or foul-smelling discharge around the incision area ? Fever of 101?F (38.3?C) or higher, or as directed by your child's healthcare provider ? Shaking chills ? Vomiting or nausea that doesn?t go away ? Numbness, coldness, or tingling around the incision area, or changes in skin color ? Opening of the wound ?[facility]: [phone] -F/u w/ infusion as directed. You do need to have your port flushed every 4 wks in Infusion Stand Alone Forms: Anesthesia Discharge Inst[facility] ([facility]) Referrals: Jolly Pa, [OSTEOPATHIC DOCTOR] - Activity:: see above Remove Dressings/Wound Care:: 24 hours Shower/Bathe:: 24 hours Diet:: As Tolerated Discharge Orders Discharge Orders: Discharge Order (Routine); Ordered 08/23/24 Ordered By: Jolly Pa DS: Diagnosis Discharge Diagnosis (1) Hypertension: Status: Chronic (2) CAD (coronary artery disease), [place] coronary artery: Status: Chronic (3) Varicose veins of both lower extremities: Status: Acute (4) Difficult intravenous access: Status: Acute Asessment and Plan: The patient is doing well post-op from their [] surgery.? They are having no nausea or vomiting. They are tolerating liquids and a snack. The pt is not having any chest pain or SOB.? Their pain is adequately controlled. They have been able to urinate.? ?HEENT:? no eye pain/drainage/redness/swelling. Mild sore throat ?Cardio- NSR, no chest pain, BP stable- see VS record ?Pulm: no sob or productive cough. No hemoptysis ?Incision- dressing is c/d/i w/ no excessive bleeding or drainage ?I discussed with the patient the findings at the time of surgery and the patient?s progress. ?We reviewed expectations at home; what the patient could expect for recovery time, and in the post-operative period.? We discussed the importance of walking to avoid blood clots and pneumonia.? We discussed and reviewed the patient's post-operative wound care and dressing needs.?? We reviewed their step-akers pain management plan, Rx called to the pharmacy of their choice.? We reviewed activity and limitations-see discharge instructions. We reviewed warning signs, and when to seek medical attention- see d/c instructions.?? Patient was given a postoperative follow-up appointment. Patient verbalized understanding of their postoperative instructions, how do to take care of themselves and their incision, and the pain management plan. Please see discharge instructions.? Postprocedure x-ray shows good positioning and no pneumothorax (5) Lack of intravenous access: Status: Acute (6) Malnutrition compromising bodily function: Status: Acute (7) Sensorineural hearing loss, bilateral: Status: Chronic (8) Diarrhea following gastrointestinal surgery: Status: Acute (9) Anorectal motility disorder: Status: Acute (10) Postprandial diarrhea: Status: Acute (11) Diarrhea, functional: Status: Acute (12) Abdominal bloating: Status: Acute (13) Vitamin B12 deficiency anemia, unspecified: Status: Acute (14) Anemia: Status: Chronic (15) Anemia of chronic disease: Status: Acute (16) Low serum iron: Status: Acute (17) CKD (chronic kidney disease) stage 3, GFR 30-59 ml/min: Status: Acute (18) CAD (coronary artery disease), [place] coronary artery: (19) COPD (chronic obstructive pulmonary disease): Status: Chronic (20) Stress due to illness of family member: Status: Acute (21) Hypoalbuminemia due to protein-calorie malnutrition: Status: Acute
--- NOTE | 2024-08-24 | DI.RAD_ITS ---
Exam(s) XR PORTABLE CHEST AP POST LINE EXAM: XR PORTABLE CHEST AP POST LINE CLINICAL HISTORY: s/p port placed TECHNIQUE: 2D digital imaging was performed of the chest. One image was obtained. An AP view was ob tained. COMPARISON: CR XR CHEST 2V PA LATERAL from 02/10/2020 RF LINE PLACEMENT OR from 08/24/2024 FINDINGS: There is poor inspiration. MEDIASTINUM: Normal. HEART: The heart appears at the upper limits of normal in size. PULMONARY VASCULATURE: Normal. LUNGS: Chronic parenchymal changes are seen but no focal consolidating infiltrate is present. PLEURAL SPACE: No pleural effusion or pneumothorax. BONE:Within normal limits for the patient's age. There is a left convex thoracic scoliosis. OTHER FINDINGS:There is a left port in place. The tip of the catheter probably lies near or just dis felice to the junction of the left brachiocephalic and left subclavian veins. IMPRESSION: There is a left port in place. The tip lies near or just distal to the junction of the left brachioc ephalic and left subclavian veins. There is no pneumothorax. DATA REPOSITORY: RADIATION DOSE DELIVERED:
[2024-08-24 09:25] VITALS: BP 133/52; PULSE 62; RESP 18; TEMP 36.4; O2SAT 97
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
[2024-08-24] MEDS: Gabapentin 300 MG CAP 600 MG PO (09:47)
[2024-08-24] MEDS: Acetaminophen 500 MG TAB 1000 MG PO (09:48)
[2024-08-24 09:49] VITALS: BMI 29.2
[2024-08-24] MEDS: Lactated Ringers 1,000 ML 80 ML IV (10:04)
[2024-08-24] MEDS: ceFAZolin 1 GM/50 ML BAG IVPB (10:14)
[2024-08-24] MEDS: Heparin 500 UNITS/5 ML SYRINGE (10:37)
[2024-08-24] MEDS: Bupivacaine 0.25% Pres-Free 30 ML VIAL (10:52)
--- NOTE | 2024-08-24 11:02 | DI.RAD_ITS ---
Exam(s) RF LINE PLACEMENT OR EXAM: RF LINE PLACEMENT OR CLINICAL HISTORY: Anemia, port placement TECHNIQUE: 2D and realtime digital imaging was performed. CONTRAST MATERIAL: Refer to procedure report. COMPARISON: No exams were available for comparison FINDINGS: Fluoroscopy was provided for Dr. Pa during the performance of a port placement. Please refer t o the procedure report for complete details. Ka,r=1.43 mGy IMPRESSION: RADIATION DOSE DELIVERED: 0.0 0.0 0
[2024-08-24 11:08] VITALS: BP 110/60; PULSE 54; RESP 16; TEMP 36.2; O2SAT 98
[2024-08-24 11:36] VITALS: BP 125/59; PULSE 54; RESP 16; TEMP 36.1; O2SAT 100
--- NOTE | 2024-08-24 12:49 | W.ANESPOSTOP ---
Postoperative Evaluation Date, Time and Location Date Performed: 08/24/24 Time Performed: 11:40 Patient Location: Day Surgery Unit Vital Signs Most Recent Imported Vital Signs: Most Recent Vital Signs Temp Pulse Resp BP Pulse Ox 36.1 C L 54 L 16 125/59 L 100 08/24/24 11:36 08/24/24 11:36 08/24/24 11:36 08/24/24 11:36 08/24/24 11:36 Pain Score Most Recent Pain Score: Most Recent Pain Score Pain Level 0 08/24/24 11:36 Assessment Mental Status: Awake (Alert & Oriented to Patient Baseline) Airway and Respiratory Function: Patent airway with normal (patient baseline) respiratory exam Cardiovascular Function: Hemodynamically Stable Hydration Status: Adequately Hydrated Nausea & Vomiting: No Nausea or Vomiting Pain: Pt. Denies Any Pain Peripheral Nerve Block: Patient did not receive a nerve block
--- NOTE | 2024-08-24 17:33 | ROE_ITS ---
Operative Note Operative Note PRE-OP DIAGNOSIS: Poor venous access/persistent iron deficiency anemia/nutritional deficits secondary to poor lifelong dietary choices POST-OP DIAGNOSIS: same PROCEDURE: Left subclavian PowerPort SURGEON: Jolly Pa ANESTHESIA TYPE: Local By Surgeon and General:No Airway Refer to Anesthesia Record ESTIMATED BLOOD LOSS: 5 PATHOLOGY: none sent COMPLICATIONS: None Patient was transported to: same day Patient's condition: stable Procedure Description: CONSENT:? ?Indications, risks, and benefits were explained at length.? Informed consent is obtained from the patient explaining the risk, benefits and alternatives to the procedure including but not limited to: bleeding/infection/ PTX/damage to vein/artery/nerve (requiring further surgery), reaction to anesthesia, thrombosis or infection requiring removal, scarring, and other untold complications ? PROCEDURE SUMMARY:? The patient is brought to the operative suite, and placed in the supine position.?? The patient is prepped and draped in the usual sterile fashion.? She did receive preOp antibiotic. ?A time out was performed. The patient was placed in Trendelenburg position. The left_ chest region was prepped using chlorhexidine scrub and draped in sterile fashion using a full drape and sterile probe cover employed.? Anesthesia was achieved with 30cc 1% lidocaine. The introducer needle was inserted approximately two centimeters lateral to and 1 cm inferior to the normal curvature of the patient's clavicle. Venous blood was withdrawn. The syringe was removed and a guidewire was advanced into the introducer needle. A small incision was made at the skin surface with a scalpel and the introducer needle was exchanged for a dilator and sheath over the guidewire.? Proper positioning was ensured w/ fluoroscopy.? ?After appropriate dilation was obtained, the dilator and guidewire are exchanged over the wire for a power port catheter.? The dilator and guidewire are removed.? Proper positioning is again assured by fluoroscopy.? The tear away sheath is than removed.? The incision is than extended w/ a #12 blade to create a 1? incision that encompasses the catheter.? I subcutaneous pocket is created using Metzenbaum scissors.? Electrocautery is used to provide hemostasis.? The catheter is attached to the hub and secured.?? The hub is sewn to the anterior chest wall using 2-0 prolene.? There is no bleeding at the time of closure.? The pocket is irrigated.? The catheter is accessed.? There is dark red venous return of blood.? The catheter is flushed w/ heparinized saline per protocol.? The incision is closed with 2-0 moncryl in two layers.? Steri tapes and sterile pressure dressings are applied. The patient tolerated the procedure without any hemodynamic compromise. ?Post- procedure chest x-ray is pending at this time. The patient tolerated the procedure well without complication and transferred to the recovery room in stable condition.? Date of Procedure: 08/24/24
== END 2024-08-24 13:02 | disposition home or self-care (01) ==
PROVIDERS: PCP Family Medicine; Visit Provider Surgery
PROC: (CPT 36561; principal; 2024-08-24 09:15)
DX: D50.9 Iron deficiency anemia, unspecified (principal); J44.9 Chronic obstructive pulmonary disease, unspecified; N18.30 Chronic kidney disease, stage 3 unspecified; E46 Unspecified protein-calorie malnutrition; I25.10 Atherosclerotic heart disease of native coronary artery without angina pectoris; Z68.29 Body mass index [BMI] 29.0-29.9, adult
CPT/HCPCS: 36561; 71045; 77001; C1788; J0665; J0690; J1642; J2405; J2704

== ENCOUNTER 2024-10-04 11:44 | Outpatient (CLI) | payer MEDICARE, SELFPAY ==
[2024-10-04 09:06] LABS: Abs Immature Grans 0.02 10^3/uL (0.0-0.06); Absolute Basophil Count 0.05 10^3/uL (0.0-0.2); Absolute Eosinophil Count 0.06 10^3/uL (0.0-0.7); Absolute Lymphocyte Count 0.77 10^3/uL (1.2-3.4); Absolute Monocyte Count 0.38 10^3/uL (0.1-0.8); Basophils % 1.1 %; Eosinophils % 1.3 %; HCT 33.6 % (36.0-46.0); HGB 10.5 g/dL (11.2-15.7); Immature Grans % 0.4 %; Lymphocytes % 17.2 %; MCH 29.8 pg (27.0-33.0); MCHC 31.3 % (32.0-36.0); MCV 96 fL (80-95); MPV 10.5 fL (8.0-11.0); Monocytes % 8.5 %; Neutrophils % 71.5 %; Platelet Count 202 10^3/uL (130-400); RBC 3.52 10^6/uL (3.93-5.22); RDW 17.9 % (11.7-14.6); RDW-SD 62.7 fL; WBC 4.48 10^3/uL (4.4-10.8)
[2024-10-04 09:36] LABS: Lipase 80 U/L (<78)
[2024-10-04 09:38] LABS: ALT 12 U/L (14-59); AST 15 U/L (15-37); Albumin 3.5 g/dL (3.4-5.0); Alkaline Phosphatase 107 U/L (46-116); Anion Gap 10.6 mmol/L (3-11); BUN 25 mg/dL (7-18); Bilirubin, Total 0.79 mg/dL (0.2-1.0); CO2 25.4 mmol/L (21.0-32.0); CREATININE 1.8 mg/dL (0.55-1.02); Calcium 9.5 mg/dL (8.5-10.1); Chloride 105 mmol/L (98-107); Estimated GFR 27.78 (mL/min/1.73m2); Glucose 104 mg/dL (74-106); Potassium 4.4 mmol/L (3.5-5.1); Sodium 141 mmol/L (136-145)
== END 2024-10-04 11:45 | disposition home or self-care (01) ==
LOC: LBO 11:44
PROVIDERS: PCP Family Medicine; Visit Provider Family Medicine
DX: R10.84 Generalized abdominal pain (principal); G89.18 Other acute postprocedural pain; K62.89 Other specified diseases of anus and rectum; R10.9 Unspecified abdominal pain; J43.2 Centrilobular emphysema
CPT/HCPCS: 36415; 80053; 83690; 85025

== ENCOUNTER 2024-10-15 00:16 | Outpatient (CLI) | payer MEDICARE, SELFPAY ==
--- NOTE | 2024-10-15 06:30 | DI.CT_ITS ---
Exam(s) CT ABDOMEN PELVIS W EXAM: CT ABDOMEN PELVIS W CLINICAL HISTORY: Possible pancreatitis,ABD PAIN,R10.84. TECHNIQUE: Imaging Protocol: Axial computed tomography images with coronal and sagittal reformatted images were created and reviewed CONTRAST MATERIAL: Intravenous: Omnipaque 350 Contrast volume:50 ml Oral: no COMPARISON: CT CT ABDOMEN PELVIS W from 12/29/2023 FINDINGS: ABDOMEN and PELVIS: Lung Bases: No acute findings. Liver: Normal density. No suspicious mass. Gallbladder and biliary tract: Cholecystectomy no biliary dilation. Pancreas: Normal density. No abnormal calcifications or inflammatory process. No evidence of mass. Spleen: Normal. Kidneys: Normal size, contour and axis. No radiodense stones. No obstructive uropathy. No suspicious masses seen. Adrenal glands: No masses seen. Vasculature: Abdominal aorta non-dilated. Atherosclerotic changes. Small Soft tissues: Dehiscence of the anterior abdominal wall. Small fat containing bilateral inguinal her nias. Bladder: Nearly empty. No gross wall thickening. No calculi.No focal mass. Bowel: No obstruction. No bowel wall thickening. Appendix is not seen. Ileocolic anastomosis. Mod erate quantity of stool. Peritoneal cavity: No ascites. No focal collection. No mesenteric inflammatory response. No free air . Bones: Scoliosis and degenerative changes. Reproductive organs: Hysterectomy. Lymph nodes: No pathologically enlarged lymph nodes. IMPRESSION:: No acute abnormality in the abdomen or pelvis. No CT evidence of pancreatitis. RADIATION DOSE DELIVERED: 356.2mGy.cm Total DLP DATA REPOSITORY: All CT scans at this facility are submitted to the National Radiology Data Registry (NRDR) Dose Index Registry (DIR) with the [employer] ([employer]). RADIATION OPTIMIZATION: All CT scans at this facility use at least one of these dose optimization te chniques: automated exposure control; mA and/or kV adjustment per patient size (includes targeted exa ms where dose is matched to clinical indication); or iterative reconstruction.
[2024-10-15] MEDS: Barium Sulfate 2% W/V-Creamy Vanilla Smoothie 450 ML BTL PO (09:30)
[2024-10-15] MEDS: Barium Sulfate 2% W/V-Berry Smoothie 450 ML BTL PO (09:30)
[2024-10-15] MEDS: Omnipaque 350 MG/ML 500 ML BTL-Imaging package 50 ML IJ (11:07)
[2024-10-15] MEDS: Normal Saline - Diluent 50 ML VIAL IJ (11:07)
== END 2024-10-15 00:36 ==
LOC: DI 00:16
PROVIDERS: PCP Family Medicine; Visit Provider Family Medicine
DX: R10.84 Generalized abdominal pain (principal)
CPT/HCPCS: 74177

== ENCOUNTER 2024-10-15 01:44 | Outpatient (RCR) | payer MEDICARE, SELFPAY ==
[2024-10-15 09:18] LABS: CREATININE 1.9 mg/dL (0.55-1.02); Estimated GFR 26.04 (mL/min/1.73m2)
[2024-10-15] MEDS: Normal Saline Flush 10 ML SYR IVP (09:44)
== END 2024-10-15 23:59 | disposition home or self-care (01) ==
LOC: INF 01:44
PROVIDERS: PCP Family Medicine; Visit Provider Family Medicine
DX: R10.84 Generalized abdominal pain (principal)
CPT/HCPCS: 36415; 96523; 82565

== ENCOUNTER → 2024-12-20 13:27 | Outpatient (BNVA) | payer MEDICARE, SELFPAY | PROVIDERS: PCP Family Medicine; Referring Provider Family Medicine; Visit Provider Student in an Organized Health Care Education/Training Program | DX: Z78.9 Other specified health status (principal) | CPT/HCPCS: 99214; 99215 ==

== ENCOUNTER → 2024-12-28 08:42 | Outpatient (BNVA) | payer MEDICARE, SELFPAY | PROVIDERS: PCP Family Medicine; Referring Provider Student in an Organized Health Care Education/Training Program; Visit Provider Physician Assistant Surgical | DX: J43.2 Centrilobular emphysema (principal) | CPT/HCPCS: 99214 ==

== ENCOUNTER 2025-03-31 10:19 | Emergency (ER) | payer MEDICARE, SELFPAY ==
[2025-03-31 10:28] VITALS: BP 97/45; PULSE 64; RESP 15; O2SAT 95
--- NOTE | 2025-03-31 10:30 | DI.RAD_ITS ---
Exam(s) XR CHEST 2V PA LATERAL EXAM: XR CHEST 2V PA LATERAL CLINICAL HISTORY: ?pneumonia TECHNIQUE: 2D digital imaging was performed. Two views. COMPARISON: CT CT CHEST WO from 04/29/2022 CR XR PORTABLE CHEST AP POST LINE from 08/24/[address] ABDOMEN PELVIS W from 10/15/2024 FINDINGS: HEART: Normal size. Aorta: Not dilated. PULMONARY VASCULATURE: Prominent MEDIASTINUM: Unremarkable. LUNGS: Poor pulmonary inflation. Chronic interstitial and emphysematous changes. PLEURAL SPACE: No pleural effusion or pneumothorax. BONE:Mild T12 compression fracture. Scoliosis. SOFT TISSUES: Port over left upper chest. IMPRESSION: No acute abnormality. DATA REPOSITORY: RADIATION DOSE DELIVERED:
--- NOTE | 2025-03-31 10:43 | DI.CT_ITS ---
Exam(s) CT HEAD WO EXAM: CT HEAD WO CLINICAL HISTORY: headache. TECHNIQUE: Imaging Protocol: Axial computed tomography images with coronal and sagittal reformatted images were created and reviewed COMPARISON: CT CT HEAD CERVICAL SPINE WO from 05/19/2023 FINDINGS: Ventricles and Extra axial spaces: Normal in size and morphology for the patient's age. Hemorrhage: None. Cerebral parenchyma: No evidence of acute infarct or mass. Mild atrophy consistent with the patient's age. [id number] white matter changes consistent with microvascular disease. Midline shift: None. Brainstem/Cerebellum: Normal. Bones: No skull or facial fractures. Visualized Paranasal sinuses:Clear. Mastoids: Clear. Soft Tissues: Unremarkable. ORBITS: Unremarkable. PITUITARY: Not enlarged. IMPRESSION: No acute intracranial process. RADIATION DOSE DELIVERED: 870.81mGy.cm Total DLP DATA REPOSITORY: All CT scans at this facility are submitted to the National Radiology Data Registry (NRDR) Dose Index Registry (DIR) with the [employer] ([employer]). RADIATION OPTIMIZATION: All CT scans at this facility use at least one of these dose optimization techniques: automated exposure control; mA and/or kV adjustment per patient size (includes targeted exams where dose is matched to clinical indication); or iterative reconstruction.
--- NOTE | 2025-03-31 10:45 | ED.GENADUL_ITS ---
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 history: Lives with son who is handicapped/zyt-bqubw-ers stat es she will have somebody helping her a nd her son History History 6 Para Hx # Term Pregnancies 5 Multiple births Hx # Pregnancies Ectopic pregnancies AB induced Hx Number of Living Children 2 AB spontaneous 1
[2025-03-31 11:00] VITALS: BP 97/45; PULSE 64; RESP 15; O2SAT 95
[2025-03-31 11:07] LABS: Abs Immature Grans 0.03 10^3/uL (0.0-0.06); HCT 30.3 % (36.0-46.0); HGB 9.3 g/dL (11.2-15.7); Immature Grans % 0.5 %; MCH 28.0 pg (27.0-33.0); MCHC 30.7 % (32.0-36.0); MCV 91 fL (80-95); MPV 10.8 fL (8.0-11.0); Platelet Count 174 10^3/uL (130-400); RBC 3.32 10^6/uL (3.93-5.22); RDW 14.9 % (11.7-14.6); RDW-SD 50.3 fL; WBC 5.82 10^3/uL (4.4-10.8)
[2025-03-31 11:27] VITALS: RESP 16
[2025-03-31 11:31] LABS: ALT 203 U/L (14-59); AST 113 U/L (15-37); Albumin 3.1 g/dL (3.4-5.0); Alkaline Phosphatase 154 U/L (46-116); Anion Gap 9.1 mmol/L (3-11); BUN 59 mg/dL (7-18); Bilirubin, Total 0.6 mg/dL (0.2-1.0); CO2 25.9 mmol/L (21.0-32.0); Calcium 8.8 mg/dL (8.5-10.1); Chloride 102 mmol/L (98-107); Estimated GFR 15.05 (mL/min/1.73m2); Glucose 88 mg/dL (74-106); Magnesium 2.9 mg/dL (1.8-2.4); Potassium 5.2 mmol/L (3.5-5.1); Sodium 137 mmol/L (136-145); TSH (W/Ref FT4) 0.56 uIU/mL (0.36-3.74); Total Protein 6.2 g/dL (6.4-8.2)
[2025-03-31] MEDS: Normal Saline 1,000 ML 1000 ML IV (11:41)
--- NOTE | 2025-03-31 11:56 | DI.CT_ITS ---
Exam(s) CT ABDOMEN PELVIS WO EXAM: CT ABDOMEN PELVIS WO CLINICAL HISTORY: elevated lft's, right sided abdominal pain. TECHNIQUE: Imaging Protocol: Axial computed tomography images with coronal and sagittal reformatted images were created and reviewed. Oral: / no COMPARISON: CT CT ABDOMEN PELVIS W from 10/15/2024 FINDINGS: Lung Bases: Bibasilar atelectasis. Liver: Normal density. No suspicious mass. Gallbladder and biliary tract: Cholecystectomy. No biliary dilation. Pancreas: Normal density. No abnormal calcifications or inflammatory process. Spleen: Normal. Kidneys: Normal size, contour and axis. No radiodense stones. No obstructive uropathy. No suspicious masses seen. Adrenal glands: No masses seen. Lymph nodes: Within normal limits. Vasculature: Abdominal aorta non-dilated. Atherosclerotic changes. Soft tissues: Small fat containing bilateral inguinal hernias. Bladder: No wall thickening. No mass or calculi. Bowel: No obstruction or bowel wall thickening. Ileocolic anastomosis is unremarkable. Minimal diverticulosis. Peritoneal cavity: No ascites. No focal collection. No mesenteric inflammatory response. Reproductive organs: Hysterectomy Bones: Degenerative changes and scoliosis in the spine. IMPRESSION: No acute abnormality in the abdomen or pelvis. RADIATION DOSE DELIVERED: 502.23mGy.cm Total DLP DATA REPOSITORY: All CT scans at this facility are submitted to the National Radiology Data Registry (NRDR) Dose Index Registry (DIR) with the [employer] (A[employer]). RADIATION OPTIMIZATION: All CT scans at this facility use at least one of these dose optimization techniques: automated exposure control; mA and/or kV adjustment per patient size (includes targeted exams where dose is matched to clinical indication); or iterative reconstruction.
[2025-04-01 16:27] LABS: Hepatitis A Antibody IgM Negative (Negative); Hepatitis C Ab w Rflx HCV PCR Negative (Negative)
== END 2025-03-31 13:38 | disposition home or self-care (01) ==
PROVIDERS: Emergency Provider Emergency Medicine; PCP Family Medicine
DX: R53.83 Other fatigue (principal); E86.0 Dehydration; R79.89 Other specified abnormal findings of blood chemistry; R53.1 Weakness
CPT/HCPCS: 99285; 99284; 36415; 36416; 82962; 80053; 86704; 86709; 86803; 87340; 96360; 96361; 70450; 71046; 74176; 83735; 84443; 85025

== ENCOUNTER 2025-04-04 16:33 | Outpatient (REF) | payer MEDICARE, SELFPAY | END 2025-04-04 16:34 | disposition home or self-care (01) | LOC: LBN 16:33 | PROVIDERS: PCP Family Medicine; Visit Provider Nurse Practitioner Family | DX: L98.9 Disorder of the skin and subcutaneous tissue, unspecified (principal) | CPT/HCPCS: 87070; 87205 ==

== ENCOUNTER 2025-04-11 14:28 | Outpatient (CLI) | payer MEDICARE, SELFPAY ==
[2025-04-11 09:18] LABS: ALT 25 U/L (14-59); AST 21 U/L (15-37); Albumin 3.2 g/dL (3.4-5.0); Alkaline Phosphatase 102 U/L (46-116); Anion Gap 6.1 mmol/L (3-11); BUN 22 mg/dL (7-18); Bilirubin, Total 0.3 mg/dL (0.2-1.0); CO2 28.9 mmol/L (21.0-32.0); Calcium 9.0 mg/dL (8.5-10.1); Chloride 104 mmol/L (98-107); Estimated GFR 37.33 (mL/min/1.73m2); Glucose 86 mg/dL (74-106); Potassium 5.6 mmol/L (3.5-5.1); Sodium 139 mmol/L (136-145); Total Protein 6.3 g/dL (6.4-8.2)
== END 2025-04-11 14:29 | disposition home or self-care (01) ==
LOC: LBO 14:29
PROVIDERS: PCP Family Medicine; Visit Provider Family Medicine
DX: R79.89 Other specified abnormal findings of blood chemistry (principal); E86.0 Dehydration
CPT/HCPCS: 36415; 80053

== ENCOUNTER 2025-05-02 00:37 | Outpatient (CLI) | payer MEDICARE, SELFPAY ==
--- NOTE | 2025-05-02 08:40 | DI.US_ITS ---
APPROVED REPORT EXAM: Comprehensive 2D, Doppler, and color-flow Echocardiogram Other Information Technically limited study due to inadequate transducer compression due to pain. Conclusion Technically difficult and suboptimal study Normal left ventricular wall thickness and chamber size. Ejection fraction is 50 to 55%. There are no segmental wall motion abnormalities identified Normal right ventricular size and function Both atria are normal in size Within the limits of the study, there is no structural or hemodynamically significant valvular disease Wall motion Left Ventricle Left ventricle is borderline dilated. Left ventricular systolic function is borderline. There is normal left ventricular wall thickness. No segmental wall motion abnormalities There is no ventricular septal defect visualized. LVEF is 50-55%. Right Ventricle The right ventricle is normal size. The right ventricular systolic function is normal. Atria The left atrium size is normal. The right atrium size is normal. The interatrial septum is intact with no evidence for an atrial septal defect. Aortic Valve The aortic valve is normal in structure. Aortic valve is trileaflet. There is no aortic valvular stenosis. No aortic regurgitation is present. Mitral Valve The mitral valve is normal in structure. No evidence of mitral valve stenosis. There is no mitral valve regurgitation noted. Tricuspid Valve The tricuspid valve is normal in structure. There is no tricuspid valve stenosis. Mild eccentric tricuspid regurgitation. The RVSP is 35.1 mmHg. Pulmonic Valve The pulmonary valve is normal in structure. There is no pulmonic valvular stenosis. There is no pulmonic valvular regurgitation. Great Vessels The aortic root is normal in size. Ascending aorta is not well visualized. Aortic arch is normal in caliber. IVC is normal in size and collapses >50% with inspiration. Pericardium There is no pericardial effusion. 2D Dimensions IVSD d PLAX 0.75 cm F: 0.6-1.0 Ao Root d 2.99 cm F: 2.7 - 3.3 LVPW d PLAX 0.73 cm F: 0.6 - 1.0 Ao Asc Diam d 2.77 cm F: 2.3 - 3.1 LVID d PLAX 5.41 cm F: 3.8 - 5.2 IVC Diam exp d SLAX 2.5 cm LVDs 4.17 cm F: 2.2 - 3.5 LV EF Teichholz 45.4 % FS 22.82 % LV EDV (Teich) 141.9 mL LV ESV (Teich) 77.5 mL Stroke Vol Index (Teich) 43.81 M-Mode TAPSE 2.54 cm (M/F) >1.7 LV Volumes - Method of Disks (Sparks's) Single Plane 2D LV Volumes Biplane 2D LV Volumes LV EDV A4C 54.8 mL LV EDV BP 44.23 mL F: 46 - 106 LV ESV A4C 29.9 mL LV ESV BP 25.1 mL LVEF(%) A4C 45.3 % LVEF(%) BP 43.26 % F: 54 - 74 LV EDV A2C 37.6 mL LV EDV BP Index 30.08 mL/m2 F: 29 - 61 LV ESV A2C 21.1 mL SV BP LVEF(%) A2C 43.9 % SV Index LA Volume LA Length A4C 4.6 cm LA Length A2C 3.7 cm LA Area A4C s 8.32 cm2 LA Area A2C s 8.45 cm2 LA Vol A4C A-L 12.68 mL LA Vol A2C A-L 16.31 mL LA Vol Biplane A-L 16.0 mL LA Vol/BSA A4C A-L LA Vol/BSA A2C A-L LA Vol/BSA BP A-L 10.9 mL/m2 LA Vol A4C MOD 12.2 mL LA Vol A2C MOD 15.5 mL LA Vol BP MOD 15.3 mL LV Diastology MV E' medial 0.100 (>0.07 m/s) MV E Vmax 0.77 (0.4-1.3 m/s) MV E/E' MED 7.69 (<14) MV A Vmax 1.00 (0.4-1.3 m/s) MV E' lateral 0.082 (>0.1 m/s) E/A Ratio 0.8 MV E/E' LAT 9.36 (<14) MV E' Average 0.091 m/s MV E/E'(average) 8.44 Aortic Valve AoV Vmax 1.22 m/s LVOT Vmax 1.22 m/s AoV Peak Grad 5.9 mmHg LVOT Peak Grad 5.9 mmHg AoV Area (Vmax) 3.40 cm2 LVOT VTI 0.284 m AoV VTI 0.310 m LVOT Mean Grad 2.8 mmHg AoV Mean Kaushal. 0.90 m/s LVOT SV 96.49 mL AoV Mean Grad 3.5 mmHg LVOT Diam s 2.05 cm AoV Area (VTI) 3.11 cm2 AV Regurg Peak Gr. 5.95 mmHg Velocity Ratio 1.00 Mitral Valve MV DT 270 (160-240 msec) Pulmonary Valve PV Vmax 1.14 (0.5-1.5 m/s) RVOT Vmax 0.76 m/s PV Peak Grad 5.2 mmHg RVOT Peak Gr. 2.3 mmHg PV Mean Kaushal 0.68 m/s RVOT VTI 0.149 m PV Mean Grad 2.2 mmHg RVOT Mean Gr. 1.0 mmHg Tricuspid Valve RA Pressure 3.00 mmHg TR Vmax 2.84 m/s TR Peak Grad 32.1 mmHg RVSP (TR) 35.1 mmHg
== END 2025-05-02 00:57 ==
LOC: DI 00:37
PROVIDERS: PCP Family Medicine; Visit Provider Family Medicine
DX: R06.09 Other forms of dyspnea (principal)
CPT/HCPCS: 93306

== ENCOUNTER → 2025-05-31 09:27 | Outpatient (BNVA) | payer MEDICARE, SELFPAY | PROVIDERS: PCP Family Medicine; Referring Provider Family Medicine; Visit Provider Student in an Organized Health Care Education/Training Program | DX: Z95.828 Presence of other vascular implants and grafts (principal) | CPT/HCPCS: 99213 ==

== ENCOUNTER → 2025-06-27 08:31 | Outpatient (BNVA) | payer MEDICARE, SELFPAY | PROVIDERS: PCP Family Medicine; Referring Provider Family Medicine; Visit Provider Physician Assistant Surgical | DX: J43.2 Centrilobular emphysema (principal); Z87.891 Personal history of nicotine dependence | CPT/HCPCS: 99214 ==

== ENCOUNTER 2025-07-12 11:12 | Day surgery (SDC) | payer MEDICARE, SELFPAY ==
--- NOTE | 2025-07-11 15:17 | PDOC.DSDIS_ITS ---
Date of service: 07/12/25 Discharge Plan Disposition Patient Disposition: Home Condition: Good Discharge Details Reason For Visit: Removal of left subclavian Port-A-Cath Attending Provider: Nick Nagy Primary Care Provider: Earle Olguin Home Meds and New Rx's Prescriptions: Continued Acidophilus Capsule 10 mg PO DAILY aspirin [Adult Aspirin Regimen] 81 mg tablet,delayed release (DR/EC) 81 mg PO DAILY albuterol sulfate 1.25 mg/3 mL solution for nebulization 1.25 mg inhalation QID PRN (Reason: shortness of breath or wheezing) Qty: 180 3RF DYPTHERIA vaccine 1 ea IM ONCE Qty: 1 0RF Rx Instructions: Can you order DYPTHERIA vaccine for patient? Allergic to TETANUS cyanocobalamin (vitamin B-12) 500 mcg tablet 500 mcg PO DAILY Qty: 90 3RF naloxone [Narcan] 4 mg/actuation spray,non-aerosol 1 spray intranasal Q2M Qty: 4 1RF Rx Instructions: spray 1 dose into ONE nostril; alternate nostrils w each dose until help arrives TWO PACKS PLEASE furosemide [Lasix] 20 mg tablet 20 mg PO DAILY PRN magnesium citrate,mag oxide 250 mg capsule 250 mg PO QDAY PRN alprazolam 0.25 mg tablet 0.25 mg PO DAILY PRN (Reason: anxiety, angina) Qty: 30 2RF Patient Comments: pt. states it is for chest pain nitroglycerin 400 mcg/spray spray,non-aerosol 0.4 mg Translingual ONCE Qty: 9.6 6RF Patient Comments: pt. reports she used it friday/ early friday, after two sprays chest pain relieved Rx Instructions: Use once, may repeat in 10 minutes .. if chest pain continues, call 911 nystatin 100,000 unit/gram powder 1 applic topical BID Qty: 15 0RF tramadol [Ultram ER] 100 mg tablet extended release 24 hr 100 mg PO DAILY Qty: 28 2RF pramipexole 0.125 mg tablet 0.125 mg PO QHS Qty: 90 3RF ondansetron 4 mg tablet,disintegrating 4 mg PO Q8H PRN (Reason: nausea and vomiting) Qty: 20 3RF lisinopril 10 mg tablet 10 mg PO DAILY Qty: 90 3RF pantoprazole 40 mg tablet,delayed release (DR/EC) 40 mg PO DAILY Qty: 90 3RF Rx Instructions: Trial re-start as Dexilant was prohibitively expensive albuterol sulfate 90 mcg/actuation HFA aerosol inhaler 2 puff inhalation Q6H PRN Qty: 1 3RF diphenoxylate-atropine [Lomotil] 2.5-0.025 mg tablet 2 tab PO Q6H PRN (Reason: diarrhea) Qty: 240 2RF Rx Instructions: Continue daily dose, per special instructions Valentina Aerosphere 160-9-4.8 mcg/actuation HFA aerosol inhaler See Rx Instructions .ROUTE .COMPLEX Qty: 10.7 12RF Dose Instruction: INHALE TWO PUFFS BY MOUTH TWICE A DAY - DISCONTINUE STILOTO AND ADVAIR Rx Instructions: INHALE TWO PUFFS BY MOUTH TWICE A DAY - DISCONTINUE STILOTO AND ADVAIR atenolol 50 mg tablet See Rx Instructions .ROUTE .COMPLEX Qty: 90 3RF Dose Instruction: TAKE ONE TABLET BY MOUTH EVERY DAY Rx Instructions: TAKE ONE TABLET BY MOUTH EVERY DAY loperamide 2 mg capsule See Rx Instructions .ROUTE .COMPLEX Qty: 90 3RF Dose Instruction: TAKE ONE CAPSULE BY MOUTH EVERY DAY NEEDED FOR LOOSE STOOL, MAX DAILY DOSE OF 3 CAPSULES - UP TO 3 PER DAY PER SURGERY Rx Instructions: TAKE ONE CAPSULE BY MOUTH EVERY DAY NEEDED FOR LOOSE STOOL, MAX DAILY DOSE OF 3 CAPSULES - UP TO 3 PER DAY PER SURGERY ferrous sulfate 325 mg (65 mg iron) tablet 325 mg PO DAILY Qty: 60 6RF dicyclomine 20 mg tablet 20 mg PO TID Qty: 90 0RF acetaminophen [Tylenol] 325 mg tablet 500 mg PO Q6H PRN (Reason: Abdominal Discomfort) Qty: 100 0RF (DME) nebulizers [facility] [place] See Rx Instructions .ROUTE .MEDSUPPLY Qty: 1 0RF Rx Instructions: As directed Discharge Instructions Additional Instructions: Aminata, it was great seeing you today, and I hope the removal of this Port-A-Cath helps you feel well in the weeks to come. Things went very smoothly. I took out the old catheter, cleaned everything up, and sewed it closed in a few layers. I also used quite a bit of numbing medication, so hopefully that will help provide some relief at the incision site. Alternating ibuprofen and Tylenol will be very helpful over the next few days. You can also use an ice pack over the incision to help with bruising, pain, and swelling. All of the stitches will be absorbed, but I would like to check up and you in the office in the next week or two to make sure it is healing okay. You have an appointment set up in our office on July 25, we look forward to seeing you then. If you need anything before that, please do not hesitate to call. 1. Resume all of your regular medications. 2. Alternate [id number] Tylenol and ibuprofen every 6 hours for the first 2 days. Then use them as needed. 3. Use ice packs over the incision at 15-minute intervals to help with pain and swelling after surgery 4. Leave bandage in place for 24 hours, then remove. 5. Shower with warm soapy water. Pat dry. Use a bandaid if needed to protect your clothing. 6. No soaking or tub baths until I see you in the office. 7. No heavy lifting until I see you in the office. 8. Call the office (or go directly to the emergency room after hours) if you notice any of the following: Develop chills (warm to touch), or if you have a thermometer and your temperature is above 101 Difficulty breathing or difficultly swallowing Persistent vomiting Any bleeding ? exceeding one tablespoon 9. Call your physician if the site where your intravenous was started becomes red, swollen, painful, and warm to touch. Stand Alone Forms: Anesthesia Discharge Inst[facility] Navin [facility] ([facility]), Portal Information Activity:: Activity as Tolerated Remove Dressings/Wound Care:: 24 hours Shower/Bathe:: 24 hours Diet:: As Tolerated Discharge Orders Discharge Orders: Discharge Order (Routine); Ordered 07/11/25 Ordered By: Nick Nagy DS: Diagnosis Discharge Diagnosis (1) Port-A-Cath in place: Status: Acute Asessment and Plan: Routine postoperative visit
--- NOTE | 2025-07-11 15:23 | W.PM.OP ---
Operative Note Operative Note PRE-OP DIAGNOSIS: Port-A-Cath in place POST-OP DIAGNOSIS: same PROCEDURE: Removal of left subclavian Port-A-Cath SURGEON: Nick Nagy ANESTHESIA TYPE: General:No Airway Refer to Anesthesia Record ESTIMATED BLOOD LOSS: 5 PATHOLOGY: none sent COMPLICATIONS: None Patient was transported to: same day Patient's condition: stable Indications: Aminata is an 85-year-old woman with a left subclavian Port-A-Cath, that has never been used. Procedure Description: I met with Rachel in the preoperative area, and we reviewed the plan for removal of the left subclavian Port-A-Cath. We then went back to the operating room, and she was assisted to the OR table. She was padded and supported appropriately. After the initiation of anesthesia, I established a generous field block over the pre-existing Port-A-Cath. I made a small skin incision overlying the subcutaneous port, and carefully dissected it free from the surrounding soft tissues. There was a Prolene suture holding it in place. This was sharply removed. A small amount of the catheter was also dissected free, and using gentle pressure over the subclavian position, I swiftly removed the Port-A-Cath. It appeared intact. Pressure was held over the subclavian position for a few minutes. There was no bleeding within the site. Site was irrigated clean, and the deep tissues were reapproximated with interrupted Vicryl suture. Interrupted Monocryl suture was then used to reapproximate the skin. Band-Aids were applied, and Aminata was transferred back to the day surgery unit. Date of Procedure: 07/12/25
[2025-07-12 12:09] VITALS: BP 144/73; PULSE 68; RESP 16; TEMP 36; O2SAT 96
[2025-07-12] MEDS: Lactated Ringers 1,000 ML 80 ML IV (12:25)
[2025-07-12] MEDS: Acetaminophen 500 MG TAB 1000 MG PO (12:26)
[2025-07-12] MEDS: Gabapentin 300 MG CAP PO (12:27)
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
[2025-07-12 13:16] VITALS: BMI 27.6
[2025-07-12] MEDS: Bupivacaine 0.5% Pres-Free 30 ML VIAL (13:59)
[2025-07-12 14:05] VITALS: PULSE 67; RESP 16; TEMP 36.4; O2SAT 96
[2025-07-12 14:45] VITALS: BP 140/74; PULSE 63; RESP 16; TEMP 36.7; O2SAT 97
--- NOTE | 2025-07-12 15:31 | W.ANESPOSTOP ---
Postoperative Evaluation Date, Time and Location Date Performed: 07/12/25 Time Performed: 14:45 Patient Location: Day Surgery Unit Vital Signs Most Recent Imported Vital Signs: Most Recent Vital Signs Temp Pulse Resp BP Pulse Ox 36.7 C 63 16 140/74 97 07/12/25 14:45 07/12/25 14:45 07/12/25 14:45 07/12/25 14:45 07/12/25 14:45 Pain Score Most Recent Pain Score: Most Recent Pain Score Pain Level 0 07/12/25 14:45 Assessment Mental Status: Awake (Alert & Oriented to Patient Baseline) Airway and Respiratory Function: Patent airway with normal (patient baseline) respiratory exam Cardiovascular Function: Hemodynamically Stable Hydration Status: Adequately Hydrated Nausea & Vomiting: No Nausea or Vomiting Pain: Pt. Denies Any Pain Peripheral Nerve Block: Patient did not receive a nerve block
== END 2025-07-12 15:19 | disposition home or self-care (01) ==
LOC: SUR 11:13
PROVIDERS: PCP Family Medicine; Visit Provider Surgery
PROC: (CPT 36590; principal; 2025-07-12 12:15)
DX: Z45.2 Encounter for adjustment and management of vascular access device (principal)
CPT/HCPCS: 36590; J0665; J1100; J2405; J2704

== ENCOUNTER → 2025-07-25 08:13 | Outpatient (BNVA) | payer MEDICARE, SELFPAY | PROVIDERS: PCP Family Medicine; Referring Provider Family Medicine; Visit Provider Surgery | DX: Z51.89 Encounter for other specified aftercare (principal); Z95.828 Presence of other vascular implants and grafts | CPT/HCPCS: 99212 ==